=== PATIENT | female | born 1965 | race Caucasian/White ===

== ENCOUNTER 2018-06-28 12:17 | Observation (INO) | payer OTHER ==
[2018-06-28] MEDS ORDERED: NITROGLYCERIN OINT 1 INCH/GM PACKET TOPICAL STA (12:39)
[2018-06-28] MEDS ORDERED: ASPIRIN 81 MG PO STA (12:39)
--- NOTE | 2018-06-28 12:41 | ED ---
General Adult HPI - General Chief complaint: Chest Pain Stated complaint: Chest Pain Time Seen by Provider: 06/28/18 12:26 Source: patient, RN notes reviewed Mode of arrival: ambulatory Limitations: no limitations - History of Present Illness Initial comments: Patient is a pleasant 42-year-old female presenting to the emergency Department with complaints of chest discomfort. Onset of symptoms was 2 days ago. Symptoms were more mild yesterday however waxing and waning. Discomfort currently is 4/10. No history of similar symptoms previously. Discomfort is described as tightness and there is some radiation towards the left neck. Patient states symptoms are positional however also worse with exertion. Patient does have some associated dyspnea and sweating. No nausea. - Related Data Home Medications Medication Instructions Recorded Confirmed Aspirin EC [Ecotrin Low Dose] 81 mg PO ONCE PRN 06/28/18 06/28/18 Allergies Allergy/AdvReac Type Severity Reaction Status Date / Time aspirin Allergy Abdominal Verified 06/28/18 12:46 Pain cephalexin [From Keflex] Allergy Rash/Hives Verified 06/28/18 12:45 Iodinated Contrast- Oral and Allergy Anaphylaxis Unverified 06/28/18 14:54 IV Dye Review of Systems ROS Statement: Those systems with pertinent positive or pertinent negative responses have been documented in the HPI. ROS Other: All systems not noted in ROS Statement are negative. Constitutional: Denies: fever Eyes: Denies: eye pain ENT: Denies: ear pain Respiratory: Reports: dyspnea. Denies: cough Cardiovascular: Reports: chest pain Endocrine: Reports: fatigue Gastrointestinal: Denies: abdominal pain Genitourinary: Denies: dysuria Musculoskeletal: Denies: back pain Skin: Denies: rash Neurological: Denies: weakness Past Medical History Additional Past Medical History / Comment(s): arthritis, migraines, Smoking Status: Light tobacco smoker Past Alcohol Use History: Occasional General Exam Limitations: no limitations General appearance: alert, in no apparent distress Head exam: Present: atraumatic Eye exam: Present: normal appearance, PERRL ENT exam: Present: normal oropharynx Neck exam: Present: normal inspection Respiratory exam: Present: normal lung sounds bilaterally. Absent: chest wall tenderness Cardiovascular Exam: Present: regular rate, normal rhythm Expanded Peripheral pulses: 2+: Radial (R), Radial (L), Dorsalis Pedis (R), Dorsalis Pedis (L) GI/Abdominal exam: Present: soft. Absent: tenderness Extremities exam: Present: normal inspection. Absent: pedal edema, calf tenderness Neurological exam: Present: alert Psychiatric exam: Present: normal affect, normal mood Skin exam: Present: normal color Course Vital Signs 06/28/18 06/28/18 06/28/18 12:21 13:59 16:21 Temperature 98.4 F Pulse Rate 82 77 71 Respiratory 18 16 17 Rate Blood Pressure 115/75 112/71 98/56 O2 Sat by Pulse 98 96 97 Oximetry EKG Findings - EKG Comments: EKG Findings:: Normal sinus rhythm 72. TX 1:30. QRS 88. QT 366. QTc 400. Normal axis. Normal QRS. No acute ST change. Medical Decision Making - Medical Decision Making Patient reevaluated and resting comfortably in bed. Patient updated on results and plan. Case was discussed in detail with Dr. Felder, covering for Dr. hickman , who will admit. - Lab Data Result diagrams: 06/28/18 12:54 06/28/18 12:54 Lab Results 06/28/18 06/28/18 06/28/18 Range/Units 12:54 12:54 12:54 WBC 5.2 (3.8-10.6) k/uL RBC 5.05 (3.80-5.40) m/uL Hgb 16.1 H (11.4-16.0) gm/dL Hct 48.4 H (34.0-46.0) % MCV 95.9 (80.0-100.0) fL MCH 31.8 (25.0-35.0) pg MCHC 33.2 (31.0-37.0) g/dL RDW 13.3 (11.5-15.5) % Plt Count 203 (150-450) k/uL Neutrophils % 58 % Lymphocytes % 32 % Monocytes % 5 % Eosinophils % 2 % Basophils % 1 % Neutrophils # 3.0 (1.3-7.7) k/uL Lymphocytes # 1.6 (1.0-4.8) k/uL Monocytes # 0.3 (0-1.0) k/uL Eosinophils # 0.1 (0-0.7) k/uL Basophils # 0.0 (0-0.2) k/uL PT (9.0-12.0) sec INR (<1.2) APTT (22.0-30.0) sec D-Dimer (<0.60) mg/L FEU Sodium 142 (137-145) mmol/L Potassium (3.5-5.1) mmol/L Chloride 108 H (98-107) mmol/L Carbon Dioxide 25 (22-30) mmol/L Anion Gap 9 mmol/L BUN 13 (7-17) mg/dL Creatinine 0.69 (0.52-1.04) mg/dL Est GFR (CKD-EPI)AfAm >90 (>60 ml/min/1.73 sqM) Est GFR (CKD-EPI)NonAf >90 (>60 ml/min/1.73 sqM) Glucose 108 H (74-99) mg/dL Calcium 10.4 H (8.4-10.2) mg/dL Magnesium 2.2 (1.6-2.3) mg/dL Total Bilirubin 0.7 (0.2-1.3) mg/dL AST 37 H (14-36) U/L ALT 19 (9-52) U/L Alkaline Phosphatase 102 (38-126) U/L Total Creatine Kinase 46 (30-135) U/L CK-MB (CK-2) 0.4 (0.0-2.4) ng/mL CK-MB (CK-2) Rel Index 0.9 Troponin I <0.012 (0.000-0.034) ng/mL Total Protein 8.2 (6.3-8.2) g/dL Albumin 4.4 (3.5-5.0) g/dL 06/28/18 Range/Units 12:54 WBC (3.8-10.6) k/uL RBC (3.80-5.40) m/uL Hgb (11.4-16.0) gm/dL Hct (34.0-46.0) % MCV (80.0-100.0) fL MCH (25.0-35.0) pg MCHC (31.0-37.0) g/dL RDW (11.5-15.5) % Plt Count (150-450) k/uL Neutrophils % % Lymphocytes % % Monocytes % % Eosinophils % % Basophils % % Neutrophils # (1.3-7.7) k/uL Lymphocytes # (1.0-4.8) k/uL Monocytes # (0-1.0) k/uL Eosinophils # (0-0.7) k/uL Basophils # (0-0.2) k/uL PT 10.0 (9.0-12.0) sec INR 1.0 (<1.2) APTT 22.4 (22.0-30.0) sec D-Dimer 1.07 H (<0.60) mg/L FEU Sodium (137-145) mmol/L Potassium (3.5-5.1) mmol/L Chloride (98-107) mmol/L Carbon Dioxide (22-30) mmol/L Anion Gap mmol/L BUN (7-17) mg/dL Creatinine (0.52-1.04) mg/dL Est GFR (CKD-EPI)AfAm (>60 ml/min/1.73 sqM) Est GFR (CKD-EPI)NonAf (>60 ml/min/1.73 sqM) Glucose (74-99) mg/dL Calcium (8.4-10.2) mg/dL Magnesium (1.6-2.3) mg/dL Total Bilirubin (0.2-1.3) mg/dL AST (14-36) U/L ALT (9-52) U/L Alkaline Phosphatase (38-126) U/L Total Creatine Kinase (30-135) U/L CK-MB (CK-2) (0.0-2.4) ng/mL CK-MB (CK-2) Rel Index Troponin I (0.000-0.034) ng/mL Total Protein (6.3-8.2) g/dL Albumin (3.5-5.0) g/dL - Radiology Data Radiology results: report reviewed (Computed tomography scan chest negative for pulmonary embolism.), image reviewed (Chest x-ray shows no acute process, correlate for COPD.) Disposition Clinical Impression: Chest pain Disposition: ADMITTED IP TO THIS HOSP Is patient prescribed a controlled substance at d/c from ED?: No Referrals: Stephen Licona MD [Primary Care Provider] - 1-2 days Decision Time: 17:03
[2018-06-28 13:14] LABS: Basophils % (A) 1 %; Eosinophils # (A) 0.1 k/uL (0-0.7); Eosinophils % (A) 2 %; HCT 48.4 % (34.0-46.0); HGB 16.1 gm/dL (11.4-16.0); Lymphocytes # (A) 1.6 k/uL (1.0-4.8); Lymphocytes % (A) 32 %; MCH 31.8 pg (25.0-35.0); MCHC 33.2 g/dL (31.0-37.0); MCV 95.9 fL (80.0-100.0); Mean Platelet Volume 7.3; Monocytes # (A) 0.3 k/uL (0-1.0); Monocytes % (A) 5 %; Neutrophils % (A) 58 %; Platelet Count 203 k/uL (150-450); RBC 5.05 m/uL (3.80-5.40); RDW 13.3 % (11.5-15.5); WBC 5.2 k/uL (3.8-10.6)
[2018-06-28 13:27] LABS: Partial Thromboplastin Time 22.4 sec (22.0-30.0)
[2018-06-28 13:29] LABS: ALT 19 U/L (9-52); AST 37 U/L (14-36); Albumin 4.4 g/dL (3.5-5.0); Alkaline Phosphatase 102 U/L (38-126); Anion Gap 9 mmol/L; Blood Urea Nitrogen 13 mg/dL (7-17); Calcium 10.4 mg/dL (8.4-10.2); Carbon Dioxide 25 mmol/L (22-30); Chloride 108 mmol/L (98-107); Glucose 108 mg/dL (74-99); Magnesium 2.2 mg/dL (1.6-2.3); Sodium 142 mmol/L (137-145); Total Bilirubin 0.7 mg/dL (0.2-1.3); Total Protein 8.2 g/dL (6.3-8.2)
--- NOTE | 2018-06-28 13:29 | XR ---
EXAMINATION TYPE: XR chest 2V DATE OF EXAM: 06/28/2018 HISTORY: Chest Pain. REFERENCE: NONE. FINDINGS: Lung volumes are prominent. The lungs are clear. Pleural space are clear. The heart is not enlarged. IMPRESSION: PLEASE CORRELATE FOR COPD.
[2018-06-28 13:33] LABS: Creatine Kinase 46 U/L (30-135)
[2018-06-28 13:43] LABS: D-Dimer 1.07 mg/L FEU (<0.60)
[2018-06-28 13:46] LABS: Creatine Kinase MB 0.4 ng/mL (0.0-2.4); Troponin I <0.012 ng/mL (0.000-0.034)
[2018-06-28] MEDS ORDERED: FAMOTIDINE 20 MG/2 ML VIAL IV STA (14:01)
[2018-06-28] MEDS ORDERED: methylPREDNISolone SOD SUCCI 125 MG/2 ML VIAL IV STA (14:01)
[2018-06-28] MEDS ORDERED: diphenhydrAMINE 50 MG/ML 1 ML VIAL IVP STA (14:01)
--- NOTE | 2018-06-28 15:18 | CT ---
EXAMINATION TYPE: CT angio chest DATE OF EXAM: 06/28/2018 3:11 PM COMPARISON: None HISTORY: chest pain CT DLP: 149.6 mGycm Automated exposure control for dose reduction was used. CONTRAST: CTA scan of the thorax is performed with IV Contrast, patient injected with 100mL mL of Isovue 370, p ulmonary embolism protocol. There are 3-D post processed images.. FINDINGS: Thoracic aorta is atheromatous without evidence of aneurysm or dissection. There is normal contrast o pacification of the pulmonary arteries. I see no filling defect. Heart size is normal. There is no pe ricardial effusion. There is mild pulmonary emphysema. The lungs are clear of consolidation. There is no pleural effusion. The bony thorax is intact. IMPRESSION: NO EVIDENCE OF PULMONARY EMBOLISM. MILD PULMONARY EMPHYSEMA.
--- NOTE | 2018-06-28 16:45 | P.HPIM ---
History of Present Illness Patient is a pleasant of 52-year-old female came in with compensative chest discomfort has been going on for last 3-4 days on and off patient has multiple such episodes yesterday last for about 2 minutes in left chest area, radiating to the left hand and neck area, she does smoke lasted for 2 minutes exertional in nature has some questionable diaphoresis shortness of breath as well as lightheadedness associated with that chest pain not associated with food not doesn't change with movement. Nonpleuritic in nature. Patient had a CT of the chest which negative which is negative for pulmonary embolism. Patient doesn't have any major medical problems patient does take aspirin at home. EKG did not show any acute ST-T wave changes facet of troponin is negative. Review of Systems REVIEW OF SYSTEMS: CONSTITUTIONAL: No fever, no malaise, no fatigue. HEENT: No recent visual problems or hearing problems. Denied any sore throat. CARDIOVASCULAR: No orthopnea, PND, no palpitations, no syncope. PULMONARY: no cough, no hemoptysis. GASTROINTESTINAL: No diarrhea, no nausea, no vomiting, no abdominal pain. Normoactive bowel sounds. NEUROLOGICAL: No headaches, no weakness, no numbness. HEMATOLOGICAL: Denies any bleeding or petechiae. GENITOURINARY: Denies any burning micturition, frequency, or urgency. MUSCULOSKELETAL/RHEUMATOLOGICAL: Denies any joint pain, swelling, or any muscle pain. ENDOCRINE: Denies any polyuria or polydipsia. The rest of the 14-point review of systems is negative. Past Medical History Additional Past Medical History / Comment(s): arthritis, migraines, Smoking Status: Light tobacco smoker Past Alcohol Use History: Occasional Medications and Allergies Home Medications Medication Instructions Recorded Confirmed Type Aspirin EC [Ecotrin Low Dose] 81 mg PO ONCE PRN 06/28/18 06/28/18 History Allergies Allergy/AdvReac Type Severity Reaction Status Date / Time aspirin Allergy Abdominal Verified 06/28/18 12:46 Pain cephalexin [From Keflex] Allergy Rash/Hives Verified 06/28/18 12:45 Iodinated Contrast- Oral and Allergy Anaphylaxis Unverified 06/28/18 14:54 IV Dye Physical Exam Vitals: Vital Signs Temp Pulse Resp BP Pulse Ox 06/28/18 16:21 71 17 98/56 97 06/28/18 13:59 77 16 112/71 96 06/28/18 12:21 98.4 F 82 18 115/75 98 Intake and Output 06/28/18 06/28/18 06/28/18 06:59 14:59 22:59 Other: Weight 66.224 kg PHYSICAL EXAMINATION: GENERAL: The patient is alert and oriented x3, not in any acute distress. Well developed, well nourished. HEENT: Pupils are round and equally reacting to light. EOMI. No scleral icterus. No conjunctival pallor. Normocephalic, atraumatic. No pharyngeal erythema. No thyromegaly. CARDIOVASCULAR: S1 and S2 present. No murmurs, rubs, or gallops. PULMONARY: Chest is clear to auscultation, no wheezing or crackles. ABDOMEN: Soft, nontender, nondistended, normoactive bowel sounds. No palpable organomegaly. MUSCULOSKELETAL: No joint swelling or deformity. EXTREMITIES: No cyanosis, clubbing, or pedal edema. NEUROLOGICAL: Gross neurological examination did not reveal any focal deficits. SKIN: No rashes. Results CBC & Chem 7: 06/28/18 12:54 06/28/18 12:54 Labs: Abnormal Lab Results - Last 24 Hours (Table) 06/28/18 06/28/18 06/28/18 Range/Units 12:54 12:54 12:54 Hgb 16.1 H (11.4-16.0) gm/dL Hct 48.4 H (34.0-46.0) % D-Dimer 1.07 H (<0.60) mg/L FEU Chloride 108 H (98-107) mmol/L Glucose 108 H (74-99) mg/dL Calcium 10.4 H (8.4-10.2) mg/dL AST 37 H (14-36) U/L Assessment and Plan Plan: -Chest pain: Patient does have some typical features cardiology will evaluate the P patient will rule out acute coronary syndromes ruled out pulmonary embolism. -Nicotine abuse: Counseling was provided -History of migraines
[2018-06-28] MEDS ORDERED: NITROGLYCERIN SL TABS 0.4 MG TAB SUBLINGUAL PRN (17:01)
[2018-06-28 18:01] VITALS: BMI 23.6
[2018-06-28] MEDS: NITROGLYCERIN OINT 1 INCH/GM PACKET TOPICAL SCH ×2 (18:13→23:32)
[2018-06-28 19:11] LABS: Creatine Kinase 40 U/L (30-135)
[2018-06-28 19:24] LABS: Creatine Kinase MB 0.3 ng/mL (0.0-2.4); Troponin I <0.012 ng/mL (0.000-0.034)
[2018-06-29 00:42] LABS: Creatine Kinase 38 U/L (30-135)
[2018-06-29 00:55] LABS: Creatine Kinase MB 0.3 ng/mL (0.0-2.4); Troponin I <0.012 ng/mL (0.000-0.034)
[2018-06-29] MEDS: NITROGLYCERIN OINT 1 INCH/GM PACKET TOPICAL SCH ×3 (06:09→17:40)
[2018-06-29 07:07] LABS: Cholesterol 261 mg/dL (<200); HDL Cholesterol 59 mg/dL (40-60); LDL Cholesterol,Calculated 190 mg/dL (0-99); Triglycerides 58 mg/dL (<150)
[2018-06-29] MEDS ORDERED: ASPIRIN 325 MG TAB PO SCH (09:00)
--- NOTE | 2018-06-29 10:01 | US ---
EXAMINATION TYPE: US gallbladder DATE OF EXAM: 06/29/2018 COMPARISON: Previous study dated 03/24/2012. CLINICAL HISTORY: ruq pain, + murphys. RUQ pain, NPO Patient was scanned portable EXAM MEASUREMENTS: Liver Length: 16.0 cm Gallbladder Wall: 0.2 cm CBD: 0.2 cm CHD: 0.2 cm Right Kidney: 10.4 x 4.9 x 3.5 cm Pancreas: Echogenic and heterogenous in appearance. Main pancreatic duct = 1.6 mm. Tail obscured b y overlying bowel gas Liver: wnl Gallbladder: wnl Evidence for sonographic Malagon's sign: NEG CBD: wnl CHD: wnl Right Kidney: wnl The pancreas is somewhat echogenic and may be fatty infiltrated. The pancreatic duct is normal in opal iber. The liver is normal in size without biliary dilatation. The gallbladder is unremarkable without evidence of cholelithiasis. Gallbladder wall measures 2 mm. T he distal common hepatic duct measures 2 mm. There is no sonographic Malagon's sign. Right kidney is unremarkable. IMPRESSION: PROBABLE FATTY INFILTRATION OF THE PANCREAS.
--- NOTE | 2018-06-29 11:31 | P.CRDCN ---
History of Present Illness History of present illness: This is a pleasant 52 female past medical history significant for chronic nicotine dependence. She denies history of hypertension, dyslipidemia, very artery is diabetes mellitus. 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 We here in consultation for symptoms of chest pain. She states she was working they are on afternoon she started feeling a very heavy tight sensation across her chest mostly located in the midsternal region with radiation sometimes through to the back and bilateral shoulders and between her shoulder blades. This is associated shortness of breath, dizziness and diaphoresis. She decided to go in the house and lay down. She states she slept for 5 hours, which is abnormal for her. She woke up the nect morning with no further symptoms of chest pain. However, throughout the day she did feel chest discomfort at times when she would do activity. She saw her PCP and was sent in for further evaluation. EKG reveals sinus mechanism with inferior Q-waves, no acute ST or T-wave abnormalities. Chest xray reveals no acute cardiopulmonary process. CTA chest negative for PE, mild pulmonary emphysema noted. Ultrasound of the gallbladder negative for cholecystitis or cholelithiasis. Laboratory data reviewed, hemoglobin 16.1, platelets 23, d-dimer 1.07, sodium 142, magnesium 2.2, creatinine 0.69, cardiac enzymes negative 3. She takes no daily cardiac medications. At the time of my exam: CONSTITUTIONAL: Denies fever. Denies chills. EYES: Denies blurred vision. Denies vision changes. Denies eye pain. EARS, NOSE, MOUTH & THROAT: Denies headache. Denies sore throat. Denies ear pain. CARDIOVASCULAR: Denies chest pain. Denies shortness of breath. Denies orthopnea. Denies PND. Denies palpitations. RESPIRATORY: Denies cough. GASTROINTESTINAL: Complains of intermittent abdominal pain. Denies diarrhea. Denies constipation. Denies nausea. Denies vomiting. MUSCULOSKELETAL: Denies myalgias. INTEGUMENTARY: Denies pruitis. Denies rash. NEUROLOGIC: Denies numbness. Denies tingling. Denies weakness. PSYCHIATRIC: Denies anxiety. Denies depression. ENDOCRINE: Denies fatigue. Denies weight change. Denies polydipsia. Denies polyurina. GENITOURINARY: Denies burning, hematuria or urgency with micturation. HEMATOLOGIC: Denies history of anemia. Denies bleeding. Blood pressure 109/65 heart rate 67 afebrile maintaining oxygen saturation on room air GENERAL: This is a 52-year-old female in no apparent distress at the time of my examination. HEENT: Head is atraumatic, normocephalic. Pupils are equal, round. Sclerae anicteric. Conjunctivae are clear. Mucous membranes of the mouth are moist. Neck is supple. There is no jugular venous distention. No carotid bruit is heard. LUNGS: Clear to auscultation no wheezes, rales or rhonchi. No chest wall tenderness is noted on palpation or with deep breathing. HEART: Regular rate and rhythm without murmurs, rubs or gallops. S1 and S2 heard. ABDOMEN: Soft, positive murphys sign on deep palpation of right upper quadrant. Bowel sounds are heard. No organomegaly noted. EXTREMITIES: No evidence of peripheral edema and no calf tenderness noted. VASCULAR: Radial and dorsalis pedis pulses palpated, no evidence of clubbing. NEUROLOGIC: Patient is awake, alert and oriented x3. ASSESSMENT Chest pain, atypical. An acute coronary event is ruled out no EKG evidence of ischemia and negative cardiac enzymes Right upper quadrant abdominal pain, intermittent. Ultrasound gallbladder negative. Chronic nicotine dependence PLAN Check potassium level. Obtain 2-D echocardiogram and Doppler study to assess cardiac structure and function. Perform stress echocardiogram in the morning to assess her stress induced cardiac ischemia. Further recommendations to follow based on clinical course. Smoking cessation recommended. Thank you kindly for this consultation. Nurse Practitioner note has been reviewed, I agree with a documented findings and plan of care. Patient was seen and examined. Past Medical History Additional Past Medical History / Comment(s): arthritis, migraines, History of Any Multi-Drug Resistant Organisms: C-DIFF Date of last positivie culture/infection: 2007 MDRO Source:: stool Smoking Status: Former smoker Past Alcohol Use History: Occasional Medications and Allergies Home Medications Medication Instructions Recorded Confirmed Type Aspirin EC [Ecotrin Low Dose] 81 mg PO ONCE PRN 06/28/18 06/28/18 History Allergies Allergy/AdvReac Type Severity Reaction Status Date / Time aspirin Allergy Abdominal Verified 06/28/18 17:26 Pain cephalexin [From Keflex] Allergy Rash/Hives Verified 06/28/18 17:26 Iodinated Contrast- Oral and Allergy Anaphylaxis Verified 06/28/18 17:26 IV Dye Physical Exam Vitals: Vital Signs Temp Pulse Pulse Resp BP BP Pulse Ox 06/29/18 08:35 98.3 F 67 16 109/65 97 06/29/18 07:35 97.7 F 97 18 113/61 96 06/29/18 07:17 68 06/29/18 03:20 97.8 F 68 18 105/62 94 L 06/28/18 23:30 97.8 F 82 18 102/65 96 06/28/18 19:50 96.8 F L 80 18 110/62 93 L 06/28/18 18:09 97.7 F 81 18 113/58 94 L 06/28/18 16:21 71 17 98/56 97 06/28/18 13:59 77 16 112/71 96 06/28/18 12:21 98.4 F 82 18 115/75 98 Intake and Output 06/28/18 06/29/18 06/29/18 22:59 06:59 14:59 Other: Voiding Method Toilet Weight 66.224 kg 66.7 kg Results 06/28/18 12:54 06/28/18 12:54 Cardiac Enzymes 06/28/18 06/28/18 06/28/18 Range/Units 12:54 12:54 18:44 AST 37 H (14-36) U/L CK-MB (CK-2) 0.4 0.3 (0.0-2.4) ng/mL Troponin I <0.012 <0.012 (0.000-0.034) ng/mL 06/29/18 Range/Units 00:18 AST (14-36) U/L CK-MB (CK-2) 0.3 (0.0-2.4) ng/mL Troponin I <0.012 (0.000-0.034) ng/mL Coagulation 06/28/18 Range/Units 12:54 PT 10.0 (9.0-12.0) sec APTT 22.4 (22.0-30.0) sec Lipids 06/29/18 Range/Units 06:04 Triglycerides 58 (<150) mg/dL Cholesterol 261 H (<200) mg/dL HDL Cholesterol 59 (40-60) mg/dL CBC 06/28/18 Range/Units 12:54 WBC 5.2 (3.8-10.6) k/uL RBC 5.05 (3.80-5.40) m/uL Hgb 16.1 H (11.4-16.0) gm/dL Hct 48.4 H (34.0-46.0) % Plt Count 203 (150-450) k/uL Comprehensive Metabolic Panel 06/28/18 Range/Units 12:54 Sodium 142 (137-145) mmol/L Potassium (3.5-5.1) mmol/L Chloride 108 H (98-107) mmol/L Carbon Dioxide 25 (22-30) mmol/L BUN 13 (7-17) mg/dL Creatinine 0.69 (0.52-1.04) mg/dL Glucose 108 H (74-99) mg/dL Calcium 10.4 H (8.4-10.2) mg/dL AST 37 H (14-36) U/L ALT 19 (9-52) U/L Alkaline Phosphatase 102 (38-126) U/L Total Protein 8.2 (6.3-8.2) g/dL Albumin 4.4 (3.5-5.0) g/dL Current Medications Generic Name Dose Route Start Last Admin Trade Name Freq PRN Reason Stop Dose Admin Aspirin 325 mg 06/29/18 09:00 06/29/18 07:28 Aspirin PO 325 mg DAILY DREA Administration Nitroglycerin 1 inch 06/28/18 18:00 06/29/18 06:09 Nitro-Bid Oint TOPICAL 1 inch Q6HR DREA Administration Nitroglycerin 0.4 mg 06/28/18 17:01 Nitrostat SUBLINGUAL Q5M PRN Chest Pain Sodium Chloride 10 ml 06/28/18 21:00 06/29/18 07:23 Saline Flush IV Not Given BID DREA Intake and Output 06/28/18 06/29/18 06/29/18 22:59 06:59 14:59 Other: Voiding Method Toilet Weight 66.224 kg 66.7 kg 06/28/18 12:54 06/28/18 12:54
--- NOTE | 2018-06-29 14:10 | P.PN ---
Subjective 52-year-old admitted for chest pain rule out acute coronary syndromes but patient is still having on and off chest pressure. Patient will undergo stress test if that is negative patient will be discharged tomorrow. Patient's chest pain is Nonpleuritic, does not appear to be gastroesophageal reflux disease. Ultrasound of the gallbladder did not show any cholelithiasis Constitutional: Denied any fatigue denied any fever. Cardio vascular: denied any palpitations Gastrointestinal denied any nausea vomiting Pulmonary: Denied any shortness of breath cough Neurologic denied any new focal deficits Objective - Vital Signs Vital signs: Vital Signs Temp 98.3 F 06/29/18 12:00 Pulse 65 06/29/18 12:00 Resp 16 06/29/18 12:00 BP 110/68 06/29/18 12:00 Pulse Ox 97 06/29/18 12:00 Intake & Output 06/28/18 06/29/18 06/29/18 18:59 06:59 18:59 Weight 66.224 kg 66.7 kg Other: Voiding Method Toilet - Exam PHYSICAL EXAMINATION: GENERAL: The patient is alert and oriented x3, not in any acute distress. Well developed, well nourished. HEENT: Pupils are round and equally reacting to light. EOMI. No scleral icterus. No conjunctival pallor. Normocephalic, atraumatic. No pharyngeal erythema. No thyromegaly. CARDIOVASCULAR: S1 and S2 present. No murmurs, rubs, or gallops. PULMONARY: Chest is clear to auscultation, no wheezing or crackles. ABDOMEN: Soft, nontender, nondistended, normoactive bowel sounds. No palpable organomegaly. MUSCULOSKELETAL: No joint swelling or deformity. EXTREMITIES: No cyanosis, clubbing, or pedal edema. NEUROLOGICAL: Gross neurological examination did not reveal any focal deficits. SKIN: No rashes. - Labs CBC & Chem 7: 06/28/18 12:54 06/29/18 06:04 Labs: Abnormal Lab Results - Last 24 Hours (Table) 06/29/18 Range/Units 06:04 Cholesterol 261 H (<200) mg/dL LDL Cholesterol, Calc 190 H (0-99) mg/dL Assessment and Plan Plan: -Chest pain: Patient does have some typical features stress test tomorrow rule out pulmonary embolism ruled out any gallbladder pathology -Nicotine abuse: Counseling was provided -History of migraines
[2018-06-30] MEDS: NITROGLYCERIN OINT 1 INCH/GM PACKET TOPICAL SCH ×3 (00:02→12:12)
[2018-06-30 07:52] VITALS: RESP 18
[2018-06-30] MEDS ORDERED: ASPIRIN 81 MG PO SCH (09:00)
[2018-06-30 11:23] VITALS: BP 102/68; PULSE 59; TEMP 98.4
--- NOTE | 2018-06-30 13:02 | ECHOF ---
Referral Reason:chest pain MEASUREMENTS -------- HEIGHT: 167.6 cm WEIGHT: 66.7 kg BP: 100/68 RVIDd: 2.7 cm (< 3.3) IVSd: 1.1 cm (0.6 - 1.1) LVIDd: 3.3 cm (3.9 - 5.3) LVPWd: 1.1 cm (0.6 - 1.1) IVSs: 1.5 cm LVIDs: 2.4 cm LVPWs: 1.3 cm LA Diam: 2.4 cm (2.7 - 3.8) LAESV Index (A-L): 15.96 ml/m Ao Diam: 3.0 cm (2.0 - 3.7) AV Cusp: 2.1 cm (1.5 - 2.6) MV EXCURSION: 16.074 mm (> 18.000) MV EF SLOPE: 129 mm/s (70 - 150) EPSS: 0.7 cm MV E Terry: 0.78 m/s MV DecT: 189 ms MV A Terry: 0.56 m/s MV E/A Ratio: 1.39 RAP: 5.00 mmHg RVSP: 22.99 mmHg FINDINGS -------- Sinus rhythm. Resting bradycardia (HR<60bpm). This was a technically adequate study. The left ventricular size is normal. There is borderline concentric left ventricular hypertrophy. Overall left ventricular systolic function is normal with, an EF between 55 - 60 %. The right ventricle is normal in size. Normal LA size by volume 22+/-6 ml/m2. The right atrium is normal in size. The aortic valve is trileaflet and appears structurally normal. The mitral valve is normal. There is trace mitral regurgitation. Mild tricuspid regurgitation present. Right ventricular systolic pressure is normal at < 35 mmHg. Trace/mild (physiologic) pulmonic regurgitation. The aortic root size is normal. Normal inferior vena cava with normal inspiratory collapse consistent with estimated right atrial pre ssure of 5 mmHg. There is no pericardial effusion. CONCLUSIONS -------- 1. Sinus rhythm. 2. Resting bradycardia (HR<60bpm). 3. This was a technically adequate study. 4. The left ventricular size is normal. 5. There is borderline concentric left ventricular hypertrophy. 6. Overall left ventricular systolic function is normal with, an EF between 55 - 60 %. 7. The right ventricle is normal in size. 8. Normal LA size by volume 22+/-6 ml/m2. 9. The right atrium is normal in size. 10. The aortic valve is trileaflet and appears structurally normal. 11. The mitral valve is normal. 12. There is trace mitral regurgitation. 13. Mild tricuspid regurgitation present. 14. Right ventricular systolic pressure is normal at < 35 mmHg. 15. Trace/mild (physiologic) pulmonic regurgitation. 16. The aortic root size is normal. 17. Normal inferior vena cava with normal inspiratory collapse consistent with estimated right atrial pressure of 5 mmHg. 18. There is no pericardial effusion. [facility] FACULTY ASSISTANT: Pricila Cordova RDCS
--- NOTE | 2018-06-30 13:22 | P.DS ---
Providers Date of admission: 06/28/18 17:01 Attending physician: Gumaro Felder Consults: 06/28/18 17:01 Consult Physician Urgent Consulting Provider: Bruce Siddiqi Reason/Comments: cp Do you want consulting provider notified?: Yes Primary care physician: Monae Mitchell [facility] Course: 52-year-old admitted for chest pain rule out acute coronary syndromes but patient is still having on and off chest pressure. Patient will undergo stress test if that is negative patient will be discharged tomorrow. Patient's chest pain is Nonpleuritic, does not appear to be gastroesophageal reflux disease. Ultrasound of the gallbladder did not show any cholelithiasis 06/30/2018 Patient underwent stress us if his intubation will be discharged. PHYSICAL EXAMINATION: GENERAL: The patient is alert and oriented x3, not in any acute distress. Well developed, well nourished. HEENT: Pupils are round and equally reacting to light. EOMI. No scleral icterus. No conjunctival pallor. Normocephalic, atraumatic. No pharyngeal erythema. No thyromegaly. CARDIOVASCULAR: S1 and S2 present. No murmurs, rubs, or gallops. PULMONARY: Chest is clear to auscultation, no wheezing or crackles. ABDOMEN: Soft, nontender, nondistended, normoactive bowel sounds. No palpable organomegaly. MUSCULOSKELETAL: No joint swelling or deformity. EXTREMITIES: No cyanosis, clubbing, or pedal edema. NEUROLOGICAL: Gross neurological examination did not reveal any focal deficits. SKIN: No rashes. For her other medical issues and hospitalization course please refer to my progress note from yesterday Plan - Discharge Summary New Discharge Prescriptions: No Action Aspirin EC [Ecotrin Low Dose] 81 mg PO ONCE PRN PRN Reason: Pain Discharge Medication List Aspirin EC [Ecotrin Low Dose] 81 mg PO ONCE PRN 06/28/18 [History] Follow up Appointment(s)/Referral(s): Stephen Licona MD [Primary Care Provider] - 1-2 days Discharge Disposition: HOME SELF-CARE
--- NOTE | 2018-06-30 14:24 | P.PN ---
Subjective Mrs. Pedro is seen and examined in no acute distress. She states she has continued to have intermittent symptoms of chest pain throughout the night with no specific aggravating factor associated with shortness of breath. She denies palpitations, dizziness or nausea/vomiting. Ultrasound of her gallbladder negative for cholecystitis with evidence of fatty infiltration of the pancreas. Echocardiogram has been taken and will be reviewed. Blood pressure 102/68 heart rate 59 afebrile maintaining oxygen saturation on room air. She underwent stress echocardiogram today which was negative for stress-induced cardiac ischemia. Cholesterol profile as follows, LDL 190, HDL 59, triglycerides 58 and total cholesterol 261. Objective - Vital Signs Vital signs: Vital Signs Temp 98.4 F 06/30/18 11:22 Pulse 59 L 06/30/18 12:00 Resp 18 06/30/18 12:00 BP 102/68 06/30/18 11:22 Pulse Ox 96 06/30/18 11:22 Intake & Output 06/29/18 06/30/18 06/30/18 18:59 06:59 18:59 Intake Total 800 200 Balance 800 200 Weight 66.7 kg Intake: Oral 800 200 Other: Voiding Method Toilet Toilet Toilet # Voids 2 2 - Exam GENERAL: Well-appearing, well-nourished and in no acute distress. NECK: Supple without JVD or thyromegaly. LUNGS: Breath sounds clear to auscultation bilaterally. Respiration equal and unlabored. No wheezes, rales or rhonchi. HEART: Regular rate and rhythm without murmurs, rubs or gallops. S1 and S2 heard. EXTREMITIES: Normal range of motion, no edema. No clubbing or cyanosis. Peripheral pulses intact. - Labs CBC & Chem 7: 06/28/18 12:54 06/29/18 06:04 Assessment and Plan Assessment: ASSESSMENT Chest pain, atypical. An acute coronary event is ruled out no EKG evidence of ischemia and negative cardiac enzymes Right upper quadrant abdominal pain, intermittent. Ultrasound gallbladder negative. Chronic nicotine dependence PLAN Stable from a cardiac perspective. Lifestyle recommendations recommended lowering of LDL cholesterol with diet and exercise. Tobacco cessation recommended. Further evaluation of possibility of underlying pulmonary process for cause of symptoms. Follow up with Dr. Mcclain in 2-3 weeks. Nurse Practitioner note has been reviewed, I agree with a documented findings and plan of care. Patient was seen and examined.
--- NOTE | 2018-07-01 09:22 | ECHOS ---
STRESS ECHOCARDIOGRAM INDICATIONS: Chest pain. BASELINE HEART RATE: 67 BASELINE BLOOD PRESSURE: 71/41 MAXIMUM HEART RATE: 132 MAXIMUM BLOOD PRESSURE: 213/66 85% MPHR: 141 100% MPHR: 166 METS: 10.5 MAXIMUM STAGE REACHED: III TOTAL EXERCISE TIME: 9:01 CLINICAL INFORMATION: The patient was exercised for a total period of 9 minutes. The peak heart rate of 132 was achieved. Maximum blood pressure of 213/66 mmHg was noted. Patient did not complain of any chest pain during the test. Test was terminated because patient got short of breath. Resting EKG shows normal sinus rhythm with normal MO interval and QRS duration and normal ST-T waves. No ST-segment depression suggestive of ischemia is noted. The baseline echocardiographic images reveals normal left ventricular chamber size with normal left ventricular systolic function. In the immediate post exercise, normal increase in the wall thickness and contractility is noted. FINAL IMPRESSION: This stress echocardiographic study is negative for stress-induced ischemia. Patient's exercise tolerance is average. MMODL / IJN: [id number] /
== END 2018-06-30 14:53 | disposition home or self-care (01) ==
LOC: EC 12:17 → 6SEL 17:01 → 3OBS 06-29 08:36
PROVIDERS: ADMIT Internal Medicine; ATTEND Internal Medicine
DX: R07.89 Other chest pain (principal); R10.11 Right upper quadrant pain; R06.02 Shortness of breath; R61 Generalized hyperhidrosis; R42 Dizziness and giddiness; K86.89 Other specified diseases of pancreas; M19.90 Unspecified osteoarthritis, unspecified site; G43.909 Migraine, unspecified, not intractable, without status migrainosus; Z16.24 Resistance to multiple antibiotics; F17.200 Nicotine dependence, unspecified, uncomplicated; Z88.6 Allergy status to analgesic agent; Z88.1 Allergy status to other antibiotic agents; Z91.041 Radiographic dye allergy status
CPT/HCPCS: 99285 ×2; 96374 ×2; 96375 ×3; 36415; 93005; 93306; 93351; 85379; 80061; 80053; 82550 ×2; 82553 ×2; 83735; 84132; 84484 ×2; 85025; 85610; 85730; 71046; 76705; 71275; G0378 ×4; J1200; J2930; Q9967

== ENCOUNTER 2021-01-20 10:08 | Inpatient (IN) | payer OTHER ==
[2021-01-20] MEDS ORDERED: SODIUM CHLORIDE 0.9% 1,000 ML IV STA (10:40)
[2021-01-20] MEDS ORDERED: ONDANSETRON 4 MG/2 ML VIAL IVP STA (10:40)
[2021-01-20] MEDS ORDERED: KETOROLAC 15 MG/ML 1 ML VIAL IVP STA (10:40)
--- NOTE | 2021-01-20 11:07 | ED ---
Abdominal Pain HPI - General Chief Complaint: Abdominal Pain Stated Complaint: left side pain Time Seen by Provider: 01/20/21 10:22 Source: patient Mode of arrival: ambulatory Limitations: no limitations - History of Present Illness Initial Comments: Patient is a 55-year-old female presenting to the emergency Department with complaints of severe left lower back pain and left abdominal pain over the past week and a half. She states the pain has been intermittent, but when it does, it is very severe in nature. It has been causing nausea and vomiting. Currently she rates the pain as 7/10. She does admit to some radiation to the left side of her abdomen. She does have history of appendectomy, hysterectomy, no other abdominal surgeries. She denies any dysuria, no fevers or chills, no chest pain or shortness of breath. She states she has been recovering from an upper respiratory infection, so here she has a little bit of wheezing. She krystle es any history of asthma or COPD. She has no further complaints at this time. Upon arrival to the ER, her vitals are stable. - Related Data Home Medications Medication Instructions Recorded Confirmed Dorzolamide 2% [Trusopt 2%] 1 drop BOTH EYES BID 01/20/21 01/20/21 Allergies Allergy/AdvReac Type Severity Reaction Status Date / Time aspirin Allergy Abdominal Verified 01/20/21 11:10 Pain cephalexin [From Keflex] Allergy Rash/Hives Verified 01/20/21 11:10 Iodinated Contrast Media Allergy Anaphylaxis Verified 01/20/21 11:10 [Iodinated Contrast- Oral and IV Dye] Review of Systems ROS Statement: Those systems with pertinent positive or pertinent negative responses have been documented in the HPI. ROS Other: All systems not noted in ROS Statement are negative. Past Medical History Additional Past Medical History / Comment(s): arthritis, migraines, History of Any Multi-Drug Resistant Organisms: C-DIFF Date of last positivie culture/infection: 2007 MDRO Source:: stool Past Surgical History: Appendectomy, Hysterectomy, Orthopedic Surgery Past Psychological History: No Psychological Hx Reported Smoking Status: Current every day smoker Past Alcohol Use History: Daily, Occasional Past Drug Use History: None Reported General Exam - General Exam Comments Initial Comments: GENERAL: Patient is well-developed and well-nourished. Patient is nontoxic and in mild distress. HEAD: Atraumatic, normocephalic. EYES: Pupils equal round and reactive to light, extraocular movements intact, sclera anicteric, conjunctiva are normal. Eyelids were unremarkable. ENT: TMs normal, nares patent, oropharynx clear without exudates. Moist mucous membranes. NECK: Normal range of motion, supple without lymphadenopathy or JVD. LUNGS: Unlabored respirations. Breath sounds clear to auscultation bilaterally and equal. No wheezes rales or rhonchi. HEART: Regular rate and rhythm without murmurs, rubs or gallops. ABDOMEN: Soft, patient has tenderness of the left flank, left lower quadrant. Positive guarding, normoactive bowel sounds. No masses appreciated. : Deferred MUSCULOSKELETAL: Normal extremities with adequate strength and normal range of motion, no pitting or edema. No clubbing or cyanosis. NEUROLOGICAL: Patient is alert and oriented x 3. Motor and sensory are also intact. Cranial nerves II through XII grossly intact. Symmetrical smile. Normal speech, normal gait. PSYCH: Normal mood, normal affect. SKIN: Warm, Dry, normal turgor, no rashes or lesions noted. Limitations: no limitations Course Vital Signs 01/20/21 10:18 Temperature 97.9 F Pulse Rate 84 Respiratory 18 Rate Blood Pressure 104/74 O2 Sat by Pulse 100 Oximetry Medical Decision Making - Medical Decision Making Patient is a 55-year-old female here with complaints of left flank pain, left lower quadrant pain for the past week and a half. Positive nausea and vomiting. No fevers. Her vital signs are stable here. She is quite tender left lower quadrant and left flank on percussion. Labs show a normal white count, normal hemoglobin, electrolytes are stable, lactic acid is 1.7. HCG urine is positive for nitrates, UTI, she got 3+ ketones. Urine culture is pending. CT of the abdomen and pelvis reveals a left and right hepatic mass suggestive for metastases, enlarged left adrenal gland also suspicious for metastases. A primary neoplasm source not identified. Patient will be started on Bactrim for her UTI, she is ALLERGIC to Keflex. She'll be admitted for abdominal pain, concerns for metastases. We'll consult surgery, oncology. Patient accepted by Dr. Lu. Case discussed with Dr. Nicholas. - Lab Data Result diagrams: 01/20/21 10:40 01/20/21 10:40 Lab Results 04/07/0401/20/21 01/20/21 Range/Units 10:40 10:40 10:40 WBC 6.7 (3.8-10.6) k/uL RBC 3.78 L (3.80-5.40) m/uL Hgb 13.6 (11.4-16.0) gm/dL Hct 38.4 (34.0-46.0) % MCV 101.8 H (80.0-100.0) fL MCH 36.1 H (25.0-35.0) pg MCHC 35.4 (31.0-37.0) g/dL RDW 13.0 (11.5-15.5) % Plt Count 329 (150-450) k/uL MPV 7.4 Neutrophils % 69 % Lymphocytes % 21 % Monocytes % 7 % Eosinophils % 1 % Basophils % 1 % Neutrophils # 4.6 (1.3-7.7) k/uL Lymphocytes # 1.4 (1.0-4.8) k/uL Monocytes # 0.5 (0-1.0) k/uL Eosinophils # 0.1 (0-0.7) k/uL Basophils # 0.0 (0-0.2) k/uL Macrocytosis Slight Sodium 134 L (137-145) mmol/L Potassium 3.8 (3.5-5.1) mmol/L Chloride 101 (98-107) mmol/L Carbon Dioxide 27 (22-30) mmol/L Anion Gap 6 mmol/L BUN 12 (7-17) mg/dL Creatinine 0.70 (0.52-1.04) mg/dL Est GFR (CKD-EPI)AfAm >90 (>60 ml/min/1.73 sqM) Est GFR (CKD-EPI)NonAf >90 (>60 ml/min/1.73 sqM) Glucose 113 H (74-99) mg/dL Plasma Lactic Acid Salazar 1.7 (0.7-2.0) mmol/L Calcium 10.5 H (8.4-10.2) mg/dL Total Bilirubin 0.9 (0.2-1.3) mg/dL AST 27 (14-36) U/L ALT 19 (4-34) U/L Alkaline Phosphatase 103 (38-126) U/L Total Protein 7.4 (6.3-8.2) g/dL Albumin 3.9 (3.5-5.0) g/dL Amylase 42 (30-110) U/L Lipase 57 (23-300) U/L Urine Color Urine Appearance (Clear) Urine pH (5.0-8.0) Ur Specific Randlett (1.001-1.035) Urine Protein (Negative) Urine Glucose (UA) (Negative) Urine Ketones (Negative) Urine Blood (Negative) Urine Nitrite (Negative) Urine Bilirubin (Negative) Urine Urobilinogen (<2.0) mg/dL Ur Leukocyte Esterase (Negative) Urine RBC (0-5) /hpf Urine WBC (0-5) /hpf Ur Squamous Epith Cells (0-4) /hpf Urine Bacteria (None) /hpf Urine Mucus (None) /hpf 01/20/21 Range/Units 10:58 WBC (3.8-10.6) k/uL RBC (3.80-5.40) m/uL Hgb (11.4-16.0) gm/dL Hct (34.0-46.0) % MCV (80.0-100.0) fL MCH (25.0-35.0) pg MCHC (31.0-37.0) g/dL RDW (11.5-15.5) % Plt Count (150-450) k/uL MPV Neutrophils % % Lymphocytes % % Monocytes % % Eosinophils % % Basophils % % Neutrophils # (1.3-7.7) k/uL Lymphocytes # (1.0-4.8) k/uL Monocytes # (0-1.0) k/uL Eosinophils # (0-0.7) k/uL Basophils # (0-0.2) k/uL Macrocytosis Sodium (137-145) mmol/L Potassium (3.5-5.1) mmol/L Chloride (98-107) mmol/L Carbon Dioxide (22-30) mmol/L Anion Gap mmol/L BUN (7-17) mg/dL Creatinine (0.52-1.04) mg/dL Est GFR (CKD-EPI)AfAm (>60 ml/min/1.73 sqM) Est GFR (CKD-EPI)NonAf (>60 ml/min/1.73 sqM) Glucose (74-99) mg/dL Plasma Lactic Acid Salazar (0.7-2.0) mmol/L Calcium (8.4-10.2) mg/dL Total Bilirubin (0.2-1.3) mg/dL AST (14-36) U/L ALT (4-34) U/L Alkaline Phosphatase (38-126) U/L Total Protein (6.3-8.2) g/dL Albumin (3.5-5.0) g/dL Amylase (30-110) U/L Lipase (23-300) U/L Urine Color Yellow Urine Appearance Cloudy H (Clear) Urine pH 6.5 (5.0-8.0) Ur Specific Randlett 1.022 (1.001-1.035) Urine Protein 1+ H (Negative) Urine Glucose (UA) Negative (Negative) Urine Ketones 3+ H (Negative) Urine Blood Negative (Negative) Urine Nitrite Positive H (Negative) Urine Bilirubin 1+ H (Negative) Urine Urobilinogen 3.0 (<2.0) mg/dL Ur Leukocyte Esterase Trace H (Negative) Urine RBC <1 (0-5) /hpf Urine WBC 8 H (0-5) /hpf Ur Squamous Epith Cells 6 H (0-4) /hpf Urine Bacteria Many H (None) /hpf Urine Mucus Many H (None) /hpf Disposition Clinical Impression: Abdominal pain, UTI (urinary tract infection), Metastasis to liver of unknown origin Disposition: ADMITTED IP TO THIS HOSP Condition: Stable Is patient prescribed a controlled substance at d/c from ED?: No Referrals: Stephen Licona MD [Primary Care Provider] - 1-2 days Decision Date: 01/20/21 Decision Time: 12:49
[2021-01-20] MEDS ORDERED: MORPHINE SULFATE 4 MG/ML SYRINGE IVP STA (11:25)
[2021-01-20 11:28] LABS: Basophils % (A) 1 %; Eosinophils # (A) 0.1 k/uL (0-0.7); Eosinophils % (A) 1 %; HCT 38.4 % (34.0-46.0); HGB 13.6 gm/dL (11.4-16.0); Lymphocytes # (A) 1.4 k/uL (1.0-4.8); Lymphocytes % (A) 21 %; MCH 36.1 pg (25.0-35.0); MCHC 35.4 g/dL (31.0-37.0); MCV 101.8 fL (80.0-100.0); Macrocytosis Slight; Mean Platelet Volume 7.4; Monocytes # (A) 0.5 k/uL (0-1.0); Monocytes % (A) 7 %; Neutrophils # (A) 4.6 k/uL (1.3-7.7); Neutrophils % (A) 69 %; Platelet Count 329 k/uL (150-450); RBC 3.78 m/uL (3.80-5.40); WBC 6.7 k/uL (3.8-10.6)
--- NOTE | 2021-01-20 11:39 | CT ---
EXAMINATION TYPE: CT abdomen pelvis wo con DATE OF EXAM: 01/20/2021 COMPARISON: None INDICATION: Left flank pain DLP: 488.1 mGycm, Automated exposure control for dose reduction was used. CONTRAST: 0 mL of Isovue 300. Study performed without Oral Contrast TECHNIQUE: Axial images were obtained from above the diaphragm to the pubic rami in the axial plane a t 5 mm thick sections. Reconstructed images are reviewed on the computer in the coronal plane. FINDINGS: Limited CT sections are obtained the lung bases. The lung bases are clear. CT ABDOMEN: Liver: There is moderate fatty infiltration liver. A subtle nodular density may be within the left lo be liver measuring 2.6 cm. Additional workup is recommended. Metastatic lesion should be considered. An additional subtle density is within the right inferior lobe liver measuring 2.4 cm. Series 201 marcela ges 25 and 60. Spleen: Normal Pancreas: Normal Adrenal glands: Left adrenal gland is markedly enlarged measuring 4.6 x 3.1 cm. Subtle thickening of the right adrenal gland may be present. Gallbladder: Normal Kidneys: No masses are evident. No hydronephrosis is present. No cysts are present. No renal stone s are evident. Aorta: Vascular calcification is within the aorta. There is some fusiform prominence of the mid abdo farheen aorta with an AP diameter of 2.9 cm. This terminates above the bifurcation. Inferior vena cava: Normal. CT PELVIS: Couple of diverticuli are present within the colon. No suspicious adjacent inflammatory change sugges t acute diverticulitis is evident. This study is performed without oral contrast limiting bowel evalu ation. Appendix: Not identified. No suspicious dilated tubular structure or inflammatory changes are evident . Urinary bladder: Normal as visualized. This is partially decompressed limiting its evaluation. Genitourinary structures: Uterus and ovaries not identified. Osseous structures: No suspicious lytic or sclerotic lesions are evident. Facet degenerative changes within the lumbar spine. IMPRESSIONS: 1. The left and right hepatic masses present are suggestive for metastasis. These are poorly visuali zed. This does not appear to be present in 2018. Additional workup with ultrasound or contrast CT abd omen is recommended. Contrast MRI could be utilized for evaluation of the liver. 2. Enlarged left adrenal gland suspicious for metastasis. 3. A primary neoplasm source is not identified. 4. Mild diverticulosis without acute diverticulitis. 5. Fusiform prominence mid abdominal aorta.
[2021-01-20 11:45] LABS: ALT 19 U/L (4-34); AST 27 U/L (14-36); African American GFR (CKD) >90 (>60 ml/min/1.73 sqM); Albumin 3.9 g/dL (3.5-5.0); Alkaline Phosphatase 103 U/L (38-126); Amylase 42 U/L (30-110); Anion Gap 6 mmol/L; Blood Urea Nitrogen 12 mg/dL (7-17); Calcium 10.5 mg/dL (8.4-10.2); Carbon Dioxide 27 mmol/L (22-30); Chloride 101 mmol/L (98-107); Glucose 113 mg/dL (74-99); Lipase 57 U/L (23-300); Non-African American GFR(CKD) >90 (>60 ml/min/1.73 sqM); Potassium 3.8 mmol/L (3.5-5.1); Sodium 134 mmol/L (137-145); Total Bilirubin 0.9 mg/dL (0.2-1.3); Total Protein 7.4 g/dL (6.3-8.2)
[2021-01-20 12:32] LABS: Appearance,Urine Cloudy (Clear); Bacteria,Urine Many /hpf; Bilirubin,Urine 1+ (Negative); Blood,Urine Negative (Negative); Color,Urine Yellow; Glucose,Urine (UA) Negative (Negative); Ketones,Urine 3+ (Negative); Leukocyte Esterase,Urine Trace (Negative); Mucus,Urine Many /hpf; Nitrite,Urine Positive (Negative); PH, Urine 6.5 (5.0-8.0); Protein,Urine 1+ (Negative); RBC,Urine <1 /hpf (0-5); Specific Gravity,Urine 1.022 (1.001-1.035); Squamous Epithelial Cell,Urine 6 /hpf (0-4); WBC,Urine 8 /hpf (0-5)
[2021-01-20] MEDS ORDERED: NALOXONE 0.4 MG/ML 1 ML VIAL IV PRN (12:38)
[2021-01-20] MEDS ORDERED: KETOROLAC 15 MG/ML 1 ML VIAL IVP PRN (12:38)
[2021-01-20] MEDS ORDERED: ACETAMINOPHEN TAB 325 MG TAB PO PRN (12:38)
[2021-01-20] MEDS ORDERED: ONDANSETRON 4 MG/2 ML VIAL IVP PRN (12:38)
[2021-01-20] MEDS ORDERED: SULFAMETHOX-TMP 800-160MG 1 EACH TAB PO STA (12:51)
[2021-01-20] MEDS ORDERED: LEVOFLOXACIN 500MG-D5W PMX 500 MG in DEXTROSE/WATER 1 100ML.BAG IVPB STA (13:04)
[2021-01-20] MEDS: SODIUM CHLORIDE 0.9% 1,000 ML IV SCH ×2 (13:11→22:13)
[2021-01-20] MEDS ORDERED: diphenhydrAMINE 50 MG CAP PO ONE (13:54)
[2021-01-20] MEDS ORDERED: predniSONE 50 MG TAB PO ONE ×3 (13:54)
[2021-01-20] MEDS ORDERED: IOPAMIDOL CONTRAST (ORAL USE) VIAL PO PRN (13:54)
[2021-01-20] MEDS: MORPHINE SULFATE 4 MG/ML SYRINGE IV PRN ×2 (14:54→23:27)
[2021-01-20] MEDS ORDERED: TRIMETHOBENZAMIDE 300 MG CAP PO PRN (15:23)
[2021-01-20 15:34] LABS: Reticulocyte % 2.4 % (0.5-2.0)
[2021-01-20] MEDS ORDERED: methylPREDNISolone SOD SUCCI 125 MG/2 ML VIAL IV STA (16:24)
[2021-01-20] MEDS ORDERED: FAMOTIDINE 20 MG/2 ML VIAL IV STA (16:24)
[2021-01-20] MEDS ORDERED: diphenhydrAMINE 50 MG/ML 1 ML VIAL IVP STA (16:24)
[2021-01-20] MEDS ORDERED: HYDROcodone/APAP 5-325MG 1 EACH TAB PO PRN (17:09)
[2021-01-20] MEDS ORDERED: TEMAZEPAM 15 MG CAP PO PRN (17:09)
[2021-01-20] MEDS ORDERED: diphenhydrAMINE 50 MG/ML 1 ML VIAL IVP ONE (17:13)
[2021-01-20] MEDS ORDERED: methylPREDNISolone SOD SUCCI 125 MG/2 ML VIAL IV ONE ×2 (17:13→17:30)
--- NOTE | 2021-01-20 17:16 | P.HPIM ---
History of Present Illness this is a pleasant 55 years old female with past medical history of arthritis, migraine, C. diff. she is a patient of Dr. Azul. Presents because of left flank pain of 2 weeks duration, got really severe over the last 2 days, it is also located in the middle left back and goes around to the left flank down to the left groin at times, comes and goes. Associated with decreased amount of urine but no dysuria or urgency or hesitancy. Also has some suprapubic tenderness. And she has some vaginal discharge but no vaginal bleeding she is also complaining of from nausea and vomiting for about one week, she has constipation but no diarrhea. She has low appetite. She smokes about less than a pack per day, she is counseled and agrees to quit but she declined nicotine patch. She drinks alcohol everyday likely 1 pint to 1 fifth. No illicit tracts vitals are stable, labs including CBC and BMP are unremarkable. Urine analysis is suspicious for infection patient had CT of the abdomen and pelvis without contrast showing left and right hepatic masses suggestive of metastasis. Enlarged left adrenal gland suspicious for metastasis, a primary neoplasm source is not identified. Fusiform prominence in the mid abdominal aorta emergency room patient received Benadryl, Toradol, levofloxacin, morphine, prednisone. Also patient was started on normal saline 75 mL/h. One-time dose of Bactrim is also given surgical team were consulted from emergency room. Review of Systems CONSTITUTIONAL: No fever, no malaise, no fatigue. HEENT: No recent visual problems or hearing problems. Denied any sore throat. CARDIOVASCULAR: No orthopnea, PND, no palpitations, no syncope. PULMONARY: No shortness of breath, no cough, no hemoptysis. GASTROINTESTINAL: No diarrhea. Normoactive bowel sounds. NEUROLOGICAL: No headaches, no weakness, no numbness. HEMATOLOGICAL: Denies any bleeding or petechiae. GENITOURINARY: Denies any burning micturition, frequency, or urgency. MUSCULOSKELETAL/RHEUMATOLOGICAL: Denies any joint pain, swelling, or any muscle pain. ENDOCRINE: Denies any polyuria or polydipsia. Past Medical History Additional Past Medical History / Comment(s): arthritis, migraines, History of Any Multi-Drug Resistant Organisms: C-DIFF Date of last positivie culture/infection: 2007 MDRO Source:: stool Past Surgical History: Appendectomy, Hysterectomy, Orthopedic Surgery Past Psychological History: No Psychological Hx Reported Smoking Status: Current every day smoker Past Alcohol Use History: Daily, Occasional Past Drug Use History: None Reported Medications and Allergies Home Medications Medication Instructions Recorded Confirmed Type Dorzolamide 2% [Trusopt 2%] 1 drop BOTH EYES BID 01/20/21 01/20/21 History Allergies Allergy/AdvReac Type Severity Reaction Status Date / Time aspirin Allergy Abdominal Verified 01/20/21 11:10 Pain cephalexin [From Keflex] Allergy Rash/Hives Verified 01/20/21 11:10 Iodinated Contrast Media Allergy Anaphylaxis Verified 01/20/21 11:10 [Iodinated Contrast- Oral and IV Dye] Physical Exam Vitals: Vital Signs Temp Pulse Resp BP Pulse Ox 01/20/21 13:41 98.0 F 85 16 120/84 97 01/20/21 10:18 97.9 F 84 18 104/74 100 Intake and Output 01/20/21 01/20/21 01/20/21 06:59 14:59 22:59 Other: Weight 72.575 kg GENERAL: The patient is alert and oriented x3, not in any acute distress. Well developed, well nourished. HEENT: Pupils are round and equally reacting to light. EOMI. No scleral icterus. No conjunctival pallor. Normocephalic, atraumatic. No pharyngeal erythema. No thyromegaly. CARDIOVASCULAR: S1 and S2 present. No murmurs, rubs, or gallops. PULMONARY: Chest is clear to auscultation, no wheezing or crackles. -ABDOMEN: Soft, nondistended, normoactive bowel sounds. No palpable or ganomegaly. Suprapubic tenderness and left costovertebral angle tenderness MUSCULOSKELETAL: No joint swelling or deformity. EXTREMITIES: No cyanosis, clubbing, or pedal edema. NEUROLOGICAL: Gross neurological examination did not reveal any focal deficits. SKIN: No rashes. No petechiae Results CBC & Chem 7: 01/20/21 10:40 01/20/21 10:40 Labs: Abnormal Lab Results - Last 24 Hours (Table) 01/20/21 01/20/21 01/20/21 Range/Units 10:40 10:40 10:58 RBC 3.78 L (3.80-5.40) m/uL MCV 101.8 H (80.0-100.0) fL MCH 36.1 H (25.0-35.0) pg Sodium 134 L (137-145) mmol/L Glucose 113 H (74-99) mg/dL Calcium 10.5 H (8.4-10.2) mg/dL Urine Appearance Cloudy H (Clear) Urine Protein 1+ H (Negative) Urine Ketones 3+ H (Negative) Urine Nitrite Positive H (Negative) Urine Bilirubin 1+ H (Negative) Ur Leukocyte Esterase Trace H (Negative) Urine WBC 8 H (0-5) /hpf Ur Squamous Epith Cells 6 H (0-4) /hpf Urine Bacteria Many H (None) /hpf Urine Mucus Many H (None) /hpf Assessment and Plan Assessment: abdominal pain with possible right and left hepatic metastases and, Enlarged left adrenal gland suspicious for metastasis Acute urinary tract infection, possible left pyelonephritis alcohol abuse at-risk of alcohol withdrawal history of arthritis History of migraine Stereo C. diff infection Plan: this is a pleasant 55 years old female who presents with metastatic liver disease and possible left adrenal metastasis. Continue with pain management, bowel regiment and oncology team consult. follow-up with surgical consult. We'll start the patient on Levaquin for possible UTI and follow-up urine culture. Continue gentle hydration Start the patient on CIWA protocol and thiamine IV Labs and medication were reviewed.. Continue same treatment. Continue with symptomatic treatment. Resume home medication. Monitor lytes and vitals. DVT and GI prophylaxis. Further recommendations depends on the clinical course of the patient DVT prophylaxis: Subcutaneous heparin GI Prophylaxis: Pepcid Prognosis is guarded
--- NOTE | 2021-01-20 17:51 | US ---
EXAMINATION TYPE: US renals and bladder DATE OF EXAM: 01/20/2021 COMPARISON: Same day CT CLINICAL HISTORY: possible left pyelonephritis . Left flank pain EXAM MEASUREMENTS: Right Kidney: 10.1 x 4.1 x 5.3 cm Left Kidney: 10.4 x 5.3 x 4.6 cm Right Kidney: Appeared wnl Left Kidney: Appeared wnl Bladder: Not fully distended to evaluate IMPRESSION: 1. Normal-appearing renal ultrasound
--- NOTE | 2021-01-20 18:02 | P.CONS ---
History of Present Illness - Reason for Consult Consult date: 01/20/21 Concern for Malignancy Liver and Adrenal suspicious lesions Requesting physician: Cathy Andre - Chief Complaint Abdominal Pain - History of Present Illness patient is a 55 year old female presents for abdominal pain complaints. On Arrival CT abdomen and pelvis without contrast reveals left and right hepatic lesions and left adrenal gland lesion suspicious for melignancy, therefore we have been asked to further evaluate. The cts performed were done without contr ast, as she will require prep for contrasted scan. this is the first recommendation to further clarify what was identified. She admits to possible precancer or cervical cancer remotely. Then hyperplasia in breast and was treated with chemoprevention but she is a poor historian. She is a daily and sm oker and ETOH. Review of Systems All systems: negative Constitutional: Reports as per HPI Past Medical History Additional Past Medical History / Comment(s): arthritis, migraines, History of Any Multi-Drug Resistant Organisms: C-DIFF Year Discovered:: 2007 MDRO Source:: stool Past Surgical History: Appendectomy, Hysterectomy, Orthopedic Surgery Past Psychological History: No Psychological Hx Reported Smoking Status: Current every day smoker Past Alcohol Use History: Daily, Occasional Past Drug Use History: None Reported Medications and Allergies Home Medications Medication Instructions Recorded Confirmed Type Dorzolamide 2% [Trusopt 2%] 1 drop BOTH EYES BID 01/20/21 01/20/21 History Allergies Allergy/AdvReac Type Severity Reaction Status Date / Time aspirin Allergy Abdominal Verified 01/20/21 11:10 Pain cephalexin [From Keflex] Allergy Rash/Hives Verified 01/20/21 11:10 Iodinated Contrast Media Allergy Anaphylaxis Verified 01/20/21 11:10 [Iodinated Contrast- Oral and IV Dye] Physical Exam Vitals: Vital Signs Temp Pulse Resp BP Pulse Ox 01/20/21 13:41 98.0 F 85 16 120/84 97 01/20/21 10:18 97.9 F 84 18 104/74 100 Intake and Output 01/19/21 01/20/21 01/20/21 22:59 06:59 14:59 Other: Weight 72.575 kg - Constitutional General appearance: cooperative, no acute distress - EENT Eyes: EOMI, PERRLA ENT: NA/AT, normal oropharynx - Neck Neck: normal ROM - Respiratory Respiratory: bilateral: CTA - Cardiovascular Rhythm: regular - Gastrointestinal General gastrointestinal: hepatomegaly, normal bowel sounds, soft, tenderness - Integumentary Integumentary: pale - Neurologic Neurologic: CNII-XII intact - Musculoskeletal Musculoskeletal: generalized weakness, strength equal bilaterally - Psychiatric Psychiatric: A&O x's 3, appropriate affect, intact judgment & insight Results CBC & Chem 7: 01/20/21 10:40 01/20/21 10:40 Labs: Abnormal Lab Results - Last 24 Hours (Table) 01/20/21 01/20/21 01/20/21 Range/Units 10:40 10:40 10:58 RBC 3.78 L (3.80-5.40) m/uL MCV 101.8 H (80.0-100.0) fL MCH 36.1 H (25.0-35.0) pg Sodium 134 L (137-145) mmol/L Glucose 113 H (74-99) mg/dL Calcium 10.5 H (8.4-10.2) mg/dL Urine Appearance Cloudy H (Clear) Urine Protein 1+ H (Negative) Urine Ketones 3+ H (Negative) Urine Nitrite Positive H (Negative) Urine Bilirubin 1+ H (Negative) Ur Leukocyte Esterase Trace H (Negative) Urine WBC 8 H (0-5) /hpf Ur Squamous Epith Cells 6 H (0-4) /hpf Urine Bacteria Many H (None) /hpf Urine Mucus Many H (None) /hpf CT scan - abdomen: report reviewed CT scan - pelvis: report reviewed Assessment and Plan (1) Liver lesion Current Visit: Yes Status: Acute Code(s): K76.9 - LIVER DISEASE, UNSPECIFIED SNOMED Code(s): 804357467 (2) Lesion of adrenal gland Current Visit: Yes Status: Acute Code(s): E27.9 - DISORDER OF ADRENAL GLAND, UNSPECIFIED SNOMED Code(s): 31660623 Plan: The above findings are non-specific at this time. Will need further evaluation and likely tissue biopsy for confirmatory diagnosis. CT Chest/Abdomen/Pelvis with contrast (Prep ordered for iodine allergy) and further recs to follow. Physician Attest: I have completed the full history and pysical and agree with above dictation, dictated as a scribe.
[2021-01-20] MEDS: THIAMINE 100 MG/ML 2 ML VIAL IVP SCH (18:09)
[2021-01-20] MEDS: FAMOTIDINE 20 MG/2 ML VIAL IV SCH (22:12)
[2021-01-20] MEDS: HEPARIN SODIUM,PORCINE/PF 5,000 UNIT/0.5 ML SYRINGE SQ SCH (22:13)
[2021-01-21 00:06] LABS: Protein, Total 6.3 g/dL (6.2-8.2)
[2021-01-21] MEDS ORDERED: methylPREDNISolone SOD SUCCI 125 MG/2 ML VIAL IV ONE (01:00)
[2021-01-21 02:38] LABS: Uric Acid 5.7 mg/dL (2.9-7.7)
[2021-01-21] MEDS ORDERED: diphenhydrAMINE 50 MG/ML 1 ML VIAL IVP ONE (06:30)
[2021-01-21] MEDS ORDERED: methylPREDNISolone SOD SUCCI 125 MG/2 ML VIAL IV PRN (07:23)
[2021-01-21] MEDS ORDERED: diphenhydrAMINE 50 MG/ML 1 ML VIAL IVP PRN (07:25)
[2021-01-21] MEDS ORDERED: BARIUM SULFATE 450 ML ORAL.SUSP BOTTLE PO PRN (07:31)
[2021-01-21 07:54] LABS: Basophils % (A) 0 %; Eosinophils % (A) 0 %; HCT 37.9 % (34.0-46.0); Lymphocytes # (A) 0.4 k/uL (1.0-4.8); Lymphocytes % (A) 8 %; MCH 35.8 pg (25.0-35.0); MCHC 34.3 g/dL (31.0-37.0); MCV 104.4 fL (80.0-100.0); Macrocytosis Slight; Mean Platelet Volume 7.5; Monocytes # (A) 0.1 k/uL (0-1.0); Monocytes % (A) 1 %; Neutrophils # (A) 4.6 k/uL (1.3-7.7); Neutrophils % (A) 90 %; Platelet Count 341 k/uL (150-450); RBC 3.63 m/uL (3.80-5.40); RDW 13.1 % (11.5-15.5); WBC 5.1 k/uL (3.8-10.6)
[2021-01-21 08:01] LABS: African American GFR (CKD) >90 (>60 ml/min/1.73 sqM); Anion Gap 9 mmol/L; Blood Urea Nitrogen 11 mg/dL (7-17); C Reactive Protein 44.2 mg/L (<10.0); Calcium 10.4 mg/dL (8.4-10.2); Carbon Dioxide 24 mmol/L (22-30); Chloride 101 mmol/L (98-107); Glucose 191 mg/dL (74-99); Non-African American GFR(CKD) >90 (>60 ml/min/1.73 sqM); Potassium 4.5 mmol/L (3.5-5.1); Sodium 134 mmol/L (137-145)
[2021-01-21] MEDS: FAMOTIDINE 20 MG/2 ML VIAL IV SCH ×2 (08:46→20:57)
[2021-01-21] MEDS: HEPARIN SODIUM,PORCINE/PF 5,000 UNIT/0.5 ML SYRINGE SQ SCH ×2 (08:49→20:57)
[2021-01-21] MEDS: MORPHINE SULFATE 4 MG/ML SYRINGE IV PRN ×3 (09:02→20:56)
--- NOTE | 2021-01-21 10:37 | P.GSCN ---
History of Present Illness Consult date: 01/21/21 History of present illness: 55-year-old female presented to the emergency department with complaints of left-sided abdominal pain along with left-sided flank pain. She states that the pain increased in intensity which prompted the emergency department visit. On workup, patient did have laboratory values and imaging performed. CT of the abdomen and pelvis without contrast was performed that was concerning for multiple hepatic masses and an enlarged left adrenal gland also suspicious for metastasis. There is no primary neoplasm source identified. On questioning, the patient does state that she believes she was treated for a right-sided breast cancer over 20 years ago, however she is unsure if this was truly a cancer or precancerous lesion. She states she was supposed to take in oral chemoprevention type of medication for many years afterwards, however she only took this medication for less than a year due to insurance issues. She is not up-to-date with her mammograms. The patient states that she does perform self breast exams, however does not have mammograms performed as they are uncomfortable. She also states that at age 13, she had either a precancerous or cancerous cervical lesion treated. Patient overall is a poor historian and her cancer history is unclear. She states that she has been on and off smoker for many years. She states she currently restarted smoking during the recent COVID pandemic due to anxiety issues. She smokes approximately 1 pack a day. She states that she has a history of alcohol abuse and was sober for 17 years prior to restarting alcohol intake over the past year, again secondary to the COVID pandemic. She states she thinks approximately a pint a day. She states that her last colonoscopy was a little over 5 years ago and believes that a polyp was found. She denies any recent fevers, chills, chest pain or shortness of breath. Review of Systems All systems: negative Past Medical History Additional Past Medical History / Comment(s): arthritis, migraines, History of Any Multi-Drug Resistant Organisms: C-DIFF Year Discovered:: 2007 MDRO Source:: stool Past Surgical History: Appendectomy, Hysterectomy, Orthopedic Surgery Past Psychological History: No Psychological Hx Reported Smoking Status: Current every day smoker Past Alcohol Use History: Daily, Occasional Past Drug Use History: None Reported Medications and Allergies Home Medications Medication Instructions Recorded Confirmed Type Dorzolamide 2% [Trusopt 2%] 1 drop BOTH EYES BID 01/20/21 01/20/21 History Allergies Allergy/AdvReac Type Severity Reaction Status Date / Time aspirin Allergy Abdominal Verified 01/20/21 11:10 Pain cephalexin [From Keflex] Allergy Rash/Hives Verified 01/20/21 11:10 Iodinated Contrast Media Allergy Anaphylaxis Verified 01/20/21 11:10 [Iodinated Contrast- Oral and IV Dye] Surgical - Exam Osteopathic Statement: *. No significant issues noted on an osteopathic structural exam other than those noted in the History and Physical/Consult. Vital Signs Temp Pulse Resp BP Pulse Ox 97.9 F 84 18 104/74 100 01/20/21 10:18 01/20/21 10:18 01/20/21 10:18 01/20/21 10:18 01/20/21 10:18 - General well nourished, no distress - Eyes normal ocular movement - ENT normal mucosa - Respiratory normal respiratory effort - Abdomen Soft, some tenderness to palpation in the left lower quadrant, nondistended, no rebound, no guarding - Psychiatric oriented to time, oriented to person, oriented to place Results - Labs 01/21/21 07:00 01/21/21 07:00 Abnormal Lab Results - Last 24 Hours (Table) 01/20/21 01/20/21 01/20/21 Range/Units 10:40 10:40 10:58 RBC 3.78 L (3.80-5.40) m/uL MCV 101.8 H (80.0-100.0) fL MCH 36.1 H (25.0-35.0) pg Lymphocytes # (1.0-4.8) k/uL Retic Count (0.5-2.0) % Sodium 134 L (137-145) mmol/L Glucose 113 H (74-99) mg/dL Calcium 10.5 H (8.4-10.2) mg/dL C-Reactive Protein (<10.0) mg/L Vitamin D 25-Hydroxy (30.0-100.0) ng/mL Urine Appearance Cloudy H (Clear) Urine Protein 1+ H (Negative) Urine Ketones 3+ H (Negative) Urine Nitrite Positive H (Negative) Urine Bilirubin 1+ H (Negative) Ur Leukocyte Esterase Trace H (Negative) Urine WBC 8 H (0-5) /hpf Ur Squamous Epith Cells 6 H (0-4) /hpf Urine Bacteria Many H (None) /hpf Urine Mucus Many H (None) /hpf 01/20/21 01/20/21 01/21/21 Range/Units 15:03 15:03 07:00 RBC (3.80-5.40) m/uL MCV (80.0-100.0) fL MCH (25.0-35.0) pg Lymphocytes # (1.0-4.8) k/uL Retic Count 2.4 H (0.5-2.0) % Sodium 134 L (137-145) mmol/L Glucose 191 H (74-99) mg/dL Calcium 10.4 H (8.4-10.2) mg/dL C-Reactive Protein 44.2 H (<10.0) mg/L Vitamin D 25-Hydroxy 9.1 L (30.0-100.0) ng/mL Urine Appearance (Clear) Urine Protein (Negative) Urine Ketones (Negative) Urine Nitrite (Negative) Urine Bilirubin (Negative) Ur Leukocyte Esterase (Negative) Urine WBC (0-5) /hpf Ur Squamous Epith Cells (0-4) /hpf Urine Bacteria (None) /hpf Urine Mucus (None) /hpf 01/21/21 Range/Units 07:00 RBC 3.63 L (3.80-5.40) m/uL MCV 104.4 H (80.0-100.0) fL MCH 35.8 H (25.0-35.0) pg Lymphocytes # 0.4 L (1.0-4.8) k/uL Retic Count (0.5-2.0) % Sodium (137-145) mmol/L Glucose (74-99) mg/dL Calcium (8.4-10.2) mg/dL C-Reactive Protein (<10.0) mg/L Vitamin D 25-Hydroxy (30.0-100.0) ng/mL Urine Appearance (Clear) Urine Protein (Negative) Urine Ketones (Negative) Urine Nitrite (Negative) Urine Bilirubin (Negative) Ur Leukocyte Esterase (Negative) Urine WBC (0-5) /hpf Ur Squamous Epith Cells (0-4) /hpf Urine Bacteria (None) /hpf Urine Mucus (None) /hpf Microbiology - Last 24 Hours (Table) 01/20/21 16:14 Urine Culture - Preliminary Urine,Voided Diabetes panel 01/20/21 01/21/21 Range/Units 10:40 07:00 Sodium 134 L 134 L (137-145) mmol/L Potassium 3.8 4.5 (3.5-5.1) mmol/L Chloride 101 101 (98-107) mmol/L Carbon Dioxide 27 24 (22-30) mmol/L BUN 12 11 (7-17) mg/dL Creatinine 0.70 0.53 (0.52-1.04) mg/dL Glucose 113 H 191 H (74-99) mg/dL Calcium 10.5 H 10.4 H (8.4-10.2) mg/dL AST 27 (14-36) U/L ALT 19 (4-34) U/L Alkaline Phosphatase 103 (38-126) U/L Total Protein 7.4 (6.3-8.2) g/dL Albumin 3.9 (3.5-5.0) g/dL Thyroid panel 01/20/21 Range/Units 15:03 TSH 2.240 (0.350-5.500) uIU/mL Calcium panel 01/20/21 01/21/21 Range/Units 10:40 07:00 Calcium 10.5 H 10.4 H (8.4-10.2) mg/dL Albumin 3.9 (3.5-5.0) g/dL Pituitary panel 01/20/21 01/20/21 01/21/21 Range/Units 10:40 15:03 07:00 Sodium 134 L 134 L (137-145) mmol/L Potassium 3.8 4.5 (3.5-5.1) mmol/L Chloride 101 101 (98-107) mmol/L Carbon Dioxide 27 24 (22-30) mmol/L BUN 12 11 (7-17) mg/dL Creatinine 0.70 0.53 (0.52-1.04) mg/dL Glucose 113 H 191 H (74-99) mg/dL Calcium 10.5 H 10.4 H (8.4-10.2) mg/dL TSH 2.240 (0.350-5.500) uIU/mL Adrenal panel 01/20/21 01/21/21 Range/Units 10:40 07:00 Sodium 134 L 134 L (137-145) mmol/L Potassium 3.8 4.5 (3.5-5.1) mmol/L Chloride 101 101 (98-107) mmol/L Carbon Dioxide 27 24 (22-30) mmol/L BUN 12 11 (7-17) mg/dL Creatinine 0.70 0.53 (0.52-1.04) mg/dL Glucose 113 H 191 H (74-99) mg/dL Calcium 10.5 H 10.4 H (8.4-10.2) mg/dL Total Bilirubin 0.9 (0.2-1.3) mg/dL AST 27 (14-36) U/L ALT 19 (4-34) U/L Alkaline Phosphatase 103 (38-126) U/L Total Protein 7.4 (6.3-8.2) g/dL Albumin 3.9 (3.5-5.0) g/dL Assessment and Plan Plan: 55-year-old female with history of abdominal pain and concern for metastasis of unknown primary origin based on CT findings. CT was done without contrast, she is having a repeat CT performed today of the chest abdomen and pelvis with contrast for further evaluation and delineation. At this point, if the patient is found to have metastatic lesions, primary source is unknown. Oncology is following. If biopsy is required of the liver or adrenal gland, I would recommend interventional radiology biopsy. At this point, no acute surgical intervention is planned. Patient may require endoscopy in the future for primary source location. We'll continue to follow and make surgical recommendations based on the patient's clinical progress and findings.
--- NOTE | 2021-01-21 13:21 | CT ---
EXAMINATION TYPE: CT ChestAbdPelvis w con DATE OF EXAM: 01/21/2021 INDICATION: Abd pain COMPARISON: 01/20/2021 CT abdomen and pelvis CTA chest 06/28/2018 CT DLP: 725.4 mGycm CONTRAST: Performed with Oral Contrast and with IV Contrast, patient injected with 100 mL of Isovue 300. TECHNIQUE: Axial images at 5 mm thick sections. Reconstructed images in the coronal plane. Delayed images through the kidneys. FINDINGS: CT CHEST: Portion of the thyroid visualized is normal. Very small peripheral based nodules in the anterior left upper lobe measuring 0.3 cm. Series 4 image 12. Emphysematous changes are within the lung gupta. There may be some atelectasis within the construction technician ior right midlung. There is a 0.8 cm nodule which may have some spiculation in the left lower lobe. Series 4 image 40. A dditional workup for neoplasm is recommended. No enlarged mediastinal or hilar adenopathy is evident. There is soft tissue thickening through the s ubcarinal region extending along the right peribronchial region. Underlying neoplasm should be evalua jazzy. This may measure 5.7 x 2.1 cm. The ascending aorta diameter at the level of the main pulmonary artery is 3.7 cm. The main pulmonary artery diameter at the bifurcation is 2.[address] ABDOMEN: Liver: The very subtle hypodensity in the lateral left lobe liver is again present. The inferior righ t lobe liver lesion is less well visualized but faintly present at the right tip of the liver. Spleen: Normal Pancreas: Normal Adrenal glands: Adrenal gland is enlarged measuring 3.3 x 4.5 cm this is slightly hypodense in the ce nter. Right adrenal gland appears normal Gallbladder: Normal Kidneys: No masses are evident. No hydronephrosis is present. No cysts are present. Delayed images were obtained through the kidneys, which remain unremarkable. Aorta: Vascular calcification is within the aorta. There is some fusiform prominence of the mid abdo farheen aorta with an AP diameter of 2.8 cm. Inferior vena cava: Normal. CT PELVIS: Loops of bowel within the abdomen and pelvis are normal. Study is with oral contrast, loops of mandy wel distended with oral contrast are normal Appendix: Normal as visualized. Urinary bladder: Normal. Genitourinary structures: There is a 3.2 x 2.0 cm right ovarian cyst. Left adnexa is unremarkable. Ut erus is not identified. Osseous structures: May be a lytic area within the anterior right acetabulum with destruction of the cortical margin. Series 3 image 105. Lytic area may be within the posterior L3 level. Lytic area may be within the anterior lateral T9 level. Series 3 image 39. Subtle T5 vertebral body lytic area may b e present. IMPRESSIONS: 1. Soft tissue masslike area in the subcarinal and right peribronchial region suspicious for neoplasm . 2. 1 cm spiculated density left lower lobe suspicious for neoplasm. 3. Suspected faint hepatic metastasis less well-visualized than the previous exam. 4. Osseous metastasis including left acetabulum, L3, T9 and possibly T5 levels. 5. Probable metastasis left adrenal gland and Recommendations: 1. PET CT is recommended for additional evaluation.
[2021-01-21 14:16] VITALS: BMI 25.8
[2021-01-21] MEDS: SODIUM CHLORIDE 0.9% 1,000 ML IV SCH (14:39)
--- NOTE | 2021-01-21 15:19 | PN ---
PROGRESS NOTE DATE OF SERVICE: 01/21/2021 CHIEF COMPLAINT: Left abdominal pain. Karla is seen today as a followup. She is still complaining of some abdominal pain mostly in the epigastric area and left upper quadrant. No nausea or vomiting. She had a bowel movement. No fever or chills. CURRENT MEDICATION: Reviewed in her electronic medical record. PHYSICAL EXAMINATION: She is alert and x3. She does not appear to be in distress. VITAL SIGNS: Temperature 97.7 afebrile, pulse 75 and regular, respirations 16, blood pressure 108/71. HEENT: Normocephalic, atraumatic. No icterus. NECK: Supple. CHEST: Equal expansion bilaterally. LUNGS: Clear. HEART is regular rate and rhythm. ABDOMEN: Soft. Bowel sounds present. She has some tenderness in the left upper quadrant and epigastric area but no palpable masses and also she has back tenderness in the lower back as well. LABORATORY DATA: WBC are 5.1, hemoglobin 13.0, hematocrit 37.7, platelets are 314. IMPRESSION: 1. Suspect metastatic malignancy. 2. Awaiting CT scan of the chest, abdomen, and pelvis. 3. Based on CT scan imaging, further decision will be made in order to proceed with tissue diagnosis. The above was discussed in details with the patient. I have answered all questions. MMODL / IJN: [id number] /
[2021-01-21] MEDS: LEVOFLOXACIN 500MG-D5W PMX 500 MG in DEXTROSE/WATER 1 100ML.BAG IVPB SCH (15:37)
[2021-01-21] MEDS: THIAMINE 100 MG/ML 2 ML VIAL IVP SCH (15:38)
[2021-01-21 16:37] LABS: Appearance,Urine Clear (Clear); Bilirubin,Urine Negative (Negative); Blood,Urine Negative (Negative); Color,Urine Light Yellow; Glucose,Urine (UA) Negative (Negative); Ketones,Urine 1+ (Negative); Leukocyte Esterase,Urine Negative (Negative); Nitrite,Urine Negative (Negative); Protein,Urine Negative (Negative); Specific Gravity,Urine 1.025 (1.001-1.035); Urobilinogen,Urine <2.0 mg/dL (<2.0)
--- NOTE | 2021-01-21 17:19 | P.PN ---
Subjective this is a pleasant 55 years old female with past medical history of arthritis, migraine, C. diff. she is a patient of Dr. Azul. Presents because of left flank pain of 2 weeks duration, got really severe over the last 2 days, it is also located in the middle left back and goes around to the left flank down to the left groin at times, comes and goes. Associated with decreased amount of urine but no dysuria or urgency or hesitancy. Also has some suprapubic tenderness. And she has some vaginal discharge but no vaginal bleeding she is also complaining of from nausea and vomiting for about one week, she has constipation but no diarrhea. She has low appetite. She smokes about less than a pack per day, she is counseled and agrees to quit but she declined nicotine patch. She drinks alcohol everyday likely 1 pint to 1 fifth. No illicit tracts vitals are stable, labs including CBC and BMP are unremarkable. Urine analysis is suspicious for infection patient had CT of the abdomen and pelvis without contrast showing left and right hepatic masses suggestive of metastasis. Enlarged left adrenal gland suspicious for metastasis, a primary neoplasm source is not identified. Fusiform prominence in the mid abdominal aorta emergency room patient received Benadryl, Toradol, levofloxacin, morphine, prednisone. Also patient was started on normal saline 75 mL/h. One-time dose of Bactrim is also given surgical team were consulted from emergency room. 01/21/2021 This is a pleasant 55 years old female who presents with abdominal pain, CT of the abdomen found liver metastasis and left adrenal gland mass which might contribute to her symptoms. UTI is suspected but renal ultrasound is negative. The portcalcitonin is normal. We will wait for urine culture and if negative then we might discontinue antibiotic Patient is followed closely by surgery team with a recommendation for no surgical intervention. Also followed by oncology team who ordered a CT of the abdomen and pelvis and chest with contrast to be done today: Soft tissue m asslike area in the subcarinal and right peribronchial region suspicious for neoplasm with 1 cm spiculated density in the left lower lobe suspicious for neoplasm. Suspect hepatic and left adrenal metastasis and osseous metastasis including the left acetabulum, L3, T9 and possibility 5. Repeat urine analysis is negative. Urine culture is negative we'll discontinue antibiotic Patient continued on Levaquin, normal saline at 125. Also she is on [facility] protocol for history of alcohol abuse Oncology team on the case Objective - Vital Signs Vital signs: Vital Signs Temp 97.8 F 01/21/21 14:10 Pulse 79 01/21/21 14:10 Resp 16 01/21/21 14:10 BP 91/57 01/21/21 14:10 Pulse Ox 98 01/21/21 14:10 Intake & Output 01/20/21 01/21/21 01/21/21 18:59 06:59 18:59 Intake Total 0 1240 300 Balance 0 1240 300 Weight 72.575 kg 72.575 kg 72.575 kg Intake: Intake, IV Titration 1000 Amount Sodium Chloride 0.9% 1, 1000 000 ml @ 125 mls/hr IV . Q8H DREA Rx#:[id number] Oral 0 240 300 Other: # Voids 2 1 - Exam GENERAL: The patient is alert and oriented x3, not in any acute distress. Well developed, well nourished. HEENT: Pupils are round and equally reacting to light. EOMI. No scleral icterus. No conjunctival pallor. Normocephalic, atraumatic. No pharyngeal erythema. No thyromegaly. CARDIOVASCULAR: S1 and S2 present. No murmurs, rubs, or gallops. PULMONARY: Chest is clear to auscultation, no wheezing or crackles. -ABDOMEN: Soft, nontender, nondistended, normoactive bowel sounds. No palpable organomegaly. Left flank tenderness MUSCULOSKELETAL: No joint swelling or deformity. EXTREMITIES: No cyanosis, clubbing, or pedal edema. NEUROLOGICAL: Gross neurological examination did not reveal any focal deficits. SKIN: No rashes. no petechiae. - Labs CBC & Chem 7: 01/21/21 07:00 01/21/21 07:00 Labs: Abnormal Lab Results - Last 24 Hours (Table) 01/20/21 01/21/21 01/21/21 Range/Units 15:03 07:00 07:00 RBC 3.63 L (3.80-5.40) m/uL MCV 104.4 H (80.0-100.0) fL MCH 35.8 H (25.0-35.0) pg Lymphocytes # 0.4 L (1.0-4.8) k/uL Sodium 134 L (137-145) mmol/L Glucose 191 H (74-99) mg/dL Calcium 10.4 H (8.4-10.2) mg/dL C-Reactive Protein 44.2 H (<10.0) mg/L Vitamin D 25-Hydroxy 9.1 L (30.0-100.0) ng/mL Urine Ketones (Negative) 01/21/21 Range/Units 16:30 RBC (3.80-5.40) m/uL MCV (80.0-100.0) fL MCH (25.0-35.0) pg Lymphocytes # (1.0-4.8) k/uL Sodium (137-145) mmol/L Glucose (74-99) mg/dL Calcium (8.4-10.2) mg/dL C-Reactive Protein (<10.0) mg/L Vitamin D 25-Hydroxy (30.0-100.0) ng/mL Urine Ketones 1+ H (Negative) Microbiology - Last 24 Hours (Table) 01/20/21 16:14 Urine Culture - Preliminary Urine,Voided Assessment and Plan Assessment: Possible 1 cancer mainly in the left lower lobe with 1 cm spiculated mass with multiple metastasis including the lung, bone, liver, left adrenal gland abdominal pain with possible right and left hepatic metastases and, Enlarged left adrenal gland suspicious for metastasis Suspect hepatic and left adrenal metastasis and osseous metastasis including the left acetabulum, L3, T9 and possibility T5 Possible Acute urinary tract infection, possible left pyelonephritis alcohol abuse at-risk of alcohol withdrawal history of arthritis History of migraine Stereo C. diff infection Plan: this is a pleasant 55 years old female who presents with metastatic liver disease and possible left adrenal metastasis. Also with bone metastasis. 1 cancer is suspected. PET scan is recommended. Oncology team on the case continue within for possible UTI and follow-up urine culture. Continue gentle hydration Start the patient on CIWA protocol and thiamine IV Labs and medication were reviewed.. Continue same treatment. Continue with symptomatic treatment. Resume home medication. Monitor lytes and vitals. DVT and GI prophylaxis. Further recommendations depends on the clinical course of the patient DVT prophylaxis: Subcutaneous heparin GI Prophylaxis: Pepcid Prognosis is guarded
[2021-01-22] MEDS: MORPHINE SULFATE 4 MG/ML SYRINGE IV PRN ×3 (02:21→18:19)
[2021-01-22] MEDS: SODIUM CHLORIDE 0.9% 1,000 ML IV SCH ×3 (02:58→19:33)
[2021-01-22] MEDS: HEPARIN SODIUM,PORCINE/PF 5,000 UNIT/0.5 ML SYRINGE SQ SCH ×2 (08:17→20:04)
--- NOTE | 2021-01-22 10:06 | P.PN ---
Subjective Progress Note Date: 01/22/21 Patient seen and examined at bedside. No acute events. Objective - Vital Signs Vital signs: Vital Signs Temp 97.5 F L 01/22/21 08:00 Pulse 82 01/22/21 08:00 Resp 18 01/22/21 08:00 BP 102/72 01/22/21 08:00 Pulse Ox 97 01/22/21 08:00 Intake & Output 01/21/21 01/22/21 01/22/21 18:59 06:59 18:59 Intake Total 540 Balance 540 Weight 72.575 kg Intake: Oral 540 Other: Voiding Method Toilet # Voids 1 - Constitutional General appearance: Present: cooperative, no acute distress - Respiratory Details: No difficulty with respiration - Gastrointestinal Gastrointestinal Comment(s): Soft, nontender, nondistended, no rebound, no guarding - Psychiatric Psychiatric: Present: A&O x's 3 - Labs CBC & Chem 7: 01/21/21 07:00 01/21/21 07:00 Labs: Abnormal Lab Results - Last 24 Hours (Table) 01/21/21 Range/Units 16:30 Urine Ketones 1+ H (Negative) Microbiology - Last 24 Hours (Table) 01/20/21 16:14 Urine Culture - Final Urine,Voided Assessment and Plan Plan: 55-year-old female with history of abdominal pain and concern for metastasis of unknown primary origin based on CT findings. Repeat CT was performed yesterday of chest, abdomen and pelvis with IV and oral contrast. There is concern for thoracic lesion along with previous noted concern for metastatic lesions. At this point, I will defer biopsy versus further imaging with PET scan decision to oncology as they are following closely. There is no plan for acute surgical intervention. We will continue to follow and provide recommendations based on patient's clinical status.
[2021-01-22] MEDS: FAMOTIDINE 20 MG/2 ML VIAL IV SCH ×2 (10:25→20:04)
[2021-01-22] MEDS: THIAMINE 100 MG/ML 2 ML VIAL IVP SCH (10:25)
[2021-01-22] MEDS: HYDROcodone/APAP 7.5-325MG 1 EACH TAB PO PRN ×2 (13:38→20:04)
[2021-01-22] MEDS: DOCUSATE 100 MG CAP PO SCH ×2 (13:41→20:09)
[2021-01-22] MEDS: SENNOSIDES-DOCUSATE SODIUM 1 EACH TAB PO SCH (20:05)
[2021-01-22] MEDS ORDERED: DOCUSATE 100 MG CAP PO SCH (21:00)
--- NOTE | 2021-01-22 21:17 | P.PN ---
Subjective this is a pleasant 55 years old female with past medical history of arthritis, migraine, C. diff. she is a patient of Dr. Azul. Presents because of left flank pain of 2 weeks duration, got really severe over the last 2 days, it is also located in the middle left back and goes around to the left flank down to the left groin at times, comes and goes. Associated with decreased amount of urine but no dysuria or urgency or hesitancy. Also has some suprapubic tenderness. And she has some vaginal discharge but no vaginal bleeding she is also complaining of from nausea and vomiting for about one week, she has constipation but no diarrhea. She has low appetite. She smokes about less than a pack per day, she is counseled and agrees to quit but she declined nicotine patch. She drinks alcohol everyday likely 1 pint to 1 fifth. No illicit tracts vitals are stable, labs including CBC and BMP are unremarkable. Urine analysis is suspicious for infection patient had CT of the abdomen and pelvis without contrast showing left and right hepatic masses suggestive of metastasis. Enlarged left adrenal gland suspicious for metastasis, a primary neoplasm source is not identified. Fusiform prominence in the mid abdominal aorta emergency room patient received Benadryl, Toradol, levofloxacin, morphine, prednisone. Also patient was started on normal saline 75 mL/h. One-time dose of Bactrim is also given surgical team were consulted from emergency room. 01/21/2021 This is a pleasant 55 years old female who presents with abdominal pain, CT of the abdomen found liver metastasis and left adrenal gland mass which might contribute to her symptoms. UTI is suspected but renal ultrasound is negative. The portcalcitonin is normal. We will wait for urine culture and if negative then we might discontinue antibiotic Patient is followed closely by surgery team with a recommendation for no surgical intervention. Also followed by oncology team who ordered a CT of the abdomen and pelvis and chest with contrast to be done today: Soft tissue m asslike area in the subcarinal and right peribronchial region suspicious for neoplasm with 1 cm spiculated density in the left lower lobe suspicious for neoplasm. Suspect hepatic and left adrenal metastasis and osseous metastasis including the left acetabulum, L3, T9 and possibility 5. Repeat urine analysis is negative. Urine culture is negative we'll discontinue antibiotic Patient continued on Levaquin, normal saline at 125. Also she is on [facility] protocol for history of alcohol abuse Oncology team on the case 01/22/2021 Patient still complaining of from mid to lower back pain just to the left of the vertebral column and right guillotine down just below the rib cage on the left side across the abdomen towards umbilicus. The distribution of pain follows dermatome T9 on the left side. No evidence of UTI on urine culture, bothcalcitonin is negative. Repeat UA is negative and antibiotic can safely be discontinued with Levaquin as there is no evidence of infection and most likely her pain is musculoskeletal related to her metastatic disease. Also patient complains from constipation and stool softener started. Patient encouraged to the patient on [place] rather than IV morphine to facilitate her discharge, all of pain except for the patient as pain she can tolerate and function rather than 0 pain and she agrees. CT of the abdomen, pelvis and chest with contrast showing: Soft tissue mass like area in the subcarinal and right peribronchial region suspicious for neoplasm. 1 cm spiculated density left lower lobe suspicious for neoplasm, hepatic metastases, osseous metastasis including left acetabulum, lytic lesions involving T5, T9 and L3. With probable metastatic left adrenal mass Patient informed with these findings. Radiologist recommended at this Which is going to be decided per Oncology team tomorrow Surgery team input is appreciated, no need for any surgical intervention actually patient might need a tissue biopsy with IR, for this reason we kept the patient nothing by mouth and told the nurse to hold her anticoagulation dose the morning for her DVT prophylaxis Continue gentle hydration. Continue with CIWA protocol with no evidence of alcohol withdrawal currently. Continue with morphine/[place]. She is on heparin subcutaneous twice a day for DVT prophylaxis with instruction to hold those in the morning Objective - Vital Signs Vital signs: Vital Signs Temp 98.0 F 01/22/21 19:50 Pulse 67 01/22/21 19:50 Resp 16 01/22/21 19:50 BP 103/66 01/22/21 19:50 Pulse Ox 98 01/22/21 19:50 Intake & Output 01/22/21 01/22/21 01/23/21 06:59 18:59 06:59 Intake Total 300 Balance 300 Intake: Oral 300 Other: Voiding Method Toilet # Voids 3 - Exam GENERAL: The patient is alert and oriented x3, not in any acute distress. Well developed, well nourished. HEENT: Pupils are round and equally reacting to light. EOMI. No scleral icterus. No conjunctival pallor. Normocephalic, atraumatic. No pharyngeal erythema. No thyromegaly. CARDIOVASCULAR: S1 and S2 present. No murmurs, rubs, or gallops. PULMONARY: Chest is clear to auscultation, no wheezing or crackles. -ABDOMEN: Soft, nontender, nondistended, normoactive bowel sounds. No palpable organomegaly. -MUSCULOSKELETAL: No joint swelling or deformity. The distal left back tenderness just lateral to the left spine and follows dermatome T9 EXTREMITIES: No cyanosis, clubbing, or pedal edema. NEUROLOGICAL: Gross neurological examination did not reveal any focal deficits. SKIN: No rashes. no petechiae. - Labs CBC & Chem 7: 01/21/21 07:00 01/21/21 07:00 Labs: Microbiology - Last 24 Hours (Table) 01/20/21 16:14 Urine Culture - Final Urine,Voided Assessment and Plan Assessment: Possible lung cancer mainly in the left lower lobe with 1 cm spiculated mass with multiple metastasis including the lung, bone, liver, left adrenal gland.Will need a tissue diagnosis Left middle back pain radiating across the abdomen along the left T9 dermatome secondary to lytic lesion at T9 Suspect hepatic and left adrenal metastasis and osseous metastasis including the left acetabulum, L3, T9 and possibility T5 (lytic lesions) alcohol abuse at-risk of alcohol withdrawal No evidence Acute urinary tract infection/pyelonephritis history of arthritis History of migraine Stereo C. diff infection Plan: this is a pleasant 55 years old female who presents with possible left lung mass of 1 cm suspicious for cancer with metastatic liver disease and possible left adrenal metastasis. Also with bone metastasis. PET scan is recommended. Oncology team on the case also patient will need a tissue diagnosis. Discontinue antibiotics and IV fluids Continue with on CIWA protocol and thiamine IV Labs and medication were reviewed.. Continue same treatment. Continue with symptomatic treatment. Resume home medication. Monitor lytes and vitals. DVT and GI prophylaxis. Further recommendations depends on the clinical course of the patient DVT prophylaxis: Subcutaneous heparin GI Prophylaxis: Pepcid Prognosis is guarded
[2021-01-22] MEDS: LEVOFLOXACIN 500MG-D5W PMX 500 MG in DEXTROSE/WATER 1 100ML.BAG IVPB SCH (23:50)
[2021-01-23] MEDS: MORPHINE SULFATE 4 MG/ML SYRINGE IV PRN ×3 (01:20→18:57)
[2021-01-23] MEDS: HYDROcodone/APAP 7.5-325MG 1 EACH TAB PO PRN ×3 (02:20→21:40)
[2021-01-23] MEDS: DOCUSATE 100 MG CAP PO SCH ×2 (09:25→21:26)
[2021-01-23] MEDS: FAMOTIDINE 20 MG/2 ML VIAL IV SCH ×2 (09:25→21:34)
[2021-01-23] MEDS: THIAMINE 100 MG/ML 2 ML VIAL IVP SCH (09:31)
--- NOTE | 2021-01-23 11:52 | P.PN ---
Subjective Progress Note Date: 01/23/21 Principal diagnosis: Renal mass, mediastinal mass In follow-up today patient's abdominal pain is stable on pain medications. No other symptoms to report on a 10 point review of systems this morning Objective - Vital Signs Vital signs: Vital Signs Temp 97.9 F 01/23/21 08:17 Pulse 62 01/23/21 08:17 Resp 20 01/23/21 09:47 BP 115/72 01/23/21 08:17 Pulse Ox 99 01/23/21 08:17 Intake & Output 01/22/21 01/23/21 01/23/21 18:59 06:59 18:59 Intake Total 300 Balance 300 Intake: Oral 300 Other: Voiding Method Toilet # Voids 3 2 2 - Constitutional General appearance: Present: average body habitus, cooperative, no acute distress - EENT Eyes: Present: anicteric sclerae, EOMI ENT: Present: hearing grossly normal, normal oropharynx - Neck Neck: Absent: lymphadenopathy - Respiratory Respiratory: bilateral: CTA - Cardiovascular Rhythm: regular Heart sounds: normal: S1, S2 Abnormal Heart Sounds: Absent: systolic murmur, diastolic murmur, rub, S3 Gallop, S4 Gallop, click, other - Peripheral edema leg Peripheral Edema: bilateral: None - Gastrointestinal General gastrointestinal: Present: normal bowel sounds, soft - Neurologic Neurologic: Present: CNII-XII intact - Musculoskeletal Musculoskeletal: Present: generalized weakness, strength equal bilaterally - Psychiatric Psychiatric: Present: A&O x's 3, appropriate affect, intact judgment & insight - Labs CBC & Chem 7: 01/21/21 07:00 01/21/21 07:00 - Imaging and Cardiology CT scan - abdomen: report reviewed CT scan - chest: report reviewed CT scan - pelvis: report reviewed Assessment and Plan (1) Mediastinal mass Current Visit: Yes Status: Acute Priority: High Code(s): J98.59 - OTHER DISEASES OF MEDIASTINUM, NOT ELSEWHERE CLASSIFIED SNOMED Code(s): 66379081 (2) Lesion of adrenal gland Current Visit: Yes Status: Acute Priority: High Code(s): E27.9 - DISORDER OF ADRENAL GLAND, UNSPECIFIED SNOMED Code(s): 91004784 (3) Macrocytosis without anemia Narrative/Plan: B12 levels low end of normal, may be a degree of malabsorption. Pending MNA. We'll make recommendations for supplementation as appropriate. Current Visit: Yes Status: Acute Priority: Medium Code(s): D75.89 - OTHER SPECIFIED DISEASES OF BLOOD AND BLOOD-FORMING ORGANS SNOMED Code(s): 992020812 (4) Hypercalcemia Narrative/Plan: Calcium 10.4 today. Continue to monitor. May consider a dose of [place] or bisphosphonate. Pending procedures first. Current Visit: Yes Status: Acute Priority: Medium Code(s): E83.52 - HYPERCALCEMIA SNOMED Code(s): 84691348 (5) Abdominal pain Narrative/Plan: Continue pain medications. Titrate for patient comfort. Multiple medications for the prevention of narcotic-induced constipation. Current Visit: Yes Status: Acute Priority: High Code(s): R10.9 - UNSPEC IFIED ABDOMINAL PAIN SNOMED Code(s): 32891203 Plan: Dr. Preciado reviewed the CT scans with the patient and the concerning findings of a renal mass as well as mediastinal mass, highly suspicious for malignancy. Consult to pulmonary for biopsy, pending pathology for diagnosis, prognosis and treatment options. Doctor attests: I performed a history and physical examination of this patient, developed impression and plan of care. Discussed with dictator. I agree with dictators note, documented as a scribe.
[2021-01-23] MEDS ORDERED: LORazepam 2 MG/ML INJ IV STA (12:17)
[2021-01-23 13:40] LABS: Free Kappa Lt Chain Qnt, Serum 2.58 mg/dL (0.33-1.94)
[2021-01-23] MEDS: SENNOSIDES-DOCUSATE SODIUM 1 EACH TAB PO SCH (21:34)
[2021-01-24] MEDS: MORPHINE SULFATE 4 MG/ML SYRINGE IVP PRN (00:19)
[2021-01-24] MEDS ORDERED: LORazepam 2 MG/ML INJ IV PRN ×3 (06:32)
--- NOTE | 2021-01-24 07:29 | P.PN ---
Subjective this is a pleasant 55 years old female with past medical history of arthritis, migraine, C. diff. she is a patient of Dr. Azul. Presents because of left flank pain of 2 weeks duration, got really severe over the last 2 days, it is also located in the middle left back and goes around to the left flank down to the left groin at times, comes and goes. Associated with decreased amount of urine but no dysuria or urgency or hesitancy. Also has some suprapubic tenderness. And she has some vaginal discharge but no vaginal bleeding she is also complaining of from nausea and vomiting for about one week, she has constipation but no diarrhea. She has low appetite. She smokes about less than a pack per day, she is counseled and agrees to quit but she declined nicotine patch. She drinks alcohol everyday likely 1 pint to 1 fifth. No illicit tracts vitals are stable, labs including CBC and BMP are unremarkable. Urine analysis is suspicious for infection patient had CT of the abdomen and pelvis without contrast showing left and right hepatic masses suggestive of metastasis. Enlarged left adrenal gland suspicious for metastasis, a primary neoplasm source is not identified. Fusiform prominence in the mid abdominal aorta emergency room patient received Benadryl, Toradol, levofloxacin, morphine, prednisone. Also patient was started on normal saline 75 mL/h. One-time dose of Bactrim is also given surgical team were consulted from emergency room. 01/21/2021 This is a pleasant 55 years old female who presents with abdominal pain, CT of the abdomen found liver metastasis and left adrenal gland mass which might contribute to her symptoms. UTI is suspected but renal ultrasound is negative. The portcalcitonin is normal. We will wait for urine culture and if negative then we might discontinue antibiotic Patient is followed closely by surgery team with a recommendation for no surgical intervention. Also followed by oncology team who ordered a CT of the abdomen and pelvis and chest with contrast to be done today: Soft tissue m asslike area in the subcarinal and right peribronchial region suspicious for neoplasm with 1 cm spiculated density in the left lower lobe suspicious for neoplasm. Suspect hepatic and left adrenal metastasis and osseous metastasis including the left acetabulum, L3, T9 and possibility 5. Repeat urine analysis is negative. Urine culture is negative we'll discontinue antibiotic Patient continued on Levaquin, normal saline at 125. Also she is on [facility] protocol for history of alcohol abuse Oncology team on the case 01/22/2021 Patient still complaining of from mid to lower back pain just to the left of the vertebral column and right guillotine down just below the rib cage on the left side across the abdomen towards umbilicus. The distribution of pain follows dermatome T9 on the left side. No evidence of UTI on urine culture, bothcalcitonin is negative. Repeat UA is negative and antibiotic can safely be discontinued with Levaquin as there is no evidence of infection and most likely her pain is musculoskeletal related to her metastatic disease. Also patient complains from constipation and stool softener started. Patient encouraged to the patient on [place] rather than IV morphine to facilitate her discharge, all of pain except for the patient as pain she can tolerate and function rather than 0 pain and she agrees. CT of the abdomen, pelvis and chest with contrast showing: Soft tissue mass like area in the subcarinal and right peribronchial region suspicious for neoplasm. 1 cm spiculated density left lower lobe suspicious for neoplasm, hepatic metastases, osseous metastasis including left acetabulum, lytic lesions involving T5, T9 and L3. With probable metastatic left adrenal mass Patient informed with these findings. Radiologist recommended at this Which is going to be decided per Oncology team tomorrow Surgery team input is appreciated, no need for any surgical intervention actually patient might need a tissue biopsy with IR, for this reason we kept the patient nothing by mouth and told the nurse to hold her anticoagulation dose the morning for her DVT prophylaxis Continue gentle hydration. Continue with CIWA protocol with no evidence of alcohol withdrawal currently. Continue with morphine/[place]. She is on heparin subcutaneous twice a day for DVT prophylaxis with instruction to hold those in the morning 01/23/2021 Patient is still complaining of from mid back pain radiating to the left side across left T9 dermatome due to her metastatic bone disease and lytic lesion in T9. She has multiple metastatic sports including the liver, left adrenal gland, spine with lung metastasis and left lung mass suspicious for primary source. Oncology team are recommended bronchoscopy to obtain tissue biopsy, however per my discussion with pulmonary team they think her liver lesion and/or adrenal gland are more accessible. hence consult was placed for IR team Patient pain is not controlled with [place], she still on IV morphine. Laxative provided for her constipation. Patient also has concerns about her be because of lack of insurance, for this reason she refused occupational therapy. Consult was placed for social service assistant Also patient is on [facility] protocol for her alcohol withdrawal. Emotional support is a provided for the patient Objective - Vital Signs Vital signs: Vital Signs Temp 97.9 F 01/23/21 08:17 Pulse 62 01/23/21 08:17 Resp 20 01/23/21 09:47 BP 115/72 01/23/21 08:17 Pulse Ox 99 01/23/21 08:17 Intake & Output 01/22/21 01/23/21 01/23/21 18:59 06:59 18:59 Intake Total 300 Output Total 350 Balance 300 -350 Intake: Oral 300 Output: Urine 350 Other: Voiding Method Toilet # Voids 3 2 2 - Exam GENERAL: The patient is alert and oriented x3, not in any acute distress. Well developed, well nourished. HEENT: Pupils are round and equally reacting to light. EOMI. No scleral icterus. No conjunctival pallor. Normocephalic, atraumatic. No pharyngeal erythema. No thyromegaly. CARDIOVASCULAR: S1 and S2 present. No murmurs, rubs, or gallops. PULMONARY: Chest is clear to auscultation, no wheezing or crackles. -ABDOMEN: Soft, nontender, nondistended, normoactive bowel sounds. No palpable organomegaly. -MUSCULOSKELETAL: No joint swelling or deformity. The distal left back tenderness just lateral to the left spine and follows dermatome T9 EXTREMITIES: No cyanosis, clubbing, or pedal edema. NEUROLOGICAL: Gross neurological examination did not reveal any focal deficits. SKIN: No rashes. no petechiae. - Labs CBC & Chem 7: 01/21/21 07:00 01/21/21 07:00 Labs: Abnormal Lab Results - Last 24 Hours (Table) 01/20/21 Range/Units 15:03 Free [place] LC, Quant 2.58 H (0.33-1.94) mg/dL Assessment and Plan Assessment: Possible lung cancer mainly in the left lower lobe with 1 cm spiculated mass with multiple metastasis including the lung, bone, liver, left adrenal gland.Will need a tissue diagnosis Left middle back pain radiating across the abdomen along the left T9 dermatome secondary to lytic lesion at T9 Suspect hepatic and left adrenal metastasis and osseous metastasis including the left acetabulum, L3, T9 and possibility T5 (lytic lesions) alcohol abuse at-risk of alcohol withdrawal No evidence Acute urinary tract infection/pyelonephritis history of arthritis History of migraine Stereo C. diff infection Plan: this is a pleasant 55 years old female who presents with possible left lung mass of 1 cm suspicious for cancer with metastatic liver disease and possible left adrenal metastasis. Also with bone metastasis. PET scan is recommended. Oncology team on the case also patient will need a tissue diagnosis. IR for tissue biopsy, possible from the liver or adrenal gland Discontinue antibiotics and IV fluids Continue with on CIWA protocol and thiamine IV Labs and medication were reviewed.. Continue same treatment. Continue with symptomatic treatment. Resume home medication. Monitor lytes and vitals. DVT and GI prophylaxis. Further recommendations depends on the clinical course of the patient DVT prophylaxis: Subcutaneous heparin GI Prophylaxis: Pepcid Consult social service assistant for lack of medical insurance Prognosis is guarded
[2021-01-24 07:49] LABS: Methylmalonic Acid 0.22 umol/L (<0.40)
[2021-01-24] MEDS: ONDANSETRON 4 MG/2 ML VIAL IVP PRN (08:39)
[2021-01-24] MEDS: DOCUSATE 100 MG CAP PO SCH ×2 (08:43→20:45)
[2021-01-24] MEDS: THIAMINE 100 MG/ML 2 ML VIAL IVP SCH (08:43)
[2021-01-24] MEDS: HYDROcodone/APAP 7.5-325MG 1 EACH TAB PO PRN (08:50)
[2021-01-24] MEDS: FAMOTIDINE 20 MG/2 ML VIAL IV SCH ×2 (08:50→20:44)
[2021-01-24] MEDS: MORPHINE SULFATE 4 MG/ML SYRINGE IV PRN (10:56)
--- NOTE | 2021-01-24 16:15 | P.PN ---
Progress Note - Text Progress Note Date: 01/24/21 MRI of the brain today to complete staging. Pending Pulmonary evaluation to see if they're going to biopsy. Adjusting pain medications for better pain control. Scheduled and PRN medications for the prevention of narcotic-induced constipation. Consult to Case Managment, patient has no insurance and needs medicaid. Case discussed with nursing. Follow-up in a.m.
[2021-01-24] MEDS: MAGNESIUM HYDROXIDE 2,400 MG/10 ML CUP PO PRN (16:17)
[2021-01-24] MEDS: HYDROcodone/APAP 10-325MG 1 EACH TAB PO PRN ×2 (16:20→20:45)
[2021-01-24] MEDS: SENNOSIDES-DOCUSATE SODIUM 1 EACH TAB PO SCH (20:44)
[2021-01-24] MEDS: HEPARIN SODIUM,PORCINE/PF 5,000 UNIT/0.5 ML SYRINGE SQ SCH (20:45)
[2021-01-25] MEDS: MORPHINE SULFATE 4 MG/ML SYRINGE IV PRN ×3 (00:08→23:42)
[2021-01-25 06:19] LABS: Basophils % (A) 0 %; Eosinophils # (A) 0.1 k/uL (0-0.7); Eosinophils % (A) 1 %; HCT 35.8 % (34.0-46.0); HGB 12.3 gm/dL (11.4-16.0); Lymphocytes # (A) 1.8 k/uL (1.0-4.8); Lymphocytes % (A) 29 %; MCH 35.7 pg (25.0-35.0); MCHC 34.4 g/dL (31.0-37.0); MCV 103.9 fL (80.0-100.0); Macrocytosis Slight; Mean Platelet Volume 7.8; Monocytes # (A) 0.5 k/uL (0-1.0); Monocytes % (A) 9 %; Neutrophils # (A) 3.8 k/uL (1.3-7.7); Neutrophils % (A) 60 %; Platelet Count 284 k/uL (150-450); RBC 3.44 m/uL (3.80-5.40); RDW 13.4 % (11.5-15.5); WBC 6.4 k/uL (3.8-10.6)
[2021-01-25 06:29] LABS: African American GFR (CKD) >90 (>60 ml/min/1.73 sqM); Anion Gap 0 mmol/L; Blood Urea Nitrogen 9 mg/dL (7-17); Calcium 9.7 mg/dL (8.4-10.2); Carbon Dioxide 36 mmol/L (22-30); Chloride 100 mmol/L (98-107); Glucose 108 mg/dL (74-99); Non-African American GFR(CKD) 88 (>60 ml/min/1.73 sqM); Potassium 4.1 mmol/L (3.5-5.1); Sodium 136 mmol/L (137-145)
[2021-01-25] MEDS: HYDROcodone/APAP 10-325MG 1 EACH TAB PO PRN ×3 (07:06→18:22)
[2021-01-25] MEDS: ONDANSETRON 4 MG/2 ML VIAL IVP PRN (07:08)
[2021-01-25] MEDS: FAMOTIDINE 20 MG/2 ML VIAL IV SCH ×2 (08:39→21:20)
[2021-01-25] MEDS: DOCUSATE 100 MG CAP PO SCH ×2 (08:40→21:20)
[2021-01-25] MEDS: THIAMINE 100 MG/ML 2 ML VIAL IVP SCH (08:41)
[2021-01-25] MEDS: HEPARIN SODIUM,PORCINE/PF 5,000 UNIT/0.5 ML SYRINGE SQ SCH ×2 (08:48→21:21)
--- NOTE | 2021-01-25 09:41 | MR ---
EXAMINATION TYPE: MR brain wo/w con DATE OF EXAM: 01/25/2021 COMPARISON: CT brain 01/06/2014 HISTORY: metastatic disease CONTRAST: Performed utilizing 7.0 mL intravenous Gadavist gadolinium contrast. TECHNIQUE: Multiplanar, multiecho imaging on a 3.0 [place] magnet is performed through the brain. Stud y is performed within 24 hours of arrival to the hospital. The craniovertebral junction is normal. The pituitary is normal. Diffusion-weighted imaging is performed. No abnormal hyperintensity is present to suggest an acute i ntracranial infarct or acute ischemic change. There is minimal periventricular white matter hyperintensity most likely on the basis of chronic whit e matter ischemic changes. Ventricles and sulci are appropriate for the patient age. No suspicious enhancement is evident. There is some fluid within the right mastoid air cells. Lesser fluid is within left mastoid air cells . Mild mastoiditis could be considered. IMPRESSIONS: 1. Mild chronic appearing periventricular white matter changes. 2. No acute posttraumatic changes. 3. Some minimal bilateral mastoiditis may be present.
--- NOTE | 2021-01-25 11:37 | P.CNPUL ---
History of Present Illness Consult date: 01/24/21 Reason for consult: dyspnea, COPD, lung mass, abnormal CXR/CT Chief complaint: Back pain History of present illness: Patient seen eval examined came into the hospital with 3-4 week history of progressive back pain up to a point severe constant patient does have a history of extensive smoking and nicotine use used to smoke half to 1 pack per day for about 20 years lately have quit smoking, have intermittent dry cough ongoing shortness of breath denies any hemoptysis, patient has multiple computed tomography scan of the abdominal and pelvis and chest has been done we will review chest CT pending further recommendation Review of Systems All systems: negative Past Medical History Additional Past Medical History / Comment(s): arthritis, migraines, History of Any Multi-Drug Resistant Organisms: C-DIFF Date of last positivie culture/infection: 2007 MDRO Source:: stool Past Surgical History: Appendectomy, Hysterectomy, Orthopedic Surgery Past Psychological History: No Psychological Hx Reported Smoking Status: Current every day smoker Past Alcohol Use History: Daily, Occasional Past Drug Use History: None Reported Medications and Allergies Home Medications Medication Instructions Recorded Confirmed Type Dorzolamide 2% [Trusopt 2%] 1 drop BOTH EYES BID 01/20/21 01/20/21 History Allergies Allergy/AdvReac Type Severity Reaction Status Date / Time aspirin Allergy Abdominal Verified 01/20/21 11:10 Pain cephalexin [From Keflex] Allergy Rash/Hives Verified 01/20/21 11:10 Iodinated Contrast Media Allergy Anaphylaxis Verified 01/20/21 11:10 [Iodinated Contrast- Oral and IV Dye] Physical Exam Vitals: Vital Signs Temp Pulse Resp BP BP Pulse Ox 01/24/21 08:00 98.7 F 71 18 108/67 96 01/24/21 01:46 98.2 F 66 18 107/68 98 01/23/21 21:30 18 01/23/21 21:22 98.5 F 84 18 135/84 99 01/23/21 19:54 98.5 F 68 20 120/76 98 01/23/21 14:15 98.6 F 70 18 117/69 99 Intake and Output 01/23/21 01/24/21 01/24/21 22:59 06:59 14:59 Intake Total 400 Balance 400 Intake: Oral 400 Other: Voiding Method Toilet # Voids 1 1 1 - Constitutional General appearance: cooperative, disheveled - EENT Eyes: PERRLA Ears: bilateral: normal - Neck Carotids: bilateral: upstroke normal Thyroid: negative: normal size - Respiratory Respiratory: bilateral: CTA - Cardiovascular Rhythm: regular Heart sounds: normal: S1, S2 - Gastrointestinal General gastrointestinal: soft - Neurologic Point tenderness is present at lower thoracic and upper lumbar area Neurologic: CNII-XII intact - Musculoskeletal Musculoskeletal: generalized weakness, strength equal bilaterally - Psychiatric Psychiatric: A&O x's 3, appropriate affect, intact judgment & insight Results - Laboratory Findings CBC and BMP: 01/25/21 05:55 01/25/21 05:55 Abnormal lab findings: Abnormal Labs 01/20/21 01/20/21 01/20/21 10:40 10:40 10:58 RBC 3.78 L MCV 101.8 H MCH 36.1 H Lymphocytes # Retic Count Sodium 134 L Glucose 113 H Calcium 10.5 H C-Reactive Protein Vitamin D 25-Hydroxy Urine Appearance Cloudy H Urine Protein 1+ H Urine Ketones 3+ H Urine Nitrite Positive H Urine Bilirubin 1+ H Ur Leukocyte Esterase Trace H Urine WBC 8 H Ur Squamous Epith Cells 6 H Urine Bacteria Many H Urine Mucus Many H Free [place] LC, Quant 01/20/21 01/20/21 01/20/21 15:03 15:03 15:03 RBC MCV MCH Lymphocytes # Retic Count 2.4 H Sodium Glucose Calcium C-Reactive Protein Vitamin D 25-Hydroxy 9.1 L Urine Appearance Urine Protein Urine Ketones Urine Nitrite Urine Bilirubin Ur Leukocyte Esterase Urine WBC Ur Squamous Epith Cells Urine Bacteria Urine Mucus Free [place] LC, Quant 2.58 H 01/21/21 01/21/21 01/21/21 07:00 07:00 16:30 RBC 3.63 L MCV 104.4 H MCH 35.8 H Lymphocytes # 0.4 L Retic Count Sodium 134 L Glucose 191 H Calcium 10.4 H C-Reactive Protein 44.2 H Vitamin D 25-Hydroxy Urine Appearance Urine Protein Urine Ketones 1+ H Urine Nitrite Urine Bilirubin Ur Leukocyte Esterase Urine WBC Ur Squamous Epith Cells Urine Bacteria Urine Mucus Free [place] LC, Quant - Diagnostic Findings Chest x-ray: report reviewed, image reviewed CT scan - chest: report reviewed, image reviewed Assessment and Plan Assessment: Probable Mediastinal mass Lung nodule COPD Back pain intractable Lesions in the liver as well as adrenal gland suspicious for metastatic disease Lesions in the spine as per computed tomography scan report Plan: We'll review the computed tomography scan pending further recommendation before biopsy however given lung nodules very small in size difficult to access with bronchoscope, mediastinal matted lymph node however can be approached but rather do it after a PET scan in outpatient setting, suspect CT-guided biopsy of thoracolumbar spine is more accessible with tissue diagnosis and staging Time with Patient: Greater than 30
[2021-01-25 11:45] LABS: Albumin 3.01 g/dL (3.80-4.90); Gamma Globulin 1.15 g/dL (0.70-1.50)
--- NOTE | 2021-01-25 11:50 | P.PN ---
Subjective Progress Note Date: 01/25/21 Principal diagnosis: Probable Mediastinal mass Lung nodule COPD Back pain intractable Lesions in the liver as well as adrenal gland suspicious for metastatic disease Lesions in the spine as per computed tomography scan report 01/25/2021, patient seen percy examined during the rounds continue to have severe back pain, with point tenderness, status post MRI of the brain report reviewed no significant acute pathology identified, discussed with RN about obtaining the MRI of thoracolumbar spine in case if accessible lesion is present we will ask IR to do biopsy, for lung biopsy probably better to PET scan as outpatient and arrange for navigational biopsy as outpatient Patient seen eval examined came into the hospital with 3-4 week history of progressive back pain up to a point severe constant patient does have a history of extensive smoking and nicotine use used to smoke half to 1 pack per day for about 20 years lately have quit smoking, have intermittent dry cough ongoing shortness of breath denies any hemoptysis, patient has multiple computed tomography scan of the abdominal and pelvis and chest has been done we will review chest CT pending further recommendation Objective - Vital Signs Vital signs: Vital Signs Temp 98.2 F 01/25/21 08:10 Pulse 75 01/25/21 08:10 Resp 18 01/25/21 08:10 BP 96/67 01/25/21 08:10 Pulse Ox 96 01/25/21 00:15 Intake & Output 01/24/21 01/25/21 01/25/21 18:59 06:59 18:59 Intake Total 240 Balance 240 Weight 72.575 kg Intake: Oral 240 Other: Voiding Method Toilet # Voids 1 1 - Exam - Constitutional General appearance: cooperative, disheveled - EENT Eyes: PERRLA Ears: bilateral: normal - Neck Carotids: bilateral: upstroke normal Thyroid: negative: normal size - Respiratory Respiratory: bilateral: CTA - Cardiovascular Rhythm: regular Heart sounds: normal: S1, S2 - Gastrointestinal General gastrointestinal: soft - Neurologic Point tenderness is present at lower thoracic and upper lumbar area Neurologic: CNII-XII intact - Musculoskeletal Musculoskeletal: generalized weakness, strength equal bilaterally - Psychiatric Psychiatric: A&O x's 3, appropriate affect, intact judgment & insight - Labs CBC & Chem 7: 01/25/21 05:55 01/25/21 05:55 Labs: Abnormal Lab Results - Last 24 Hours (Table) 01/25/21 01/25/21 Range/Units 05:55 05:55 RBC 3.44 L (3.80-5.40) m/uL MCV 103.9 H (80.0-100.0) fL MCH 35.7 H (25.0-35.0) pg Sodium 136 L (137-145) mmol/L Carbon Dioxide 36 H (22-30) mmol/L Glucose 108 H (74-99) mg/dL Assessment and Plan Assessment: Lesion in lower thoracic and upper lumbar spine acne metastatic disease Probable Mediastinal mass Lung nodule COPD Back pain intractable Lesions in the liver as well as adrenal gland suspicious for metastatic disease Lesions in the spine as per computed tomography scan report Plan: MRI of the thoracolumbar spine If MRI of the thoracolumbar spine showed a lesion consider IR to do CT-guided biopsy Lung biopsy of mediastinal mass or peripheral small nodule is challenging and will require PET scan and arranging navigational biopsy as outpatient Time with Patient: Greater than 30
[2021-01-25] MEDS ORDERED: NA PHOS,M-B/NA PHOS,DI-BA 133 ML ENEMA RECTAL ONE (14:00)
--- NOTE | 2021-01-25 15:50 | P.PN ---
Subjective Progress Note Date: 01/25/21 Principal diagnosis: Renal mass, mediastinal mass, possible bone lesions In follow-up today patient's back pain is persistent, worse than it's been in the past, it is a chronic pain,fair pain control on current medications. No other symptoms to report on a 10 point review of systems this morning Objective - Vital Signs Vital signs: Vital Signs Temp 98.1 F 01/25/21 14:25 Pulse 69 01/25/21 14:25 Resp 16 01/25/21 14:25 BP 97/61 01/25/21 14:25 Pulse Ox 100 01/25/21 14:25 Intake & Output 01/24/21 01/25/21 01/25/21 18:59 06:59 18:59 Intake Total 240 Balance 240 Weight 72.575 kg Intake: Oral 240 Other: Voiding Method Toilet # Voids 1 1 # Bowel Movements 1 - Constitutional General appearance: Present: average body habitus, cooperative, no acute distress - EENT Eyes: Present: anicteric sclerae, EOMI ENT: Present: hearing grossly normal - Respiratory Respiratory: bilateral: CTA - Cardiovascular Heart sounds: normal: S1, S2 Abnormal Heart Sounds: Absent: systolic murmur, diastolic murmur, rub, S3 Gallop, S4 Gallop, click, other - Peripheral edema leg Peripheral Edema: bilateral: None - Gastrointestinal General gastrointestinal: Present: normal bowel sounds, soft - Neurologic Neurologic: Present: CNII-XII intact (grossly) - Musculoskeletal Musculoskeletal Comment(s): lateral to the spine discomfort with palpation, no deformity Musculoskeletal: Present: strength equal bilaterally - Psychiatric Psychiatric: Present: A&O x's 3, appropriate affect, intact judgment & insight - Labs CBC & Chem 7: 01/25/21 05:55 01/25/21 05:55 Labs: Abnormal Lab Results - Last 24 Hours (Table) 01/20/21 01/25/21 01/25/21 Range/Units 15:03 05:55 05:55 RBC 3.44 L (3.80-5.40) m/uL MCV 103.9 H (80.0-100.0) fL MCH 35.7 H (25.0-35.0) pg Sodium 136 L (137-145) mmol/L Carbon Dioxide 36 H (22-30) mmol/L Glucose 108 H (74-99) mg/dL Albumin (PEP) 3.01 L (3.80-4.90) g/dL [id number] 0.61 H (0.10-0.40) g/dL - Imaging and Cardiology MRI - head: report reviewed (no malignancy) Assessment and Plan (1) Mediastinal mass Current Visit: Yes Status: Acute Priority: High Code(s): J98.59 - OTHER DISEASES OF MEDIASTINUM, NOT ELSEWHERE CLASSIFIED SNOMED Code(s): 29866842 (2) Lesion of adrenal gland Current Visit: Yes Status: Acute Priority: High Code(s): E27.9 - DISORDER OF ADRENAL GLAND, UNSPECIFIED SNOMED Code(s): 02955099 (3) Macrocytosis without anemia Current Visit: Yes Status: Acute Priority: Medium Code(s): D75.89 - OTHER SPECIFIED DISEASES OF BLOOD AND BLOOD-FORMING ORGANS SNOMED Code(s): 684967176 (4) Hypercalcemia Current Visit: Yes Status: Resolved Priority: Medium Code(s): E83.52 - HYPERCALCEMIA SNOMED Code(s): 74879917 (5) Abdominal pain Current Visit: Yes Status: Acute Priority: High Code(s): R10.9 - UNSPECIFIED ABDOMINAL PAIN SNOMED Code(s): 85308323 Plan: MRI of the brain was negative for lesions. Case discussed with IN and RN. Reviewed Pulmonary notes. The renal mass is difficult to assess so no plans to biopsy this site. Pulmonary requires a PET scan for navigational bronchoscopy to biopsy lung. Patient is having an MRI of the lumbar spine to further evaluate pain, also, the lesions in that area will be better image to see if possibly Interventional Radiology can do a bone biopsy. Patient does state that she has a history of crush injury to the low back
[2021-01-25] MEDS: SENNOSIDES-DOCUSATE SODIUM 1 EACH TAB PO SCH (21:20)
--- NOTE | 2021-01-25 22:35 | P.PN ---
Subjective Progress Note Date: 01/24/21 Principal diagnosis: Mediastinal mass and renal mass suspicious for malignancy. this is a pleasant 55 years old female with past medical history of arthritis, migraine, C. diff. she is a patient of Dr. Azul. Presents because of left flank pain of 2 weeks duration, got really severe over the last 2 days, it is also located in the middle left back and goes around to the left flank down to the left groin at times, comes and goes. Associated with decreased amount of urine but no dysuria or urgency or hesitancy. Also has some suprapubic tenderness. And she has some vaginal discharge but no vaginal bleeding she is also complaining of from nausea and vomiting for about one week, she has constipation but no diarrhea. She has low appetite. She smokes about less than a pack per day, she is counseled and agrees to quit but she declined nicotine patch. She drinks alcohol everyday likely 1 pint to 1 fifth. No illicit tracts vitals are stable, labs including CBC and BMP are unremarkable. Urine analysis is suspicious for infection patient had CT of the abdomen and pelvis without contrast showing left and right hepatic masses suggestive of metastasis. Enlarged left adrenal gland suspicious for metastasis, a primary neoplasm source is not identified. Fusiform promine nce in the mid abdominal aorta emergency room patient received Benadryl, Toradol, levofloxacin, morphine, prednisone. Also patient was started on normal saline 75 mL/h. One-time dose of Bactrim is also given surgical team were consulted from emergency room. 01/21/2021 This is a pleasant 55 years old female who presents with abdominal pain, CT of the abdomen found liver metastasis and left adrenal gland mass which might contribute to her symptoms. UTI is suspected but renal ultrasound is negative. The portcalcitonin is normal. We will wait for urine culture and if negative then we might discontinue antibiotic Patient is followed closely by surgery team with a recommendation for no surg ical intervention. Also followed by oncology team who ordered a CT of the abdomen and pelvis and chest with contrast to be done today: Soft tissue masslike area in the subcarinal and right peribronchial region suspicious for neoplasm with 1 cm spiculated density in the left lower lobe suspicious for neoplasm. Suspect hepatic and left adrenal metastasis and osseous metastasis including the left acetabulum, L3, T9 and possibility 5. Repeat urine analysis is negative. Urine culture is negative we'll discontinue antibiotic Patient continued on Levaquin, normal saline at 125. Also she is on CIWA protocol for history of alcohol abuse Oncology team on the case 01/22/2021 Patient still complaining of from mid to lower back pain just to the left of the vertebral column and right guillotine down just below the rib cage on the left side across the abdomen towards umbilicus. The distribution of pain follows dermatome T9 on the left side. No evidence of UTI on urine culture, bothcalcitonin is negative. Repeat UA is negative and antibiotic can safely be discontinued with Levaquin as there is no evidence of infection and most likely her pain is musculoskeletal related to her metastatic disease. Also patient complains from constipation and stool softener started. Patient encouraged to the patient on Crozet rather than IV morphine to facilitate her discharge, all of pain except for the patient as pain she can tolerate and function rather than [address] pain and she agrees. CT of the abdomen, pelvis and chest with contrast showing: Soft tissue mass like area in the subcarinal and right peribronchial region suspicious for neoplasm. 1 cm spiculated density left lower lobe suspicious for neoplasm, hepatic metastases, osseous metastasis including left acetabulum, lytic lesions involving T5, T9 and L3. With probable metastatic left adrenal mass Patient informed with these findings. Radiologist recommended at this Which is going to be decided per Oncology team tomorrow Surgery team input is appreciated, no need for any surgical intervention actually patient might need a tissue biopsy with IR, for this reason we kept the patient nothing by mouth and told the nurse to hold her anticoagulation dose the morning for her DVT prophylaxis Continue gentle hydration. Continue with CIWA protocol with no evidence of alcohol withdrawal currently. Continue with morphine/Crozet. She is on heparin subcutaneous twice a day for DVT prophylaxis with instruction to hold those in the morning 01/23/2021 Patient is still complaining of from mid back pain radiating to the left side across left T9 dermatome due to her metastatic bone disease and lytic lesion in T9. She has multiple metastatic sports including the liver, left adrenal gland, spine with lung metastasis and left lung mass suspicious for primary source. Oncology team are recommended bronchoscopy to obtain tissue biopsy, however per my discussion with pulmonary team they think her liver lesion and/or adrenal gland are more accessible. hence consult was placed for IR team Patient pain is not controlled with Crozet, she still on IV morphine. Laxative provided for her constipation. Patient also has concerns about her be because of lack of insurance, for this reason she refused occupational therapy. Consult was placed for social service worker Also patient is on [facility] protocol for her alcohol withdrawal. Emotional support is a provided for the patient 01/24/2021 Patient is complaining of left mid back pain and requesting IV pain medications. Patient has multiple metastatic lesions in the liver, left adrenal gland, spine and lung/mediastinum. Patient was seen by oncology and recommends PET scan prior to biopsy. IR could not get liver biopsy due to smaller lesion. Cardiogram pain management with Crozet and IV morphine. Continue with bowel regimen. Patient is also complaining of constipation. No complaints of chest pain or shortness breath. Patient is very anxious otherwise. No fever no chills. No cough or sputum production. Oncology and pulmonary is on board. Current medications reviewed. Objective - Vital Signs Vital signs: Vital Signs Temp 98.3 F 01/24/21 14:00 Pulse 73 01/24/21 14:00 Resp 18 01/24/21 14:00 BP 93/56 01/24/21 14:00 Pulse Ox 97 01/24/21 14:00 Intake & Output 01/23/21 01/24/21 01/24/21 18:59 06:59 18:59 Intake Total 400 Output Total 350 Balance -350 400 Weight 72.575 kg Intake: Oral 400 Output: Urine 350 Other: Voiding Method Toilet # Voids 1 1 1 - Exam - Exam GENERAL: The patient is alert and oriented x3, not in any acute distress. Well developed, well nourished. HEENT: Pupils are round and equally reacting to light. EOMI. No scleral icterus. No conjunctival pallor. Normocephalic, atraumatic. No pharyngeal erythema. No thyromegaly. CARDIOVASCULAR: S1 and S2 present. No murmurs, rubs, or gallops. PULMONARY: Chest is clear to auscultation, no wheezing or crackles. -ABDOMEN: Soft, nontender, nondistended, normoactive bowel sounds. No palpable organomegaly. -MUSCULOSKELETAL: No joint swelling or deformity. The distal left back tenderness just lateral to the left spine and follows dermatome T9 EXTREMITIES: No cyanosis, clubbing, or pedal edema. NEUROLOGICAL: Gross neurological examination did not reveal any focal deficits. SKIN: No rashes. no petechiae. - Labs CBC & Chem 7: 01/25/21 05:55 01/25/21 05:55 Assessment and Plan Assessment: Mediastinal mass and renal mass suspicious for malignancy. left lower lobe with 1 cm spiculated mass with multiple metastasis including the lung, bone, liver, left adrenal gland.Will need a tissue diagnosis Left middle back pain radiating across the abdomen along the left T9 dermatome secondary to lytic lesion at T9 Suspect hepatic and left adrenal metastasis and osseous metastasis including the left acetabulum, L3, T9 and possibility T5 (lytic lesions) alcohol abuse at-risk of alcohol withdrawal No evidence Acute urinary tract infection/pyelonephritis history of arthritis History of migraine hx of C. diff infection History of cervical cancer and breast cancer status post chemotherapy. Patient states that she lost follow-up due to insurance issues Currently everyday smoker Constipation DVT prophylaxis with heparin subcu Plan: this is a pleasant 55 years old female who presents with possible left lung mass of 1 cm suspicious for cancer with metastatic liver disease and possible left adrenal metastasis. Also with bone metastasis. PET scan is recommended. Oncology team on the case also patient will need a tissue diagnosis. IR was consulted but could not get needle biopsy due to small of lesion. Continue with on CIWA protocol and thiamine IV Labs and medication were reviewed. Continue with symptomatic treatment. Resume home medication. Monitor lytes and vitals. DVT and GI prophylaxis. Further recommendations depends on the clinical course of the patient DVT prophylaxis: Subcutaneous heparin GI Prophylaxis: Pepcid Consult social service worker for lack of medical insurance Prognosis is guarded Time with Patient: Greater than 30
--- NOTE | 2021-01-25 22:40 | P.PN ---
Subjective Progress Note Date: 01/25/21 Principal diagnosis: Mediastinal mass and renal mass suspicious for malignancy. this is a pleasant 55 years old female with past medical history of arthritis, migraine, C. diff. she is a patient of Dr. Azul. Presents because of left flank pain of 2 weeks duration, got really severe over the last 2 days, it is also located in the middle left back and goes around to the left flank down to the left groin at times, comes and goes. Associated with decreased amount of urine but no dysuria or urgency or hesitancy. Also has some suprapubic tenderness. And she has some vaginal discharge but no vaginal bleeding she is also complaining of from nausea and vomiting for about one week, she has constipation but no diarrhea. She has low appetite. She smokes about less than a pack per day, she is counseled and agrees to quit but she declined nicotine patch. She drinks alcohol everyday likely 1 pint to 1 fifth. No illicit tracts vitals are stable, labs including CBC and BMP are unremarkable. Urine analysis is suspicious for infection patient had CT of the abdomen and pelvis without contrast showing left and right hepatic masses suggestive of metastasis. Enlarged left adrenal gland suspicious for metastasis, a primary neoplasm source is not identified. Fusiform promine nce in the mid abdominal aorta emergency room patient received Benadryl, Toradol, levofloxacin, morphine, prednisone. Also patient was started on normal saline 75 mL/h. One-time dose of Bactrim is also given surgical team were consulted from emergency room. 01/21/2021 This is a pleasant 55 years old female who presents with abdominal pain, CT of the abdomen found liver metastasis and left adrenal gland mass which might contribute to her symptoms. UTI is suspected but renal ultrasound is negative. The portcalcitonin is normal. We will wait for urine culture and if negative then we might discontinue antibiotic Patient is followed closely by surgery team with a recommendation for no surg ical intervention. Also followed by oncology team who ordered a CT of the abdomen and pelvis and chest with contrast to be done today: Soft tissue masslike area in the subcarinal and right peribronchial region suspicious for neoplasm with 1 cm spiculated density in the left lower lobe suspicious for neoplasm. Suspect hepatic and left adrenal metastasis and osseous metastasis including the left acetabulum, L3, T9 and possibility 5. Repeat urine analysis is negative. Urine culture is negative we'll discontinue antibiotic Patient continued on Levaquin, normal saline at 125. Also she is on CIWA protocol for history of alcohol abuse Oncology team on the case 01/22/2021 Patient still complaining of from mid to lower back pain just to the left of the vertebral column and right guillotine down just below the rib cage on the left side across the abdomen towards umbilicus. The distribution of pain follows dermatome T9 on the left side. No evidence of UTI on urine culture, bothcalcitonin is negative. Repeat UA is negative and antibiotic can safely be discontinued with Levaquin as there is no evidence of infection and most likely her pain is musculoskeletal related to her metastatic disease. Also patient complains from constipation and stool softener started. Patient encouraged to the patient on [place] rather than IV morphine to facilitate her discharge, all of pain except for the patient as pain she can tolerate and function rather than [address] pain and she agrees. CT of the abdomen, pelvis and chest with contrast showing: Soft tissue mass like area in the subcarinal and right peribronchial region suspicious for neoplasm. 1 cm spiculated density left lower lobe suspicious for neoplasm, hepatic metastases, osseous metastasis including left acetabulum, lytic lesions involving T5, T9 and L3. With probable metastatic left adrenal mass Patient informed with these findings. Radiologist recommended at this Which is going to be decided per Oncology team tomorrow Surgery team input is appreciated, no need for any surgical intervention actually patient might need a tissue biopsy with IR, for this reason we kept the patient nothing by mouth and told the nurse to hold her anticoagulation dose the morning for her DVT prophylaxis Continue gentle hydration. Continue with CIWA protocol with no evidence of alcohol withdrawal currently. Continue with morphine/[place]. She is on heparin subcutaneous twice a day for DVT prophylaxis with instruction to hold those in the morning 01/23/2021 Patient is still complaining of from mid back pain radiating to the left side across left T9 dermatome due to her metastatic bone disease and lytic lesion in T9. She has multiple metastatic sports including the liver, left adrenal gland, spine with lung metastasis and left lung mass suspicious for primary source. Oncology team are recommended bronchoscopy to obtain tissue biopsy, however per my discussion with pulmonary team they think her liver lesion and/or adrenal gland are more accessible. hence consult was placed for IR team Patient pain is not controlled with [place], she still on IV morphine. Laxative provided for her constipation. Patient also has concerns about her be because of lack of insurance, for this reason she refused occupational therapy. Consult was placed for social media strategist Also patient is on [facility] protocol for her alcohol withdrawal. Emotional support is a provided for the patient 01/24/2021 Patient is complaining of left mid back pain and requesting IV pain medications. Patient has multiple metastatic lesions in the liver, left adrenal gland, spine and lung/mediastinum. Patient was seen by oncology and recommends PET scan prior to biopsy. IR could not get liver biopsy due to smaller lesion. Cardiogram pain management with [place] and IV morphine. Continue with bowel regimen. Patient is also complaining of constipation. No complaints of chest pain or shortness breath. Patient is very anxious otherwise. No fever no chills. No cough or sputum production. Oncology and pulmonary is on board. 01/25/2021 Patient is still complaining of left mid back pain which is fairly controlled with medications. No complaints of chest pain or shortness of breath. No fever no chills. MRI of the brain was ordered for staging showed no evidence of metastatic lesions. MRI of the lumbar and thoracic spine was ordered. Patient will be given Fleet enema due to constipation last bowel movement was about 5 days back. Discussed with oncology and pulmonary. Laboratory data showed WBC 6.4, hemoglobin 12.3, MCV 103.9 and platelets 284 Sodium 136 potassium 4.1 bicarb is 26 BUN 9 creatinine 0.76 and calcium 9.7 Current medications reviewed. Objective - Vital Signs Vital signs: Vital Signs Temp 98.1 F 01/25/21 14:25 Pulse 69 01/25/21 14:25 Resp 16 01/25/21 14:25 BP 97/61 01/25/21 14:25 Pulse Ox 100 01/25/21 14:25 Intake & Output 01/25/21 01/25/21 01/26/21 06:59 18:59 06:59 Other: Voiding Method Toilet # Voids 1 1 # Bowel Movements 1 - Exam - Exam GENERAL: The patient is alert and oriented x3, not in any acute distress. Well developed, well nourished. HEENT: Pupils are round and equally reacting to light. EOMI. No scleral icterus. No conjunctival pallor. Normocephalic, atraumatic. No pharyngeal erythema. No thyromegaly. CARDIOVASCULAR: S1 and S2 present. No murmurs, rubs, or gallops. PULMONARY: Chest is clear to auscultation, no wheezing or crackles. -ABDOMEN: Soft, nontender, nondistended, normoactive bowel sounds. No palpable organomegaly. -MUSCULOSKELETAL: No joint swelling or deformity. The distal left back tenderness just lateral to the left spine and follows dermatome T9 EXTREMITIES: No cyanosis, clubbing, or pedal edema. NEUROLOGICAL: Gross neurological examination did not reveal any focal deficits. SKIN: No rashes. no petechiae. - Labs CBC & Chem 7: 01/25/21 05:55 01/25/21 05:55 Labs: Abnormal Lab Results - Last 24 Hours (Table) 01/20/21 01/25/21 01/25/21 Range/Units 15:03 05:55 05:55 RBC 3.44 L (3.80-5.40) m/uL MCV 103.9 H (80.0-100.0) fL MCH 35.7 H (25.0-35.0) pg Sodium 136 L (137-145) mmol/L Carbon Dioxide 36 H (22-30) mmol/L Glucose 108 H (74-99) mg/dL Albumin (PEP) 3.01 L (3.80-4.90) g/dL [id number] 0.61 H (0.10-0.40) g/dL Assessment and Plan Assessment: Mediastinal mass and renal mass suspicious for malignancy. left lower lobe with 1 cm spiculated mass with multiple metastasis including the lung, bone, liver, left adrenal gland.Will need a tissue diagnosis Left middle back pain radiating across the abdomen along the left T9 dermatome secondary to lytic lesion at T9 Suspect hepatic and left adrenal metastasis and osseous metastasis including the left acetabulum, L3, T9 and possibility T5 (lytic lesions) alcohol abuse at-risk of alcohol withdrawal Macrocytosis likely due to alcohol use and prior chemotherapy Hypercalcemia improved No evidence Acute urinary tract infection/pyelonephritis history of arthritis History of migraine hx of C. diff infection History of cervical cancer and breast cancer status post chemotherapy. Patient states that she lost follow-up due to insurance issues Currently everyday smoker Constipation DVT prophylaxis with heparin subcu Plan: this is a pleasant 55 years old female who presents with possible left lung mass of 1 cm suspicious for cancer with metastatic liver disease and possible left adrenal metastasis. Also with bone metastasis. PET scan is recommended. Oncology team on the case also patient will need a tissue diagnosis. IR was consulted but could not get needle biopsy due to small of lesion. MRI of the brain was ordered for staging. MRI of the lumbar and thoracic spine was ordered. Pulmonary recommends PET scan as an outpatient followed by biopsy. Continue with on CIWA protocol and thiamine IV Labs and medication were reviewed. Continue with symptomatic treatment. Resumed home medication. Monitor lytes and vitals. DVT and GI prophylaxis. Further recommendations depends on the clinical course of the patient DVT prophylaxis: Subcutaneous heparin GI Prophylaxis: Pepcid Consult social media strategist for lack of medical insurance Prognosis is guarded Time with Patient: Greater than 30
[2021-01-26] MEDS: HYDROcodone/APAP 10-325MG 1 EACH TAB PO PRN ×4 (04:12→20:02)
[2021-01-26] MEDS: THIAMINE 100 MG/ML 2 ML VIAL IVP SCH (08:53)
[2021-01-26] MEDS: FAMOTIDINE 20 MG/2 ML VIAL IV SCH (09:00)
[2021-01-26] MEDS: DOCUSATE 100 MG CAP PO SCH ×2 (09:01→20:03)
[2021-01-26] MEDS: HEPARIN SODIUM,PORCINE/PF 5,000 UNIT/0.5 ML SYRINGE SQ SCH ×2 (09:01→20:01)
[2021-01-26] MEDS ORDERED: LORazepam 2 MG/ML INJ IV STA (10:26)
[2021-01-26] MEDS: MORPHINE SULFATE 4 MG/ML SYRINGE IV PRN ×2 (10:35→22:02)
--- NOTE | 2021-01-26 11:29 | P.PN ---
Subjective Progress Note Date: 01/26/21 Principal diagnosis: Renal mass, mediastinal mass, possible bone lesions Patient is getting ready for her MRI of the lumbar spine today. No new physical complaints, pain management is fair. Objective - Vital Signs Vital signs: Vital Signs Temp 98.5 F 01/26/21 08:20 Pulse 72 01/26/21 08:20 Resp 18 01/26/21 08:20 BP 98/61 01/26/21 08:20 Pulse Ox 95 01/26/21 08:20 Intake & Output 01/25/21 01/26/21 01/26/21 18:59 06:59 18:59 Other: Voiding Method Toilet # Voids 1 1 # Bowel Movements 1 - Constitutional General appearance: Present: average body habitus, cooperative, no acute distress - EENT Eyes: Present: anicteric sclerae, EOMI ENT: Present: hearing grossly normal - Respiratory Details: Respirations even and unlabored - Musculoskeletal Musculoskeletal: Present: strength equal bilaterally - Psychiatric Psychiatric: Present: A&O x's 3, appropriate affect, intact judgment & insight - Labs CBC & Chem 7: 01/25/21 05:55 01/25/21 05:55 Labs: Abnormal Lab Results - Last 24 Hours (Table) 01/20/21 Range/Units 15:03 Albumin (PEP) 3.01 L (3.80-4.90) g/dL [id number] 0.61 H (0.10-0.40) g/dL - Imaging and Cardiology MRI - head: report reviewed Assessment and Plan (1) Mediastinal mass Current Visit: Yes Status: Acute Priority: High Code(s): J98.59 - OTHER D ISEASES OF MEDIASTINUM, NOT ELSEWHERE CLASSIFIED SNOMED Code(s): 36644567 (2) Lesion of adrenal gland Current Visit: Yes Status: Acute Priority: High Code(s): E27.9 - DISORDER OF ADRENAL GLAND, UNSPECIFIED SNOMED Code(s): 66591331 (3) Macrocytosis without anemia Narrative/Plan: B12 levels low end of normal, may be a degree of malabsorption. MMA is normal and no supplementation recommendations at this time. Current Visit: Yes Status: Acute Priority: Medium Code(s): D75.89 - OTHER SPECIFIED DISEASES OF BLOOD AND BLOOD-FORMING ORGANS SNOMED Code(s): 326790510 (4) Hypercalcemia Current Visit: Yes Status: Resolved Priority: Medium Code(s): E83.52 - HYPERCALCEMIA SNOMED Code(s): 61527087 (5) Abdominal pain Current Visit: Yes Status: Resolved Priority: High Code(s): R10.9 - UNSPECIFIED ABDOMINAL PAIN SNOMED Code(s): 08393915 Plan: MRI of the brain was negative for lesions. MRI of the lumbar spine for pain, pending results Dr. Preciado and attending Physician discussed the case in detail. Case for further be reviewed with Pulmonary. Patient is working with social work/case management to get Medicaid, as she has no insurance. PET scan is not going to be an option until patient does have insurance. Hopeful that biopsy will be able to be performed prior to discharge from the hospital.
--- NOTE | 2021-01-26 11:58 | MR ---
EXAMINATION TYPE: MR tspine/lspine wo con DATE OF EXAM: 01/26/2021 COMPARISON: 07/24/2012 HISTORY: Metastatic disease, pain CONTRAST: Performed utilizing 0 mL intravenous Gadavist gadolinium contrast. TECHNIQUE: Multiplanar, multiecho imaging on a 3.0 Tiffani magnet is performed through the thoracic spi ne. Spinal cord maintains normal signal through its visualized course. Vertebral body alignment is normal. Vertebral body heights are preserved. Disc heights are preserved. Disc hydration levels are preserved. There are scattered areas of increased signal within the thoracic vertebral bodies. The T9 metastatic lesion is identified again. Additional areas are less specific, Metastatic disease should be conside red. No spinal canal stenosis is evident. IMPRESSIONS: 1. T9 vertebral metastatic lesion. Additional signal abnormality could suggest smaller metastatic les ions within the thoracic spine. EXAMINATION TYPE: MR tspine/lspine wo con DATE OF EXAM: 01/26/2021 COMPARISON: HISTORY: Metastatic disease, pain CONTRAST: 0 mL intravenous Gadavist. TECHNIQUE: Multiplanar, multisequence images of the lumbar spine were acquired. FINDINGS: Metastatic disease is evident within the L L3 and L4 levels. Some marrow signal change may be within the remaining vertebral bodies. No suspicious focal disc herniation is evident. Significant disc bulging is not evident. Minimal bulg ing may be present L4-5 and L5-S1. Neural foramen are patent. No spinal canal stenosis or neural fora farheen stenosis is present. IMPRESSION: 1. No metastatic disease L3-L4 posterior vertebral bodies. 2. No suspicious acute stenosis
--- NOTE | 2021-01-26 15:04 | P.PN ---
Subjective Progress Note Date: 01/26/21 Principal diagnosis: Probable Mediastinal mass Lung nodule COPD Back pain intractable Lesions in the liver as well as adrenal gland suspicious for metastatic disease Lesions in the spine as per computed tomography scan report 01/26/2021, patient seen eval examined during the rounds labs reviewed medications reviewed patient is status post or MRI of thoracolumbar spine meta static lesion on the T9 vertebra will recommend to consult IR to do the CT- guided biopsy 01/25/2021, patient seen eval examined during the rounds continue to have severe back pain, with point tenderness, status post MRI of the brain report reviewed no significant acute pathology identified, discussed with RN about obtaining the MRI of thoracolumbar spine in case if accessible lesion is present we will ask IR to do biopsy, for lung biopsy probably better to PET scan as outpatient and arrange for navigational biopsy as outpatient Patient seen eval examined came into the hospital with 3-4 week history of progressive back pain up to a point severe constant patient does have a history of extensive smoking and nicotine use used to smoke half to 1 pack per day for about 20 years lately have quit smoking, have intermittent dry cough ongoing shortness of breath denies any hemoptysis, patient has multiple computed tomography scan of the abdominal and pelvis and chest has been done we will revi ew chest CT pending further recommendation Objective - Vital Signs Vital signs: Vital Signs Temp 98.5 F 01/26/21 08:20 Pulse 72 01/26/21 08:20 Resp 18 01/26/21 08:20 BP 98/61 01/26/21 08:20 Pulse Ox 95 01/26/21 08:20 Intake & Output 01/25/21 01/26/21 01/26/21 18:59 06:59 18:59 Other: Voiding Method Toilet # Voids 1 1 # Bowel Movements 1 - Exam - Constitutional General appearance: cooperative, disheveled - EENT Eyes: PERRLA Ears: bilateral: normal - Neck Carotids: bilateral: upstroke normal Thyroid: negative: normal size - Respiratory Respiratory: bilateral: CTA - Cardiovascular Rhythm: regular Heart sounds: normal: S1, S2 - Gastrointestinal General gastrointestinal: soft - Neurologic Point tenderness is present at lower thoracic and upper lumbar area Neurologic: CNII-XII intact - Musculoskeletal Musculoskeletal: generalized weakness, strength equal bilaterally - Psychiatric Psychiatric: A&O x's 3, appropriate affect, intact judgment & insight - Labs CBC & Chem 7: 01/25/21 05:55 01/25/21 05:55 Assessment and Plan Assessment: Lesion in lower thoracic and upper lumbar spine acne metastatic disease maternal metastatic lesion seen on T9 vertebra Probable Mediastinal mass Lung nodule COPD Back pain intractable Lesions in the liver as well as adrenal gland suspicious for metastatic disease Lesions in the spine as per computed tomography scan report Plan: Recommend to consult interventional radiology for CT-guided biopsy of T9 vertebra MRI of the thoracolumbar spine results reviewed If MRI of the thoracolumbar spine showed a lesion consider IR to do CT-guided biopsy Lung biopsy of mediastinal mass or peripheral small nodule is challenging and will require PET scan and arranging navigational biopsy as outpatient Time with Patient: Greater than 30
[2021-01-26] MEDS ORDERED: NA PHOS,M-B/NA PHOS,DI-BA 133 ML ENEMA RECTAL PRN (16:52)
[2021-01-26] MEDS: FAMOTIDINE 20 MG TAB PO SCH (20:01)
[2021-01-26] MEDS: SENNOSIDES-DOCUSATE SODIUM 1 EACH TAB PO SCH (20:03)
--- NOTE | 2021-01-26 21:56 | P.PN ---
Subjective Progress Note Date: 01/26/21 Principal diagnosis: Mediastinal mass and renal mass suspicious for malignancy. this is a pleasant 55 years old female with past medical history of arthritis, migraine, C. diff. she is a patient of Dr. Azul. Presents because of left flank pain of 2 weeks duration, got really severe over the last 2 days, it is also located in the middle left back and goes around to the left flank down to the left groin at times, comes and goes. Associated with decreased amount of urine but no dysuria or urgency or hesitancy. Also has some suprapubic tenderness. And she has some vaginal discharge but no vaginal bleeding she is also complaining of from nausea and vomiting for about one week, she has constipation but no diarrhea. She has low appetite. She smokes about less than a pack per day, she is counseled and agrees to quit but she declined nicotine patch. She drinks alcohol everyday likely 1 pint to 1 fifth. No illicit tracts vitals are stable, labs including CBC and BMP are unremarkable. Urine analysis is suspicious for infection patient had CT of the abdomen and pelvis without contrast showing left and right hepatic masses suggestive of metastasis. Enlarged left adrenal gland suspicious for metastasis, a primary neoplasm source is not identified. Fusiform promine nce in the mid abdominal aorta emergency room patient received Benadryl, Toradol, levofloxacin, morphine, prednisone. Also patient was started on normal saline 75 mL/h. One-time dose of Bactrim is also given surgical team were consulted from emergency room. 01/21/2021 This is a pleasant 55 years old female who presents with abdominal pain, CT of the abdomen found liver metastasis and left adrenal gland mass which might contribute to her symptoms. UTI is suspected but renal ultrasound is negative. The portcalcitonin is normal. We will wait for urine culture and if negative then we might discontinue antibiotic Patient is followed closely by surgery team with a recommendation for no surg ical intervention. Also followed by oncology team who ordered a CT of the abdomen and pelvis and chest with contrast to be done today: Soft tissue masslike area in the subcarinal and right peribronchial region suspicious for neoplasm with 1 cm spiculated density in the left lower lobe suspicious for neoplasm. Suspect hepatic and left adrenal metastasis and osseous metastasis including the left acetabulum, L3, T9 and possibility 5. Repeat urine analysis is negative. Urine culture is negative we'll discontinue antibiotic Patient continued on Levaquin, normal saline at 125. Also she is on CIWA protocol for history of alcohol abuse Oncology team on the case 01/22/2021 Patient still complaining of from mid to lower back pain just to the left of the vertebral column and right guillotine down just below the rib cage on the left side across the abdomen towards umbilicus. The distribution of pain follows dermatome T9 on the left side. No evidence of UTI on urine culture, bothcalcitonin is negative. Repeat UA is negative and antibiotic can safely be discontinued with Levaquin as there is no evidence of infection and most likely her pain is musculoskeletal related to her metastatic disease. Also patient complains from constipation and stool softener started. Patient encouraged to the patient on [place] rather than IV morphine to facilitate her discharge, all of pain except for the patient as pain she can tolerate and function rather than [address] pain [address] agrees. CT of the abdomen, pelvis and chest with contrast showing: Soft tissue mass like area in the subcarinal and right peribronchial region suspicious for neoplasm. 1 cm spiculated density left lower lobe suspicious for neoplasm, hepatic metastases, osseous metastasis including left acetabulum, lytic lesions involving T5, T9 and L3. With probable metastatic left adrenal mass Patient informed with these findings. Radiologist recommended at this Which is going to be decided per Oncology team tomorrow Surgery team input is appreciated, no need for any surgical intervention actually patient might need a tissue biopsy with IR, for this reason we kept the patient nothing by mouth and told the nurse to hold her anticoagulation dose the morning for her DVT prophylaxis Continue gentle hydration. Continue with CIWA protocol with no evidence of alcohol withdrawal currently. Continue with morphine/[place]. She is on heparin subcutaneous twice a day for DVT prophylaxis with instruction to hold those in the morning 01/23/2021 Patient is still complaining of from mid back pain radiating to the left side across left T9 dermatome due to her metastatic bone disease and lytic lesion in T9. She has multiple metastatic sports including the liver, left adrenal gland, spine with lung metastasis and left lung mass suspicious for primary source. Oncology team are recommended bronchoscopy to obtain tissue biopsy, however per my discussion with pulmonary team they think her liver lesion and/or adrenal gland are more accessible. hence consult was placed for IR team Patient pain is not controlled with [place], she still on IV morphine. Laxative provided for her constipation. Patient also has concerns about her be because of lack of insurance, for this reason she refused occupational therapy. Consult was placed for health and social care teacher Also patient is on [facility] protocol for her alcohol withdrawal. Emotional support is a provided for the patient 01/24/2021 Patient is complaining of left mid back pain and requesting IV pain medications. Patient has multiple metastatic lesions in the liver, left adrenal gland, spine and lung/mediastinum. Patient was seen by oncology and recommends PET scan prior to biopsy. IR could not get liver biopsy due to smaller lesion. Cardiogram pain management with [place] and IV morphine. Continue with bowel regimen. Patient is also complaining of constipation. No complaints of chest pain or shortness breath. Patient is very anxious otherwise. No fever no chills. No cough or sputum production. Oncology and pulmonary is on board. 01/25/2021 Patient is still complaining of left mid back pain which is fairly controlled with medications. No complaints of chest pain or shortness of breath. No fever no chills. MRI of the brain was ordered for staging showed no evidence of metastatic lesions. MRI of the lumbar and thoracic spine was ordered. Patient will be given Fleet enema due to constipation last bowel movement was about 5 days back. Discussed with oncology and pulmonary. Laboratory data showed WBC 6.4, hemoglobin 12.3, MCV 103.9 and platelets 284 Sodium 136 potassium 4.1 bicarb is 26 BUN 9 creatinine 0.76 and calcium 9.7 09/27/2021 Patient is currently lying in the bed comfortably. Pain is fairly controlled. Complains of back pain, MRI of the lumbar and cervical spine showed no metastatic disease L3-L4 posterior vertebral bodies. No suspicious acute steno sis. Oncology recommends biopsy. IR was consulted for biopsy of the renal mass but could not be done due to small lesion. MRI of the brain is negative for any metastatic lesions. Oncology and pulmonary is on board. Possible mediastinal biopsy as per pulmonary final recommendations. Current medications reviewed. Objective - Vital Signs Vital signs: Vital Signs Temp 98.3 F 01/26/21 14:38 Pulse 69 01/26/21 14:38 Resp 18 01/26/21 14:38 BP 104/64 01/26/21 14:38 Pulse Ox 98 01/26/21 14:38 Intake & Output 01/25/21 01/26/21 01/26/21 18:59 06:59 18:59 Weight 72.575 kg Other: Voiding Method Toilet # Voids 1 1 # Bowel Movements 1 - Exam - Exam GENERAL: The patient is alert and oriented x3, not in any acute distress. Well developed, well nourished. HEENT: Pupils are round and equally reacting to light. EOMI. No scleral icterus. No conjunctival pallor. Normocephalic, atraumatic. No pharyngeal erythema. No thyromegaly. CARDIOVASCULAR: S1 and S2 present. No murmurs, rubs, or gallops. PULMONARY: Chest is clear to auscultation, no wheezing or crackles. -ABDOMEN: Soft, nontender, nondistended, normoactive bowel sounds. No palpable organomegaly. -MUSCULOSKELETAL: No joint swelling or deformity. The distal left back tenderness just lateral to the left spine and follows dermatome T9 EXTREMITIES: No cyanosis, clubbing, or pedal edema. NEUROLOGICAL: Gross neurological examination did not reveal any focal deficits. SKIN: No rashes. no petechiae. - Labs CBC & Chem 7: 01/25/21 05:55 01/25/21 05:55 Assessment and Plan Assessment: Mediastinal mass and renal mass suspicious for malignancy. left lower lobe with 1 cm spiculated mass with multiple metastasis including the lung, bone, liver, left adrenal gland.Will need a tissue diagnosis Left middle back pain radiating across the abdomen along the left T9 dermatome. possible lytic lesion at T9. MRI showed no evidence of metastatic lesions. Suspect hepatic and left adrenal metastasis and osseous metastasis including the left acetabulum, L3, T9 and possibility T5 (lytic lesions) alcohol abuse at-risk of alcohol withdrawal Macrocytosis likely due to alcohol use and prior chemotherapy Hypercalcemia improved No evidence Acute urinary tract infection/pyelonephritis history of arthritis History of migraine hx of C. diff infection History of cervical cancer and breast cancer status post chemotherapy. Patient states that she lost follow-up due to insurance issues Currently everyday smoker Constipation DVT prophylaxis with heparin subcu Plan: this is a pleasant 55 years old female who presents with possible left lung mass of 1 cm suspicious for cancer with metastatic liver disease and possible left adrenal metastasis. Also with bone metastasis. PET scan is recommended. Oncology team on the case also patient will need a tissue diagnosis. IR was consulted but could not get needle biopsy due to small of lesion. MRI of the brain was ordered for staging. MRI of the lumbar and thoracic spine was ordered. Pulmonary recommends PET scan as an outpatient followed by biopsy. Continue with on CIWA protocol and thiamine IV Labs and medication were reviewed. Continue with symptomatic treatment. Resumed home medication. Monitor lytes and vitals. DVT and GI prophylaxis. Further recommendations depends on the clinical course of the patient DVT prophylaxis: Subcutaneous heparin GI Prophylaxis: Pepcid Consult health and social care teacher for lack of medical insurance Prognosis is guarded
[2021-01-26] MEDS: ONDANSETRON 4 MG/2 ML VIAL IVP PRN (23:10)
[2021-01-27] MEDS: HYDROcodone/APAP 10-325MG 1 EACH TAB PO PRN ×5 (03:15→22:30)
[2021-01-27] MEDS: MORPHINE SULFATE 4 MG/ML SYRINGE IVP PRN ×3 (04:43→16:39)
[2021-01-27 07:13] LABS: INR 0.9 (<1.2); Prothrombin Time 10.2 sec (9.0-12.0)
[2021-01-27] MEDS: THIAMINE 100 MG/ML 2 ML VIAL IVP SCH (08:23)
[2021-01-27] MEDS: FAMOTIDINE 20 MG TAB PO SCH ×2 (08:23→20:07)
[2021-01-27] MEDS: HEPARIN SODIUM,PORCINE/PF 5,000 UNIT/0.5 ML SYRINGE SQ SCH ×2 (08:24→20:07)
[2021-01-27] MEDS: DOCUSATE 100 MG CAP PO SCH ×2 (08:24→20:07)
[2021-01-27] MEDS ORDERED: MAGNESIUM HYDROXIDE 2,400 MG/10 ML CUP PO PRN (14:00)
[2021-01-27] MEDS: MAGNESIUM HYDROXIDE 2,400 MG/10 ML CUP PO PRN (16:40)
[2021-01-27] MEDS: SENNOSIDES-DOCUSATE SODIUM 1 EACH TAB PO SCH (20:07)
--- NOTE | 2021-01-27 20:17 | P.PN ---
Subjective Progress Note Date: 01/27/21 Principal diagnosis: Likely metastatic process She still complains of pain today, we discussed the options of palliaitve radiation once diagnosis established. MRI of the lumbar and cervical spine showed no metastatic disease L3-L4 posterior vertebral bodies. so the back pain likely a result of metastatic disease adrenal glands. Objective - Vital Signs Vital signs: Vital Signs Temp 98.5 F 01/27/21 14:17 Pulse 72 01/27/21 14:17 Resp 16 01/27/21 14:17 BP 108/73 01/27/21 14:17 Pulse Ox 97 01/27/21 14:17 Intake & Output 01/27/21 01/27/21 01/28/21 06:59 18:59 06:59 Intake Total 540 250 Balance 540 250 Intake: Oral 540 250 Other: # Voids 1 # Bowel Movements 1 - Exam - Constitutional General appearance: Present: average body habitus, cooperative, no acute distress - EENT Eyes: Present: anicteric sclerae, EOMI ENT: Present: hearing grossly normal - Respiratory Respiratory: bilateral: CTA - Cardiovascular Heart sounds: normal: S1, S2 Abnormal Heart Sounds: Absent: systolic murmur, diastolic murmur, rub, S3 Gallop, S4 Gallop, click, other - Peripheral edema leg Peripheral Edema: bilateral: None - Gastrointestinal General gastrointestinal: Present: normal bowel sounds, soft - Neurologic Neurologic: Present: CNII-XII intact (grossly) - Musculoskeletal Musculoskeletal Comment(s): lateral to the spine discomfort with palpation, no deformity Musculoskeletal: Present: strength equal bilaterally - Psychiatric Psychiatric: Present: A&O x's 3, appropriate affect, intact judgment & insight - Labs CBC & Chem 7: 01/25/21 05:55 01/25/21 05:55 Assessment and Plan (1) Liver lesion Current Visit: Yes Status: Acute Code(s): K76.9 - LIVER DISEASE, UNSPECIFIED SNOMED Code(s): 274513764 (2) Lesion of adrenal gland Current Visit: Yes Status: Acute Priority: High Code(s): E27.9 - DISORDER OF ADRENAL GLAND, UNSPECIFIED SNOMED Code(s): 67906176 Plan: . - Imaging and Cardiology MRI - head: report reviewed Assessment and Plan (1) Mediastinal mass Current Visit: Yes Status: Acute Priority: High Code(s): J98.59 - OTHER DISEASES OF MEDIASTINUM, NOT ELSEWHERE CLASSIFIED SNOMED Code(s): 82807388 (2) Lesion of adrenal gland Current Visit: Yes Status: Acute Priority: High Code(s): E27.9 - DISORDER OF ADRENAL GLAND, UNSPECIFIED SNOMED Code(s): 73934547 (3) Macrocytosis without anemia Narrative/Plan: B12 levels low end of normal, may be a degree of malabsorption. MMA is normal and no supplementation recommendations at this time. Current Visit: Yes Status: Acute Priority: Medium Code(s): D75.89 - OTHER SPECIFIED DISEASES OF BLOOD AND BLOOD-FORMING ORGANS SNOMED Code(s): 589654149 (4) Hypercalcemia Current Visit: Yes Status: Resolved Priority: Medium Code(s): E83.52 - HYPERCALCEMIA SNOMED Code(s): 41988703 (5) Abdominal pain Current Visit: Yes Status: Resolved Priority: High Code(s): R10.9 - UNSPECIFIED ABDOMINAL PAIN SNOMED Code(s): 26113280 Plan: MRI of the brain was negative for lesions. MRI of the lumbar spine reviewed PLan for biopsy IR was unable to be performed per IR due to location, Dr. Preciado spoke with Dr. Fowler from Pulmonology, and plan for Bronchoscopy on Saturday for tissue biopsy. We will consult radiation oncology for palliative radiation to adrenal mass once a diagnosis is established. Patient is working with social work/case management to get Medicaid, as she has no insurance. PET scan is not going to be an option until patient does have insurance. COntinue supportive care in the interim Physician Attest: I have completed the full history and physical and developed the above impression and plan, agree with dictation above, dictated as a scribe.
[2021-01-27] MEDS: MORPHINE SULFATE 4 MG/ML SYRINGE IV PRN (20:39)
--- NOTE | 2021-01-27 22:31 | P.PN ---
Subjective Progress Note Date: 01/27/21 Principal diagnosis: Mediastinal mass and renal mass suspicious for malignancy. this is a pleasant 55 years old female with past medical history of arthritis, migraine, C. diff. she is a patient of Dr. Azul. Presents because of left flank pain of 2 weeks duration, got really severe over the last 2 days, it is also located in the middle left back and goes around to the left flank down to the left groin at times, comes and goes. Associated with decreased amount of urine but no dysuria or urgency or hesitancy. Also has some suprapubic tenderness. And she has some vaginal discharge but no vaginal bleeding she is also complaining of from nausea and vomiting for about one week, she has constipation but no diarrhea. She has low appetite. She smokes about less than a pack per day, she is counseled and agrees to quit but she declined nicotine patch. She drinks alcohol everyday likely 1 pint to 1 fifth. No illicit tracts vitals are stable, labs including CBC and BMP are unremarkable. Urine analysis is suspicious for infection patient had CT of the abdomen and pelvis without contrast showing left and right hepatic masses suggestive of metastasis. Enlarged left adrenal gland suspicious for metastasis, a primary neoplasm source is not identified. Fusiform promine nce in the mid abdominal aorta emergency room patient received Benadryl, Toradol, levofloxacin, morphine, prednisone. Also patient was started on normal saline 75 mL/h. One-time dose of Bactrim is also given surgical team were consulted from emergency room. 01/21/2021 This is a pleasant 55 years old female who presents with abdominal pain, CT of the abdomen found liver metastasis and left adrenal gland mass which might contribute to her symptoms. UTI is suspected but renal ultrasound is negative. The portcalcitonin is normal. We will wait for urine culture and if negative then we might discontinue antibiotic Patient is followed closely by surgery team with a recommendation for no surg ical intervention. Also followed by oncology team who ordered a CT of the abdomen and pelvis and chest with contrast to be done today: Soft tissue masslike area in the subcarinal and right peribronchial region suspicious for neoplasm with 1 cm spiculated density in the left lower lobe suspicious for neoplasm. Suspect hepatic and left adrenal metastasis and osseous metastasis including the left acetabulum, L3, T9 and possibility 5. Repeat urine analysis is negative. Urine culture is negative we'll discontinue antibiotic Patient continued on Levaquin, normal saline at 125. Also she is on CIWA protocol for history of alcohol abuse Oncology team on the case 01/22/2021 Patient still complaining of from mid to lower back pain just to the left of the vertebral column and right guillotine down just below the rib cage on the left side across the abdomen towards umbilicus. The distribution of pain follows dermatome T9 on the left side. No evidence of UTI on urine culture, bothcalcitonin is negative. Repeat UA is negative and antibiotic can safely be discontinued with Levaquin as there is no evidence of infection and most likely her pain is musculoskeletal related to her metastatic disease. Also patient complains from constipation and stool softener started. Patient encouraged to the patient on [place] rather than IV morphine to facilitate her discharge, all of pain except for the patient as pain she can tolerate and function rather than 0 pain and she agrees. CT of the abdomen, pelvis and chest with contrast showing: Soft tissue mass like area in the subcarinal and right peribronchial region suspicious for neoplasm. 1 cm spiculated density left lower lobe suspicious for neoplasm, hepatic metastases, osseous metastasis including left acetabulum, lytic lesions involving T5, T9 and L3. With probable metastatic left adrenal mass Patient informed with these findings. Radiologist recommended at this Which is going to be decided per Oncology team tomorrow Surgery team input is appreciated, no need for any surgical intervention actually patient might need a tissue biopsy with IR, for this reason we kept the patient nothing by mouth and told the nurse to hold her anticoagulation dose the morning for her DVT prophylaxis Continue gentle hydration. Continue with CIWA protocol with no evidence of alcohol withdrawal currently. Continue with morphine/[place]. She is on heparin subcutaneous twice a day for DVT prophylaxis with instruction to hold those in the morning 01/23/2021 Patient is still complaining of from mid back pain radiating to the left side across left T9 dermatome due to her metastatic bone disease and lytic lesion in T9. She has multiple metastatic sports including the liver, left adrenal gland, spine with lung metastasis and left lung mass suspicious for primary source. Oncology team are recommended bronchoscopy to obtain tissue biopsy, however per my discussion with pulmonary team they think her liver lesion and/or adrenal gland are more accessible. hence consult was placed for IR team Patient pain is not controlled with [place], she still on IV morphine. Laxative provided for her constipation. Patient also has concerns about her be because of lack of insurance, for this reason she refused occupational therapy. Consult was placed for social work associate Also patient is on [facility] protocol for her alcohol withdrawal. Emotional support is a provided for the patient 01/24/2021 Patient is complaining of left mid back pain and requesting IV pain medications. Patient has multiple metastatic lesions in the liver, left adrenal gland, spine and lung/mediastinum. Patient was seen by oncology and recommends PET scan prior to biopsy. IR could not get liver biopsy due to smaller lesion. Cardiogram pain management with [place] and IV morphine. Continue with bowel regimen. Patient is also complaining of constipation. No complaints of chest pain or shortness breath. Patient is very anxious otherwise. No fever no chills. No cough or sputum production. Oncology and pulmonary is on board. 01/25/2021 Patient is still complaining of left mid back pain which is fairly controlled with medications. No complaints of chest pain or shortness of breath. No fever no chills. MRI of the brain was ordered for staging showed no evidence of metastatic lesions. MRI of the lumbar and thoracic spine was ordered. Patient will be given Fleet enema due to constipation last bowel movement was about 5 days back. Discussed with oncology and pulmonary. Laboratory data showed WBC 6.4, hemoglobin 12.3, MCV 103.9 and platelets 284 Sodium 136 potassium 4.1 bicarb is 26 BUN 9 creatinine 0.76 and calcium 9.7 09/27/2021 Patient is currently lying in the bed comfortably. Pain is fairly controlled. Complains of back pain, MRI of the lumbar and cervical spine showed no metastatic disease L3-L4 posterior vertebral bodies. No suspicious acute steno sis. Oncology recommends biopsy. IR was consulted for biopsy of the renal mass but could not be done due to small lesion. MRI of the brain is negative for any metastatic lesions. Oncology and pulmonary is on board. Possible mediastinal biopsy as per pulmonary final recommendations. 01/27/2021 Patient still complains of back pain. MRI of the lumbar and thoracic spine showed no metastatic disease. IR guided biopsy could not be performed due to location and size. Pulmonary is planning for bronchoscopy and biopsy possibly on Saturday. Radiation oncology was also consulted for palliative radiation to adrenal mass once diagnosis is established. Oncology is on board. Otherwise patient is sti ll complaining of constipation. Currently on stool softeners and milk of magnesia was ordered. Enema as needed. Patient has been afebrile. No complaints of abdominal pain. Able to pass flatus. No headache or dizziness or lightheadedness. Current medications reviewed. Objective - Vital Signs Vital signs: Vital Signs Temp 98.1 F 01/27/21 08:49 Pulse 72 01/27/21 08:49 Resp 18 01/27/21 08:49 BP 96/57 01/27/21 08:49 Pulse Ox 99 01/27/21 08:49 Intake & Output 01/26/21 01/27/21 01/27/21 18:59 06:59 18:59 Intake Total 540 Balance 540 Weight 72.575 kg Intake: Oral 540 Other: # Voids 1 1 # Bowel Movements 1 1 - Exam - Exam GENERAL: The patient is alert and oriented x3, not in any acute distress. Well developed, well nourished. HEENT: Pupils are round and equally reacting to light. EOMI. No scleral icterus. No conjunctival pallor. Normocephalic, atraumatic. No pharyngeal erythema. No thyromegaly. CARDIOVASCULAR: S1 and S2 present. No murmurs, rubs, or gallops. PULMONARY: Chest is clear to auscultation, no wheezing or crackles. -ABDOMEN: Soft, nontender, nondistended, normoactive bowel sounds. No palpable organomegaly. -MUSCULOSKELETAL: No joint swelling or deformity. The distal left back tenderness just lateral to the left spine and follows dermatome T9 EXTREMITIES: No cyanosis, clubbing, or pedal edema. NEUROLOGICAL: Gross neurological examination did not reveal any focal deficits. SKIN: No rashes. no petechiae. - Labs CBC & Chem 7: 01/25/21 05:55 01/25/21 05:55 Assessment and Plan Assessment: Mediastinal mass and renal mass suspicious for malignancy. left lower lobe with 1 cm spiculated mass with multiple metastasis including the lung, bone, liver, left adrenal gland.Will need a tissue diagnosis Left middle back pain radiating across the abdomen along the left T9 dermatome. possible lytic lesion at T9. MRI showed no evidence of metastatic lesions. Suspect hepatic and left adrenal metastasis and osseous metastasis including the left acetabulum, L3, T9 and possibility T5 (lytic lesions).MRI of the spine showed no evidence of metastatic disease. alcohol abuse at-risk of alcohol withdrawal Macrocytosis likely due to alcohol use and prior chemotherapy Hypercalcemia improved No evidence Acute urinary tract infection/pyelonephritis history of arthritis History of migraine hx of C. diff infection History of cervical cancer and breast cancer status post chemotherapy. Patient states that she lost follow-up due to insurance issues Currently everyday smoker Constipation DVT prophylaxis with heparin subcu Plan: this is a pleasant 55 years old female who presents with possible left lung mass of 1 cm suspicious for cancer with metastatic liver disease and possible left adrenal metastasis. Oncology team on the case also patient will need a tissue diagnosis. IR was consulted but could not get needle biopsy due to small of lesion. MRI of the brain showed no lesions. MRI of the lumbar and thoracic spine was ordered. MRI of the spine showed no evidence of metastatic disease. Pulmonary is considering bronchoscopy and biopsy on Saturday. PET scan may not be option due to lack of insurance. Social work is following. Continue with on CIWA protocol and thiamine IV Labs and medication were reviewed. Continue with symptomatic treatment. Monitor lytes and vitals. DVT and GI prophylaxis. Further recommendations depends on the clinical course of the patient DVT prophylaxis: Subcutaneous heparin GI Prophylaxis: Pepcid Consult social work associate for lack of medical insurance Prognosis is guarded Time with Patient: Greater than 30
[2021-01-28] MEDS: HYDROcodone/APAP 10-325MG 1 EACH TAB PO PRN ×5 (02:44→22:32)
[2021-01-28] MEDS: MORPHINE SULFATE 4 MG/ML SYRINGE IVP PRN ×4 (06:35→20:16)
[2021-01-28 06:55] LABS: Basophils % (A) 0 %; Eosinophils # (A) 0.1 k/uL (0-0.7); Eosinophils % (A) 2 %; HCT 36.2 % (34.0-46.0); HGB 11.7 gm/dL (11.4-16.0); Lymphocytes # (A) 1.3 k/uL (1.0-4.8); Lymphocytes % (A) 23 %; MCHC 32.4 g/dL (31.0-37.0); Macrocytosis Moderate; Mean Platelet Volume 7.7; Monocytes # (A) 0.6 k/uL (0-1.0); Monocytes % (A) 10 %; Neutrophils # (A) 3.6 k/uL (1.3-7.7); Neutrophils % (A) 62 %; Platelet Count 323 k/uL (150-450); RBC 3.35 m/uL (3.80-5.40); WBC 5.8 k/uL (3.8-10.6)
[2021-01-28 07:07] LABS: ALT 18 U/L (4-34); AST 29 U/L (14-36); African American GFR (CKD) >90 (>60 ml/min/1.73 sqM); Albumin 3.4 g/dL (3.5-5.0); Alkaline Phosphatase 99 U/L (38-126); Anion Gap 4 mmol/L; Blood Urea Nitrogen 9 mg/dL (7-17); Calcium 9.7 mg/dL (8.4-10.2); Carbon Dioxide 29 mmol/L (22-30); Chloride 103 mmol/L (98-107); Glucose 99 mg/dL (74-99); Non-African American GFR(CKD) >90 (>60 ml/min/1.73 sqM); Potassium 4.4 mmol/L (3.5-5.1); Sodium 136 mmol/L (137-145); Total Bilirubin 0.6 mg/dL (0.2-1.3); Total Protein 6.5 g/dL (6.3-8.2)
[2021-01-28] MEDS: DOCUSATE 100 MG CAP PO SCH ×2 (08:35→21:02)
[2021-01-28] MEDS: THIAMINE 100 MG/ML 2 ML VIAL IVP SCH (08:35)
[2021-01-28] MEDS: FAMOTIDINE 20 MG TAB PO SCH ×2 (08:35→21:02)
[2021-01-28] MEDS: HEPARIN SODIUM,PORCINE/PF 5,000 UNIT/0.5 ML SYRINGE SQ SCH ×2 (08:36→21:02)
--- NOTE | 2021-01-28 10:40 | P.PN ---
Subjective Progress Note Date: 01/27/21 Principal diagnosis: Probable Mediastinal mass Lung nodule COPD Back pain intractable Lesions in the liver as well as adrenal gland suspicious for metastatic disease Lesions in the spine as per computed tomography scan report 01/27/2021, patient seen eval examined during the rounds MRI scan of the spine is done interventional radiology refused to do the biopsy, I have discussed with oncology services only option left is doing a bronchoscopy for tissue diagnosis will schedule it for Saturday01/26/2021, patient seen eval examined during the rounds labs reviewed medicatio ns reviewed patient is status post or MRI of thoracolumbar spine metastatic lesion on the T9 vertebra will recommend to consult IR to do the CT-guided biopsy 01/25/2021, patient seen eval examined during the rounds continue to have severe back pain, with point tenderness, status post MRI of the brain report reviewed no significant acute pathology identified, discussed with RN about obtaining the MRI of thoracolumbar spine in case if accessible lesion is present we will ask IR to do biopsy, for lung biopsy probably better to PET scan as outpatient and arrange for navigational biopsy as outpatient Patient seen eval examined came into the hospital with 3-4 week history of progressive back pain up to a point severe constant patient does have a history of extensive smoking and nicotine use used to smoke half to 1 pack per day for about 20 years lately have quit smoking, have intermittent dry cough ongoing shortness of breath denies any hemoptysis, patient has multiple computed tomography scan of the abdominal and pelvis and chest has been done we will review chest CT pending further recommendation Objective - Vital Signs Vital signs: Vital Signs Temp 98.5 F 01/27/21 14:17 Pulse 72 01/27/21 14:17 Resp 16 01/27/21 14:17 BP 108/73 01/27/21 14:17 Pulse Ox 97 01/27/21 14:17 Intake & Output 01/26/21 01/27/21 01/27/21 18:59 06:59 18:59 Intake Total 540 Balance 540 Weight 72.575 kg Intake: Oral 540 Other: # Voids 1 1 # Bowel Movements 1 1 - Exam - Constitutional General appearance: cooperative, disheveled - EENT Eyes: PERRLA Ears: bilateral: normal - Neck Carotids: bilateral: upstroke normal Thyroid: negative: normal size - Respiratory Respiratory: bilateral: CTA - Cardiovascular Rhythm: regular Heart sounds: normal: S1, S2 - Gastrointestinal General gastrointestinal: soft - Neurologic Point tenderness is present at lower thoracic and upper lumbar area Neurologic: CNII-XII intact - Musculoskeletal Musculoskeletal: generalized weakness, strength equal bilaterally - Psychiatric Psychiatric: A&O x's 3, appropriate affect, intact judgment & insight - Labs CBC & Chem 7: 01/28/21 06:24 01/28/21 06:24 Assessment and Plan Assessment: Probable Mediastinal mass Lesion in lower thoracic and upper lumbar spine acne metastatic disease maternal metastatic lesion seen on T9 vertebra Lung nodule COPD Back pain intractable Lesions in the liver as well as adrenal gland suspicious for metastatic disease Lesions in the spine as per computed tomography scan report Plan: WE'LL PLAN FOR DOING A BRONCHOSCOPY Saturday recommend to make nothing by mouth after Saturday time and is scheduled to be decided on Saturday morning Interventional radiology have refused to dofor CT-guided biopsy of T9 vertebra MRI of the thoracolumbar spine results reviewed If MRI of the thoracolumbar spine showed a lesion consider IR to do CT-guided biopsy Lung biopsy of mediastinal mass or peripheral small nodule is challenging and will require PET scan and arranging navigational biopsy as outpatient Time with Patient: Greater than 30
--- NOTE | 2021-01-28 10:41 | P.PN ---
Subjective Progress Note Date: 01/28/21 Principal diagnosis: Probable Mediastinal mass Lung nodule COPD Back pain intractable Lesions in the liver as well as adrenal gland suspicious for metastatic disease Lesions in the spine as per computed tomography scan report January 28, 2021, patient seen eval examined during the rounds labs reviewed medications reviewed, patient continued to have a pain in the thoracolumbar spine, denies any hemoptysis denies any chest pain, respiratory status however remains stable 01/27/2021, patient seen eval examined during the rounds MRI scan of the spine is done interventional radiology refused to do the biopsy, I have discussed with oncology services only option left is doing a bronchoscopy for tissue diagnosis will schedule it for Saturday01/26/2021, patient seen eval examined during the rounds labs reviewed medications reviewed patient is status post or MRI of thoracolumbar spine metastatic lesion on the T9 vertebra will recommend to consult IR to do the CT- guided biopsy 01/25/2021, patient seen eval examined during the rounds continue to have severe back pain, with point tenderness, status post MRI of the brain report reviewed no significant acute pathology identified, discussed with RN about obtaining the MRI of thoracolumbar spine in case if accessible lesion is present we will ask IR to do biopsy, for lung biopsy probably better to PET scan as outpatient and arrange for navigational biopsy as outpatient Patient seen eval examined came into the hospital with 3-4 week history of progressive back pain up to a point severe constant patient does have a history of extensive smoking and nicotine use used to smoke half to 1 pack per day for about 20 years lately have quit smoking, have intermittent dry cough ongoing shortness of breath denies any hemoptysis, patient has multiple computed tomography scan of the abdominal and pelvis and chest has been done we will review chest CT pending further recommendation Objective - Vital Signs Vital signs: Vital Signs Temp 98.1 F 01/28/21 08:00 Pulse 77 01/28/21 08:00 Resp 18 01/28/21 08:00 BP 116/75 01/28/21 08:00 Pulse Ox 98 01/28/21 08:00 Intake & Output 01/27/21 01/28/21 01/28/21 18:59 06:59 18:59 Intake Total 250 540 Balance 250 540 Intake: Oral 250 540 Other: Voiding Method Toilet # Voids 2 - Exam - Constitutional General appearance: cooperative, disheveled - EENT Eyes: PERRLA Ears: bilateral: normal - Neck Carotids: bilateral: upstroke normal Thyroid: negative: normal size - Respiratory Respiratory: bilateral: CTA - Cardiovascular Rhythm: regular Heart sounds: normal: S1, S2 - Gastrointestinal General gastrointestinal: soft - Neurologic Point tenderness is present at lower thoracic and upper lumbar area Neurologic: CNII-XII intact - Musculoskeletal Musculoskeletal: generalized weakness, strength equal bilaterally - Psychiatric Psychiatric: A&O x's 3, appropriate affect, intact judgment & insight - Labs CBC & Chem 7: 01/28/21 06:24 01/28/21 06:24 Labs: Abnormal Lab Results - Last 24 Hours (Table) 01/28/21 01/28/21 Range/Units 06:24 06:24 RBC 3.35 L (3.80-5.40) m/uL MCV 108.0 H (80.0-100.0) fL Sodium 136 L (137-145) mmol/L Albumin 3.4 L (3.5-5.0) g/dL Assessment and Plan Assessment: Probable Mediastinal mass Lesion in lower thoracic and upper lumbar spine acne metastatic disease maternal metastatic lesion seen on T9 vertebra Lung nodule COPD Back pain intractable Lesions in the liver as well as adrenal gland suspicious for metastatic disease Lesions in the spine as per computed tomography scan report Plan: WE'LL PLAN FOR DOING A BRONCHOSCOPY Saturday recommend to make nothing by mouth after Saturday time and is scheduled to be decided on Saturday morning Interventional radiology have refused to dofor CT-guided biopsy of T9 vertebra MRI of the thoracolumbar spine results reviewed If MRI of the thoracolumbar spine showed a lesion consider IR to do CT-guided biopsy Lung biopsy of mediastinal mass or peripheral small nodule is challenging and will require PET scan and arranging navigational biopsy as outpatient Time with Patient: Greater than 30
[2021-01-28] MEDS: IPRATROPIUM-ALBUTEROL 3 ML NEB INHALATION SCH ×2 (15:51→20:16)
[2021-01-28] MEDS: INSULIN ASPART (NovoLOG) 100 UNIT/ML VIAL SQ SCH ×3 (17:52→21:00)
[2021-01-28] MEDS: methylPREDNISolone SOD SUCCI 40 MG/ML 1 ML VIAL IV SCH (17:52)
[2021-01-28 18:01] LABS: Glucose,Whole Blood 113 mg/dL (75-99)
[2021-01-28 20:52] LABS: Glucose,Whole Blood 165 mg/dL (75-99)
[2021-01-28] MEDS: SENNOSIDES-DOCUSATE SODIUM 1 EACH TAB PO SCH (21:00)
[2021-01-29] MEDS: methylPREDNISolone SOD SUCCI 40 MG/ML 1 ML VIAL IV SCH ×3 (00:50→16:54)
[2021-01-29] MEDS: ONDANSETRON 4 MG/2 ML VIAL IVP PRN ×2 (01:36→18:04)
[2021-01-29] MEDS: MORPHINE SULFATE 4 MG/ML SYRINGE IVP PRN ×5 (01:40→20:54)
[2021-01-29] MEDS: HYDROcodone/APAP 10-325MG 1 EACH TAB PO PRN ×5 (02:21→21:36)
[2021-01-29 06:32] LABS: Glucose,Whole Blood 166 mg/dL (75-99)
[2021-01-29 07:23] LABS: Glucose,Whole Blood 163 mg/dL (75-99)
[2021-01-29] MEDS: INSULIN ASPART (NovoLOG) 100 UNIT/ML VIAL SQ SCH ×4 (07:27→20:48)
--- NOTE | 2021-01-29 07:45 | XR ---
EXAMINATION TYPE: XR abdomen 2V DATE OF EXAM: 01/29/2021 CLINICAL HISTORY: Diminished bowel movements with abdominal distention. History of suspected underlyi ng metastatic lung cancer. TECHNIQUE: Supine and upright views of the abdomen are obtained. COMPARISON: CT chest abdomen and pelvis January 21, 2021. FINDINGS: Gas seen in nondistended stomach. Some residual contrast from recent CT seen in nondistend ed right and transverse colon extending into left colon. Some scattered gas in nondistended small bow el loops in the lower abdomen and pelvis. Scattered pelvic phleboliths. No free air. Lung bases remai n clear. Known lytic osseous metastatic disease on CT less well seen on plain films. IMPRESSION: Overall nonobstructive bowel gas pattern remains present.
--- NOTE | 2021-01-29 07:53 | P.PN ---
Subjective Progress Note Date: 01/29/21 Principal diagnosis: 1. Intractable pain Continues to have pain. Also with constipation. Awaiting biopsy planned for tomorrow via bronchoscopy. Objective - Vital Signs Vital signs: Vital Signs Temp 97.8 F 01/29/21 01:53 Pulse 83 01/29/21 01:53 Resp 18 01/29/21 01:53 BP 94/54 01/29/21 01:53 Pulse Ox 100 01/29/21 01:53 Intake & Output 01/28/21 01/29/21 01/29/21 18:59 06:59 18:59 Intake Total 600 500 Balance 600 500 Intake: Oral 600 500 Other: Voiding Method Toilet # Voids 2 2 - Exam Gen: NAD HEENT: Mucosa moist Lungs: No respiratory distress Heart: Regular rate Abd: Non distended MSK: No obvious deformity Neuro: Alert and oriented x3 Skin: No jaundice Psych: Appropriate affect - Labs CBC & Chem 7: 01/28/21 06:24 01/28/21 06:24 Labs: Abnormal Lab Results - Last 24 Hours (Table) 01/28/21 01/28/21 01/29/21 Range/Units 17:57 20:49 06:31 POC Glucose (mg/dL) 113 H 165 H 166 H (75-99) mg/dL 01/29/21 Range/Units 07:21 POC Glucose (mg/dL) 163 H (75-99) mg/dL Assessment and Plan Assessment: 1. Intractable abdominal pain 2. Mediastinal mass, pleural lesion, adrenal mass 3. Constipation Plan: Ms. Pedro is a very pleasant 55 yo female who is here for intractable pain, work up revealed what appears to be diffuse metastatic disease with adrenal gland, pleural and mediastinal masses. MRI brain and spine negative. Plan on [place] copy with biopsy as unable to obtain biopsy by IR due to location of tumor. Rad Onc consult for palliative RT once diagnosis established. mortgage operations manager working with pt regarding her lack of insurance status. Continue supportive care, including pain control and bowel regimen. Discussed with pt and she is agreeable. All questions answered.
[2021-01-29] MEDS: HEPARIN SODIUM,PORCINE/PF 5,000 UNIT/0.5 ML SYRINGE SQ SCH ×2 (08:54→20:56)
[2021-01-29] MEDS: FAMOTIDINE 20 MG TAB PO SCH ×2 (08:54→20:55)
[2021-01-29] MEDS: THIAMINE 100 MG/ML 2 ML VIAL IVP SCH (08:54)
[2021-01-29] MEDS: DOCUSATE 100 MG CAP PO SCH ×2 (08:55→20:55)
[2021-01-29] MEDS: IPRATROPIUM-ALBUTEROL 3 ML NEB INHALATION SCH ×4 (09:30→20:01)
--- NOTE | 2021-01-29 10:21 | P.PN ---
Subjective Progress Note Date: 01/29/21 Principal diagnosis: Probable Mediastinal mass Lung nodule COPD Back pain intractable Lesions in the liver as well as adrenal gland suspicious for metastatic disease Lesions in the spine as per computed tomography scan report 01/29/2021, patient seen eval examined during the rounds labs reviewed medications reviewed care plan discussed, patient has been wheezing hasn't has been having a lot of cough which is dry and nonproductive has been started on bronchodilators and steroids with that wheezing and cough is slightly better but continued to have severe lower thoracic upper lumbar pain in the spine, patient has been scheduled for bronchoscopy and lung biopsy for tomorrow, procedure alternative complication side effect explained to the patient at length, January 28, 2021, patient seen eval examined during the rounds labs reviewed medications reviewed, patient continued to have a pain in the thoracolumbar spine, denies any hemoptysis denies any chest pain, respiratory status however remains stable 01/27/2021, patient seen eval examined during the rounds MRI scan of the spine is done interventional radiology refused to do the biopsy, I have discussed with oncology services only option left is doing a bronchoscopy for tissue diagnosis will schedule it for Saturday01/26/2021, patient seen eval examined during the rounds labs reviewed medications reviewed patient is status post or MRI of thoracolumbar spine metastatic lesion on the T9 vertebra will recommend to consult IR to do the CT- guided biopsy 01/25/2021, patient seen eval examined during the rounds continue to have severe back pain, with point tenderness, status post MRI of the brain report reviewed no significant acute pathology identified, discussed with RN about obtaining the MRI of thoracolumbar spine in case if accessible lesion is present we will ask IR to do biopsy, for lung biopsy probably better to PET scan as outpatient and arrange for navigational biopsy as outpatient Patient seen eval examined came into the hospital with 3-4 week history of progressive back pain up to a point severe constant patient does have a history of extensive smoking and nicotine use used to smoke half to 1 pack per day for about 20 years lately have quit smoking, have intermittent dry cough ongoing shortness of breath denies any hemoptysis, patient has multiple computed tomography scan of the abdominal and pelvis and chest has been done we will review chest CT pending further recommendation Objective - Vital Signs Vital signs: Vital Signs Temp 97.8 F 04/18/21 01:53 Pulse 84 01/29/21 08:50 Resp 18 01/29/21 08:50 BP 108/66 01/29/21 08:50 Pulse Ox 97 01/29/21 08:50 Intake & Output 01/28/21 01/29/21 01/29/21 18:59 06:59 18:59 Intake Total 600 500 Balance 600 500 Intake: Oral 600 500 Other: Voiding Method Toilet Toilet # Voids 2 2 - Exam - Constitutional General appearance: cooperative, disheveled - EENT Eyes: PERRLA Ears: bilateral: normal - Neck Carotids: bilateral: upstroke normal Thyroid: negative: normal size - Respiratory Respiratory: bilateral: Inspiratory and expiratory wheezing slightly better compared to yesterday - Cardiovascular Rhythm: regular Heart sounds: normal: S1, S2 - Gastrointestinal General gastrointestinal: soft - Neurologic Point tenderness is present at lower thoracic and upper lumbar area Neurologic: CNII-XII intact - Musculoskeletal Musculoskeletal: generalized weakness, strength equal bilaterally - Psychiatric Psychiatric: A&O x's 3, appropriate affect, intact judgment & insight - Labs CBC & Chem 7: 01/28/21 06:24 01/28/21 06:24 Labs: Abnormal Lab Results - Last 24 Hours (Table) 01/28/21 01/28/21 01/29/21 Range/Units 17:57 20:49 06:31 POC Glucose (mg/dL) 113 H 165 H 166 H (75-99) mg/dL 01/29/21 Range/Units 07:21 POC Glucose (mg/dL) 163 H (75-99) mg/dL Assessment and Plan Assessment: Acute COPD exacerbation Severe thoracolumbar spinal pain Probable Mediastinal mass Lesion in lower thoracic and upper lumbar spine acne metastatic disease maternal metastatic lesion seen 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 vertebra Lung nodule COPD Back pain intractable Lesions in the liver as well as adrenal gland suspicious for metastatic disease Lesions in the spine as per computed tomography scan report Plan: Continue pain management Continue bronchodilators with IV steroids WE'LL PLAN FOR DOING A BRONCHOSCOPY Saturday recommend to make nothing by mouth after Saturday time and is scheduled to be decided on Saturday morning Interventional radiology have refused to dofor CT-guided biopsy of T9 vertebra MRI of the thoracolumbar spine results reviewed If MRI of the thoracolumbar spine showed a lesion consider IR to do CT-guided biopsy Lung biopsy of mediastinal mass or peripheral small nodule is challenging and will require PET scan and arranging navigational biopsy as outpatient Time with Patient: Greater than 30
[2021-01-29 12:09] LABS: Glucose,Whole Blood 130 mg/dL (75-99)
[2021-01-29 17:50] LABS: Glucose,Whole Blood 138 mg/dL (75-99)
[2021-01-29 20:47] LABS: Glucose,Whole Blood 141 mg/dL (75-99)
[2021-01-29] MEDS: SENNOSIDES-DOCUSATE SODIUM 1 EACH TAB PO SCH (20:55)
[2021-01-30] MEDS: methylPREDNISolone SOD SUCCI 40 MG/ML 1 ML VIAL IV SCH ×5 (00:04→23:24)
[2021-01-30] MEDS: MORPHINE SULFATE 4 MG/ML SYRINGE IVP PRN ×6 (00:13→23:21)
[2021-01-30] MEDS: HYDROcodone/APAP 10-325MG 1 EACH TAB PO PRN ×4 (04:37→20:21)
[2021-01-30] MEDS: INSULIN ASPART (NovoLOG) 100 UNIT/ML VIAL SQ SCH ×4 (06:59→21:16)
[2021-01-30 07:04] LABS: Glucose,Whole Blood 142 mg/dL (75-99)
[2021-01-30] MEDS: FAMOTIDINE 20 MG TAB PO SCH ×2 (08:32→20:21)
[2021-01-30] MEDS: DOCUSATE 100 MG CAP PO SCH ×2 (08:32→20:22)
[2021-01-30] MEDS: HEPARIN SODIUM,PORCINE/PF 5,000 UNIT/0.5 ML SYRINGE SQ SCH ×2 (08:32→20:22)
[2021-01-30] MEDS: THIAMINE 100 MG/ML 2 ML VIAL IVP SCH (08:33)
[2021-01-30] MEDS: IPRATROPIUM-ALBUTEROL 3 ML NEB INHALATION SCH ×4 (08:39→20:50)
--- NOTE | 2021-01-30 09:28 | P.CONS ---
History of Present Illness - Reason for Consult Consult date: 01/30/21 Intractable back pain Requesting physician: Arvind Mustafa - Chief Complaint Back and abdomen pain - History of Present Illness 55 years old female admitted to the hospital for abdomen and back pain, CT of the abdomen and pelvis showed multiple lesions in the liver and left adrenal gland mass which are suspicious for metastatic disease, 01/21/2021 CT of the chest showed very small peripheral based nodules in the left lung, there is a soft tissue thickening through the subcarinal region extending along the right peribronchial region measures 5.7 x 2.1 cm, there is osseous metastatic in left acetabulum, L3,T9 and possibly T5. 01/26/2021 MRI of the thoracic spine showed T9 vertebral metastatic lesion with abnormal signal, and smaller metastatic lesions within the thoracic spine. The patient has a history of progressive back and abdomen pain, she was unable to urinate or having a bowel movement 2 weeks before she came to the hospital. The patient has no history of cancer , she has a history of heavy smoking . No tissue diagnosis has been established yet, she is a scheduled to have bronchoscopy for biopsy today. At this time the patient continues complaining of pain. The pain is severe , located in the mid to the lower back and radiates to the right iliac bone down to the right hip. Review of Systems Constitutional: Reports as per HPI Ears, nose, mouth and throat: Reports as per HPI Cardiovascular: Reports as per HPI Respiratory: Reports as per HPI Gastrointestinal: Reports as per HPI Genitourinary: Reports as per HPI Menstruation: Reports as per HPI Musculoskeletal: Reports as per HPI, Reports low back pain Integumentary: Reports as per HPI Neurological: Reports as per HPI Psychiatric: Reports as per HPI Endocrine: Reports as per HPI Hematologic/Lymphatic: Reports as per HPI Allergic/Immunologic: Reports as per HPI Past Medical History Past Medical History: COPD Additional Past Medical History / Comment(s): arthritis, migraines, History of Any Multi-Drug Resistant Organisms: C-DIFF Year Discovered:: 2007 MDRO Source:: stool Past Surgical History: Appendectomy, Hysterectomy, Orthopedic Surgery Additional Past Anesthesia/Blood Transfusion Reaction / Comm: States blood pre ssure drops low when under anesthesia Past Psychological History: No Psychological Hx Reported Smoking Status: Current every day smoker Past Alcohol Use History: Daily, Occasional Past Drug Use History: None Reported Medications and Allergies Home Medications Medication Instructions Recorded Confirmed Type Dorzolamide 2% [Trusopt 2%] 1 drop BOTH EYES BID 01/20/21 01/20/21 History Allergies Allergy/AdvReac Type Severity Reaction Status Date / Time aspirin Allergy Abdominal Verified 01/20/21 11:10 Pain cephalexin [From Keflex] Allergy Rash/Hives Verified 01/20/21 11:10 Iodinated Contrast Media Allergy Anaphylaxis Verified 01/20/21 11:10 [Iodinated Contrast- Oral and IV Dye] Physical Exam Vitals: Vital Signs Temp Pulse Pulse Pulse Resp BP BP 01/30/21 02:00 98 F 72 18 110/68 01/29/21 20:00 98.1 F 94 16 131/68 01/29/21 14:05 98.4 F 83 18 102/60 01/29/21 13:40 70 01/29/21 13:26 67 Pulse Ox 01/30/21 02:00 96 01/29/21 20:00 96 01/29/21 14:05 96 01/29/21 13:40 01/29/21 13:26 Intake and Output 01/29/21 01/30/21 01/30/21 22:59 06:59 14:59 Intake Total 600 Balance 600 Intake: Oral 600 Other: # Voids 3 2 - Constitutional General appearance: no acute distress - EENT Eyes: EOMI - Neck Neck: no lymphadenopathy - Respiratory Respiratory: bilateral: wheezing - Cardiovascular Rhythm: regular - Gastrointestinal General gastrointestinal: distended, no organomegaly, soft, no tenderness - Integumentary Integumentary: normal - Neurologic Neurologic: CNII-XII intact - Musculoskeletal Musculoskeletal: gait normal, strength equal bilaterally - Psychiatric Psychiatric: A&O x's 3, appropriate affect Results CBC & Chem 7: 01/28/21 06:24 01/28/21 06:24 Labs: Abnormal Lab Results - Last 24 Hours (Table) 01/29/21 01/29/21 01/29/21 Range/Units 12:06 17:48 20:38 POC Glucose (mg/dL) 130 H 138 H 141 H (75-99) mg/dL 01/30/21 Range/Units 07:03 POC Glucose (mg/dL) 142 H (75-99) mg/dL Assessment and Plan Assessment: Probably metastatic disease to the lung, liver, adrenal gland, and bone, a lesion at T9 spine suspicious for metastatic disease and causing intractable p ain, no cord compression. Plan: Waiting for tissue diagnosis for malignancy, once it is established, the patient can have palliative external beam radiation therapy to the thoracic spine for pain relief. Planning for simulation tomorrow to start her radiotherapy when we have the results of the biopsy . we suggest to have a PET scan for further evaluation. Time with Patient: Greater than 30
--- NOTE | 2021-01-30 11:00 | P.PN ---
Subjective Progress Note Date: 01/30/21 Principal diagnosis: Probable Mediastinal mass Lung nodule COPD Back pain intractable Lesions in the liver as well as adrenal gland suspicious for metastatic disease Lesions in the spine as per computed tomography scan report 01/30/2021, patient seen eval examined during the rounds labs reviewed medications reviewed respiratory status slightly improved now less wheezing and cough and congestion of breath, patient remains on the IV steroids breathing treatments as well as narcotics for back pain slightly better, patient is being arranged for endoscopy as part is not available today and we'll arrange for tomorrow, nothing by mouth after midnight care plan also discussed with at bedside 01/29/2021, patient seen eval examined during the rounds labs reviewed me dications reviewed care plan discussed, patient has been wheezing hasn't has been having a lot of cough which is dry and nonproductive has been started on bronchodilators and steroids with that wheezing and cough is slightly better but continued to have severe lower thoracic upper lumbar pain in the spine, patient has been scheduled for bronchoscopy and lung biopsy for tomorrow, procedure alternative complication side effect explained to the patient at length, January 28, 2021, patient seen eval examined during the rounds labs reviewed medications reviewed, patient continued to have a pain in the thoracolumbar spine, denies any hemoptysis denies any chest pain, respiratory status however remains stable 01/27/2021, patient seen eval examined during the rounds MRI scan of the spine is done interventional radiology refused to do the biopsy, I have discussed with oncology services only option left is doing a bronchoscopy for tissue diagnosis will schedule it for Saturday01/26/2021, patient seen eval examined during the rounds labs reviewed medications reviewed patient is status post or MRI of thoracolumbar spine metastatic lesion on the T9 vertebra will recommend to consult IR to do the CT- guided biopsy 01/25/2021, patient seen eval examined during the rounds continue to have severe back pain, with point tenderness, status post MRI of the brain report reviewed no significant acute pathology identified, discussed with RN about obtaining the MRI of thoracolumbar spine in case if accessible lesion is present we will ask IR to do biopsy, for lung biopsy probably better to PET scan as outpatient and arrange for navigational biopsy as outpatient Patient seen eval examined came into the hospital with 3-4 week history of progressive back pain up to a point severe constant patient does have a history of extensive smoking and nicotine use used to smoke half to 1 pack per day for about 20 years lately have quit smoking, have intermittent dry cough ongoing shortness of breath denies any hemoptysis, patient has multiple computed tomography scan of the abdominal and pelvis and chest has been done we will review chest CT pending further recommendation Objective - Vital Signs Vital signs: Vital Signs Temp 97.8 F 01/30/21 08:00 Pulse 72 01/30/21 08:00 Resp 18 01/30/21 08:00 BP 117/79 01/30/21 08:00 Pulse Ox 100 01/30/21 08:00 Intake & Output 01/29/21 01/30/21 01/30/21 18:59 06:59 18:59 Intake Total 600 Output Total 350 Balance 600 -350 Intake: Oral 600 Output: Urine 350 Other: Voiding Method Toilet # Voids 3 2 2 # Bowel Movements 1 - Exam - Constitutional General appearance: cooperative, disheveled - EENT Eyes: PERRLA Ears: bilateral: normal - Neck Carotids: bilateral: upstroke normal Thyroid: negative: normal size - Respiratory Respiratory: bilateral: Inspiratory and expiratory wheezing slightly better compared to yesterday - Cardiovascular Rhythm: regular Heart sounds: normal: S1, S2 - Gastrointestinal General gastrointestinal: soft - Neurologic Point tenderness is present at lower thoracic and upper lumbar area Neurologic: CNII-XII intact - Musculoskeletal Musculoskeletal: generalized weakness, strength equal bilaterally - Psychiatric Psychiatric: A&O x's 3, appropriate affect, intact judgment & insight - Labs CBC & Chem 7: 01/28/21 06:24 01/28/21 06:24 Labs: Abnormal Lab Results - Last 24 Hours (Table) 01/29/21 01/29/21 01/29/21 Range/Units 12:06 17:48 20:38 POC Glucose (mg/dL) 130 H 138 H 141 H (75-99) mg/dL 01/30/21 Range/Units 07:03 POC Glucose (mg/dL) 142 H (75-99) mg/dL Assessment and Plan Assessment: Acute COPD exacerbation Severe thoracolumbar spinal pain Probable Mediastinal mass Lesion in lower thoracic and upper lumbar spine acne metastatic disease maternal metastatic lesion seen on T9 vertebra Lung nodule COPD Back pain intractable Lesions in the liver as well as adrenal gland suspicious for metastatic disease Lesions in the spine as per computed tomography scan report Plan: Continue pain management Continue bronchodilators with IV steroids WE'LL PLAN FOR DOING A BRONCHOSCOPY with lung biopsy tomorrow Interventional radiology have refused to dofor CT-guided biopsy of T9 vertebra MRI of the thoracolumbar spine results reviewed Time with Patient: Greater than 30
--- NOTE | 2021-01-30 12:29 | P.PN ---
Subjective Progress Note Date: 01/30/21 Principal diagnosis: Likely metastatic process Bronchoscopy is scheduled for tomorrow for further evaluation and biopsy. Objective - Vital Signs Vital signs: Vital Signs Temp 97.8 F 01/30/21 08:00 Pulse 72 01/30/21 08:00 Resp 18 01/30/21 08:00 BP 117/79 01/30/21 08:00 Pulse Ox 100 01/30/21 08:00 Intake & Output 01/29/21 01/30/21 01/30/21 18:59 06:59 18:59 Intake Total 600 Output Total 350 Balance 600 -350 Intake: Oral 600 Output: Urine 350 Other: Voiding Method Toilet # Voids 3 2 2 # Bowel Movements 1 - Exam - Constitutional General appearance: Present: average body habitus, cooperative, no acute distress - EENT Eyes: Present: anicteric sclerae, EOMI ENT: Present: hearing grossly normal - Respiratory Respiratory: bilateral: CTA - Cardiovascular Heart sounds: normal: S1, S2 Abnormal Heart Sounds: Absent: systolic murmur, diastolic murmur, rub, S3 Gallop, S4 Gallop, click, other - Peripheral edema leg Peripheral Edema: bilateral: None - Gastrointestinal General gastrointestinal: Present: normal bowel sounds, soft - Neurologic Neurologic: Present: CNII-XII intact (grossly) - Musculoskeletal Musculoskeletal Comment(s): lateral to the spine discomfort with palpation, no deformity Musculoskeletal: Present: strength equal bilaterally - Psychiatric Psychiatric: Present: A&O x's 3, appropriate affect, intact judgment & insight - Labs CBC & Chem 7: 01/28/21 06:24 01/28/21 06:24 Labs: Abnormal Lab Results - Last 24 Hours (Table) 01/29/21 01/29/21 01/30/21 Range/Units 17:48 20:38 07:03 POC Glucose (mg/dL) 138 H 141 H 142 H (75-99) mg/dL Assessment and Plan (1) Liver lesion Current Visit: Yes Status: Acute Code(s): K76.9 - LIVER DISEASE, UNSPECIFIED SNOMED Code(s): 462053578 (2) Lesion of adrenal gland Current Visit: Yes Status: Acute Priority: High Code(s): E27.9 - DISORDER OF ADRENAL GLAND, UNSPECIFIED SNOMED Code(s): 41223064 Plan: . - Imaging and Cardiology MRI - head: report reviewed Assessment and Plan (1) Mediastinal mass Current Visit: Yes Status: Acute Priority: High Code(s): J98.59 - OTHER DISEASES OF MEDIASTINUM, NOT ELSEWHERE CLASSIFIED SNOMED Code(s): 69932694 (2) Lesion of adrenal gland Current Visit: Yes Status: Acute Priority: High Code(s): E27.9 - DISORDER OF ADRENAL GLAND, UNSPECIFIED SNOMED Code(s): 81373505 (3) Macrocytosis without anemia Narrative/Plan: B12 levels low end of normal, may be a degree of malabsorption. MMA is normal and no supplementation recommendations at this time. Current Visit: Yes Status: Acute Priority: Medium Code(s): D75.89 - OTHER SPECIFIED DISEASES OF BLOOD AND BLOOD-FORMING ORGANS SNOMED Code(s): 281747170 (4) Hypercalcemia Current Visit: Yes Status: Resolved Priority: Medium Code(s): E83.52 - HYPERCALCEMIA SNOMED Code(s): 28065693 (5) Abdominal pain Current Visit: Yes Status: Resolved Priority: High Code(s): R10.9 - UNSPECIFIED ABDOMINAL PAIN SNOMED Code(s): 46556553 Plan: MRI of the brain was negative for lesions. MRI of the lumbar spine reviewed Plan for biopsy IR was unable to be performed per IR due to location, Dr. Preciado spoke with Dr. Fowler from Pulmonology, and plan for Bronchoscopy on Saturday per pulm note for tissue biopsy. We will consult radiation oncology for palliative radiation to adrenal mass once a diagnosis is established. Patient is working with social work/case management to get Medicaid, as she has no insurance. PET scan is not going to be an option until patient does have insurance. Continue supportive care in the interim
[2021-01-30 12:36] LABS: Glucose,Whole Blood 182 mg/dL (75-99)
[2021-01-30 17:50] LABS: Glucose,Whole Blood 144 mg/dL (75-99)
[2021-01-30] MEDS: SENNOSIDES-DOCUSATE SODIUM 1 EACH TAB PO SCH (20:21)
[2021-01-30 20:48] LABS: Glucose,Whole Blood 181 mg/dL (75-99)
--- NOTE | 2021-01-30 22:09 | P.PN ---
Subjective Progress Note Date: 01/28/21 Principal diagnosis: Mediastinal mass and renal mass suspicious for malignancy. this is a pleasant 55 years old female with past medical history of arthritis, migraine, C. diff. she is a patient of Dr. Azul. Presents because of left flank pain of 2 weeks duration, got really severe over the last 2 days, it is also located in the middle left back and goes around to the left flank down to the left groin at times, comes and goes. Associated with decreased amount of urine but no dysuria or urgency or hesitancy. Also has some suprapubic tenderness. And she has some vaginal discharge but no vaginal bleeding she is also complaining of from nausea and vomiting for about one week, she has constipation but no diarrhea. She has low appetite. She smokes about less than a pack per day, she is counseled and agrees to quit but she declined nicotine patch. She drinks alcohol everyday likely 1 pint to 1 fifth. No illicit tracts vitals are stable, labs including CBC and BMP are unremarkable. Urine analysis is suspicious for infection patient had CT of the abdomen and pelvis without contrast showing left and right hepatic masses suggestive of metastasis. Enlarged left adrenal gland suspicious for metastasis, a primary neoplasm source is not identified. Fusiform promine nce in the mid abdominal aorta emergency room patient received Benadryl, Toradol, levofloxacin, morphine, prednisone. Also patient was started on normal saline 75 mL/h. One-time dose of Bactrim is also given surgical team were consulted from emergency room. 01/21/2021 This is a pleasant 55 years old female who presents with abdominal pain, CT of the abdomen found liver metastasis and left adrenal gland mass which might contribute to her symptoms. UTI is suspected but renal ultrasound is negative. The portcalcitonin is normal. We will wait for urine culture and if negative then we might discontinue antibiotic Patient is followed closely by surgery team with a recommendation for no surg ical intervention. Also followed by oncology team who ordered a CT of the abdomen and pelvis and chest with contrast to be done today: Soft tissue masslike area in the subcarinal and right peribronchial region suspicious for neoplasm with 1 cm spiculated density in the left lower lobe suspicious for neoplasm. Suspect hepatic and left adrenal metastasis and osseous metastasis including the left acetabulum, L3, T9 and possibility 5. Repeat urine analysis is negative. Urine culture is negative we'll discontinue antibiotic Patient continued on Levaquin, normal saline at 125. Also she is on CIWA protocol for history of alcohol abuse Oncology team on the case 01/22/2021 Patient still complaining of from mid to lower back pain just to the left of the vertebral column and right guillotine down just below the rib cage on the left side across the abdomen towards umbilicus. The distribution of pain follows dermatome T9 on the left side. No evidence of UTI on urine culture, bothcalcitonin is negative. Repeat UA is negative and antibiotic can safely be discontinued with Levaquin as there is no evidence of infection and most likely her pain is musculoskeletal related to her metastatic disease. Also patient complains from constipation and stool softener started. Patient encouraged to the patient on Fleischmanns rather than IV morphine to facilitate her discharge, all of pain except for the patient as pain she can tolerate and function rather than 0 pain and she agrees. CT of the abdomen, pelvis and chest with contrast showing: Soft tissue mass like area in the subcarinal and right peribronchial region suspicious for neoplasm. 1 cm spiculated density left lower lobe suspicious for neoplasm, hepatic metastases, osseous metastasis including left acetabulum, lytic lesions involving T5, T9 and L3. With probable metastatic left adrenal mass Patient informed with these findings. Radiologist recommended at this Which is going to be decided per Oncology team tomorrow Surgery team input is appreciated, no need for any surgical intervention actually patient might need a tissue biopsy with IR, for this reason we kept the patient nothing by mouth and told the nurse to hold her anticoagulation dose the morning for her DVT prophylaxis Continue gentle hydration. Continue with CIWA protocol with no evidence of alcohol withdrawal currently. Continue with morphine/Fleischmanns. She is on heparin subcutaneous twice a day for DVT prophylaxis with instruction to hold those in the morning 01/23/2021 Patient is still complaining of from mid back pain radiating to the left side across left T9 dermatome due to her metastatic bone disease and lytic lesion in T9. She has multiple metastatic sports including the liver, left adrenal gland, spine with lung metastasis and left lung mass suspicious for primary source. Oncology team are recommended bronchoscopy to obtain tissue biopsy, however per my discussion with pulmonary team they think her liver lesion and/or adrenal gland are more accessible. hence consult was placed for IR team Patient pain is not controlled with Fleischmanns, she still on IV morphine. Laxative provided for her constipation. Patient also has concerns about her be because of lack of insurance, for this reason she refused occupational therapy. Consult was placed for social service manager Also patient is on [facility] protocol for her alcohol withdrawal. Emotional support is a provided for the patient 01/24/2021 Patient is complaining of left mid back pain and requesting IV pain medications. Patient has multiple metastatic lesions in the liver, left adrenal gland, spine and lung/mediastinum. Patient was seen by oncology and recommends PET scan prior to biopsy. IR could not get liver biopsy due to smaller lesion. Cardiogram pain management with Fleischmanns and IV morphine. Continue with bowel regimen. Patient is also complaining of constipation. No complaints of chest pain or shortness breath. Patient is very anxious otherwise. No fever no chills. No cough or sputum production. Oncology and pulmonary is on board. 01/25/2021 Patient is still complaining of left mid back pain which is fairly controlled with medications. No complaints of chest pain or shortness of breath. No fever no chills. MRI of the brain was ordered for staging showed no evidence of metastatic lesions. MRI of the lumbar and thoracic spine was ordered. Patient will be given Fleet enema due to constipation last bowel movement was about 5 days back. Discussed with oncology and pulmonary. Laboratory data showed WBC 6.4, hemoglobin 12.3, MCV 103.9 and platelets 284 Sodium 136 potassium 4.1 bicarb is 26 BUN 9 creatinine 0.76 and calcium 9.7 09/27/2021 Patient is currently lying in the bed comfortably. Pain is fairly controlled. Complains of back pain, MRI of the lumbar and cervical spine showed no metastatic disease L3-L4 posterior vertebral bodies. No suspicious acute steno sis. Oncology recommends biopsy. IR was consulted for biopsy of the renal mass but could not be done due to small lesion. MRI of the brain is negative for any metastatic lesions. Oncology and pulmonary is on board. Possible mediastinal biopsy as per pulmonary final recommendations. 01/27/2021 Patient still complains of back pain. MRI of the lumbar and thoracic spine showed no metastatic disease. IR guided biopsy could not be performed due to location and size. Pulmonary is planning for bronchoscopy and biopsy possibly on Saturday. Radiation oncology was also consulted for palliative radiation to adrenal mass once diagnosis is established. Oncology is on board. Otherwise patient is sti ll complaining of constipation. Currently on stool softeners and milk of magnesia was ordered. Enema as needed. Patient has been afebrile. No complaints of abdominal pain. Able to pass flatus. No headache or dizziness or lightheadedness. 01/28/2021 Patient is currently lying in bed comfortably. No complaints of chest pain. Patient is still complaining of thoracic and lumbar spinal pain. Mainly in the left side. No fever no chills. No cough or sputum production. Complains of constipation and is being continued on stool softeners embolism. Pulmonary is planning for bronchoscopy and biopsy possibly on Saturday. Radiation oncology was consulted for palliative radiation. No nausea vomiting abdominal pain or diarrhea. Current medications reviewed. Objective - Vital Signs Vital signs: Vital Signs Temp 98.1 F 01/28/21 14:07 Pulse 69 01/28/21 14:07 Resp 16 01/28/21 14:07 BP 113/65 01/28/21 14:07 Pulse Ox 100 01/28/21 14:07 Intake & Output 01/27/21 01/28/21 01/28/21 18:59 06:59 18:59 Intake Total 250 540 Balance 250 540 Intake: Oral 250 540 Other: Voiding Method Toilet # Voids 2 - Exam - Exam GENERAL: The patient is alert and oriented x3, not in any acute distress. Well developed, well nourished. HEENT: Pupils are round and equally reacting to light. EOMI. No scleral icterus. No conjunctival pallor. Normocephalic, atraumatic. No pharyngeal erythema. No thyromegaly. CARDIOVASCULAR: S1 and S2 present. No murmurs, rubs, or gallops. PULMONARY: Chest is clear to auscultation, no wheezing or crackles. -ABDOMEN: Soft, nontender, nondistended, normoactive bowel sounds. No palpable organomegaly. -MUSCULOSKELETAL: No joint swelling or deformity. The distal left back tenderness just lateral to the left spine and follows dermatome T9 EXTREMITIES: No cyanosis, clubbing, or pedal edema. NEUROLOGICAL: Gross neurological examination did not reveal any focal deficits. SKIN: No rashes. no petechiae. - Labs CBC & Chem 7: 01/28/21 06:24 01/28/21 06:24 Labs: Abnormal Lab Results - Last 24 Hours (Table) 04/17/21 04/17/21 Range/Units 06:24 06:24 RBC 3.35 L (3.80-5.40) m/uL MCV 108.0 H (80.0-100.0) fL Sodium 136 L (137-145) mmol/L Albumin 3.4 L (3.5-5.0) g/dL Assessment and Plan Assessment: Mediastinal mass and renal mass suspicious for malignancy. left lower lobe with 1 cm spiculated mass with multiple metastasis including the lung, bone, liver, left adrenal gland.Will need a tissue diagnosis Left middle back pain radiating across the abdomen along the left T9 dermatome. possible lytic lesion at T9. MRI showed no evidence of metastatic lesions. Suspect hepatic and left adrenal metastasis and osseous metastasis including the left acetabulum, L3, T9 and possibility T5 (lytic lesions).MRI of the spine showed no evidence of metastatic disease. alcohol abuse at-risk of alcohol withdrawal Macrocytosis likely due to alcohol use and prior chemotherapy Hypercalcemia improved No evidence Acute urinary tract infection/pyelonephritis history of arthritis History of migraine hx of C. diff infection History of cervical cancer and breast cancer status post chemotherapy. Patient states that she lost follow-up due to insurance issues Currently everyday smoker Constipation DVT prophylaxis with heparin subcu Plan: this is a pleasant 55 years old female who presents with possible left lung mass of 1 cm suspicious for cancer with metastatic liver disease and possible left adrenal metastasis. Oncology team on the case also patient will need a tissue diagnosis. IR was consulted but could not get needle biopsy due to small of lesion. MRI of the brain showed no lesions. MRI of the lumbar and thoracic spine was ordered. MRI of the spine showed no evidence of metastatic disease. Pulmonary is considering bronchoscopy and biopsy on Saturday. PET scan may not be option due to lack of insurance. Social work is following. Radiation oncology was consulted for palliative radiation of the adrenal lesions.. Continue with on CIWA protocol and thiamine IV Labs and medication were reviewed. Continue with symptomatic treatment. Monitor lytes and vitals. DVT and GI prophylaxis. Further recommendations depends on the clinical course of the patient DVT prophylaxis: Subcutaneous heparin GI Prophylaxis: Pepcid Consult social service manager for lack of medical insurance Prognosis is guarded Time with Patient: Greater than 30
--- NOTE | 2021-01-30 22:12 | P.PN ---
Subjective Progress Note Date: 01/29/21 Principal diagnosis: Mediastinal mass and renal mass suspicious for malignancy. this is a pleasant 55 years old female with past medical history of arthritis, migraine, C. diff. she is a patient of Dr. Azul. Presents because of left flank pain of 2 weeks duration, got really severe over the last 2 days, it is also located in the middle left back and goes around to the left flank down to the left groin at times, comes and goes. Associated with decreased amount of urine but no dysuria or urgency or hesitancy. Also has some suprapubic tenderness. And she has some vaginal discharge but no vaginal bleeding she is also complaining of from nausea and vomiting for about one week, she has constipation but no diarrhea. She has low appetite. She smokes about less than a pack per day, she is counseled and agrees to quit but she declined nicotine patch. She drinks alcohol everyday likely 1 pint to 1 fifth. No illicit tracts vitals are stable, labs including CBC and BMP are unremarkable. Urine analysis is suspicious for infection patient had CT of the abdomen and pelvis without contrast showing left and right hepatic masses suggestive of metastasis. Enlarged left adrenal gland suspicious for metastasis, a primary neoplasm source is not identified. Fusiform promine nce in the mid abdominal aorta emergency room patient received Benadryl, Toradol, levofloxacin, morphine, prednisone. Also patient was started on normal saline 75 mL/h. One-time dose of Bactrim is also given surgical team were consulted from emergency room. 01/21/2021 This is a pleasant 55 years old female who presents with abdominal pain, CT of the abdomen found liver metastasis and left adrenal gland mass which might contribute to her symptoms. UTI is suspected but renal ultrasound is negative. The portcalcitonin is normal. We will wait for urine culture and if negative then we might discontinue antibiotic Patient is followed closely by surgery team with a recommendation for no surg ical intervention. Also followed by oncology team who ordered a CT of the abdomen and pelvis and chest with contrast to be done today: Soft tissue masslike area in the subcarinal and right peribronchial region suspicious for neoplasm with 1 cm spiculated density in the left lower lobe suspicious for neoplasm. Suspect hepatic and left adrenal metastasis and osseous metastasis including the left acetabulum, L3, T9 and possibility 5. Repeat urine analysis is negative. Urine culture is negative we'll discontinue antibiotic Patient continued on Levaquin, normal saline at 125. Also she is on CIWA protocol for history of alcohol abuse Oncology team on the case 01/22/2021 Patient still complaining of from mid to lower back pain just to the left of the vertebral column and right guillotine down just below the rib cage on the left side across the abdomen towards umbilicus. The distribution of pain follows dermatome T9 on the left side. No evidence of UTI on urine culture, bothcalcitonin is negative. Repeat UA is negative and antibiotic can safely be discontinued with Levaquin as there is no evidence of infection and most likely her pain is musculoskeletal related to her metastatic disease. Also patient complains from constipation and stool softener started. Patient encouraged to the patient on [place] rather than IV morphine to facilitate her discharge, all of pain except for the patient as pain she can tolerate and function rather than 0 pain and she agrees. CT of the abdomen, pelvis and chest with contrast showing: Soft tissue mass like area in the subcarinal and right peribronchial region suspicious for neoplasm. 1 cm spiculated density left lower lobe suspicious for neoplasm, hepatic metastases, osseous metastasis including left acetabulum, lytic lesions involving T5, T9 and L3. With probable metastatic left adrenal mass Patient informed with these findings. Radiologist recommended at this Which is going to be decided per Oncology team tomorrow Surgery team input is appreciated, no need for any surgical intervention actually patient might need a tissue biopsy with IR, for this reason we kept the patient nothing by mouth and told the nurse to hold her anticoagulation dose the morning for her DVT prophylaxis Continue gentle hydration. Continue with CIWA protocol with no evidence of alcohol withdrawal currently. Continue with morphine/[place]. She is on heparin subcutaneous twice a day for DVT prophylaxis with instruction to hold those in the morning 01/23/2021 Patient is still complaining of from mid back pain radiating to the left side across left T9 dermatome due to her metastatic bone disease and lytic lesion in T9. She has multiple metastatic sports including the liver, left adrenal gland, spine with lung metastasis and left lung mass suspicious for primary source. Oncology team are recommended bronchoscopy to obtain tissue biopsy, however per my discussion with pulmonary team they think her liver lesion and/or adrenal gland are more accessible. hence consult was placed for IR team Patient pain is not controlled with [place], she still on IV morphine. Laxative provided for her constipation. Patient also has concerns about her be because of lack of insurance, for this reason she refused occupational therapy. Consult was placed for health and social care teacher Also patient is on [facility] protocol for her alcohol withdrawal. Emotional support is a provided for the patient 01/24/2021 Patient is complaining of left mid back pain and requesting IV pain medications. Patient has multiple metastatic lesions in the liver, left adrenal gland, spine and lung/mediastinum. Patient was seen by oncology and recommends PET scan prior to biopsy. IR could not get liver biopsy due to smaller lesion. Cardiogram pain management with [place] and IV morphine. Continue with bowel regimen. Patient is also complaining of constipation. No complaints of chest pain or shortness breath. Patient is very anxious otherwise. No fever no chills. No cough or sputum production. Oncology and pulmonary is on board. 01/25/2021 Patient is still complaining of left mid back pain which is fairly controlled with medications. No complaints of chest pain or shortness of breath. No fever no chills. MRI of the brain was ordered for staging showed no evidence of metastatic lesions. MRI of the lumbar and thoracic spine was ordered. Patient will be given Fleet enema due to constipation last bowel movement was about 5 days back. Discussed with oncology and pulmonary. Laboratory data showed WBC 6.4, hemoglobin 12.3, MCV 103.9 and platelets 284 Sodium 136 potassium 4.1 bicarb is 26 BUN 9 creatinine 0.76 and calcium 9.7 09/27/2021 Patient is currently lying in the bed comfortably. Pain is fairly controlled. Complains of back pain, MRI of the lumbar and cervical spine showed no metastatic disease L3-L4 posterior vertebral bodies. No suspicious acute steno sis. Oncology recommends biopsy. IR was consulted for biopsy of the renal mass but could not be done due to small lesion. MRI of the brain is negative for any metastatic lesions. Oncology and pulmonary is on board. Possible mediastinal biopsy as per pulmonary final recommendations. 01/27/2021 Patient still complains of back pain. MRI of the lumbar and thoracic spine showed no metastatic disease. IR guided biopsy could not be performed due to location and size. Pulmonary is planning for bronchoscopy and biopsy possibly on Saturday. Radiation oncology was also consulted for palliative radiation to adrenal mass once diagnosis is established. Oncology is on board. Otherwise patient is sti ll complaining of constipation. Currently on stool softeners and milk of magnesia was ordered. Enema as needed. Patient has been afebrile. No complaints of abdominal pain. Able to pass flatus. No headache or dizziness or lightheadedness. 01/28/2021 Patient is currently lying in bed comfortably. No complaints of chest pain. Patient is still complaining of thoracic and lumbar spinal pain. Mainly in the left side. No fever no chills. No cough or sputum production. Complains of constipation and is being continued on stool softeners embolism. Pulmonary is planning for bronchoscopy and biopsy possibly on Saturday. Radiation oncology was consulted for palliative radiation. No nausea vomiting abdominal pain or diarrhea. 01/29/2021 Patient is currently resting in the bed. Still complains of back pain and is fairly controlled with pain medications. No complaints of nausea or vomiting. Does have constipation. Stool softeners and enema was ordered. Otherwise patient denied any chest pain or shortness breath. No leg swelling. Patient was seen by radiation oncology and is planning for simulation on Saturday for palliative radiation. Mainly metastatic lesions to lung, adrenal and T9 spine without any cord compression. No headache or dizziness or lightheadedness. Pulmonary is planning for bronchoscopy and biopsy tomorrow. Current medications reviewed. Objective - Vital Signs Vital signs: Vital Signs Temp 98.4 F 01/29/21 14:05 Pulse 83 01/29/21 14:05 Resp 18 01/29/21 14:05 BP 102/60 01/29/21 14:05 Pulse Ox 96 01/29/21 14:05 Intake & Output 01/28/21 01/29/21 01/29/21 18:59 06:59 18:59 Intake Total 600 500 Balance 600 500 Intake: Oral 600 500 Other: Voiding Method Toilet Toilet # Voids 2 2 - Exam - Exam GENERAL: The patient is alert and oriented x3, not in any acute distress. Well developed, well nourished. HEENT: Pupils are round and equally reacting to light. EOMI. No scleral icterus. No conjunctival pallor. Normocephalic, atraumatic. No pharyngeal erythema. No thyromegaly. CARDIOVASCULAR: S1 and S2 present. No murmurs, rubs, or gallops. PULMONARY: Chest is clear to auscultation, no wheezing or crackles. -ABDOMEN: Soft, nontender, nondistended, normoactive bowel sounds. No palpable organomegaly. -MUSCULOSKELETAL: No joint swelling or deformity. The distal left back tenderness just lateral to the left spine and follows dermatome T9 EXTREMITIES: No cyanosis, clubbing, or pedal edema. NEUROLOGICAL: Gross neurological examination did not reveal any focal deficits. SKIN: No rashes. no petechiae. - Labs CBC & Chem 7: 01/28/21 06:24 01/28/21 06:24 Labs: Abnormal Lab Results - Last 24 Hours (Table) 01/28/21 01/28/21 01/29/21 Range/Units 17:57 20:49 06:31 POC Glucose (mg/dL) 113 H 165 H 166 H (75-99) mg/dL 01/29/21 01/29/21 Range/Units 07:21 12:06 POC Glucose (mg/dL) 163 H 130 H (75-99) mg/dL Assessment and Plan Assessment: Mediastinal mass and renal mass suspicious for malignancy. left lower lobe with 1 cm spiculated mass with multiple metastasis including the lung, bone, liver, left adrenal gland.Will need a tissue diagnosis Left middle back pain radiating across the abdomen along the left T9 dermatome. possible lytic lesion at T9. MRI showed no evidence of metastatic lesions. Suspect hepatic and left adrenal metastasis and osseous metastasis including the left acetabulum, L3, T9 and possibility T5 (lytic lesions).MRI of the spine showed no evidence of metastatic disease. alcohol abuse at-risk of alcohol withdrawal Macrocytosis likely due to alcohol use and prior chemotherapy Hypercalcemia improved No evidence Acute urinary tract infection/pyelonephritis history of arthritis History of migraine hx of C. diff infection History of cervical cancer and breast cancer status post chemotherapy. Patient states that she lost follow-up due to insurance issues Currently everyday smoker Constipation DVT prophylaxis with heparin subcu Plan: this is a pleasant 55 years old female who presents with possible left lung mass of 1 cm suspicious for cancer with metastatic liver disease and possible left adrenal metastasis. Oncology team on the case also patient will need a tissue diagnosis. IR was consulted but could not get needle biopsy due to small of lesion. MRI of the brain showed no lesions. MRI of the lumbar and thoracic spine was ordered. MRI of the spine showed no evidence of metastatic disease. Pulmonary is considering bronchoscopy and biopsy on Saturday. PET scan may not be option due to lack of insurance. Social work is following. Radiation oncology was consulted for palliative radiation of the adrenal lesions, T9.. Continue with on CIWA protocol and thiamine IV Labs and medication were reviewed. Continue with symptomatic treatment. Monitor lytes and vitals. DVT and GI prophylaxis. Further recommendations depends on the clinical course of the patient DVT prophylaxis: Subcutaneous heparin GI Prophylaxis: Pepcid Consult health and social care teacher for lack of medical insurance Prognosis is guarded Time with Patient: Greater than 30
--- NOTE | 2021-01-30 22:20 | P.PN ---
Subjective Progress Note Date: 01/30/21 Principal diagnosis: Mediastinal mass and renal mass suspicious for malignancy. this is a pleasant 55 years old female with past medical history of arthritis, migraine, C. diff. she is a patient of Dr. Azul. Presents because of left flank pain of 2 weeks duration, got really severe over the last 2 days, it is also located in the middle left back and goes around to the left flank down to the left groin at times, comes and goes. Associated with decreased amount of urine but no dysuria or urgency or hesitancy. Also has some suprapubic tenderness. And she has some vaginal discharge but no vaginal bleeding she is also complaining of from nausea and vomiting for about one week, she has constipation but no diarrhea. She has low appetite. She smokes about less than a pack per day, she is counseled and agrees to quit but she declined nicotine patch. She drinks alcohol everyday likely 1 pint to 1 fifth. No illicit tracts vitals are stable, labs including CBC and BMP are unremarkable. Urine analysis is suspicious for infection patient had CT of the abdomen and pelvis without contrast showing left and right hepatic masses suggestive of metastasis. Enlarged left adrenal gland suspicious for metastasis, a primary neoplasm source is not identified. Fusiform promine nce in the mid abdominal aorta emergency room patient received Benadryl, Toradol, levofloxacin, morphine, prednisone. Also patient was started on normal saline 75 mL/h. One-time dose of Bactrim is also given surgical team were consulted from emergency room. 01/21/2021 This is a pleasant 55 years old female who presents with abdominal pain, CT of the abdomen found liver metastasis and left adrenal gland mass which might contribute to her symptoms. UTI is suspected but renal ultrasound is negative. The portcalcitonin is normal. We will wait for urine culture and if negative then we might discontinue antibiotic Patient is followed closely by surgery team with a recommendation for no surg ical intervention. Also followed by oncology team who ordered a CT of the abdomen and pelvis and chest with contrast to be done today: Soft tissue masslike area in the subcarinal and right peribronchial region suspicious for neoplasm with 1 cm spiculated density in the left lower lobe suspicious for neoplasm. Suspect hepatic and left adrenal metastasis and osseous metastasis including the left acetabulum, L3, T9 and possibility 5. Repeat urine analysis is negative. Urine culture is negative we'll discontinue antibiotic Patient continued on Levaquin, normal saline at 125. Also she is on CIWA protocol for history of alcohol abuse Oncology team on the case 01/22/2021 Patient still complaining of from mid to lower back pain just to the left of the vertebral column and right guillotine down just below the rib cage on the left side across the abdomen towards umbilicus. The distribution of pain follows dermatome T9 on the left side. No evidence of UTI on urine culture, bothcalcitonin is negative. Repeat UA is negative and antibiotic can safely be discontinued with Levaquin as there is no evidence of infection and most likely her pain is musculoskeletal related to her metastatic disease. Also patient complains from constipation and stool softener started. Patient encouraged to the patient on Henry rather than IV morphine to facilitate her discharge, all of pain except for the patient as pain she can tolerate and function rather than 0 pain and she agrees. CT of the abdomen, pelvis and chest with contrast showing: Soft tissue mass like area in the subcarinal and right peribronchial region suspicious for neoplasm. 1 cm spiculated density left lower lobe suspicious for neoplasm, hepatic metastases, osseous metastasis including left acetabulum, lytic lesions involving T5, T9 and L3. With probable metastatic left adrenal mass Patient informed with these findings. Radiologist recommended at this Which is going to be decided per Oncology team tomorrow Surgery team input is appreciated, no need for any surgical intervention actually patient might need a tissue biopsy with IR, for this reason we kept the patient nothing by mouth and told the nurse to hold her anticoagulation dose the morning for her DVT prophylaxis Continue gentle hydration. Continue with CIWA protocol with no evidence of alcohol withdrawal currently. Continue with morphine/Henry. She is on heparin subcutaneous twice a day for DVT prophylaxis with instruction to hold those in the morning 01/23/2021 Patient is still complaining of from mid back pain radiating to the left side across left T9 dermatome due to her metastatic bone disease and lytic lesion in T9. She has multiple metastatic sports including the liver, left adrenal gland, spine with lung metastasis and left lung mass suspicious for primary source. Oncology team are recommended bronchoscopy to obtain tissue biopsy, however per my discussion with pulmonary team they think her liver lesion and/or adrenal gland are more accessible. hence consult was placed for IR team Patient pain is not controlled with Henry, she still on IV morphine. Laxative provided for her constipation. Patient also has concerns about her be because of lack of insurance, for this reason she refused occupational therapy. 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 Emotional support is a provided for the patient 01/24/2021 Patient is complaining of left mid back pain and requesting IV pain medications. Patient has multiple metastatic lesions in the liver, left adrenal gland, spine and lung/mediastinum. Patient was seen by oncology and recommends PET scan prior to biopsy. IR could not get liver biopsy due to smaller lesion. Cardiogram pain management with Henry and IV morphine. Continue with bowel regimen. Patient is also complaining of constipation. No complaints of chest pain or shortness breath. Patient is very anxious otherwise. No fever no chills. No cough or sputum production. Oncology and pulmonary is on board. 01/25/2021 Patient is still complaining of left mid back pain which is fairly controlled with medications. No complaints of chest pain or shortness of breath. No fever no chills. MRI of the brain was ordered for staging showed no evidence of metastatic lesions. MRI of the lumbar and thoracic spine was ordered. Patient will be given Fleet enema due to constipation last bowel movement was about 5 days back. Discussed with oncology and pulmonary. Laboratory data showed WBC 6.4, hemoglobin 12.3, MCV 103.9 and platelets 284 Sodium 136 potassium 4.1 bicarb is 26 BUN 9 creatinine 0.76 and calcium 9.7 09/27/2021 Patient is currently lying in the bed comfortably. Pain is fairly controlled. Complains of back pain, MRI of the lumbar and cervical spine showed no metastatic disease L3-L4 posterior vertebral bodies. No suspicious acute steno sis. Oncology recommends biopsy. IR was consulted for biopsy of the renal mass but could not be done due to small lesion. MRI of the brain is negative for any metastatic lesions. Oncology and pulmonary is on board. Possible mediastinal biopsy as per pulmonary final recommendations. 01/27/2021 Patient still complains of back pain. MRI of the lumbar and thoracic spine showed no metastatic disease. IR guided biopsy could not be performed due to location and size. Pulmonary is planning for bronchoscopy and biopsy possibly on Saturday. Radiation oncology was also consulted for palliative radiation to adrenal mass once diagnosis is established. Oncology is on board. Otherwise patient is sti ll complaining of constipation. Currently on stool softeners and milk of magnesia was ordered. Enema as needed. Patient has been afebrile. No complaints of abdominal pain. Able to pass flatus. No headache or dizziness or lightheadedness. 01/28/2021 Patient is currently lying in bed comfortably. No complaints of chest pain. Patient is still complaining of thoracic and lumbar spinal pain. Mainly in the left side. No fever no chills. No cough or sputum production. Complains of constipation and is being continued on stool softeners embolism. Pulmonary is planning for bronchoscopy and biopsy possibly on Saturday. Radiation oncology was consulted for palliative radiation. No nausea vomiting abdominal pain or diarrhea. 01/29/2021 Patient is currently resting in the bed. Still complains of back pain and is fairly controlled with pain medications. No complaints of nausea or vomiting. Does have constipation. Stool softeners and enema was ordered. Otherwise patient denied any chest pain or shortness breath. No leg swelling. Patient was seen by radiation oncology and is planning for simulation on Saturday for palliative radiation. Mainly metastatic lesions to lung, adrenal and T9 spine without any cord compression. No headache or dizziness or lightheadedness. Pulmonary is planning for bronchoscopy and biopsy tomorrow. 01/30/2021 Patient is complaining of thoracic and lumbar back pain. Also complains of constipation and did not have any bowel meds last few days. Able to pass flatus. No nausea vomiting or abdominal pain. No fever no chills. No cough or sputum production. Pulmonary was planning for bronchoscopy and biopsy today but has been postponed to tomorrow due to the availability of the OR. Radiation oncology simulation today. Oncology, pulmonary and radiation oncology on board.. Current medications reviewed. Objective - Vital Signs Vital signs: Vital Signs Temp 98.3 F 01/30/21 20:14 Pulse 79 01/30/21 20:14 Resp 20 01/30/21 20:14 BP 118/73 01/30/21 20:14 Pulse Ox 96 01/30/21 20:14 Intake & Output 01/30/21 01/30/21 01/31/21 06:59 18:59 06:59 Output Total 350 Balance -350 Output: Urine 350 Other: # Voids 2 2 # Bowel Movements 1 - Exam - Exam GENERAL: The patient is alert and oriented x3, not in any acute distress. Well developed, well nourished. HEENT: Pupils are round and equally reacting to light. EOMI. No scleral icterus. No conjunctival pallor. Normocephalic, atraumatic. No pharyngeal erythema. No thyromegaly. CARDIOVASCULAR: S1 and S2 present. No murmurs, rubs, or gallops. PULMONARY: Chest is clear to auscultation, no wheezing or crackles. -ABDOMEN: Soft, nontender, nondistended, normoactive bowel sounds. No palpable organomegaly. -MUSCULOSKELETAL: No joint swelling or deformity. The distal left back tenderness just lateral to the left spine and follows dermatome T9 EXTREMITIES: No cyanosis, clubbing, or pedal edema. NEUROLOGICAL: Gross neurological examination did not reveal any focal deficits. SKIN: No rashes. no petechiae. - Labs CBC & Chem 7: 01/28/21 06:24 01/28/21 06:24 Labs: Abnormal Lab Results - Last 24 Hours (Table) 01/30/21 01/30/21 01/30/21 Range/Units 07:03 12:35 17:47 POC Glucose (mg/dL) 142 H 182 H 144 H (75-99) mg/dL 01/30/21 Range/Units 20:44 POC Glucose (mg/dL) 181 H (75-99) mg/dL Assessment and Plan Assessment: Mediastinal mass and renal mass suspicious for malignancy. left lower lobe with 1 cm spiculated mass with multiple metastasis including the lung, bone, liver, left adrenal gland.Will need a tissue diagnosis Left middle back pain radiating across the abdomen along the left T9 dermatome. possible lytic lesion at T9. MRI showed no evidence of metastatic lesions. Suspect hepatic and left adrenal metastasis and osseous metastasis including the left acetabulum, L3, T9 and possibility T5 (lytic lesions).MRI of the spine showed no evidence of metastatic disease. alcohol abuse at-risk of alcohol withdrawal Macrocytosis likely due to alcohol use and prior chemotherapy Hypercalcemia improved No evidence Acute urinary tract infection/pyelonephritis history of arthritis History of migraine hx of C. diff infection History of cervical cancer and breast cancer status post chemotherapy. Patient states that she lost follow-up due to insurance issues Currently everyday smoker Constipation DVT prophylaxis with heparin subcu Plan: this is a pleasant 55 years old female who presents with possible left lung mass of 1 cm suspicious for cancer with metastatic liver disease and possible left adrenal metastasis. Oncology team on the case also patient will need a tissue diagnosis. IR was consulted but could not get needle biopsy due to small of lesion. MRI of the brain showed no lesions. MRI of the lumbar and thoracic spine was ordered. MRI of the spine showed no evidence of metastatic disease. Pulmonary is considering bronchoscopy and biopsy Postponed to Saturday.. PET scan may not be option due to lack of insurance. Social work is following. Radiation oncology was consulted for palliative radiation of the adrenal lesions, T9.. Continue with on CIWA protocol and thiamine IV Labs and medication were reviewed. Continue with symptomatic treatment. Monitor lytes and vitals. DVT and GI prophylaxis. Further recommendations depends on the clinical course of the patient DVT prophylaxis: Subcutaneous heparin GI Prophylaxis: Pepcid Consult high school social science teacher for lack of medical insurance Prognosis is guarded Time with Patient: Greater than 30
[2021-01-31] MEDS: oxyCODONE-APAP 10-325MG 1 EACH TAB PO PRN ×4 (00:20→18:28)
[2021-01-31] MEDS: MORPHINE SULFATE 4 MG/ML SYRINGE IVP PRN ×5 (05:06→23:02)
[2021-01-31 06:52] LABS: Glucose,Whole Blood 111 mg/dL (75-99)
[2021-01-31] MEDS: INSULIN ASPART (NovoLOG) 100 UNIT/ML VIAL SQ SCH ×4 (06:52→20:35)
[2021-01-31 08:14] LABS: Basophils % (A) 0 %; Eosinophils % (A) 0 %; HCT 37.8 % (34.0-46.0); Lymphocytes # (A) 2.4 k/uL (1.0-4.8); Lymphocytes % (A) 16 %; MCH 34.2 pg (25.0-35.0); MCHC 31.8 g/dL (31.0-37.0); MCV 107.6 fL (80.0-100.0); Macrocytosis Moderate; Mean Platelet Volume 7.8; Monocytes # (A) 0.8 k/uL (0-1.0); Monocytes % (A) 5 %; Neutrophils # (A) 11.9 k/uL (1.3-7.7); Neutrophils % (A) 77 %; Platelet Count 389 k/uL (150-450); RBC 3.51 m/uL (3.80-5.40); WBC 15.4 k/uL (3.8-10.6)
[2021-01-31] MEDS: IPRATROPIUM-ALBUTEROL 3 ML NEB INHALATION SCH ×4 (08:20→20:26)
[2021-01-31] MEDS: DOCUSATE 100 MG CAP PO SCH ×2 (08:21→20:26)
[2021-01-31] MEDS: THIAMINE 100 MG/ML 2 ML VIAL IVP SCH (08:21)
[2021-01-31] MEDS: FAMOTIDINE 20 MG TAB PO SCH ×2 (08:21→20:26)
[2021-01-31] MEDS: methylPREDNISolone SOD SUCCI 40 MG/ML 1 ML VIAL IV SCH ×3 (08:21→23:47)
[2021-01-31 08:30] LABS: African American GFR (CKD) >90 (>60 ml/min/1.73 sqM); Anion Gap 5 mmol/L; Blood Urea Nitrogen 24 mg/dL (7-17); Calcium 11.1 mg/dL (8.4-10.2); Carbon Dioxide 32 mmol/L (22-30); Chloride 100 mmol/L (98-107); Glucose 93 mg/dL (74-99); Non-African American GFR(CKD) 84 (>60 ml/min/1.73 sqM); Potassium 4.4 mmol/L (3.5-5.1); Sodium 137 mmol/L (137-145)
[2021-01-31] MEDS: HEPARIN SODIUM,PORCINE/PF 5,000 UNIT/0.5 ML SYRINGE SQ SCH ×2 (08:49→20:26)
[2021-01-31 12:52] LABS: Glucose,Whole Blood 118 mg/dL (75-99)
[2021-01-31] MEDS ORDERED: MIDAZOLAM 2 MG/2 ML VIAL ONE (14:35)
[2021-01-31] MEDS ORDERED: PROPOFOL 10 MG/ML 20 ML VIAL IV ONE (14:35)
[2021-01-31] MEDS ORDERED: LIDOCAINE 1% INJ 10MG/ML (20 ML MDV) ONE (14:35)
[2021-01-31] MEDS ORDERED: SUCCINYLCHOLINE CHLORIDE 100 MG/5 ML SYR IV ONE (14:35)
[2021-01-31] MEDS ORDERED: fentaNYL (PF) 50 MCG/ML 2 ML AMP ONE (14:35)
[2021-01-31] MEDS ORDERED: IV FLUID CONTINUATION 1,000 ML IV ONE ×2 (14:40)
--- NOTE | 2021-01-31 16:38 | FL ---
EXAMINATION TYPE: FL bronchoscopy DATE OF EXAM: 01/31/2021 COMPARISON: CT 01/21/2021 HISTORY: Abnormal chest CT Fluoroscopy support supplied to the referring clinician. See dictated report from pulmonary, 15 seco nds fluoroscopy time supplied, single intraoperative image documents the procedure
[2021-01-31] MEDS ORDERED: SODIUM CHLORIDE 0.9% 1,000 ML IV ONE (16:39)
--- NOTE | 2021-01-31 16:40 | P.PN ---
Subjective Progress Note Date: 01/31/21 Principal diagnosis: Probable Mediastinal mass Lung nodule COPD Back pain intractable Lesions in the liver as well as adrenal gland suspicious for metastatic disease Lesions in the spine as per computed tomography scan report 01/31/2021, patient seen eval examined during the rounds labs reviewed medications reviewed, procedure has been explained to patient plan is to do br onchoscopy if significant endobronchial lesion is seen on narrowing is seen because doing a pa procedure 01/30/2021, patient seen eval examined during the rounds labs reviewed medications reviewed respiratory status slightly improved now less wheezing and cough and congestion of breath, patient remains on the IV steroids breathing treatments as well as narcotics for back pain slightly better, patient is being arranged for endoscopy as part is not available today and we'll arrange for tomorrow, nothing by mouth after midnight care plan also discussed with at bedside 01/29/2021, patient seen eval examined during the rounds labs reviewed medications reviewed care plan discussed, patient has been wheezing hasn't has been having a lot of cough which is dry and nonproductive has been started on bronchodilators and steroids with that wheezing and cough is slightly better but continued to have severe lower thoracic upper lumbar pain in the spine, patient has been scheduled for bronchoscopy and lung biopsy for tomorrow, procedure alternative complication side effect explained to the patient at length, January 28, 2021, patient seen eval examined during the rounds labs reviewed me dications reviewed, patient continued to have a pain in the thoracolumbar spine, denies any hemoptysis denies any chest pain, respiratory status however remains stable 01/27/2021, patient seen eval examined during the rounds MRI scan of the spine is done interventional radiology refused to do the biopsy, I have discussed with oncology services only option left is doing a bronchoscopy for tissue diagnosis will schedule it for Saturday01/26/2021, patient seen eval examined during the rounds labs reviewed medications reviewed patient is status post or MRI of thoracolumbar spine metastatic lesion on the T9 vertebra will recommend to consult IR to do the CT- guided biopsy 01/25/2021, patient seen eval examined during the rounds continue to have severe back pain, with point tenderness, status post MRI of the brain report reviewed no significant acute pathology identified, discussed with RN about obtaining the MRI of thoracolumbar spine in case if accessible lesion is present we will ask IR to do biopsy, for lung biopsy probably better to PET scan as outpatient and arrange for navigational biopsy as outpatient Patient seen eval examined came into the hospital with 3-4 week history of pr ogressive back pain up to a point severe constant patient does have a history of extensive smoking and nicotine use used to smoke half to 1 pack per day for about 20 years lately have quit smoking, have intermittent dry cough ongoing shortness of breath denies any hemoptysis, patient has multiple computed tomography scan of the abdominal and pelvis and chest has been done we will review chest CT pending further recommendation Objective - Vital Signs Vital signs: Vital Signs Temp 97.8 F 01/31/21 16:07 Pulse 77 01/31/21 16:31 Resp 16 01/31/21 16:31 BP 152/81 01/31/21 16:31 Pulse Ox 100 01/31/21 16:31 Intake & Output 01/30/21 01/31/21 01/31/21 18:59 06:59 18:59 Intake Total 300 Output Total 350 Balance -350 300 Weight 72.575 kg Intake: IV 300 Output: Urine 350 Other: Voiding Method Toilet # Voids 2 2 # Bowel Movements 1 - Exam - Constitutional General appearance: cooperative, disheveled - EENT Eyes: PERRLA Ears: bilateral: normal - Neck Carotids: bilateral: upstroke normal Thyroid: negative: normal size - Respiratory Respiratory: bilateral: Inspiratory and expiratory wheezing slightly better compared to yesterday - Cardiovascular Rhythm: regular Heart sounds: normal: S1, S2 - Gastrointestinal General gastrointestinal: soft - Neurologic Point tenderness is present at lower thoracic and upper lumbar area Neurologic: CNII-XII intact - Musculoskeletal Musculoskeletal: generalized weakness, strength equal bilaterally - Psychiatric Psychiatric: A&O x's 3, appropriate affect, intact judgment & insight - Labs CBC & Chem 7: 01/31/21 07:34 01/31/21 07:34 Labs: Abnormal Lab Results - Last 24 Hours (Table) 01/30/21 01/30/21 01/31/21 Range/Units 17:47 20:44 06:50 WBC (3.8-10.6) k/uL RBC (3.80-5.40) m/uL MCV (80.0-100.0) fL Neutrophils # (1.3-7.7) k/uL Carbon Dioxide (22-30) mmol/L BUN (7-17) mg/dL POC Glucose (mg/dL) 144 H 181 H 111 H (75-99) mg/dL Calcium (8.4-10.2) mg/dL 01/31/21 01/31/21 01/31/21 Range/Units 07:34 07:34 12:50 WBC 15.4 H (3.8-10.6) k/uL RBC 3.51 L (3.80-5.40) m/uL MCV 107.6 H (80.0-100.0) fL Neutrophils # 11.9 H (1.3-7.7) k/uL Carbon Dioxide 32 H (22-30) mmol/L BUN 24 H (7-17) mg/dL POC Glucose (mg/dL) 118 H (75-99) mg/dL Calcium 11.1 H (8.4-10.2) mg/dL Assessment and Plan Assessment: Acute COPD exacerbation Severe thoracolumbar spinal pain Probable Mediastinal mass Lesion in lower thoracic and upper lumbar spine acne metastatic disease maternal metastatic lesion seen on T9 vertebra Left lower lobe Lung nodule COPD Back pain intractable Lesions in the liver as well as adrenal gland suspicious for metastatic disease Lesions in the spine as per computed tomography scan report Plan: Continue pain management Continue bronchodilators with IV steroids WE'LL PLAN FOR DOING A BRONCHOSCOPY later on today Interventional radiology have refused to dofor CT-guided biopsy of T9 vertebra MRI of the thoracolumbar spine results reviewed Time with Patient: Greater than 30
[2021-01-31 17:12] LABS: Glucose,Whole Blood 118 mg/dL (75-99)
[2021-01-31] MEDS: SENNOSIDES-DOCUSATE SODIUM 1 EACH TAB PO SCH (20:26)
[2021-01-31 20:27] LABS: Glucose,Whole Blood 164 mg/dL (75-99)
--- NOTE | 2021-01-31 21:22 | P.PN ---
Subjective Progress Note Date: 01/31/21 Principal diagnosis: Likely metastatic process Complains of back pain this am, no new complaints. Bronch is scheduled this afternoon. Objective - Vital Signs Vital signs: Vital Signs Temp 98.1 F 01/31/21 19:38 Pulse 67 01/31/21 19:38 Resp 18 01/31/21 19:38 BP 118/73 01/31/21 19:38 Pulse Ox 97 01/31/21 19:38 Intake & Output 01/31/21 01/31/21 02/01/21 06:59 18:59 06:59 Intake Total 350 Balance 350 Weight 72.575 kg Intake: IV 350 Other: Voiding Method Toilet # Voids 2 2 - Exam - Constitutional General appearance: Present: average body habitus, cooperative, no acute distress - EENT Eyes: Present: anicteric sclerae, EOMI ENT: Present: hearing grossly normal - Respiratory Respiratory: bilateral: CTA - Cardiovascular Heart sounds: normal: S1, S2 Abnormal Heart Sounds: Absent: systolic murmur, diastolic murmur, rub, S3 Gallop, S4 Gallop, click, other - Peripheral edema leg Peripheral Edema: bilateral: None - Gastrointestinal General gastrointestinal: Present: normal bowel sounds, soft - Neurologic Neurologic: Present: CNII-XII intact (grossly) - Musculoskeletal Musculoskeletal Comment(s): lateral to the spine discomfort with palpation, no deformity Musculoskeletal: Present: strength equal bilaterally - Psychiatric Psychiatric: Present: A&O x's 3, appropriate affect, intact judgment & insight - Labs CBC & Chem 7: 01/31/21 07:34 01/31/21 07:34 Labs: Abnormal Lab Results - Last 24 Hours (Table) 01/31/21 01/31/21 01/31/21 Range/Units 06:50 07:34 07:34 WBC 15.4 H (3.8-10.6) k/uL RBC 3.51 L (3.80-5.40) m/uL MCV 107.6 H (80.0-100.0) fL Neutrophils # 11.9 H (1.3-7.7) k/uL Carbon Dioxide 32 H (22-30) mmol/L BUN 24 H (7-17) mg/dL POC Glucose (mg/dL) 111 H (75-99) mg/dL Calcium 11.1 H (8.4-10.2) mg/dL 01/31/21 01/31/21 01/31/21 Range/Units 12:50 17:10 20:21 WBC (3.8-10.6) k/uL RBC (3.80-5.40) m/uL MCV (80.0-100.0) fL Neutrophils # (1.3-7.7) k/uL Carbon Dioxide (22-30) mmol/L BUN (7-17) mg/dL POC Glucose (mg/dL) 118 H 118 H 164 H (75-99) mg/dL Calcium (8.4-10.2) mg/dL Assessment and Plan (1) Liver lesion Current Visit: Yes Status: Acute Code(s): K76.9 - LIVER DISEASE, UNSPECIFIED SNOMED Code(s): 590716968 (2) Lesion of adrenal gland Current Visit: Yes Status: Acute Priority: High Code(s): E27.9 - DISORDER OF ADRENAL GLAND, UNSPECIFIED SNOMED Code(s): 44356215 Plan: . - Imaging and Cardiology MRI - head: report reviewed Assessment and Plan (1) Mediastinal mass Current Visit: Yes Status: Acute Priority: High Code(s): J98.59 - OTHER DISEASES OF MEDIASTINUM, NOT ELSEWHERE CLASSIFIED SNOMED Code(s): 25108684 (2) Lesion of adrenal gland Current Visit: Yes Status: Acute Priority: High Code(s): E27.9 - DISORDER OF ADRENAL GLAND, UNSPECIFIED SNOMED Code(s): 27355758 (3) Macrocytosis without anemia Narrative/Plan: B12 levels low end of normal, may be a degree of malabsorption. MMA is normal and no supplementation recommendations at this time. Current Visit: Yes Status: Acute Priority: Medium Code(s): D75.89 - OTHER SPECIFIED DISEASES OF BLOOD AND BLOOD-FORMING ORGANS SNOMED Code(s): 888899777 (4) Hypercalcemia Current Visit: Yes Status: Resolved Priority: Medium Code(s): E83.52 - HYPERCALCEMIA SNOMED Code(s): 46819895 (5) Abdominal pain Current Visit: Yes Status: Resolved Priority: High Code(s): R10.9 - UNS PECIFIED ABDOMINAL PAIN SNOMED Code(s): 46751504 Plan: MRI of the brain was negative for lesions. MRI of the lumbar spine reviewed, Dr. August from palliative radiation oncology seen and evaluated patient and will plan for palliative radiation to adrenal mass once a diagnosis is established. Patient is working with social work/case management to get Medicaid, as she has no insurance. PET scan is not going to be an option until patient does have insurance. Continue supportive care in the interim Bronchoscopy and Biopsy planned for today. Await result of tissue biopsy for further recs.
[2021-02-01] MEDS: oxyCODONE-APAP 10-325MG 1 EACH TAB PO PRN ×4 (00:44→14:58)
[2021-02-01] MEDS: MORPHINE SULFATE 4 MG/ML SYRINGE IVP PRN ×3 (02:57→13:44)
[2021-02-01 06:43] LABS: Glucose,Whole Blood 138 mg/dL (75-99)
[2021-02-01] MEDS: INSULIN ASPART (NovoLOG) 100 UNIT/ML VIAL SQ SCH ×2 (06:47→12:37)
[2021-02-01] MEDS: DOCUSATE 100 MG CAP PO SCH (08:00)
[2021-02-01] MEDS: FAMOTIDINE 20 MG TAB PO SCH (08:00)
[2021-02-01] MEDS: methylPREDNISolone SOD SUCCI 40 MG/ML 1 ML VIAL IV SCH (08:01)
[2021-02-01] MEDS: THIAMINE 100 MG/ML 2 ML VIAL IVP SCH (08:01)
[2021-02-01] MEDS: HEPARIN SODIUM,PORCINE/PF 5,000 UNIT/0.5 ML SYRINGE SQ SCH (08:01)
[2021-02-01] MEDS: IPRATROPIUM-ALBUTEROL 3 ML NEB INHALATION SCH ×2 (08:30→11:06)
[2021-02-01 12:28] LABS: Glucose,Whole Blood 163 mg/dL (75-99)
[2021-02-01 15:04] VITALS: BP 116/81; PULSE 70; RESP 20; TEMP 98.2
--- NOTE | 2021-02-01 15:22 | P.PN ---
Subjective Progress Note Date: 02/01/21 Principal diagnosis: Probable Mediastinal mass Lung nodule COPD Back pain intractable Lesions in the liver as well as adrenal gland suspicious for metastatic disease Lesions in the spine as per computed tomography scan report 12/04/2020, patient seen eval examined labs reviewed medications reviewed, cytology is still pending, respiratory status significantly improved pain is improved now patient is being planned for discharge later on today would recommend follow-up in outpatient basis, she able to get up and move around shortness of breath and pain slightly better to discharge her not completely resolved however further therapy and evaluation as outpatient 01/31/2021, patient seen eval examined during the rounds labs reviewed medications reviewed, procedure has been explained to patient plan is to do bronchoscopy if significant endobronchial lesion is seen on narrowing is seen because doing a pa procedure 01/30/2021, patient seen eval examined during the rounds labs reviewed medications reviewed respiratory status slightly improved now less wheezing and cough and congestion of breath, patient remains on the IV steroids breathing treatments as well as narcotics for back pain slightly better, patient is being arranged for endoscopy as part is not available today and we'll arrange for tomorrow, nothing by mouth after midnight care plan also discussed with at bedside 01/29/2021, patient seen eval examined during the rounds labs reviewed medi cations reviewed care plan discussed, patient has been wheezing hasn't has been having a lot of cough which is dry and nonproductive has been started on bronchodilators and steroids with that wheezing and cough is slightly better but continued to have severe lower thoracic upper lumbar pain in the spine, patient has been scheduled for bronchoscopy and lung biopsy for tomorrow, procedure alternative complication side effect explained to the patient at length, January 28, 2021, patient seen eval examined during the rounds labs reviewed medications reviewed, patient continued to have a pain in the thoracolumbar spine, denies any hemoptysis denies any chest pain, respiratory status however remains stable 01/27/2021, patient seen eval examined during the rounds MRI scan of the spine is done interventional radiology refused to do the biopsy, I have discussed with oncology services only option left is doing a bronchoscopy for tissue diagnosis will schedule it for Saturday01/26/2021, patient seen eval examined during the rounds labs reviewed medications reviewed patient is status post or MRI of thoracolumbar spine metastatic lesion on the T9 vertebra will recommend to consult IR to do the CT- guided biopsy 01/25/2021, patient seen eval examined during the rounds continue to have severe back pain, with point tenderness, status post MRI of the brain report reviewed no significant acute pathology identified, discussed with RN about obtaining the MRI of thoracolumbar spine in case if accessible lesion is present we will ask IR to do biopsy, for lung biopsy probably better to PET scan as outpatient and arrange for navigational biopsy as outpatient Patient seen eval examined came into the hospital with 3-4 week history of progressive back pain up to a point severe constant patient does have a history of extensive smoking and nicotine use used to smoke half to 1 pack per day for about 20 years lately have quit smoking, have intermittent dry cough ongoing shortness of breath denies any hemoptysis, patient has multiple computed tomography scan of the abdominal and pelvis and chest has been done we will review chest CT pending further recommendation Objective - Vital Signs Vital signs: Vital Signs Temp 97.6 F 02/01/21 08:00 Pulse 78 02/01/21 08:00 Resp 16 02/01/21 08:00 BP 117/69 02/01/21 08:00 Pulse Ox 98 02/01/21 08:00 Intake & Output 01/31/21 02/01/21 02/01/21 18:59 06:59 18:59 Intake Total 350 240 Output Total 450 Balance 350 -210 Weight 72.575 kg Intake: IV 350 Oral 240 Output: Urine 450 Other: Voiding Method Toilet Toilet Toilet # Voids 2 3 # Bowel Movements 0 - Exam - Constitutional General appearance: cooperative, disheveled - EENT Eyes: PERRLA Ears: bilateral: normal - Neck Carotids: bilateral: upstroke normal Thyroid: negative: normal size - Respiratory Respiratory: bilateral: Inspiratory and expiratory wheezing slightly better compared to yesterday - Cardiovascular Rhythm: regular Heart sounds: normal: S1, S2 - Gastrointestinal General gastrointestinal: soft - Neurologic Point tenderness is present at lower thoracic and upper lumbar area Neurologic: CNII-XII intact - Musculoskeletal Musculoskeletal: generalized weakness, strength equal bilaterally - Psychiatric Psychiatric: A&O x's 3, appropriate affect, intact judgment & insight - Labs CBC & Chem 7: 01/31/21 07:34 01/31/21 07:34 Labs: Abnormal Lab Results - Last 24 Hours (Table) 01/31/21 01/31/21 02/01/21 Range/Units 17:10 20:21 06:41 POC Glucose (mg/dL) 118 H 164 H 138 H (75-99) mg/dL 02/01/21 Range/Units 12:26 POC Glucose (mg/dL) 163 H (75-99) mg/dL Microbiology - Last 24 Hours (Table) 01/31/21 12:00 Gram Stain - Preliminary Bronchial Washings - Left Bronchial Washings Culture - Preliminary 01/31/21 12:00 Acid Fast Bacilli Culture - Preliminary Bronchial Washings - Left 01/31/21 12:00 Legionella Culture - Preliminary Bronchial Washings - Left 01/31/21 12:00 Fungal Culture - Preliminary Bronchial Washings - Left Assessment and Plan Assessment: Acute COPD exacerbation Severe thoracolumbar spinal pain Probable Mediastinal mass Lesion in lower thoracic and upper lumbar spine acne metastatic disease maternal 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
--- NOTE | 2021-02-01 15:26 | P.PCN ---
Date of Procedure: 01/31/21 Preoperative Diagnosis: Lung nodule and mediastinal lymph nodes Postoperative Diagnosis: As above, extensive mucus plugging was seen, pneumonia Procedure(s) Performed: #1 bronchoscopy, 2 bronchoalveolar lavage of left lower lobe, #3 aggressive pulmonary toilet to remove mucous plug and secretion Anesthesia: J LUISA Surgeon: Arvind Mustafa Estimated Blood Loss (ml): 0 Condition: stable Disposition: floor Indications for Procedure: As above Operative Findings: As below Description of Procedure: Patient prepared and draped in a usual fashion patient was intubated by anesthesia, fiberoptic bronchoscope was passed through the ET tube, the teresa was sharp, no indentation or narrowing of the bronchial tubes noted, so transbronchial needle aspiration was not done, BAL was done from the left lower lobe tolerated very well, extensive mucus plugging however is noted bilaterally which was sudden been clean, detailed inspection of airways done right upper lobe right middle lobe and right lower lobe along with subsegment inspected no endobronchial mass lesion identified, scope was passed on the left side nose narrowing of the left mainstem bronchus noted, left upper lobe lingular lobe and left lower lobe along with subsegment inspected no endobronchial mass or lesion was seen, patient tolerated procedure well patient tolerated procedure well no complication noted
--- NOTE | 2021-02-01 21:44 | P.PN ---
Subjective Progress Note Date: 02/01/21 Principal diagnosis: Likely metastatic process Plan for discharge and follow-up after pathology resulted. Late entry patient seen in am prior to discharge. No new complaints Objective - Vital Signs Vital signs: Vital Signs Temp 98.2 F 02/01/21 14:46 Pulse 70 02/01/21 14:46 Resp 20 02/01/21 14:46 BP 116/81 02/01/21 14:46 Pulse Ox 98 02/01/21 14:46 Intake & Output 02/01/21 02/01/21 02/02/21 06:59 18:59 06:59 Intake Total 240 Output Total 450 Balance -210 Intake: Oral 240 Output: Urine 450 Other: Voiding Method Toilet Toilet # Voids 3 # Bowel Movements 0 - Exam - Constitutional General appearance: Present: average body habitus, cooperative, no acute distress - EENT Eyes: Present: anicteric sclerae, EOMI ENT: Present: hearing grossly normal - Respiratory Respiratory: bilateral: CTA - Cardiovascular Heart sounds: normal: S1, S2 Abnormal Heart Sounds: Absent: systolic murmur, diastolic murmur, rub, S3 Gallop, S4 Gallop, click, other - Peripheral edema leg Peripheral Edema: bilateral: None - Gastrointestinal General gastrointestinal: Present: normal bowel sounds, soft - Neurologic Neurologic: Present: CNII-XII intact (grossly) - Musculoskeletal Musculoskeletal Comment(s): lateral to the spine discomfort with palpation, no deformity Musculoskeletal: Present: strength equal bilaterally - Psychiatric Psychiatric: Present: A&O x's 3, appropriate affect, intact judgment & insight - Labs CBC & Chem 7: 01/31/21 07:34 01/31/21 07:34 Labs: Abnormal Lab Results - Last 24 Hours (Table) 02/01/21 02/01/21 Range/Units 06:41 12:26 POC Glucose (mg/dL) 138 H 163 H (75-99) mg/dL Microbiology - Last 24 Hours (Table) 01/31/21 12:00 Acid Fast Bacilli Smear - Final Bronchial Washings - Left Acid Fast Bacilli Culture - Preliminary 01/31/21 12:00 Gram Stain - Preliminary Bronchial Washings - Left Bronchial Washings Culture - Preliminary 01/31/21 12:00 Legionella Culture - Preliminary Bronchial Washings - Left 01/31/21 12:00 Fungal Culture - Preliminary Bronchial Washings - Left Assessment and Plan (1) Liver lesion Status: Acute Code(s): K76.9 - LIVER DISEASE, UNSPECIFIED SNOMED Code(s): 106117144 (2) Lesion of adrenal gland Status: Acute Priority: High Code(s): E27.9 - DISORDER OF ADRENAL GLAND, UNSPECIFIED SNOMED Code(s): 79686570 Plan: . - Imaging and Cardiology MRI - head: report reviewed Assessment and Plan (1) Mediastinal mass Current Visit: Yes Status: Acute Priority: High Code(s): J98.59 - OTHER DISEASES OF MEDIASTINUM, NOT ELSEWHERE CLASSIFIED SNOMED Code(s): 34808084 (2) Lesion of adrenal gland Current Visit: Yes Status: Acute Priority: High Code(s): E27.9 - DISORDER OF ADRENAL GLAND, UNSPECIFIED SNOMED Code(s): 34474291 (3) Macrocytosis without anemia Narrative/Plan: B12 levels low end of normal, may be a degree of malabsorption. MMA is normal and no supplementation recommendations at this time. Current Visit: Yes Status: Acute Priority: Medium Code(s): D75.89 - OTHER SPECIFIED DISEASES OF BLOOD AND BLOOD-FORMING ORGANS SNOMED Code(s): 403099819 (4) Hypercalcemia Current Visit: Yes Status: Resolved Priority: Medium Code(s): E83.52 - HYPERCALCEMIA SNOMED Code(s): 78806362 (5) Abdominal pain Current Visit: Yes Status: Resolved Priority: High Code(s): R10.9 - UNSPECIFIED ABDOMINAL PAIN SNOMED Code(s): 45620135 Plan: MRI of the brain was negative for lesions. MRI of the lumbar spine reviewed, Dr. August from palliative radiation oncology seen and evaluated patient and will plan for palliative radiation to adrenal mass once a diagnosis is established. Patient is working with social work/case management to get Medicaid, as she has no insurance. PET scan is not going to be an option until patient does have insurance. Continue supportive care in the interim Status Post Bronchoscopy and Biopsy01/31 Await result of tissue biopsy for further recs. Follow-up with Dr. Preciado 7 days
--- NOTE | 2021-02-03 09:08 | P.DS ---
Providers Date of admission: 01/20/21 12:16 Expected date of discharge: 02/01/21 Attending physician: Jf Lu MD Consults: 01/20/21 12:38 Consult Physician Urgent Consulting Provider: Matt Preciado Consult Reason/Comments: possible liver mets Do you want consulting provider notified?: Yes 01/20/21 12:39 Consult Physician Urgent Consulting Provider: Clau Worley Consult Reason/Comments: Abdominal pain, possible metastases to liver, adrenal gland Do you want consulting provider notified?: Yes 01/24/21 10:42 Consult Physician Urgent Consulting Provider: Arvind Mustafa Consult Reason/Comments: Lung Ca/ mets/ need biopsy Do you want consulting provider notified?: Yes 01/27/21 20:02 Consult Physician Routine Consulting Provider: Sloan Brown Consult Reason/Comments: Palliative xrt adrenal mass once dx established Do you want consulting provider notified?: Yes Primary care physician: Monae Mitchell Hospital Course: Final Diagnosis Mediastinal mass and renal mass suspicious for malignancy. left lower lobe with 1 cm spiculated mass with multiple metastasis including the lung, bone, liver, left adrenal gland Left middle back pain radiating across the abdomen along the left T9 dermatome. possible lytic lesion at T9. MRI showed no evidence of metastatic lesions. Suspect hepatic and left adrenal metastasis and osseous metastasis including the left acetabulum, L3, T9 and possibility T5 (lytic lesions).MRI of the spine showed no evidence of metastatic disease. alcohol abuse at-risk of alcohol withdrawal Macrocytosis likely due to alcohol use and prior chemotherapy Hypercalcemia improved No evidence Acute urinary tract infection/pyelonephritis history of arthritis History of migraine hx of C. diff infection History of cervical cancer and breast cancer status post chemotherapy. Patient states that she lost follow-up due to insurance issues Currently everyday smoker Constipation DVT prophylaxis with heparin subcu Discharge disposition Patient is being discharged in a stable condition with guarded prognosis to home. Patient will follow-up with Dr. Licona in the outpatient setting upon discharge. Patient is to continue with stool softeners along with a prednisone taper upon discharge. Patient instructed to follow-up with pulmonary Dr. Mustafa in one week along with radiation oncology and oncology in the outpatient setting. Total time taken is greater than 35 minutes. Hospital course Mediastinal mass and renal mass suspicious for malignancy this is a pleasant 55 years old female with past medical history of arthritis, migraine, C. diff. she is a patient of Dr. Azul. Presents because of left flank pain of 2 weeks duration, got really severe over the last 2 days, it is also located in the middle left back and goes around to the left flank down to the left groin at times, comes and goes. Associated with decreased amount of urine but no dysuria or urgency or hesitancy. Also has some suprapubic tenderness. And she has some vaginal discharge but no vaginal bleeding she is also complaining of from nausea and vomiting for about one week, she has constipation but no diarrhea. She has low appetite. She smokes about less than a pack per day, she is counseled and agrees to quit but she declined nicotine patch. She drinks alcohol everyday likely 1 pint to 1 fifth. No illicit tracts vitals are stable, labs including CBC and BMP are unremarkable. Urine analysis is suspicious for infection patient had CT of the abdomen and pelvis without contrast showing left and right hepatic masses suggestive of metastasis. Enlarged left adrenal gland suspicious for metastasis, a primary neoplasm source is not identified. Fusiform prominence in the mid abdominal aorta emergency room patient received Benadryl, Toradol, levofloxacin, morphine, prednisone. Also patient was started on normal saline 75 mL/h. One-time dose of Bactrim is also given surgical team were consulted from emergency room. 02/01/2021 Patient seen in follow-up this morning underwent bronchoscopy with possible biopsy although per pulmonary Dr. Mustafa and IR unable to obtain the biopsy. Patient will need outpatient follow-up once insurance is established for PET scan and further treatments. Patient will be following up with pulmonary in the outpatient setting in 1 week. Case management and social work has provided resources to obtain insurance which is pending. Currently no reports of chest pain, shortness of breath, or palpitations. Patient is afebrile. No reports of nausea or vomiting and patient is tolerating diet. Patient will be discharged home today. Guarded prognosis On exam vital signs are stable. Cardio S1, S2 are muffled. Respiratory system shows diminished breath sounds at the bases with no wheezing or rhonchi noted. Abdomen is soft and nontender. Nervous system shows no focal deficits. Please refer to medication reconciliation sheet for a list of medications. Patient Condition at Discharge: Stable Plan - Discharge Summary Discharge Rx Participant: No New Discharge Prescriptions: New Magnesium Hydroxide [Milk of Magnesia Concentrate] 2,400 mg PO DAILY PRN ml PRN Reason: Constipation Famotidine [Pepcid] 20 mg PO Q12HR 30 Days #60 tab Sennosides-Docusate Sodium [Senokot-S] 2 each PO HS PRN #20 tab PRN Reason: Constipation Docusate [Colace] 100 mg PO BID 30 Days #60 cap oxyCODONE-APAP 10-325MG [Percocet 10-325 mg] 1 each PO Q4H PRN #12 tab PRN Reason: Pain predniSONE 10 mg PO DIRECTED #30 tab Acetaminophen Tab [Tylenol] 650 mg PO Q6HR PRN tab PRN Reason: Mild Pain Or Fever > 100.5 Continue Dorzolamide 2% [Trusopt 2%] 1 drop BOTH EYES BID Discharge Medication List Dorzolamide 2% [Trusopt 2%] 1 drop BOTH EYES BID 01/20/21 [History] Acetaminophen Tab [Tylenol] 650 mg PO Q6HR PRN tab 02/01/21 [Rx] Docusate [Colace] 100 mg PO BID 30 Days #60 cap 02/01/21 [Rx] Famotidine [Pepcid] 20 mg PO Q12HR 30 Days #60 tab 02/01/21 [Rx] Magnesium Hydroxide [Milk of Magnesia Concentrate] 2,400 mg PO DAILY PRN ml 02/01/21 [Rx] Sennosides-Docusate Sodium [Senokot-S] 2 each PO HS PRN #20 tab 02/01/21 [Rx] oxyCODONE-APAP 10-325MG [Percocet 10-325 mg] 1 each PO Q4H PRN #12 tab 02/01/21 [Rx] predniSONE 10 mg PO DIRECTED #30 tab 02/01/21 [Rx] Follow up Appointment(s)/Referral(s): Matt Preciado MD [STAFF PHYSICIAN] - 1 Week (Office will contact you for appointment) Stephen Licona MD [Primary Care Provider] - 02/02/21 10:10 am (02/02/21 @ 10:10 am) Arvind Mustafa MD [STAFF PHYSICIAN] - 02/10/21 2:00 pm (Saturday02/10/21 @ 2:00pm) Maulik August MD [STAFF PHYSICIAN] - 1 Week (The office will call you with an appointment) [employer] [NON-STAFF] - As Needed Patient Instructions/Handouts: Kidney Stones (DC), Iron Deficiency Anemia (DC) Activity/Diet/Wound Care/Special Instructions: Activity Limited until follow-up Follow-up with primary care provider upon discharge Follow-up outpatient with oncology and radiation oncology Follow-up with Dr. Mustafa pulmonary outpatient in one week Diet as tolerated. Contact PCP or come to ED with any worsening symptoms. Discharge Disposition: HOME SELF-CARE
== END 2021-02-01 16:03 | disposition home or self-care (01) | DRG 181 ==
LOC: EC 10:08 → 5NMEDONC 12:16 → 6PED 15:58
PROVIDERS: ADMIT Internal Medicine; ATTEND Internal Medicine
PROC: 0B9J8ZX Drainage of Left Lower Lung Lobe, Via Natural or Artificial Opening Endoscopic, Diagnostic (ICD-10-PCS; principal; 2021-01-31 08:20)
DX: C34.32 Malignant neoplasm of lower lobe, left bronchus or lung (principal); C78.00 Secondary malignant neoplasm of unspecified lung; C79.51 Secondary malignant neoplasm of bone; C78.7 Secondary malignant neoplasm of liver and intrahepatic bile duct; C79.72 Secondary malignant neoplasm of left adrenal gland; J44.1 Chronic obstructive pulmonary disease with (acute) exacerbation; C78.1 Secondary malignant neoplasm of mediastinum; C79.00 Secondary malignant neoplasm of unspecified kidney and renal pelvis; K59.00 Constipation, unspecified; E83.52 Hypercalcemia; M19.90 Unspecified osteoarthritis, unspecified site; N89.8 Other specified noninflammatory disorders of vagina; F10.10 Alcohol abuse, uncomplicated; D75.89 Other specified diseases of blood and blood-forming organs; G43.909 Migraine, unspecified, not intractable, without status migrainosus; Z53.20 Procedure and treatment not carried out because of patient's decision for unspecified reasons; G89.3 Neoplasm related pain (acute) (chronic); Z20.822 Contact with and (suspected) exposure to COVID-19; F17.210 Nicotine dependence, cigarettes, uncomplicated; Z85.3 Personal history of malignant neoplasm of breast; Z85.41 Personal history of malignant neoplasm of cervix uteri; Z92.21 Personal history of antineoplastic chemotherapy; Z86.19 Personal history of other infectious and parasitic diseases; Z90.710 Acquired absence of both cervix and uterus; Z90.49 Acquired absence of other specified parts of digestive tract; Z88.6 Allergy status to analgesic agent; Z88.1 Allergy status to other antibiotic agents; Z91.041 Radiographic dye allergy status; Z79.899 Other long term (current) drug therapy; Z98.890 Other specified postprocedural states
CPT/HCPCS: 31624; 36415; 70553; 71260; 72146; 72148; 74019; 74176; 74177; 76770; 77290; 77295; 77300; 77334; 80048; 80053; 81001; 81003; 82150; 82306; 82607; 82784; 83605; 83625; 83690; 83883; 83921; 83970; 84145; 84165; 84443; 84550; 85025; 85045; 85610; 86140; 86334; 87070; 87086; 87102; 87116; 87205; 87206; 87252; 87635; 88108; 88305; 94640; 96361; 96374; 96375; 99285

== ENCOUNTER 2021-02-15 09:07 | Day surgery (SDC) | payer SELFPAY ==
[2021-02-15 09:24] VITALS: RESP 16; TEMP 98.2
[2021-02-15] MEDS ORDERED: ALPRAZolam 0.5 MG TAB PO STA (09:38)
[2021-02-15 09:54] LABS: Mean Platelet Volume 7.9; Platelet Count 272 k/uL (150-450)
[2021-02-15 10:03] LABS: Prothrombin Time 11.1 sec (9.0-12.0)
[2021-02-15] MEDS ORDERED: HYDROmorphone 1 MG/ML 1 ML SYRINGE IVP STA (10:40)
[2021-02-15] MEDS ORDERED: HYDROmorphone 0.5 MG/0.5 ML SYRINGE IVP STA (11:33)
--- NOTE | 2021-02-15 11:39 | P.OP ---
Date of Procedure: 02/15/21 Preoperative Diagnosis: liver metastases Postoperative Diagnosis: same Procedure(s) Performed: ultrasound guided liver mass biopsy Implants: none Anesthesia: local Surgeon: Nella Concepcion Estimated Blood Loss (ml): 0.5 Pathology: other (2 18G cores for histopathology) Condition: stable Disposition: same day
[2021-02-15 13:51] VITALS: BP 107/54; PULSE 56
--- NOTE | 2021-02-16 15:38 | US ---
EXAMINATION TYPE: US biopsy liver mass DATE OF EXAM: 02/15/2021 HISTORY: Multiple liver masses DEFENSE TRAVEL ADMINISTRATOR: Dr. Nella Concepcion PROCEDURE: Preliminary preprocedure ultrasound imaging demonstrates several hypoechoic liver masses within the r ight and left lobes. The procedure was discussed with the patient. The risks, complications, benefits, and alternatives we re discussed and any questions were answered. Informed consent was obtained. Patient was positioned supine. Maximal barrier technique was utilized. The skin overlying a suitable path to the left liver mass was localized using ultrasound, the skin was prepped and draped. Ultrasou nd was utilized with sterile technique. Lidocaine was used for local anesthesia. A skin kenyatta made wit h a scalpel. Under direct ultrasound guidance, a 17-gauge introducer needle was advanced into the le ft liver mass, the stylet was removed, and 18-gauge core biopsy needle was advanced into the liver an d core biopsy obtained, which initially looked grossly inadequate for mass. The liver mass was somewh at hard and was difficult to penetrate with the biopsy tray, running along the inferior margin of the mass of the second pass, however again grossly was not convincing for successful biopsy. Findings we re discussed with the patient. The patient was in significant pain before and throughout the procedur e, and she declined a third biopsy pass after repositioning due to pain, and would like to wait for i nitial pathology results. 2 core biopsy specimens were obtained in total, and submitted in formalin f or histopathology. Hemostasis was achieved. There was no immediate complication and patient remained in stable condition. Post procedure ultrasound imaging demonstrates no significant hemorrhage. IMPRESSION: Status post attempted ultrasound-guided 18-gauge core biopsy of the left liver mass. I did not feel t he initial biopsy was likely adequate, however the patient was in significant pain prior and during t he procedure and did not wish to to continue, declining additional core biopsy passes, and would like to await pathology results before any additional reattempts were made.
== END 2021-02-15 13:52 | disposition home or self-care (01) ==
LOC: RADPROMAIN 09:07
PROVIDERS: ATTEND Internal Medicine Critical Care Medicine
DX: C78.7 Secondary malignant neoplasm of liver and intrahepatic bile duct (principal); K76.0 Fatty (change of) liver, not elsewhere classified
CPT/HCPCS: 85049; 85610; 88342; 88307; 88341; 36415; 47000; 76942; J1170 ×2

== ENCOUNTER 2021-02-18 20:41 | Emergency (ER) | payer OTHER ==
[2021-02-18 20:46] VITALS: RESP 18; TEMP 98.5
[2021-02-18] MEDS ORDERED: HYDROmorphone 1 MG/ML 1 ML SYRINGE IVP STA ×2 (21:07→23:45)
[2021-02-18] MEDS ORDERED: SODIUM CHLORIDE 0.9% 1,000 ML IV STA (21:07)
[2021-02-18] MEDS ORDERED: ONDANSETRON 4 MG/2 ML VIAL IVP STA (21:07)
[2021-02-18] MEDS ORDERED: diphenhydrAMINE 50 MG/ML 1 ML VIAL IVP STA (21:07)
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
[2021-02-18 21:24] LABS: Basophils % (A) 1 %; Eosinophils # (A) 0.1 k/uL (0-0.7); Eosinophils % (A) 1 %; HCT 36.8 % (34.0-46.0); HGB 12.4 gm/dL (11.4-16.0); Lymphocytes % (A) 12 %; MCH 34.5 pg (25.0-35.0); MCHC 33.6 g/dL (31.0-37.0); MCV 102.9 fL (80.0-100.0); Macrocytosis Slight; Mean Platelet Volume 7.7; Monocytes # (A) 0.4 k/uL (0-1.0); Monocytes % (A) 5 %; Neutrophils # (A) 7.1 k/uL (1.3-7.7); Neutrophils % (A) 80 %; Platelet Count 273 k/uL (150-450); RBC 3.58 m/uL (3.80-5.40); RDW 13.7 % (11.5-15.5); WBC 8.8 k/uL (3.8-10.6)
--- NOTE | 2021-02-18 21:34 | XR ---
EXAMINATION TYPE: XR KUB DATE OF EXAM: 02/18/2021 COMPARISON: 07/20/2012 HISTORY: Pain TECHNIQUE: 2 views supine FINDINGS: There is no sign of intestinal obstruction or pneumoperitoneum. Fecal pattern is normal. Th ere are phleboliths in the pelvis. Lung bases are clear. IMPRESSION: Nonacute abdomen. No adverse change.
[2021-02-18 21:46] LABS: ALT 63 U/L (4-34); AST 36 U/L (14-36); African American GFR (CKD) >90 (>60 ml/min/1.73 sqM); Albumin 4.4 g/dL (3.5-5.0); Alkaline Phosphatase 204 U/L (38-126); Anion Gap 19 mmol/L; Blood Urea Nitrogen 10 mg/dL (7-17); Calcium 11.3 mg/dL (8.4-10.2); Carbon Dioxide 15 mmol/L (22-30); Chloride 102 mmol/L (98-107); Glucose 128 mg/dL (74-99); Lipase 63 U/L (23-300); Non-African American GFR(CKD) >90 (>60 ml/min/1.73 sqM); Potassium 4.5 mmol/L (3.5-5.1); Sodium 136 mmol/L (137-145); Total Bilirubin 0.9 mg/dL (0.2-1.3); Total Protein 8.2 g/dL (6.3-8.2)
[2021-02-18] MEDS ORDERED: SODIUM CHLORIDE 0.9% 1,000 ML IV ONE (22:33)
[2021-02-18 23:57] LABS: Appearance,Urine Clear (Clear); Bacteria,Urine Rare /hpf; Bilirubin,Urine Negative (Negative); Blood,Urine Negative (Negative); Color,Urine Yellow; Glucose,Urine (UA) Negative (Negative); Hyaline Casts,Urine 24 /lpf (0-2); Ketones,Urine 4+ (Negative); Leukocyte Esterase,Urine Negative (Negative); Mucus,Urine Rare /hpf; Nitrite,Urine Negative (Negative); PH, Urine 5.5 (5.0-8.0); Protein,Urine 1+ (Negative); Specific Gravity,Urine 1.019 (1.001-1.035); Squamous Epithelial Cell,Urine 3 /hpf (0-4); Urobilinogen,Urine <2.0 mg/dL (<2.0); WBC,Urine 1 /hpf (0-5)
[2021-02-19 00:40] VITALS: BP 129/70; PULSE 94
[2021-02-19] MEDS ORDERED: ONDANSETRON 4 MG/2 ML VIAL IVP STA (00:40)
== END 2021-02-19 01:13 | disposition home or self-care (01) ==
LOC: EC 20:41
DX: R11.10 Vomiting, unspecified (principal); M54.9 Dorsalgia, unspecified; C79.51 Secondary malignant neoplasm of bone; J44.9 Chronic obstructive pulmonary disease, unspecified; G43.909 Migraine, unspecified, not intractable, without status migrainosus; F12.90 Cannabis use, unspecified, uncomplicated; Z79.52 Long term (current) use of systemic steroids; Z85.43 Personal history of malignant neoplasm of ovary; Z85.41 Personal history of malignant neoplasm of cervix uteri; Z87.891 Personal history of nicotine dependence; Z51.0 Encounter for antineoplastic radiation therapy; Z90.49 Acquired absence of other specified parts of digestive tract; Z90.710 Acquired absence of both cervix and uterus; Z85.3 Personal history of malignant neoplasm of breast
CPT/HCPCS: 36415; 80053; 83605; 83690; 85025; 81001; 74018; 99284; 96374; 96375 ×2; 96376 ×2; 96361 ×3; J1200; J2405 ×2; J1170

== ENCOUNTER 2021-02-23 12:10 | Inpatient (IN) | payer OTHER ==
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
[2021-02-23] MEDS ORDERED: SODIUM CHLORIDE 0.9% 1,000 ML IV STA ×2 (12:43→13:45)
[2021-02-23 13:29] LABS: ALT 30 U/L (4-34); AST 34 U/L (14-36); African American GFR (CKD) >90 (>60 ml/min/1.73 sqM); Albumin 4.2 g/dL (3.5-5.0); Alkaline Phosphatase 168 U/L (38-126); Anion Gap 17 mmol/L; Basophils # (A) 0.1 k/uL (0-0.2); Basophils % (A) 2 %; Blood Urea Nitrogen 23 mg/dL (7-17); Calcium 11.2 mg/dL (8.4-10.2); Carbon Dioxide 22 mmol/L (22-30); Chloride 92 mmol/L (98-107); Eosinophils % (A) 0 %; Glucose 112 mg/dL (74-99); HCT 35.9 % (34.0-46.0); HGB 11.9 gm/dL (11.4-16.0); Lipase 47 U/L (23-300); Lymphocytes # (A) 0.4 k/uL (1.0-4.8); Lymphocytes % (A) 6 %; MCH 32.8 pg (25.0-35.0); MCHC 33.1 g/dL (31.0-37.0); MCV 99.2 fL (80.0-100.0); Macrocytosis Slight; Monocytes # (A) 0.5 k/uL (0-1.0); Monocytes % (A) 8 %; Neutrophils # (A) 5.4 k/uL (1.3-7.7); Neutrophils % (A) 82 %; Non-African American GFR(CKD) 81 (>60 ml/min/1.73 sqM); Platelet Count 347 k/uL (150-450); Poikilocytosis Slight; Potassium 3.7 mmol/L (3.5-5.1); RBC 3.62 m/uL (3.80-5.40); Sodium 131 mmol/L (137-145); Total Protein 7.8 g/dL (6.3-8.2); WBC 6.6 k/uL (3.8-10.6)
[2021-02-23] MEDS ORDERED: ONDANSETRON 4 MG/2 ML VIAL IVP STA (13:46)
[2021-02-23] MEDS ORDERED: fentaNYL (PF) 50 MCG/ML 2 ML AMP IVP STA (14:34)
--- NOTE | 2021-02-23 14:53 | XR ---
EXAMINATION TYPE: XR KUB DATE OF EXAM: 02/23/2021 COMPARISON: NONE HISTORY: Pain TECHNIQUE: Single supine KUB image of the abdomen is obtained FINDINGS: Small bowel demonstrates no evidence for dilatation or air fluid levels. Gas and fecal material is seen in non-distended colon. No convincing evidence for pneumoperitoneum. No unusual calcifications. The lung bases are clear. The osseous structures are intact. IMPRESSION: 1. Overall nonobstructive bowel gas pattern.
[2021-02-23] MEDS ORDERED: ONDANSETRON 4 MG/2 ML VIAL IVP PRN (15:03)
[2021-02-23] MEDS ORDERED: NALOXONE 0.4 MG/ML 1 ML VIAL IV PRN (15:03)
[2021-02-23] MEDS ORDERED: HYDROcodone/APAP 10-325MG 1 EACH TAB PO PRN (15:37)
[2021-02-23 15:53] LABS: Appearance,Urine Cloudy (Clear); Bacteria,Urine Rare /hpf; Bilirubin,Urine 1+ (Negative); Blood,Urine Negative (Negative); Color,Urine Yellow; Glucose,Urine (UA) Negative (Negative); Hyaline Casts,Urine 3 /lpf (0-2); Ketones,Urine 4+ (Negative); Leukocyte Esterase,Urine Negative (Negative); Mucus,Urine Moderate /hpf; Nitrite,Urine Negative (Negative); Protein,Urine 1+ (Negative); Squamous Epithelial Cell,Urine 5 /hpf (0-4); WBC,Urine 4 /hpf (0-5)
[2021-02-23] MEDS: SODIUM CHLORIDE 0.9% 1,000 ML IV SCH (16:22)
[2021-02-23] MEDS ORDERED: TEMAZEPAM 15 MG CAP PO PRN (18:10)
[2021-02-23] MEDS ORDERED: ACETAMINOPHEN TAB 500 MG TAB PO PRN (18:10)
[2021-02-23] MEDS: PANTOPRAZOLE 40 MG/10 ML VIAL IVP SCH (19:16)
[2021-02-23] MEDS: DORZOLAMIDE HCL 2% DROPS 10 ML BTL BOTH EYES SCH (19:17)
--- NOTE | 2021-02-23 19:18 | XR ---
EXAMINATION: XR chest 1V portable DATE AND TIME: 02/23/2021 6:41 PM CLINICAL INDICATION: PHH; chf TECHNIQUE: Upright portable COMPARISON: 06/28/2018 FINDINGS: The lungs are clear. The pleural spaces are negative. The cardiac silhouette is not enlarged. The remainder of the mediastinal silhouette is unremarkable. The skeletal structures and soft tissues are negative for acute findings. IMPRESSION: Negative examination.
[2021-02-23] MEDS: HYDROmorphone 0.5 MG/0.5 ML SYRINGE IVP PRN ×2 (19:25→23:17)
[2021-02-23] MEDS: ONDANSETRON 4 MG/2 ML VIAL IVP PRN (19:30)
[2021-02-23] MEDS ORDERED: diphenhydrAMINE 50 MG/ML 1 ML VIAL IVP STA (19:41)
[2021-02-23] MEDS ORDERED: FAMOTIDINE 20 MG/2 ML VIAL IV STA (19:41)
[2021-02-23] MEDS ORDERED: methylPREDNISolone SOD SUCCI 125 MG/2 ML VIAL IV STA (19:41)
[2021-02-23] MEDS ORDERED: BARIUM SULFATE 450 ML ORAL.SUSP BOTTLE PO PRN (20:02)
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
--- NOTE | 2021-02-23 22:15 | CT ---
EXAMINATION: CT brain wo con DATE AND TIME: 02/23/2021 9:47 PM CLINICAL INDICATION: PHH; mets TECHNIQUE: Departmental protocol DLP: 1103.4 mGy-cm COMPARISON: CT 01/06/2014 FINDINGS: The calvarium is intact. There is no intracranial hemorrhage. There is no intracranial mass or mass effect. No definite new intra-axial or extra-axial attenuation defect. The paranasal sinuses, middle ear cavities, and mastoid sinus air cells are clear. The orbits are unremarkable. IMPRESSION: No acute process, CT head without contrast.
[2021-02-23] MEDS: HEPARIN SODIUM,PORCINE/PF 5,000 UNIT/0.5 ML SYRINGE SQ SCH (22:24)
--- NOTE | 2021-02-23 22:33 | CT ---
EXAMINATION TYPE: CT abdomen pelvis wo con DATE OF EXAM: 02/23/2021 COMPARISON: 01/21/2021 CT with contrast HISTORY: Metastatic adenocarcinoma CT DLP: 441 mGycm Automated exposure control for dose reduction was used. TECHNIQUE: Departmental protocol FINDINGS: LUNG BASES: No abnormalities. No pleural effusion. LIVER/GB/PANCREAS: The previously seen liver lesions have increased in size, and perhaps in number as well. The present CT is without IV contrast and the comparison 01/21/2021 CT is with IV contrast. The re is no biliary or pancreatic ductal dilation. No focal pancreatic findings. PERITONEAL CAVITY: No fluid or pneumoperitoneum. SPLEEN: No significant abnormality is seen. ADRENALS: Previously seen left adrenal mass has increased in size from 3.3 x 4.5 cm to 5 x 4 cm. KIDNEYS, URETERS, AND URINARY BLADDER: No obstructive uropathy, or focal findings. LYMPH NODE STATIONS: At the level of the [place] origin within the root of the mesentery, anterior to the aorta, the previously seen 1 cm mean diameter lymph node now measures 1.4 cm. REPRODUCTIVE ORGANS: No significant abnormality is seen OSSEOUS STRUCTURES: The multifocal lytic bone metastatic foci have also increased in size. For examp le, previously seen left superior ramus 1 cm lesion now measures 2 cm and has an appearance suggestin g impending fracture. The previously seen L3 lytic lesion has nearly doubled in size and is now assoc iated with a mild compression fracture. BOWEL: No significant abnormality is seen. IMPRESSION: INTERVAL WORSENING IN THE TUMOR BURDEN, DISCUSSED.
[2021-02-24] MEDS: SODIUM CHLORIDE 0.9% 1,000 ML IV SCH ×3 (02:26→21:29)
[2021-02-24] MEDS: HYDROmorphone 0.5 MG/0.5 ML SYRINGE IVP PRN ×4 (05:09→21:31)
[2021-02-24] MEDS: ONDANSETRON 4 MG/2 ML VIAL IVP PRN ×3 (05:15→18:14)
[2021-02-24 06:13] LABS: Basophils # (A) 0.1 k/uL (0-0.2); Basophils % (A) 1 %; Eosinophils # (A) 0.1 k/uL (0-0.7); Eosinophils % (A) 1 %; HCT 29.1 % (34.0-46.0); Lymphocytes # (A) 0.4 k/uL (1.0-4.8); Lymphocytes % (A) 8 %; MCH 34.3 pg (25.0-35.0); MCHC 34.2 g/dL (31.0-37.0); MCV 100.3 fL (80.0-100.0); Macrocytosis Slight; Mean Platelet Volume 7.5; Monocytes # (A) 0.4 k/uL (0-1.0); Monocytes % (A) 9 %; Neutrophils # (A) 3.9 k/uL (1.3-7.7); Neutrophils % (A) 80 %; Platelet Count 297 k/uL (150-450); Poikilocytosis Slight; RBC 2.91 m/uL (3.80-5.40); RDW 14.6 % (11.5-15.5); WBC 4.9 k/uL (3.8-10.6)
[2021-02-24 06:47] LABS: African American GFR (CKD) >90 (>60 ml/min/1.73 sqM); Anion Gap 9 mmol/L; Blood Urea Nitrogen 14 mg/dL (7-17); Calcium 9.6 mg/dL (8.4-10.2); Carbon Dioxide 25 mmol/L (22-30); Chloride 100 mmol/L (98-107); Glucose 84 mg/dL (74-99); Non-African American GFR(CKD) >90 (>60 ml/min/1.73 sqM); Potassium 3.7 mmol/L (3.5-5.1); Sodium 134 mmol/L (137-145)
[2021-02-24] MEDS: DORZOLAMIDE HCL 2% DROPS 10 ML BTL BOTH EYES SCH ×2 (08:49→21:28)
[2021-02-24] MEDS: HEPARIN SODIUM,PORCINE/PF 5,000 UNIT/0.5 ML SYRINGE SQ SCH ×2 (08:50→20:37)
[2021-02-24] MEDS: PANTOPRAZOLE 40 MG/10 ML VIAL IVP SCH ×2 (08:50→20:37)
[2021-02-24 11:36] VITALS: BMI 22.6
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
--- NOTE | 2021-02-24 19:33 | US ---
EXAMINATION TYPE: US pelvic complete DATE OF EXAM: 02/24/2021 COMPARISON: NONE CLINICAL HISTORY: Ca unknown Primary. Pelvic mass on CT. unknown primary CA, h/o hysterectomy, CT sca n showed rt ov cyst TECHNIQUE: TA. Transabdominal sonographic images of the pelvis were acquired. pt refused TV appr oach Date of LMP: hysterectomy EXAM MEASUREMENTS: Uterus: Surgically absent Endometrial Stripe: Surgically absent Right Ovary: 2.9 x 2.3 x 2.3 cm Left Ovary: not seen 1. Uterus: Surgically absent 2. Endometrium: Surgically absent 3. Right Ovary: 1.9 x 2.0 x 1.8cm simple appearing cyst seen 4. Left Ovary: not seen due to atrophy and bowel gas 5. Bilateral Adnexa: wnl 6. Posterior cul-de-sac: wnl IMPRESSION: Simple cyst on the right ovary. No solid adnexal mass. Hysterectomy noted. No free fluid.
[2021-02-24] MEDS: DOCUSATE 100 MG CAP PO SCH (20:34)
[2021-02-25] MEDS: ONDANSETRON 4 MG/2 ML VIAL IVP PRN ×4 (00:06→18:01)
[2021-02-25] MEDS: HYDROmorphone 0.5 MG/0.5 ML SYRINGE IVP PRN ×6 (01:52→21:48)
[2021-02-25] MEDS: SODIUM CHLORIDE 0.9% 1,000 ML IV SCH ×3 (05:40→18:08)
[2021-02-25 06:36] LABS: African American GFR (CKD) >90 (>60 ml/min/1.73 sqM); Anion Gap 5 mmol/L; Blood Urea Nitrogen 7 mg/dL (7-17); Calcium 9.2 mg/dL (8.4-10.2); Carbon Dioxide 29 mmol/L (22-30); Chloride 100 mmol/L (98-107); Glucose 87 mg/dL (74-99); Non-African American GFR(CKD) >90 (>60 ml/min/1.73 sqM); Potassium 3.3 mmol/L (3.5-5.1); Sodium 134 mmol/L (137-145)
[2021-02-25 06:37] LABS: Basophils # (A) 0.1 k/uL (0-0.2); Basophils % (A) 1 %; Eosinophils % (A) 1 %; HCT 27.7 % (34.0-46.0); Lymphocytes # (A) 0.4 k/uL (1.0-4.8); Lymphocytes % (A) 10 %; MCH 32.9 pg (25.0-35.0); MCHC 32.6 g/dL (31.0-37.0); MCV 100.8 fL (80.0-100.0); Macrocytosis Slight; Mean Platelet Volume 7.7; Monocytes # (A) 0.3 k/uL (0-1.0); Monocytes % (A) 9 %; Neutrophils # (A) 2.7 k/uL (1.3-7.7); Neutrophils % (A) 76 %; Platelet Count 288 k/uL (150-450); Poikilocytosis Slight; RBC 2.74 m/uL (3.80-5.40); RDW 15.4 % (11.5-15.5); WBC 3.6 k/uL (3.8-10.6)
[2021-02-25] MEDS: HEPARIN SODIUM,PORCINE/PF 5,000 UNIT/0.5 ML SYRINGE SQ SCH ×2 (08:20→20:13)
[2021-02-25] MEDS: DOCUSATE 100 MG CAP PO SCH ×2 (08:20→20:01)
[2021-02-25] MEDS: PANTOPRAZOLE 40 MG/10 ML VIAL IVP SCH ×2 (08:20→20:13)
[2021-02-25] MEDS: DORZOLAMIDE HCL 2% DROPS 10 ML BTL BOTH EYES SCH ×2 (08:27→21:08)
[2021-02-25 13:25] LABS: Cancer Antigen 125 10226.7 U/mL (0.0-30.1)
--- NOTE | 2021-02-25 14:46 | MR ---
EXAMINATION TYPE: MR pancreas / mrcp wo/w con DATE OF EXAM: 02/25/2021 COMPARISON: HISTORY: Acute nausea, metastatic adenocarcinoma. CONTRAST: Standard multiplanar, multisequence MRI departmental protocol utilizing 6.5 mL intravenous Gadavist g adolinium contrast. There are numerous rounded variable sized foci of abnormal increased signal on the T2 images througho ut the liver. The largest is in the left lower the liver and measures almost 3 cm. Most of the lesion s are less than 1 cm. Spleen is intact. The pancreatic duct appears normal. The bile ducts are not di lated. Gallbladder appears normal. Contrast images show ring enhancement of most of the liver lesions . There is 8mm area of decreased signal and lack of enhancement in the posterior aspect of the pancre atic tail. There is a similar 8 mm focus in the anterior body of the pancreas. There is 5 cm rounded left adrenal mass without significant enhancement. There is some thickening of the right adrenal gland. 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 The kidneys show satisfactory contrast opacification. There is no hydronephrosis. The re is no evidence of renal mass. The stomach appears intact. There is no ascites. There is no sign of a bowel obstruction. There is 1.5 cm nodular density consistent with enlarged lymph node in the smal l bowel mesentery. The MRCP images show a normal pancreatic duct. I see no filling defect in the biliary tree. Common bi le duct measures 11 mm. I see no significant dilation of the intrahepatic bile ducts. There are multiple rounded foci of abnormal increased signal on the T2 images in multiple vertebral b odies consistent with tumor. IMPRESSION: Diffuse hepatic metastatic disease. 2 small nonenhancing pancreatic lesions could be tumor. Left adrenal mass consistent with tumor. Small bowel mesenteric enlarged lymph nodes Multiple bone lesions consistent with metastatic disease. No evidence of obstructing lesion in the common bile duct. Large common bile duct consistent with gal lbladder dysfunction. No change compared to recent CT scan.
[2021-02-25] MEDS ORDERED: Potassium Replacement Protocol 1 EACH MISC MISCELLANE PRN (20:50)
[2021-02-25] MEDS ORDERED: Magnesium Replacement Protocol 1 EACH MISC MISCELLANE PRN (20:50)
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
[2021-02-26] MEDS: SODIUM CHLORIDE 0.9% 1,000 ML IV SCH ×2 (03:22→23:39)
[2021-02-26] MEDS: HYDROmorphone 0.5 MG/0.5 ML SYRINGE IVP PRN ×5 (03:31→21:20)
[2021-02-26 05:17] LABS: Basophils # (A) 0.1 k/uL (0-0.2); Basophils % (A) 2 %; Eosinophils # (A) 0.1 k/uL (0-0.7); Eosinophils % (A) 2 %; HCT 26.3 % (34.0-46.0); HGB 8.4 gm/dL (11.4-16.0); Lymphocytes # (A) 0.4 k/uL (1.0-4.8); Lymphocytes % (A) 10 %; MCH 31.8 pg (25.0-35.0); MCHC 31.8 g/dL (31.0-37.0); Macrocytosis Slight; Mean Platelet Volume 7.5; Monocytes # (A) 0.5 k/uL (0-1.0); Monocytes % (A) 11 %; Neutrophils # (A) 3.1 k/uL (1.3-7.7); Neutrophils % (A) 73 %; Platelet Count 303 k/uL (150-450); Poikilocytosis Slight; RBC 2.63 m/uL (3.80-5.40); RDW 15.4 % (11.5-15.5); WBC 4.2 k/uL (3.8-10.6)
[2021-02-26 05:22] LABS: African American GFR (CKD) >90 (>60 ml/min/1.73 sqM); Anion Gap 7 mmol/L; Blood Urea Nitrogen 6 mg/dL (7-17); Calcium 9.1 mg/dL (8.4-10.2); Carbon Dioxide 28 mmol/L (22-30); Chloride 98 mmol/L (98-107); Glucose 88 mg/dL (74-99); Magnesium 1.8 mg/dL (1.6-2.3); Non-African American GFR(CKD) >90 (>60 ml/min/1.73 sqM); Sodium 133 mmol/L (137-145)
[2021-02-26] MEDS: ONDANSETRON 4 MG/2 ML VIAL IVP PRN ×3 (06:50→16:14)
[2021-02-26] MEDS: POTASSIUM CHLORIDE ER 20 MEQ TAB.ER PO SCH ×4 (06:50→12:12)
[2021-02-26] MEDS: PANTOPRAZOLE 40 MG/10 ML VIAL IVP SCH ×2 (08:42→20:08)
[2021-02-26] MEDS: HEPARIN SODIUM,PORCINE/PF 5,000 UNIT/0.5 ML SYRINGE SQ SCH ×2 (08:42→20:09)
[2021-02-26] MEDS: DOCUSATE 100 MG CAP PO SCH ×2 (08:50→20:08)
[2021-02-26] MEDS: DORZOLAMIDE HCL 2% DROPS 10 ML BTL BOTH EYES SCH ×2 (08:54→20:08)
[2021-02-26] MEDS: MAGNESIUM SULFATE-D5W PMX 1 GM in DEXTROSE/WATER 1 100ML.BAG IVPB SCH ×2 (10:03→11:12)
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
[2021-02-26 14:44] LABS: Potassium 3.7 mmol/L (3.5-5.1)
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
[2021-02-26] MEDS: DEXAMETHASONE SOD PHOSPHATE 4 MG/ML 1 ML VIAL IV SCH ×3 (16:13→23:38)
[2021-02-27] MEDS: HYDROmorphone 0.5 MG/0.5 ML SYRINGE IVP PRN ×5 (01:23→20:55)
[2021-02-27] MEDS: DEXAMETHASONE SOD PHOSPHATE 4 MG/ML 1 ML VIAL IV SCH ×4 (05:27→23:43)
[2021-02-27 06:16] LABS: Basophils % (A) 1 %; Eosinophils % (A) 0 %; HCT 27.9 % (34.0-46.0); HGB 9.2 gm/dL (11.4-16.0); Lymphocytes # (A) 0.2 k/uL (1.0-4.8); Lymphocytes % (A) 5 %; MCHC 32.8 g/dL (31.0-37.0); MCV 100.7 fL (80.0-100.0); Macrocytosis Slight; Mean Platelet Volume 7.5; Monocytes # (A) 0.1 k/uL (0-1.0); Monocytes % (A) 2 %; Neutrophils # (A) 3.5 k/uL (1.3-7.7); Neutrophils % (A) 92 %; Platelet Count 319 k/uL (150-450); Poikilocytosis Slight; RBC 2.77 m/uL (3.80-5.40); RDW 14.9 % (11.5-15.5); WBC 3.8 k/uL (3.8-10.6)
[2021-02-27 06:37] LABS: African American GFR (CKD) >90 (>60 ml/min/1.73 sqM); Anion Gap 4 mmol/L; Blood Urea Nitrogen 7 mg/dL (7-17); Calcium 9.3 mg/dL (8.4-10.2); Carbon Dioxide 30 mmol/L (22-30); Chloride 101 mmol/L (98-107); Glucose 154 mg/dL (74-99); Magnesium 2.2 mg/dL (1.6-2.3); Non-African American GFR(CKD) >90 (>60 ml/min/1.73 sqM); Potassium 4.5 mmol/L (3.5-5.1); Sodium 135 mmol/L (137-145)
[2021-02-27] MEDS: ONDANSETRON 4 MG/2 ML VIAL IVP PRN (07:54)
[2021-02-27] MEDS: HEPARIN SODIUM,PORCINE/PF 5,000 UNIT/0.5 ML SYRINGE SQ SCH ×2 (07:55→20:53)
[2021-02-27] MEDS: PANTOPRAZOLE 40 MG/10 ML VIAL IVP SCH (07:55)
[2021-02-27] MEDS: DORZOLAMIDE HCL 2% DROPS 10 ML BTL BOTH EYES SCH ×2 (08:03→20:53)
[2021-02-27] MEDS: DOCUSATE 100 MG CAP PO SCH ×2 (08:54→20:52)
[2021-02-27] MEDS: SODIUM CHLORIDE 0.9% 1,000 ML IV SCH ×2 (09:02→23:00)
[2021-02-27] MEDS ORDERED: PROPOFOL 10 MG/ML 20 ML VIAL IV ONE (13:24)
[2021-02-27] MEDS ORDERED: IV FLUID CONTINUATION 1,000 ML IV ONE (13:28)
--- NOTE | 2021-02-27 13:52 | P.PCN ---
Date of Procedure: 02/27/21 Description of Procedure: BRIEF HISTORY: 55-year-old female with multiple medical comorbidities including seizure disorder, degenerative joint disease, appendectomy, hysterectomy, prior history of tobacco abuse who presented for nausea, vomiting and dehydration. Patient has been undergoing a workup for metastatic malignancy in the outpatient setting. She has undergone a liver biopsy which was significant for metastatic adenocarcinoma of unknown primary with differential including lung, upper GI, pancreaticobiliary a as well as Mullerian tumor. Currently she is been seen and evaluated by the hematology/oncology service. She underwent MRI of the abdomen with MRCP yesterday significant for diffuse metastatic disease to the liver, two nonenhancing pancreatic lesions, a left adrenal mass and multiple bone lesions consistent with metastases. She had presented to the hospital with intractable nausea and vomiting. She reports decreased oral intake with weight loss. She also reports severe constipation since beginning of the year. PROCEDURE PERFORMED: Esophagogastroduodenoscopy with biopsy. PREOPERATIVE DIAGNOSIS: Nausea and vomiting, metastatic malignancy of unknown primary. ESTIMATED BLOOD LOSS: Minimal. IV sedation per anesthesia. PROCEDURE: After informed consent was obtained, the patient was brought into the endoscopy unit. IV sedation was administered by Anesthesia under continuous monitoring. Initially the Olympus GIF-190 video endoscope was inserted into the mouth. Esophagus intubated without any difficulty. It was gradually advanced into the stomach and duodenum and carefully examined. The bulb and the second part of the duodenum appeared normal, with biopsies taken. The scope at this time was withdrawn to the stomach, adequately insufflated with air, and upon careful examination, mucosa of the antrum, body, cardia and the fundus was examined in significant for a cratered 1 cm ulcer in the fundus of the stomach which was extensively biopsied without high risk stigmata for bleeding. Biopsies were also taken of the antrum and body. The scope was then withdrawn into the esophagus. The GE junction was located at 39 cm from the incisors. The esophagus was significant for erythema and inflammation consistent with LA grade B distal esophagitis with biopsies of lower esophagus taken. The patient tolerated the procedure well. IMPRESSION: 1. Gastric ulcer, cratered without high risk stigmata for bleeding and the fundus. 2. LA grade B distal esophagitis. 3. Biopsies of the duodenum, antrum body, gastric ulcer/fundus ulcer and lower esophagus. RECOMMENDATIONS: The findings of this examination were discussed with the patient. Okay for diet as tolerated. Continue Protonix twice daily. Avoid NSAID use. Await pathology from biopsies. Sucralfate 4 times a day will be added. Continue evaluation by the hematology/oncology service.
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
[2021-02-27] MEDS: SUCRALFATE 1 GM TAB PO SCH ×2 (18:16→20:52)
--- NOTE | 2021-02-27 20:27 | P.PN ---
Subjective Progress Note Date: 02/27/21 Patient reports being much more comfortable in terms of her pain. She is complaining of persistent constipation however. Shortness of breath is significantly improved. Objective - Vital Signs Vital signs: Vital Signs Temp 98.1 F 02/27/21 19:30 Pulse 99 02/27/21 19:30 Resp 18 02/27/21 19:30 BP 127/78 02/27/21 19:30 Pulse Ox 96 02/27/21 19:30 Intake & Output 02/27/21 02/27/21 02/28/21 06:59 18:59 06:59 Intake Total 600 300 Balance 600 300 Intake: IV 300 Intake, IV Titration 600 Amount Sodium Chloride 0.9% 1, 600 000 ml @ 100 mls/hr IV . Q10H DREA Rx#:[id number] Other: Voiding Method Toilet # Voids 2 1 - Constitutional General appearance: Present: no acute distress - EENT Eyes: Present: EOMI ENT: Present: hearing grossly normal, normal oropharynx - Respiratory Respiratory: bilateral: CTA - Cardiovascular Rhythm: regular Heart sounds: normal: S1, S2 - Gastrointestinal General gastrointestinal: Present: normal bowel sounds, soft - Integumentary Integumentary: Present: normal - Neurologic Neurologic: Present: CNII-XII intact - Musculoskeletal Musculoskeletal: Present: generalized weakness, strength equal bilaterally - Psychiatric Psychiatric: Present: A&O x's 3, appropriate affect - Labs CBC & Chem 7: 02/27/21 05:10 02/27/21 05:10 Labs: Abnormal Lab Results - Last 24 Hours (Table) 02/27/21 02/27/21 Range/Units 05:10 05:10 RBC 2.77 L (3.80-5.40) m/uL Hgb 9.2 L (11.4-16.0) gm/dL Hct 27.9 L (34.0-46.0) % MCV 100.7 H (80.0-100.0) fL Lymphocytes # 0.2 L (1.0-4.8) k/uL Sodium 135 L (137-145) mmol/L Creatinine 0.47 L (0.52-1.04) mg/dL Glucose 154 H (74-99) mg/dL Microbiology - Last 24 Hours (Table) 02/26/21 13:35 Blood Culture - Preliminary Blood No Growth after 24 hours Assessment and Plan (1) Carcinoma of unknown primary Narrative/Plan: The patient is status post multiple investigations so far to try to determine the primary. Transvaginal ultrasound was negative, revealing ovarian cyst, and no other lesions at the vaginal apex. Her tumor marker showed markedly elevated CA 19-9. MRCP did not show any abnormality in the bili tract. However it did show at least 2 solid lesions in the pancreas which were 8 mm. Therefore pancreatic primary remains in the differential. In addition given the CT chest findings, lung primary is also on other main differential. The patient is status post EGD. This showed a 1 cm cratered ulcer in the stomach which was biopsied. If the biopsy is negative, then the upper GI can also be ruled out. - For additional workup, as an outpatient the patient will have a PET scan. We will also send her biopsy sample for cancer type ID Current Visit: Yes Status: Acute Code(s): C80.1 - MALIGNANT (PRIMARY) NEOPLASM, UNSPECIFIED SNOMED Code(s): 318646687 (2) Vomiting Narrative/Plan: This is significantly improved, since admission Current Visit: Yes Status: Acute Code(s): R11.10 - VOMITING, UNSPECIFIED SNOMED Code(s): 231328793 (3) Neoplasm related pain Narrative/Plan: The patient also reports marked improvement, since starting fentanyl. In addit ion most likely she is now noticing benefits of the radiation to the spine. - Will further discuss with Dr. Brown about setting her up for palliative radiation to the left adrenal lesion as an outpatient - Continue fentanyl. Plan to discharge on the same, along with [place] when necessary as outpatient, for breakthrough - Patient having issues with constipation. She is currently on Docusate. She was advised to take milk of magnesia every 6 hours until has a bowel movement. Current Visit: Yes Status: Acute Code(s): G89.3 - NEOPLASM RELATED PAIN (ACUTE) (CHRONIC) SNOMED Code(s): 87828530449785
[2021-02-27] MEDS: PANTOPRAZOLE 40 MG TABLET PO SCH (20:53)
[2021-02-27] MEDS: MAGNESIUM HYDROXIDE 2,400 MG/10 ML CUP PO PRN (21:04)
[2021-02-28] MEDS: HYDROmorphone 0.5 MG/0.5 ML SYRINGE IVP PRN ×5 (01:27→21:50)
[2021-02-28] MEDS: DEXAMETHASONE SOD PHOSPHATE 4 MG/ML 1 ML VIAL IV SCH ×3 (05:31→23:54)
[2021-02-28] MEDS: SUCRALFATE 1 GM TAB PO SCH ×4 (06:31→20:16)
[2021-02-28] MEDS: HEPARIN SODIUM,PORCINE/PF 5,000 UNIT/0.5 ML SYRINGE SQ SCH ×2 (09:11→20:15)
[2021-02-28] MEDS: PANTOPRAZOLE 40 MG TABLET PO SCH ×2 (09:11→20:16)
[2021-02-28] MEDS: DORZOLAMIDE HCL 2% DROPS 10 ML BTL BOTH EYES SCH ×2 (09:11→20:16)
[2021-02-28] MEDS: ONDANSETRON 4 MG/2 ML VIAL IVP PRN ×2 (09:11→15:20)
[2021-02-28] MEDS: DOCUSATE 100 MG CAP PO SCH ×2 (09:12→20:16)
[2021-02-28] MEDS: SODIUM CHLORIDE 0.9% 1,000 ML IV SCH ×2 (09:19→16:28)
--- NOTE | 2021-02-28 09:19 | P.PN ---
Subjective Progress Note Date: 02/28/21 Principal diagnosis: 55 years old female with metastatic high-grade adenocarcinoma of unknown primary, presented with lung, liver, left adrenal ,and bone metastatic disease, the patient has peritoneal, mesenteric, mediastinal, lymphadenopathy. Mrs Silva complains of pain in the upper abdomen and spine, she is getting a palliative external beam radiation therapy to the thoracic and lumbar spine, she had improvement in the pain in these areas , however the pain in the upper abdomen especially in the left upper quadrant of the abdomen is still intra ctable. The patient was admitted to the hospital for general weakness , nausea, and vomiting. Today she is more comfortable, her pain is controlled using the medication , sitting up in the in her bed and eating her breakfast. She stated that her pain is gotten worse in the sitting and certain positions such as standing for long time. Objective - Vital Signs Vital signs: Vital Signs Temp 97.9 F 02/28/21 08:50 Pulse 82 02/28/21 08:50 Resp 16 02/28/21 08:50 BP 146/87 02/28/21 08:50 Pulse Ox 98 02/28/21 08:50 Intake & Output 02/27/21 02/28/21 02/28/21 18:59 06:59 18:59 Intake Total 300 Balance 300 Intake: IV 300 Other: Voiding Method Toilet # Voids 1 1 - Constitutional General appearance: Present: cooperative, no acute distress - EENT Eyes: Present: normal appearance ENT: Present: normal oropharynx - Neck Neck: Present: normal ROM - Respiratory Respiratory: bilateral: CTA - Cardiovascular Rhythm: regular - Gastrointestinal General gastrointestinal: Present: normal bowel sounds - Integumentary Integumentary: Present: normal - Neurologic Neurologic: Present: CNII-XII intact - Psychiatric Psychiatric: Present: A&O x's 3, appropriate affect - Labs CBC & Chem 7: 02/27/21 05:10 02/27/21 05:10 Labs: Microbiology - Last 24 Hours (Table) 02/26/21 13:35 Blood Culture - Preliminary Blood No Growth after 24 hours Assessment and Plan (1) Carcinoma of unknown primary Current Visit: Yes Status: Acute Code(s): C80.1 - MALIGNANT (PRIMARY) NEOPLASM, UNSPECIFIED SNOMED Code(s): 599234713 (2) Nausea and vomiting Current Visit: Yes Status: Acute Code(s): R11.2 - NAUSEA WITH VOMITING, UNSPECIFIED SNOMED Code(s): 54257783 (3) Lesion of adrenal gland Current Visit: Yes Status: Acute Priority: High Code(s): E27.9 - DISORDER OF ADRENAL GLAND, UNSPECIFIED SNOMED Code(s): 96736426 Plan: Images reviewed , CAT scan and MRI of the liver, there is a large left adrenal gland metastatic mass, probably related to the pain she has in the upper abdomen , therefore a palliative external beam radiation therapy would be recommended, I talked to the patient about this special treatment of SBRT , I talked about the potential acute and late side effects, she agreed to proceed, our plan is to do simulation today, to start her treatment as soon as her plan is ready . Time with Patient: Greater than 30
--- NOTE | 2021-02-28 10:38 | P.PN ---
Subjective Progress Note Date: 02/28/21 Principal diagnosis: Nausea and vomiting, metastatic malignancy Patient was seen and examined lying in bed. She is status post EGD yesterday with findings of gastric ulcer, crater without high risk for bleeding at the fundus, LA grade B distal esophagitis with biopsies taken. The patient was started on sucralfate 4 times a day, continue Protonix twice daily and counseled to avoid NSAID use. Patient is continuing to be followed by hematology/oncology service. Scheduled for radiation therapy today. She states she still has diffuse abdominal pain, she's not had any vomiting, she is passing flatus, however no bowel movement. Objective - Vital Signs Vital signs: Vital Signs Temp 97.9 F 02/28/21 08:50 Pulse 82 02/28/21 08:50 Resp 16 02/28/21 08:50 BP 146/87 02/28/21 08:50 Pulse Ox 98 02/28/21 08:50 Intake & Output 02/27/21 02/28/21 02/28/21 18:59 06:59 18:59 Intake Total 300 Balance 300 Intake: IV 300 Other: Voiding Method Toilet # Voids 1 1 - Exam General appearance: The patient is alert, oriented, appears in no acute distress. HET: Head is normocephalic and atraumatic. Conjunctiva pink. Sclera anicteric. Neck: Supple without lymphadenopathy. Abdomen: Soft, diffuse tenderness, nondistended with bowel sounds. No guarding or rigidity. Extremities: Normal skin color and turgor. No pedal edema Skin: No rashes, no jaundice Neurological: No focal deficits. Alert and oriented 3. - Labs CBC & Chem 7: 02/27/21 05:10 02/27/21 05:10 Labs: Microbiology - Last 24 Hours (Table) 02/26/21 13:35 Blood Culture - Preliminary Blood No Growth after 24 hours Assessment and Plan (1) Nausea and vomiting Narrative/Plan: 55-year-old female with multiple medical comorbidities including recent diagnosis of metastatic malignancy of unknown primary. Liver biopsy recently showed adenocarcinoma of unknown etiology, recent MRI/MRCP on current admission showed diffuse hepatic metastatic disease, to nonenhancing liver lesions, left adrenal mass and multiple bony lesions consistent with metastatic disease. Patient presented with intractable nausea and vomiting. Gastroenterology was consult dated for EGD to rule out upper GI pathology Status post upper endoscopy with findings of epigastric ulcer, crater without stigmata for bleeding at the fundus. LA grade B distal esophagitis, but biopsies taken. Current Visit: Yes Status: Acute Code(s): R11.2 - NAUSEA WITH VOMITING, UNSPECIFIED SNOMED Code(s): 85615248 (2) Carcinoma of unknown primary Current Visit: Yes Status: Acute Code(s): C80.1 - MALIGNANT (PRIMARY) NEOPLASM, UNSPECIFIED SNOMED Code(s): 993916253 (3) Metastasis to liver of unknown origin Current Visit: Yes Status: Acute Code(s): C78.7 - SECONDARY MALIG NEOPLASM OF LIVER AND INTRAHEPATIC BILE DUCT; C80.1 - MALIGNANT (PRIMARY) NEOPLASM, UNSPECIFIED SNOMED Code(s): 597953419 Plan: Continue symptomatic and supportive care Diet as tolerated Continue Protonix 40 mg twice a day Sucralfate 4 times a day Continue recommendations and treatment per oncology/hematology Encourage patient to ambulate Counseled on avoiding NSAID use Patient will need to follow-up with gastroenterology for biopsy results Continue antiemetics as needed Thank you for this consultation, we will be on standby if needed Dr. Gtz I agree with the dictator's note, documented as a scribe by Belinda West.
[2021-02-28] MEDS ORDERED: SENNOSIDES 8.6 MG TAB PO PRN (11:36)
[2021-02-28] MEDS ORDERED: SENNOSIDES-DOCUSATE SODIUM 1 EACH TAB PO PRN (11:39)
--- NOTE | 2021-02-28 12:07 | P.PN ---
Subjective Addendum: I came to see the patient and she was at radiation therapy. We will keep to follow Objective - Vital Signs Vital signs: Vital Signs Temp 97.9 F 02/28/21 08:50 Pulse 82 02/28/21 08:50 Resp 16 02/28/21 08:50 BP 146/87 02/28/21 08:50 Pulse Ox 98 02/28/21 08:50 Intake & Output 02/27/21 02/28/21 02/28/21 18:59 06:59 18:59 Intake Total 300 Balance 300 Intake: IV 300 Other: Voiding Method Toilet # Voids 1 1 1 - Labs CBC & Chem 7: 02/27/21 05:10 02/27/21 05:10 Labs: Microbiology - Last 24 Hours (Table) 02/26/21 13:35 Blood Culture - Preliminary Blood No Growth after 24 hours
[2021-02-28] MEDS: MAGNESIUM HYDROXIDE 2,400 MG/10 ML CUP PO PRN ×2 (15:18→21:52)
[2021-03-01] MEDS: SODIUM CHLORIDE 0.9% 1,000 ML IV SCH ×2 (02:29→09:53)
[2021-03-01] MEDS: HYDROmorphone 0.5 MG/0.5 ML SYRINGE IVP PRN ×3 (02:56→09:52)
[2021-03-01] MEDS: ONDANSETRON 4 MG/2 ML VIAL IVP PRN (02:59)
[2021-03-01] MEDS: SUCRALFATE 1 GM TAB PO SCH ×5 (06:01→22:08)
[2021-03-01] MEDS: DEXAMETHASONE SOD PHOSPHATE 4 MG/ML 1 ML VIAL IV SCH (06:01)
[2021-03-01] MEDS: DOCUSATE 100 MG CAP PO SCH ×2 (09:51→22:08)
[2021-03-01] MEDS: PANTOPRAZOLE 40 MG TABLET PO SCH ×2 (09:51→22:08)
[2021-03-01] MEDS: HEPARIN SODIUM,PORCINE/PF 5,000 UNIT/0.5 ML SYRINGE SQ SCH ×2 (09:52→22:08)
[2021-03-01] MEDS: DORZOLAMIDE HCL 2% DROPS 10 ML BTL BOTH EYES SCH ×2 (09:52→22:08)
[2021-03-01] MEDS: MAGNESIUM HYDROXIDE 2,400 MG/10 ML CUP PO PRN ×3 (10:57→23:49)
--- NOTE | 2021-03-01 12:11 | P.PN ---
Subjective Progress Note Date: 03/01/21 Principal diagnosis: Metastatic Cancer Pain is improved on fentanyl, however would recommend palliaitive radiation to adrenal met. She was recently given Dalton 10/[address] August (150tabs), therefore a short acting medication is not needed at this time. We will provide a script for Fentanyl 25mcg patch. As well as, Senna-S for narcotic induced constipation. Objective - Vital Signs Vital signs: Vital Signs Temp 97.8 F 03/01/21 08:22 Pulse 89 03/01/21 08:22 Resp 18 03/01/21 08:22 BP 134/85 03/01/21 08:22 Pulse Ox 97 03/01/21 08:22 Intake & Output 02/28/21 03/01/21 03/01/21 18:59 06:59 18:59 Intake Total 600 Balance 600 Weight 63.503 kg Intake: Intake, IV Titration 600 Amount Sodium Chloride 0.9% 1, 600 000 ml @ 100 mls/hr IV . Q10H DREA Rx#:[id number] Other: Voiding Method Toilet # Voids 2 2 - Exam - Constitutional General appearance: Present: cooperative, no acute distress - EENT Eyes: Present: normal appearance ENT: Present: normal oropharynx - Neck Neck: Present: normal ROM - Respiratory Respiratory: bilateral: CTA - Cardiovascular Rhythm: regular - Gastrointestinal General gastrointestinal: Present: normal bowel sounds - Integumentary Integumentary: Present: normal - Neurologic Neurologic: Present: CNII-XII intact - Psychiatric Psychiatric: Present: A&O x's 3, appropriate affect - Labs CBC & Chem 7: 02/27/21 05:10 02/27/21 05:10 Labs: Microbiology - Last 24 Hours (Table) 02/26/21 13:35 Blood Culture - Preliminary Blood No Growth after 48 hours Assessment and Plan Plan: Assessment and Plan Carcinoma of unknown primary The patient is status post multiple investigations so far to try to determine the primary. - Transvaginal ultrasound was negative, revealing ovarian cyst, and no other lesions at the vaginal apex. - Her tumor marker showed markedly elevated CA 19-9. - MRCP did not show any abnormality in the bili tract. However it did show at least 2 solid lesions in the pancreas which were 8 mm. Therefore pancreatic primary remains in the differential. - In addition given the CT chest findings, lung primary is also on other main differential. - The patient is status post EGD. This showed a 1 cm cratered ulcer in the stomach which was biopsied. If the biopsy is negative, then the upper GI can also be ruled out. - For additional workup, as an outpatient the patient will have a PET scan. We will also send her biopsy sample for cancer type ID Current Visit: Yes Status: Acute Code(s): C80.1 - MALIGNANT (PRIMARY) NEOPLASM, UNSPECIFIED SNOMED Code(s): 709435098 Vomiting -Resolved Current Visit: Yes Status: Acute Code(s): R11.10 - VOMITING, UNSPECIFIED SNOMED Code(s): 061851908 Neoplasm related pain The patient also reports marked improvement, since starting fentanyl. - Plan for palliative radiation to the left adrenal lesion as an outpatient - Continue fentanyl. Plan to discharge on the same, along with Dalton (breakthrough, recently filled) when necessary as outpatient, for breakthrough - Increased bowel regimen for prevention of narcotic induced constipation Current Visit: Yes Status: Acute Code(s): G89.3 - NEOPLASM RELATED PAIN (ACUTE) (CHRONIC) SNOMED Code(s): 66985150537487 Will provide prescription for fentanyl and have her sign narcotic "lets get talking" as well as narcotic induced constipation protocol. Plan DC Dilaudid Increase Fentanyl Stop Dalton and discard FIll Oxycodone
--- NOTE | 2021-03-01 13:38 | P.PN ---
Subjective Progress Note Date: 03/01/21 Principal diagnosis: Nausea and vomiting, metastatic malignancy Patient was seen and examined lying in bed. She states her abdominal pain is better today. She underwent radiation yesterday. She says she has some mild nausea but no vomiting. Still having some constipation. She is passing flatus. Pathologist Dr. 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 Objective - Vital Signs Vital signs: Vital Signs Temp 97.8 F 03/01/21 08:22 Pulse 89 03/01/21 08:22 Resp 18 03/01/21 08:22 BP 134/85 03/01/21 08:22 Pulse Ox 97 03/01/21 08:22 Intake & Output 02/28/21 03/01/21 03/01/21 18:59 06:59 18:59 Intake Total 600 Balance 600 Weight 63.503 kg Intake: Intake, IV Titration 600 Amount Sodium Chloride 0.9% 1, 600 000 ml @ 100 mls/hr IV . Q10H [facility] Rx#:[id number] Other: Voiding Method Toilet # Voids 2 2 - Exam General appearance: The patient is alert, oriented, appears in no acute distress. HET: Head is normocephalic and atraumatic. Conjunctiva pink. Sclera anicteric. Neck: Supple without lymphadenopathy. Abdomen: Soft, diffuse tenderness, nondistended with bowel sounds. No guarding or rigidity. Extremities: Normal skin color and turgor. No pedal edema Skin: No rashes, no jaundice Neurological: No focal deficits. Alert and oriented 3. - Labs CBC & Chem 7: 02/27/21 05:10 02/27/21 05:10 Labs: Microbiology - Last 24 Hours (Table) 02/26/21 13:35 Blood Culture - Preliminary Blood No Growth after 48 hours Assessment and Plan (1) Nausea and vomiting Narrative/Plan: 55-year-old female with multiple medical comorbidities including recent diagno sis of metastatic malignancy of unknown primary. Liver biopsy recently showed adenocarcinoma of unknown etiology, recent MRI/MRCP on current admission showed diffuse hepatic metastatic disease, to nonenhancing liver lesions, left adrenal mass and multiple bony lesions consistent with metastatic disease. Patient presented with intractable nausea and vomiting. Gastroenterology was consult dated for EGD to rule out upper GI pathology Status post upper endoscopy with findings of epigastric ulcer, crater without stigmata for bleeding at the fundus. LA grade B distal esophagitis, but biopsies taken. Current Visit: Yes Status: Acute Code(s): R11.2 - NAUSEA WITH VOMITING, UNSPECIFIED SNOMED Code(s): 78731072 (2) Carcinoma of unknown primary Current Visit: Yes Status: Acute Code(s): C80.1 - MALIGNANT (PRIMARY) NEOPLASM, UNSPECIFIED SNOMED Code(s): 402918562 (3) Metastasis to liver of unknown origin Current Visit: Yes Status: Acute Code(s): C78.7 - SECONDARY MALIG NEOPLASM OF LIVER AND INTRAHEPATIC BILE DUCT; C80.1 - MALIGNANT (PRIMARY) NEOPLASM, UNSPECIFIED SNOMED Code(s): 939330096 Plan: Continue symptomatic and supportive care Diet as tolerated Continue Protonix 40 mg twice a day Sucralfate 4 times a day Encourage patient to ambulate Counseled on avoiding NSAID use Continue antiemetics as needed Continue recommendations and treatment per oncology/hematology, positive findings from pathologyinvasive carcinoma to esophagus and fundus of stomach Pathology results discussed with patient at the bedside Thank you for this consultation, we will be on standby if needed Dr. Gtz I agree with the dictator's note, documented as a scribe by Belinda West.
[2021-03-01] MEDS ORDERED: HYDROmorphone 0.5 MG/0.5 ML SYRINGE IVP STA (14:50)
--- NOTE | 2021-03-01 15:44 | P.PN ---
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 Also multiple bone metastasis and no evidence of brain metastasis. Also she underwent EGD by GI team and found to have gastric ulcer and biopsy still pending. CT of the brain on admission was negative. And pancreatic MRI shows diffuse hepatic metastasis with 2 small pancreatic lesions about 8 mm suspicious for cancer. Also multiple bone metastasis. She has also multiple pulmonary nodules. Oncology team following the case closely, primary site could be pancreas, pulmonary or GI pending biopsies results. Also patient had a colon radiotherapy. Today she feels much better however her pain is not controlled with oral medication. Oxycodone was started as well as fentanyl. No nausea vomiting or diarrhea or abdominal pain. Chest some constipation. She is eating about 25-75% of her meals. Dexamethasone was stopped, initially was initiated by for couph per staff. Possible discharge in 24 hours Objective - Vital Signs Vital signs: Vital Signs Temp 97.7 F 03/01/21 14:00 Pulse 74 03/01/21 14:00 Resp 16 03/01/21 14:00 BP 121/70 03/01/21 14:00 Pulse Ox 97 03/01/21 14:00 Intake & Output 02/28/21 03/01/21 03/01/21 18:59 06:59 18:59 Intake Total 600 Balance 600 Weight 63.503 kg Intake: Intake, IV Titration 600 Amount Sodium Chloride 0.9% 1, 600 000 ml @ 100 mls/hr IV . Q10H [facility] Rx#:[id number] Other: Voiding Method Toilet # Voids 2 2 - Exam GENERAL: The patient is alert and oriented x3, not in any acute distress. Well d eveloped, well nourished. HEENT: Pupils are round and equally reacting to light. EOMI. No scleral icterus. No conjunctival pallor. Normocephalic, atraumatic. No pharyngeal erythema. No thyromegaly. CARDIOVASCULAR: S1 and S2 present. No murmurs, rubs, or gallops. PULMONARY: Chest is clear to auscultation, no wheezing or crackles. ABDOMEN: Soft, nontender, nondistended, normoactive bowel sounds. No palpable organomegaly. MUSCULOSKELETAL: No joint swelling or deformity. EXTREMITIES: No cyanosis, clubbing, or pedal edema. NEUROLOGICAL: Gross neurological examination did not reveal any focal deficits. SKIN: No rashes. no petechiae. - Labs CBC & Chem 7: 02/27/21 05:10 02/27/21 05:10 Labs: Microbiology - Last 24 Hours (Table) 02/26/21 13:35 Blood Culture - Preliminary Blood No Growth after 48 hours Assessment and Plan Assessment: Cancer of unknown primary site could be pancreatic, pulmonary or GI. With multiple hepatic and bone metastases and increased CA 19-9 Gastric ulcer History of seizure disorder, not on antiseizure medication Plan: This is a pleasant 55 years old female who presents with and cancer of unknown primary site. Patient has been followed closely by Dr. Preciado team. And radiation oncology as well as GI team. Continue with Protonix and Carafate Follow-up biopsy results for her stomach ulcer. Continue with pain management as per oncology team Labs and medication were reviewed.. Continue same treatment. Continue with symptomatic treatment. Resume home medication. Monitor lytes and vitals. DVT and GI prophylaxis. Further recommendationsas per clinical course of the patient DVT prophylaxis: Subcutaneous heparin GI Prophylaxis: Ppi Prognosis is guarded
[2021-03-02] MEDS: SUCRALFATE 1 GM TAB PO SCH ×4 (06:26→21:18)
[2021-03-02] MEDS: DOCUSATE 100 MG CAP PO SCH ×2 (08:47→21:18)
[2021-03-02] MEDS: DORZOLAMIDE HCL 2% DROPS 10 ML BTL BOTH EYES SCH ×2 (08:48→22:23)
[2021-03-02] MEDS: HEPARIN SODIUM,PORCINE/PF 5,000 UNIT/0.5 ML SYRINGE SQ SCH ×2 (08:48→21:16)
[2021-03-02] MEDS: MAGNESIUM HYDROXIDE 2,400 MG/10 ML CUP PO PRN ×3 (08:49→21:16)
[2021-03-02] MEDS: PANTOPRAZOLE 40 MG TABLET PO SCH ×2 (08:49→21:18)
--- NOTE | 2021-03-02 10:38 | P.PN ---
Subjective Progress Note Date: 03/02/21 Principal diagnosis: Metastatic Cancer will ask surg to place port for anticipated chemo after radiation complete. Objective - Vital Signs Vital signs: Vital Signs Temp 97.8 F 03/02/21 08:35 Pulse 94 03/02/21 08:35 Resp 16 03/02/21 09:03 BP 110/72 03/02/21 08:35 Pulse Ox 96 03/02/21 08:35 Intake & Output 03/01/21 03/02/21 03/02/21 18:59 06:59 18:59 Other: # Voids 1 1 1 - Exam - Constitutional General appearance: Present: cooperative, no acute distress - EENT Eyes: Present: normal appearance ENT: Present: normal oropharynx - Neck Neck: Present: normal ROM - Respiratory Respiratory: bilateral: CTA - Cardiovascular Rhythm: regular - Gastrointestinal General gastrointestinal: Present: normal bowel sounds - Integumentary Integumentary: Present: normal - Neurologic Neurologic: Present: CNII-XII intact - Psychiatric Psychiatric: Present: A&O x's 3, appropriate affect - Labs CBC & Chem 7: 02/27/21 05:10 02/27/21 05:10 Labs: Microbiology - Last 24 Hours (Table) 02/26/21 13:35 Blood Culture - Preliminary Blood No Growth after 72 hours Assessment and Plan Plan: Assessment and Plan Carcinoma of unknown primary The patient is status post multiple investigations so far to try to determine the primary. - Transvaginal ultrasound was negative, revealing ovarian cyst, and no other lesions at the vaginal apex. - Her tumor marker showed markedly elevated CA 19-9. - MRCP did not show any abnormality in the bili tract. However it did show at least 2 solid lesions in the pancreas which were 8 mm. Therefore pancreatic primary remains in the differential. - In addition given the CT chest findings, lung primary is also on other main differential. - The patient is status post EGD. This showed a 1 cm cratered ulcer in the stomach which was biopsied. If the biopsy is negative, then the upper GI can also be ruled out. - For additional workup, as an outpatient the patient will have a PET scan. We will also send her biopsy sample for cancer type ID Current Visit: Yes Status: Acute Code(s): C80.1 - MALIGNANT (PRIMARY) NEOPLASM, UNSPECIFIED SNOMED Code(s): 721793829 Vomiting -Resolved Current Visit: Yes Status: Acute Code(s): R11.10 - VOMITING, UNSPECIFIED SNOMED Code(s): 046506935 Neoplasm related pain The patient also reports marked improvement, since starting fentanyl. - Plan for palliative radiation to the left adrenal lesion as an outpatient - Continue fentanyl. Plan to discharge on the same, along with [place] (breakthrough, recently filled) when necessary as outpatient, for breakthrough - Increased bowel regimen for prevention of narcotic induced constipation Current Visit: Yes Status: Acute Code(s): G89.3 - NEOPLASM RELATED PAIN (ACUTE) (CHRONIC) SNOMED Code(s): 72197431007981 Will provide prescription for fentanyl and have her sign narcotic "lets get talking" as well as narcotic induced constipation protocol. Plan DC Dilaudid Increase Fentanyl Stop [place] and discard FIll Oxycodone Port PLacement, hopefully prior to discharge Biomarker testing on Pathology, likely treatment FOLFOX as soon as next week or radiation adrenal gland completion. Discussed with Primary team.
[2021-03-02] MEDS: ONDANSETRON 4 MG/2 ML VIAL IVP PRN ×3 (12:55→22:16)
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
--- NOTE | 2021-03-02 21:51 | P.PN ---
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 Also multiple bone metastasis and no evidence of brain metastasis. Also she underwent EGD by GI team and found to have gastric ulcer and biopsy still pending. CT of the brain on admission was negative. And pancreatic MRI shows diffuse hepatic metastasis with 2 small pancreatic lesions about 8 mm suspicious for cancer. Also multiple bone metastasis. She has also multiple pulmonary nodules. Oncology team following the case closely, primary site could be pancreas, pulmonary or GI pending biopsies results. Also patient had a colon radiotherapy. Today she feels much better however her pain is not controlled with oral medication. Oxycodone was started as well as fentanyl. No nausea vomiting or diarrhea or abdominal pain. Chest some constipation. She is eating about 25-75% of her meals. Dexamethasone was stopped, initially was initiated by for olafph per staff. Possible discharge in 24 hours 03/02/2021 Patient today feels a little tired. Her pain medication has been switched to oral OxyContin. Oncology team helping with her pain management. Patient has no other new complaints. Hemodynamically stable She remains on Protonix and Carafate Oncology team recommended placing a Port-A-Cath today however surgical team rec ommended outpatient procedure as she already scheduled 1 on 03/06 Patient feels tired today and she wants to go home tomorrow Possible discharge in 24 hours to 48 hours if she keeps improving Objective - Vital Signs Vital signs: Vital Signs Temp 98.7 F 03/02/21 19:20 Pulse 99 03/02/21 19:20 Resp 18 03/02/21 19:20 BP 109/69 03/02/21 19:20 Pulse Ox 95 03/02/21 19:20 Intake & Output 03/02/21 03/02/21 03/03/21 06:59 18:59 06:59 Weight 63.503 kg Other: # Voids 1 3 # Emeses 1 - Exam GENERAL: The patient is alert and oriented x3, not in any acute distress. Well developed, well nourished. HEENT: Pupils are round and equally reacting to light. EOMI. No scleral icterus. No conjunctival pallor. Normocephalic, atraumatic. No pharyngeal erythema. No thyromegaly. CARDIOVASCULAR: S1 and S2 present. No murmurs, rubs, or gallops. PULMONARY: Chest is clear to auscultation, no wheezing or crackles. ABDOMEN: Soft, nontender, nondistended, normoactive bowel sounds. No palpable organomegaly. MUSCULOSKELETAL: No joint swelling or deformity. EXTREMITIES: No cyanosis, clubbing, or pedal edema. NEUROLOGICAL: Gross neurological examination did not reveal any focal deficits. SKIN: No rashes. no petechiae. - Labs CBC & Chem 7: 02/27/21 05:10 02/27/21 05:10 Labs: Microbiology - Last 24 Hours (Table) 02/26/21 13:35 Blood Culture - Preliminary Blood No Growth after 96 hours Assessment and Plan Assessment: Cancer of unknown primary site could be pancreatic, pulmonary or GI. With multiple hepatic and bone metastases and increased CA 19-9 Gastric ulcer History of seizure disorder, not on antiseizure medication Plan: This is a pleasant 55 years old female who presents with and cancer of u nknown primary site. Patient has been followed closely by Dr. Preciado team. And radiation oncology as well as GI team. Continue with Protonix and Carafate Follow-up biopsy results for her stomach ulcer. Continue with pain management as per oncology team Port-A-Cath placement as an outpatient Labs and medication were reviewed.. Continue same treatment. Continue with symptomatic treatment. Resume home medication. Monitor lytes and vitals. DVT and GI prophylaxis. Further recommendationsas per clinical course of the patient DVT prophylaxis: Subcutaneous heparin GI Prophylaxis: Ppi Prognosis is guarded
[2021-03-03] MEDS: SUCRALFATE 1 GM TAB PO SCH ×4 (06:36→20:29)
[2021-03-03] MEDS: ONDANSETRON 4 MG/2 ML VIAL IVP PRN ×3 (07:58→16:47)
[2021-03-03] MEDS: HEPARIN SODIUM,PORCINE/PF 5,000 UNIT/0.5 ML SYRINGE SQ SCH ×2 (08:46→20:29)
[2021-03-03] MEDS: DORZOLAMIDE HCL 2% DROPS 10 ML BTL BOTH EYES SCH ×2 (08:46→21:30)
[2021-03-03] MEDS: PANTOPRAZOLE 40 MG TABLET PO SCH ×2 (08:46→20:29)
[2021-03-03] MEDS: DOCUSATE 100 MG CAP PO SCH ×3 (08:46→20:29)
[2021-03-03] MEDS: MAGNESIUM HYDROXIDE 2,400 MG/10 ML CUP PO PRN ×2 (08:54→16:46)
--- NOTE | 2021-03-03 12:00 | P.PN ---
Subjective Progress Note Date: 03/03/21 Principal diagnosis: Metastatic Cancer Patient was planning on discharge today although she has become much more weak since beginning radiation to adrenal gland. Port placement planned Saturday, discussed with surgery Objective - Vital Signs Vital signs: Vital Signs Temp 98.3 F 03/03/21 08:25 Pulse 101 H 03/03/21 08:25 Resp 16 03/03/21 08:25 BP 112/73 03/03/21 08:25 Pulse Ox 96 03/03/21 08:25 Intake & Output 03/02/21 03/03/21 03/03/21 18:59 06:59 18:59 Weight 63.503 kg Other: # Voids 3 1 1 # Emeses 1 - Exam - Constitutional General appearance: Present: cooperative, no acute distress - EENT Eyes: Present: normal appearance ENT: Present: normal oropharynx - Neck Neck: Present: normal ROM - Respiratory Respiratory: bilateral: CTA - Cardiovascular Rhythm: regular - Gastrointestinal General gastrointestinal: Present: normal bowel sounds - Integumentary Integumentary: Present: normal - Neurologic Neurologic: Present: CNII-XII intact - Psychiatric Psychiatric: Present: A&O x's 3, appropriate affect - Labs CBC & Chem 7: 02/27/21 05:10 02/27/21 05:10 Labs: Microbiology - Last 24 Hours (Table) 02/26/21 13:35 Blood Culture - Preliminary Blood No Growth after 96 hours Assessment and Plan Plan: Assessment and Plan Carcinoma of unknown primary The patient is status post multiple investigations so far to try to determine the primary. - Transvaginal ultrasound was negative, revealing ovarian cyst, and no other lesions at the vaginal apex. - Her tumor marker showed markedly elevated CA 19-9. - MRCP did not show any abnormality in the bili tract. However it did show at least 2 solid lesions in the pancreas which were 8 mm. Therefore pancreatic primary remains in the differential. - In addition given the CT chest findings, lung primary is also on other main differential. - The patient is status post EGD. This showed a 1 cm cratered ulcer in the stomach which was biopsied. If the biopsy is negative, then the upper GI can also be ruled out. - For additional workup, as an outpatient the patient will have a PET scan. We will also send her biopsy sample for cancer type ID Current Visit: Yes Status: Acute Code(s): C80.1 - MALIGNANT (PRIMARY) NEOPLASM, UNSPECIFIED SNOMED Code(s): 284806321 Vomiting -Resolved Current Visit: Yes Status: Acute Code(s): R11.10 - VOMITING, UNSPECIFIED SNOMED Code(s): 120174839 Neoplasm related pain The patient also reports marked improvement, since starting fentanyl. - Plan for palliative radiation to the left adrenal lesion as an outpatient - Continue fentanyl. Plan to discharge on the same, along with [place] (breakthrough, recently filled) when necessary as outpatient, for breakthrough - Increased bowel regimen for prevention of narcotic induced constipation Current Visit: Yes Status: Acute Code(s): G89.3 - NEOPLASM RELATED PAIN (ACUTE) (CHRONIC) SNOMED Code(s): 49818256484022 Will provide prescription for fentanyl and have her sign narcotic "lets get talking" as well as narcotic induced constipation protocol. Plan DC Dilaudid Increase Fentanyl Stop [place] and discard 61 per nursing FIll Oxycodone Port PLacement, hopefully prior to discharge - Saturday Biomarker testing on Pathology, likely treatment FOLFOX as soon as next week or radiation adrenal gland completion. Discussed with Primary team. and surgery PT/OT Physician Attest: I have completed the full history and physical and agree with above dictation, dictated as a scribe.
--- NOTE | 2021-03-03 13:29 | P.PN ---
Subjective Progress Note Date: 03/03/21 CHIEF COMPLAINT: Intractable nausea and vomiting after radiation treatment HISTORY OF PRESENT ILLNESS: This is a 55-year-old female with a known history of metastatic adenocarcinoma with an unknown known primary site. She was diagnosed in the beginning of December 2020. She's been undergoing radiation treatments. Patient is scheduled for Port-A-Cath placement on Saturday . Afebrile PHYSICAL EXAM: VITAL SIGNS: Reviewed. GENERAL: Well-developed in no acute distress. HEENT: No sclera icterus. Extraocular movements grossly intact. Moist buccal mucosa. Head is atraumatic, normocephalic. ABDOMEN: Soft. Nondistended. Nontender. NEUROLOGIC: Alert and oriented. Cranial nerves II through XII grossly intact. ASSESSMENT: 1. Metastatic adenocarcinoma with unknown primary PLAN: -Patient is scheduled for Port-A-Cath placement on 03/06/[address] Wild outpatient Physician [employer] Salesperson note has been reviewed by physician. Signing provider agrees with the documented findings, assessment, and plan of care. Objective - Vital Signs Vital signs: Vital Signs Temp 98.3 F 03/03/21 08:25 Pulse 101 H 03/03/21 08:25 Resp 16 03/03/21 08:25 BP 112/73 03/03/21 08:25 Pulse Ox 96 03/03/21 08:25 Intake & Output 03/02/21 03/03/21 03/03/21 18:59 06:59 18:59 Weight 63.503 kg Other: # Voids 3 1 1 # Emeses 1 - Labs CBC & Chem 7: 02/27/21 05:10 02/27/21 05:10 Labs: Microbiology - Last 24 Hours (Table) 02/26/21 13:35 Blood Culture - Preliminary Blood No Growth after 96 hours
--- NOTE | 2021-03-03 23:48 | P.PN ---
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 Also multiple bone metastasis and no evidence of brain metastasis. Also she underwent EGD by GI team and found to have gastric ulcer and biopsy still pending. CT of the brain on admission was negative. And pancreatic MRI shows diffuse hepatic metastasis with 2 small pancreatic lesions about 8 mm suspicious for cancer. Also multiple bone metastasis. She has also multiple pulmonary nodules. Oncology team following the case closely, primary site could be pancreas, pulmonary or GI pending biopsies results. Also patient had a colon radiotherapy. Today she feels much better however her pain is not controlled with oral medication. Oxycodone was started as well as fentanyl. No nausea vomiting or diarrhea or abdominal pain. Chest some constipation. She is eating about 25-75% of her meals. Dexamethasone was stopped, initially was initiated by for couph per staff. Possible discharge in 24 hours 03/02/2021 Patient today feels a little tired. Her pain medication has been switched to oral OxyContin. Oncology team helping with her pain management. Patient has no other new complaints. Hemodynamically stable She remains on Protonix and Carafate Oncology team recommended placing a Port-A-Cath today however surgical team rec ommended outpatient procedure as she already scheduled 1 on 03/06 Patient feels tired today and she wants to go home tomorrow Possible discharge in 24 hours to 48 hours if she keeps improving 03/03/2021 Patient in the morning was feeling better and she was agreeable to go home, she went for radiotherapy after that she felt extremely weak that she felt she cannot go home, she needed 2 people to help her up, her blood pressure was on the low side and slightly tachycardic, no recent echocardiogram, echocardiogram from 2018 showing normal ejection fraction around 55%. Creatinine normal 0.4 last time checked. We will start the patient on normal saline at 75 mL/h, check chest x-ray, urinalysis and labs in the morning. Stomach biopsy and distal esophagus biopsy, positive for invasive cancer (poorly differentiated invasive carcinoma ). Patient informed and she is aware from GI team already. I discussed the case with the social services specialist and oncology/hematology team, patient is GOING to be discharged soon because of her clinical condition and severe weakness and lack of insurance as well. Of note is the patient would go to rehab that may delay her chemo or r adiotherapy. Objective - Vital Signs Vital signs: Vital Signs Temp 98.7 F 03/03/21 20:10 Pulse 111 H 03/03/21 20:10 Resp 16 03/03/21 20:10 BP 94/56 03/03/21 20:10 Pulse Ox 96 03/03/21 20:10 Intake & Output 03/03/21 03/03/21 03/04/21 06:59 18:59 06:59 Other: Voiding Method Toilet # Voids 1 1 - Exam GENERAL: The patient is alert and oriented x3, not in any acute distress. Well developed, well nourished. HEENT: Pupils are round and equally reacting to light. EOMI. No scleral icterus. No conjunctival pallor. Normocephalic, atraumatic. No pharyngeal erythema. No thyromegaly. CARDIOVASCULAR: S1 and S2 present. No murmurs, rubs, or gallops. PULMONARY: Chest is clear to auscultation, no wheezing or crackles. ABDOMEN: Soft, nontender, nondistended, normoactive bowel sounds. No palpable organomegaly. MUSCULOSKELETAL: No joint swelling or deformity. EXTREMITIES: No cyanosis, clubbing, or pedal edema. NEUROLOGICAL: Gross neurological examination did not reveal any focal deficits. SKIN: No rashes. no petechiae. 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 Patient has been followed closely by Dr. Preciado team. And radiation oncology as well as GI team. Continue with Protonix and Carafate Follow-up labs, urinalysis and chest x-ray Continue with pain management as per oncology team Port-A-Cath placement as an outpatient Labs and medication were reviewed.. Continue same treatment. Continue with symptomatic treatment. Resume home medication. Monitor lytes and vitals. DVT and GI prophylaxis. Further recommendations as per clinical course of the patie nt DVT prophylaxis: Subcutaneous heparin GI Prophylaxis: Ppi Prognosis is guarded
[2021-03-03] MEDS: SODIUM CHLORIDE 0.9% 1,000 ML IV SCH (23:55)
[2021-03-04] MEDS: ONDANSETRON 4 MG/2 ML VIAL IVP PRN ×2 (00:12→06:56)
[2021-03-04 00:17] LABS: Amorphous Sediment,Urine Moderate /hpf; Appearance,Urine Cloudy (Clear); Bacteria,Urine Rare /hpf; Bilirubin,Urine Negative (Negative); Blood,Urine Negative (Negative); Color,Urine Yellow; Glucose,Urine (UA) Negative (Negative); Hyaline Casts,Urine 4 /lpf (0-2); Ketones,Urine 1+ (Negative); Leukocyte Esterase,Urine Negative (Negative); Mucus,Urine Few /hpf; Nitrite,Urine Negative (Negative); PH, Urine 7.5 (5.0-8.0); Protein,Urine Negative (Negative); RBC,Urine 1 /hpf (0-5); Specific Gravity,Urine 1.012 (1.001-1.035); Squamous Epithelial Cell,Urine 1 /hpf (0-4); Urobilinogen,Urine <2.0 mg/dL (<2.0); WBC,Urine 1 /hpf (0-5)
[2021-03-04 05:38] LABS: Basophils # (A) 0.1 k/uL (0-0.2); Basophils % (A) 1 %; Eosinophils % (A) 0 %; HCT 25.9 % (34.0-46.0); Lymphocytes # (A) 0.3 k/uL (1.0-4.8); Lymphocytes % (A) 4 %; MCH 34.7 pg (25.0-35.0); MCHC 34.5 g/dL (31.0-37.0); MCV 100.5 fL (80.0-100.0); Macrocytosis Slight; Monocytes # (A) 0.7 k/uL (0-1.0); Monocytes % (A) 9 %; Neutrophils # (A) 6.3 k/uL (1.3-7.7); Neutrophils % (A) 85 %; Platelet Count 228 k/uL (150-450); RBC 2.58 m/uL (3.80-5.40); RDW 15.6 % (11.5-15.5); WBC 7.4 k/uL (3.8-10.6)
[2021-03-04 05:56] LABS: ALT 27 U/L (4-34); AST 54 U/L (14-36); African American GFR (CKD) >90 (>60 ml/min/1.73 sqM); Albumin 2.7 g/dL (3.5-5.0); Alkaline Phosphatase 133 U/L (38-126); Anion Gap 2 mmol/L; Bilirubin,Unconjugated 0.7 mg/dL (0.0-1.1); Blood Urea Nitrogen 11 mg/dL (7-17); Calcium 8.9 mg/dL (8.4-10.2); Carbon Dioxide 31 mmol/L (22-30); Chloride 96 mmol/L (98-107); Glucose 105 mg/dL (74-99); Magnesium 2.5 mg/dL (1.6-2.3); Non-African American GFR(CKD) >90 (>60 ml/min/1.73 sqM); Potassium 3.9 mmol/L (3.5-5.1); Sodium 129 mmol/L (137-145); Total Bilirubin 0.7 mg/dL (0.2-1.3); Total Protein 5.5 g/dL (6.3-8.2)
[2021-03-04] MEDS: SUCRALFATE 1 GM TAB PO SCH ×4 (06:46→21:02)
--- NOTE | 2021-03-04 07:37 | XR ---
EXAMINATION TYPE: XR chest 1V DATE OF EXAM: 03/04/2021 CLINICAL HISTORY: Difficulty breathing and weakness progress study. TECHNIQUE: Single AP portable frontal view of the chest is obtained. COMPARISON: Chest x-ray from 9 days earlier FINDINGS: Mild chronic parenchymal changes without suspicious focal airspace opacity, pleural effusi on, or pneumothorax seen bilaterally. Cardiac silhouette size stable and within normal limits. Osseou s structures are intact. IMPRESSION: No acute process. No significant change from prior.
[2021-03-04] MEDS: HEPARIN SODIUM,PORCINE/PF 5,000 UNIT/0.5 ML SYRINGE SQ SCH ×2 (08:09→21:02)
[2021-03-04] MEDS: PANTOPRAZOLE 40 MG TABLET PO SCH ×2 (08:09→21:02)
[2021-03-04] MEDS: DORZOLAMIDE HCL 2% DROPS 10 ML BTL BOTH EYES SCH ×2 (08:09→21:02)
[2021-03-04] MEDS: DOCUSATE 100 MG CAP PO SCH ×2 (08:09→21:02)
--- NOTE | 2021-03-04 10:33 | P.PN ---
Subjective Progress Note Date: 03/04/21 CHIEF COMPLAINT: HISTORY OF PRESENT ILLNESS: The patient is a 55-year-old female with metastatic cancer. She reports presently undergoing radiation therapy for left adrenal cancer. Additionally she reports new cancer of the stomach and right lower abdomen. She reports constipation for 2 weeks at a time. She had multiple bowel movements last night into this morning. She complains of crampy pain of the epigastrium, left flank and right flank. She reports being weak and unable to walk. ROS: Has bowel movements. No fevers or chills. No new chest pain. No productive sputum PHYSICAL EXAM: VITAL SIGNS: Reviewed CONSTITUTIONAL: Well developed and in no acute distress. EYES: Conjuctivae without sclera icterus. Extraocular movements grossly intact. HEAD, EARS, NOSE, THROAT: Moist buccal mucosa. Head is atraumatic, normocephalic. Hears conversational speech. No nasal drainage. RESPIRATORY: Non-labored respirations and equal bilateral excursions. CARDIOVASCULAR: Palpable 2+ radial pulses. ABDOMEN: No peritonitis MUSCULOSKELETAL: No gross deformity of the lower extremities noted. No clubbing. No cyanosis. SKIN: Good skin turgor. Well perfused. NEUROLOGIC: Cranial nerves II through XII grossly intact. No focal or lateralizing signs. PSYCH: Appropriate affect. Alert and oriented to person, place and time. STUDIES: Reviewed. CT of the abdomen and pelvis reviewed from 02/23 without small bowel obstruction. Gallbladder hydropic. No free air. This is my independent interpretation. RADIOLOGY: CT of the abdomen/pelvis with bony lytic lesions of the pelvis CLINICAL LABS: Reviewed. Hgb 9.0. WBC normal ASSESSMENT: 1. Metastatic cancer, possible pancreatic source, unknown 2. Current radiation for adrenal cancer 3. Need for chemotherapy vascular access. PLAN: 1. Per oncology, port-a-cath requested 2. Patient reports difficulty walking, may benefit from physical therapy. Objective - Vital Signs Vital signs: Vital Signs Temp 97.9 F 03/04/21 08:00 Pulse 102 H 03/04/21 08:00 Resp 18 03/04/21 08:00 BP 92/54 03/04/21 08:00 Pulse Ox 97 03/04/21 08:00 Intake & Output 03/03/21 03/04/21 03/04/21 18:59 06:59 18:59 Intake Total 600 Output Total 400 Balance 200 Intake: Oral 600 Output: Urine 400 Other: Voiding Method Toilet # Voids 1 # Bowel Movements 1 - Labs CBC & Chem 7: 03/04/21 05:23 03/04/21 05:23 Labs: Abnormal Lab Results - Last 24 Hours (Table) 03/04/21 03/04/21 03/04/21 Range/Units 00:03 05:23 05:23 RBC 2.58 L (3.80-5.40) m/uL Hgb 9.0 L (11.4-16.0) gm/dL Hct 25.9 L (34.0-46.0) % MCV 100.5 H (80.0-100.0) fL RDW 15.6 H (11.5-15.5) % Lymphocytes # 0.3 L (1.0-4.8) k/uL Sodium 129 L (137-145) mmol/L Chloride 96 L (98-107) mmol/L Carbon Dioxide 31 H (22-30) mmol/L Glucose 105 H (74-99) mg/dL Magnesium 2.5 H (1.6-2.3) mg/dL AST 54 H (14-36) U/L Alkaline Phosphatase 133 H (38-126) U/L Total Protein 5.5 L (6.3-8.2) g/dL Albumin 2.7 L (3.5-5.0) g/dL Urine Appearance Cloudy H (Clear) Urine Ketones 1+ H (Negative) Amorphous Sediment Moderate H (None) /hpf Urine Bacteria Rare H (None) /hpf Hyaline Casts 4 H (0-2) /lpf Urine Mucus Few H (None) /hpf Microbiology - Last 24 Hours (Table) 02/26/21 13:35 Blood Culture - Preliminary Blood No Growth after 120 hours Assessment and Plan (1) Anemia Current Visit: Yes Status: Acute Code(s): D64.9 - ANEMIA, UNSPECIFIED SNOMED Code(s): 662897249 (2) Carcinoma of unknown primary Current Visit: Yes Status: Acute Code(s): C80.1 - MALIGNANT (PRIMARY) NEOPLASM, UNSPECIFIED SNOMED Code(s): 085811442 (3) Lesion of adrenal gland Current Visit: Yes Status: Acute Priority: High Code(s): E27.9 - DISORDER OF ADRENAL GLAND, UNSPECIFIED SNOMED Code(s): 29953364 (4) Metastasis to liver of unknown origin Current Visit: Yes Status: Acute Code(s): C78.7 - SECONDARY MALIG NEOPLASM OF LIVER AND INTRAHEPATIC BILE DUCT; C80.1 - MALIGNANT (PRIMARY) NEOPLASM, UNSPECIFIED SNOMED Code(s): 981191020 (5) Neoplasm related pain Current Visit: Yes Status: Acute Code(s): G89.3 - NEOPLASM RELATED PAIN (ACUTE) (CHRONIC) SNOMED Code(s): 39823497177751 (6) Abdominal pain Current Visit: No Status: Resolved Priority: High Code(s): R10.9 - UNSPECIFIED ABDOMINAL PAIN SNOMED Code(s): 78578437
[2021-03-04 11:36] LABS: T4, Free (Free Thyroxine) 2.21 ng/dL (0.78-2.19)
[2021-03-04] MEDS: SODIUM CHLORIDE 0.9% 1,000 ML IV SCH (14:47)
--- NOTE | 2021-03-04 23:15 | P.PN ---
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 Also multiple bone metastasis and no evidence of brain metastasis. Also she underwent EGD by GI team and found to have gastric ulcer and biopsy still pending. CT of the brain on admission was negative. And pancreatic MRI shows diffuse hepatic metastasis with 2 small pancreatic lesions about 8 mm suspicious for cancer. Also multiple bone metastasis. She has also multiple pulmonary nodules. Oncology team following the case closely, primary site could be pancreas, pulmonary or GI pending biopsies results. Also patient had a colon radiotherapy. Today she feels much better however her pain is not controlled with oral medication. Oxycodone was started as well as fentanyl. No nausea vomiting or diarrhea or abdominal pain. Chest some constipation. She is eating about 25-75% of her meals. Dexamethasone was stopped, initially was initiated by for couph per staff. Possible discharge in 24 hours 03/02/2021 Patient today feels a little tired. Her pain medication has been switched to oral OxyContin. Oncology team helping with her pain management. Patient has no other new complaints. Hemodynamically stable She remains on Protonix and Carafate Oncology team recommended placing a Port-A-Cath today however surgical team rec ommended outpatient procedure as she already scheduled 1 on 03/06 Patient feels tired today and she wants to go home tomorrow Possible discharge in 24 hours to 48 hours if she keeps improving 03/03/2021 Patient in the morning was feeling better and she was agreeable to go home, she went for radiotherapy after that she felt extremely weak that she felt she cannot go home, she needed 2 people to help her up, her blood pressure was on the low side and slightly tachycardic, no recent echocardiogram, echocardiogram from 2018 showing normal ejection fraction around 55%. Creatinine normal 0.4 last time checked. We will start the patient on normal saline at 75 mL/h, check chest x-ray, urinalysis and labs in the morning. Stomach biopsy and distal esophagus biopsy, positive for invasive cancer (poorly differentiated invasive carcinoma ). Patient informed and she is aware from GI team already. I discussed the case with the social work job titles and oncology/hematology team, patient is GOING to be discharged soon because of her clinical condition and severe weakness and lack of insurance as well. Of note is the patient would go to rehab that may delay her chemo or r adiotherapy. 03/04/2021 Patient awake, but she is in mild distress due to pain in her right hip area and pelvic area, she is a known case of bone metastasis secondary to her stomach and lower esophagus cancer. There is concern for pathological fractures therefore hip and pelvis x-ray is ordered Also patient blood pressure is on the low side however this is stable for more than 24 hours. Patient continued with normal saline at 75 mL/h Because of elevated pro-calcitonin 0.33 there was a concern for infection, there was possible low-grade fever per staff therefore we consulted infectious disease team. labs, urinalysis and chest x-ray were unremarkable to show signs of infection. Objective - Vital Signs Vital signs: Vital Signs Temp 99.3 F 03/04/21 14:00 Pulse 107 H 03/04/21 14:00 Resp 16 03/04/21 14:00 BP 90/53 03/04/21 14:00 Pulse Ox 95 03/04/21 14:00 Intake & Output 03/04/21 03/04/21 03/05/21 06:59 18:59 06:59 Intake Total 600 1530 Output Total 400 Balance 200 1530 Intake: Intake, IV Titration 750 Amount Sodium Chloride 0.9% 1, 750 000 ml @ 75 mls/hr IV . [id number] [facility] Rx#:[id number] Oral 600 780 Output: Urine 400 Other: Voiding Method Toilet # Voids 2 # Bowel Movements 1 - Exam GENERAL: The patient is alert and oriented x3, not in any acute distress. Well developed, well nourished. HEENT: Pupils are round and equally reacting to light. EOMI. No scleral icterus. No conjunctival pallor. Normocephalic, atraumatic. No pharyngeal erythema. No thyromegaly. CARDIOVASCULAR: S1 and S2 present. No murmurs, rubs, or gallops. PULMONARY: Chest is clear to auscultation, no wheezing or crackles. ABDOMEN: Soft, nontender, nondistended, normoactive bowel sounds. No palpable organomegaly. MUSCULOSKELETAL: No joint swelling or deformity. EXTREMITIES: No cyanosis, clubbing, or pedal edema. NEUROLOGICAL: Gross neurological examination did not reveal any focal deficits. SKIN: No rashes. no petechiae. - Labs CBC & Chem 7: 03/04/21 05:23 03/04/21 05:23 Labs: Abnormal Lab Results - Last 24 Hours (Table) 03/04/21 03/04/21 03/04/21 Range/Units 00:03 05:23 05:23 RBC 2.58 L (3.80-5.40) m/uL Hgb 9.0 L (11.4-16.0) gm/dL Hct 25.9 L (34.0-46.0) % MCV 100.5 H (80.0-100.0) fL RDW 15.6 H (11.5-15.5) % Lymphocytes # 0.3 L (1.0-4.8) k/uL Sodium (137-145) mmol/L Chloride (98-107) mmol/L Carbon Dioxide (22-30) mmol/L Glucose (74-99) mg/dL Magnesium (1.6-2.3) mg/dL AST (14-36) U/L Alkaline Phosphatase (38-126) U/L Total Protein (6.3-8.2) g/dL Albumin (3.5-5.0) g/dL Procalcitonin 0.33 H (0.02-0.09) ng/mL TSH (0.465-4.680) mIU/L Free T4 (0.78-2.19) ng/dL Urine Appearance Cloudy H (Clear) Urine Ketones 1+ H (Negative) Amorphous Sediment Moderate H (None) /hpf Urine Bacteria Rare H (None) /hpf Hyaline Casts 4 H (0-2) /lpf Urine Mucus Few H (None) /hpf 03/04/21 03/04/21 Range/Units 05:23 05:23 RBC (3.80-5.40) m/uL Hgb (11.4-16.0) gm/dL Hct (34.0-46.0) % MCV (80.0-100.0) fL RDW (11.5-15.5) % Lymphocytes # (1.0-4.8) k/uL Sodium 129 L (137-145) mmol/L Chloride 96 L (98-107) mmol/L Carbon Dioxide 31 H (22-30) mmol/L Glucose 105 H (74-99) mg/dL Magnesium 2.5 H (1.6-2.3) mg/dL AST 54 H (14-36) U/L Alkaline Phosphatase 133 H (38-126) U/L Total Protein 5.5 L (6.3-8.2) g/dL Albumin 2.7 L (3.5-5.0) g/dL Procalcitonin (0.02-0.09) ng/mL TSH 0.455 L (0.465-4.680) mIU/L Free T4 2.21 H (0.78-2.19) ng/dL Urine Appearance (Clear) Urine Ketones (Negative) Amorphous Sediment (None) /hpf Urine Bacteria (None) /hpf Hyaline Casts (0-2) /lpf Urine Mucus (None) /hpf Microbiology - Last 24 Hours (Table) 02/26/21 13:35 Blood Culture - Final Blood No Growth after 144 hours Assessment and Plan Assessment: 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 Patient has been followed closely by Dr. Preciado team. And radiation oncology as well as GI team. Consult infectious disease team to rule out sepsis and in view of I appropriatecalcitonin Continue with Protonix and Carafate Continue with pain management as per oncology team Port-A-Cath placement as an outpatient Labs and medication were reviewed.. Continue same treatment. Continue with symptomatic treatment. Resume home medication. Monitor lytes and vitals. DVT and GI prophylaxis. Further recommendations as per clinical course of the patient DVT prophylaxis: Subcutaneous heparin GI Prophylaxis: Ppi Prognosis is guarded
--- NOTE | 2021-03-04 23:29 | XR ---
EXAMINATION TYPE: XR Hip Bilateral and AP pelvis DATE OF EXAM: 03/04/2021 COMPARISON: 02/23/2021 HISTORY: Pain TECHNIQUE: 5 views FINDINGS: The pelvic ring is intact. Proximal femurs and hip joints are intact. There is no evidence of hip dysplasia. Hip joint spaces are fairly normal. There is no sign of avascular necrosis. Sacroil iac joints are intact. IMPRESSION: Negative pelvis and bilateral hip exam. No fracture.
[2021-03-05] MEDS: SODIUM CHLORIDE 0.9% 1,000 ML IV SCH ×2 (01:34→17:30)
[2021-03-05] MEDS: SUCRALFATE 1 GM TAB PO SCH ×4 (05:40→19:35)
[2021-03-05] MEDS: HEPARIN SODIUM,PORCINE/PF 5,000 UNIT/0.5 ML SYRINGE SQ SCH ×2 (08:06→19:35)
[2021-03-05] MEDS: PANTOPRAZOLE 40 MG TABLET PO SCH ×2 (08:06→19:35)
[2021-03-05] MEDS: DOCUSATE 100 MG CAP PO SCH ×2 (08:06→19:35)
[2021-03-05] MEDS: DORZOLAMIDE HCL 2% DROPS 10 ML BTL BOTH EYES SCH ×2 (08:06→19:36)
[2021-03-05] MEDS: ONDANSETRON 4 MG TAB PO PRN (12:40)
[2021-03-05 13:28] LABS: Basophils % (A) 1 %; Eosinophils % (A) 1 %; HCT 24.1 % (34.0-46.0); HGB 8.3 gm/dL (11.4-16.0); Lymphocytes # (A) 0.3 k/uL (1.0-4.8); Lymphocytes % (A) 5 %; MCH 34.6 pg (25.0-35.0); MCHC 34.4 g/dL (31.0-37.0); MCV 100.6 fL (80.0-100.0); Macrocytosis Slight; Mean Platelet Volume 8.1; Monocytes # (A) 0.5 k/uL (0-1.0); Monocytes % (A) 10 %; Neutrophils # (A) 4.2 k/uL (1.3-7.7); Neutrophils % (A) 82 %; Platelet Count 201 k/uL (150-450); Poikilocytosis Slight; RDW 15.5 % (11.5-15.5); WBC 5.2 k/uL (3.8-10.6)
[2021-03-05 13:40] LABS: ALT 23 U/L (4-34); AST 40 U/L (14-36); African American GFR (CKD) >90 (>60 ml/min/1.73 sqM); Albumin 2.7 g/dL (3.5-5.0); Alkaline Phosphatase 158 U/L (38-126); Anion Gap 1 mmol/L; Blood Urea Nitrogen 7 mg/dL (7-17); Calcium 8.9 mg/dL (8.4-10.2); Carbon Dioxide 31 mmol/L (22-30); Chloride 94 mmol/L (98-107); Glucose 102 mg/dL (74-99); Non-African American GFR(CKD) >90 (>60 ml/min/1.73 sqM); Potassium 4.2 mmol/L (3.5-5.1); Sodium 126 mmol/L (137-145); Total Bilirubin 0.7 mg/dL (0.2-1.3); Total Protein 5.7 g/dL (6.3-8.2)
--- NOTE | 2021-03-05 14:06 | P.PN ---
Subjective Progress Note Date: 03/05/21 CHIEF COMPLAINT: Metastatic cancer HISTORY OF PRESENT ILLNESS: The patient is a 55-year-old female with metastatic cancer. She reports persistent moderate to severe right upper to lower quadrant abdominal pain. Left sided pain is resolved. She is tolerating regular diet with a fruit platter. ROS: Has bowel movements. No fevers or chills. No new chest pain. No productive sputum PHYSICAL EXAM: VITAL SIGNS: Reviewed CONSTITUTIONAL: Well developed and in no acute distress. EYES: Conjuctivae without sclera icterus. Extraocular movements grossly intact. HEAD, EARS, NOSE, THROAT: Moist buccal mucosa. Head is atraumatic, normocephalic. Hears conversational speech. No nasal drainage. RESPIRATORY: Non-labored respirations and equal bilateral excursions. CARDIOVASCULAR: Palpable 2+ radial pulses. ABDOMEN: No peritonitis MUSCULOSKELETAL: No gross deformity of the lower extremities noted. No clubbing. No cyanosis. SKIN: Good skin turgor. Well perfused. NEUROLOGIC: Cranial nerves II through XII grossly intact. No focal or lateralizing signs. PSYCH: Appropriate affect. Alert and oriented to person, place and time. CLINICAL LABS: Reviewed. Hgb 9.0 now down to 8.1 with anemia of chronic disease ASSESSMENT: 1. Metastatic cancer, possible pancreatic source, unknown 2. Current radiation for adrenal cancer 3. Need for chemotherapy vascular access. 4. Anemia of chronic disease PLAN: 1. Patient has metastatic cancer with ongoing recent radiation therapy for which she is elevated risk for complications in proceeding with Port-A-Cath 2. NPO after midnight. Objective - Vital Signs Vital signs: Vital Signs Temp 98.6 F 03/05/21 07:40 Pulse 90 03/05/21 07:40 Resp 18 03/05/21 07:40 BP 95/60 03/05/21 07:40 Pulse Ox 95 03/05/21 07:40 Intake & Output 03/04/21 03/05/21 03/05/21 18:59 06:59 18:59 Intake Total 1530 600 Balance 1530 600 Intake: Intake, IV Titration 750 600 Amount Sodium Chloride 0.9% 1, 750 600 000 ml @ 75 mls/hr IV . [id number] [facility] Rx#:[id number] Oral 780 Other: Voiding Method Toilet Bedside Commode # Voids 2 3 - Labs CBC & Chem 7: 03/05/21 13:11 03/05/21 13:11 Labs: Abnormal Lab Results - Last 24 Hours (Table) 03/05/21 03/05/21 Range/Units 13:11 13:11 RBC 2.40 L (3.80-5.40) m/uL Hgb 8.3 L (11.4-16.0) gm/dL Hct 24.1 L (34.0-46.0) % MCV 100.6 H (80.0-100.0) fL Lymphocytes # 0.3 L (1.0-4.8) k/uL Sodium 126 L (137-145) mmol/L Chloride 94 L (98-107) mmol/L Carbon Dioxide 31 H (22-30) mmol/L Glucose 102 H (74-99) mg/dL AST 40 H (14-36) U/L Alkaline Phosphatase 158 H (38-126) U/L Total Protein 5.7 L (6.3-8.2) g/dL Albumin 2.7 L (3.5-5.0) g/dL Microbiology - Last 24 Hours (Table) 02/26/21 13:35 Blood Culture - Final Blood No Growth after 144 hours Assessment and Plan (1) Anemia Current Visit: Yes Status: Acute Code(s): D64.9 - ANEMIA, UNSPECIFIED SNOMED Code(s): 132672948 (2) Carcinoma of unknown primary Current Visit: Yes Status: Acute Code(s): C80.1 - MALIGNANT (PRIMARY) NEOPLASM, UNSPECIFIED SNOMED Code(s): 770622512 (3) Lesion of adrenal gland Current Visit: Yes Status: Acute Priority: High Code(s): E27.9 - DISORDER OF ADRENAL GLAND, UNSPECIFIED SNOMED Code(s): 02882475 (4) Metastasis to liver of unknown origin Current Visit: Yes Status: Acute Code(s): C78.7 - SECONDARY MALIG NEOPLASM OF LIVER AND INTRAHEPATIC BILE DUCT; C80.1 - MALIGNANT (PRIMARY) NEOPLASM, UNSPECIFIED SNOMED Code(s): 764068037 (5) Neoplasm related pain Current Visit: Yes Status: Acute Code(s): G89.3 - NEOPLASM RELATED PAIN (ACUTE) (CHRONIC) SNOMED Code(s): 34111275065199 (6) Abdominal pain Current Visit: No Status: Resolved Priority: High Code(s): R10.9 - UNSPECIFIED ABDOMINAL PAIN SNOMED Code(s): 47583890 (7) Right upper quadrant abdominal pain Current Visit: Yes Status: Acute Code(s): R10.11 - RIGHT UPPER QUADRANT PAIN SNOMED Code(s): 608492971 (8) Right lower quadrant abdominal pain Current Visit: Yes Status: Acute Code(s): R10.31 - RIGHT LOWER QUADRANT PAIN SNOMED Code(s): 657902607
[2021-03-05] MEDS: ALPRAZolam 0.25 MG TAB PO PRN (19:35)
--- NOTE | 2021-03-05 21:55 | CONS ---
CONSULTATION DATE OF SERVICE: 03/05/2021 REASON FOR CONSULTATION: Possible sepsis. HISTORY OF PRESENT ILLNESS: The patient is a 55-year-old female with recent diagnosis of metastatic adenocarcinoma in this patient who has been recently started on radiation therapy. The patient presented to the [facility] 10 days ago for evaluation of nausea and vomiting and also complaining of unable to hold anything down. The patient has been taking some Zofran at home. Apparently it was not helping her. The patient also complaining of did not have any bowel movement for a few days before presentation to the hospital. With these symptoms, the patient was evaluated by the ER physician. This patient did not have any fever the last 10 days. The patient did have a normal white count. The patient did have a CT of abdomen and pelvis completed which shows increase in burden of the metastatic disease with decrease in size of the tumor to the left multiple liver mets and multiple lytic lesions to the spinal column. The patient did have a pelvic transvaginal ultrasound that was negative. Did shows an ovarian cyst. The patient did have an EGD with multiple biopsies from the esophagus and the stomach coming back positive with poorly differentiated invasive carcinoma. I was asked to see the patient last evening with concern for possible sepsis in this patient who did not have any fever for the last 10 days, no tachycardia, no hypoxemia, normal white count. The patient did have elevated CA99 and CA125 antigens. She did have a UA that was negative. Blood culture on the was negative. Blood culture from so far negative. On today's evaluation, the patient has been complaining mostly of pain to the right hip area. The pain has been getting worse for the last few days. The patient has significant pain on movement of the right hip with intensity almost 10 out of 10. The patient currently has some nausea but no vomiting and apparently did have a bowel movements. Abdominal pain is not as worse compared to when she presented to the hospital. The patient denies having any chest pain. No shortness of breath or cough. No burning or frequency of urine. No evidence of any joint swelling or lower extremity swelling. REVIEW OF SYSTEMS: Positive points have been mentioned in HPI. Rest of systems are negative. PAST MEDICAL HISTORY: Seizure disorder and recent diagnosis of metastatic adenocarcinoma with history of cervical cancer, breast cancer. PAST SURGICAL HISTORY: Appendectomy, hysterectomy, right knee arthroscopic procedure. SOCIAL HISTORY: Denies smoking, did admit to marijuana use. FAMILY HISTORY: Father with history of hypertension. ALLERGIES: To CEPHALEXIN, IODINATED CONTRAST, ASPIRIN. MEDICATIONS: The patient is currently on: Tylenol, Xanax, Colace, Duragesic patch, heparin, milk of magnesia, Narcan, Zofran, Protonix, Senokot, Carafate, Restoril. PHYSICAL EXAMINATION: Blood pressure is 112/72 with a pulse of 93, temperature 97.9. She is 97% on room air. General description is a middle-aged female lying in bed in no distress. No tachypnea or accessory muscles of respiration use. HEENT examination is slight pallor. No scleral icterus. Oral mucous membranes dry. NECK: Trachea central. No thyromegaly. LUNGS: Unlabored breathing. Clear to auscultation with no wheeze or crackles. HEART: S1, S2. Regular rate and rhythm. ABDOMEN: Soft, no tenderness. No guarding. No rigidity. EXTREMITIES: No edema of the feet. SKIN: No rash or mass palpable. NEUROLOGICAL: Patient is awake, alert, oriented x3. Mood and affect normal. LABS: BUN of 6, creatinine 0.42. Liver enzymes are normal. Urine was negative. Merrill PCR was negative. Hemoglobin 8.8, white count of 5.2. Blood and urine culture has been negative so far. Chest x-ray negative for any acute infiltrate. CT on admission shows increasing the tumor border to the liver and the spine. DIAGNOSTIC IMPRESSION AND PLAN: Patient admitted to the hospital with nausea, vomiting and unable to keep anything down. Did have constipation in this patient with recent diagnosis of a metastatic adenocarcinoma source possibly stomach as there was evidence of on the EGD and biopsy of the stomach. The patient did not have any fever the last 10 days. Did not have any elevated white count. Urine is negative. Chest x-ray negative. CT of abdomen and pelvis did not show any evidence of any abscess with no evidence of any cellulitis or joint swelling. There is no clinical features of sepsis and no obvious source of sepsis either clinically. PLAN: 1. No need for systemic antibiotic therapy as we do not have any focus of infection after extensive investigation and examination. 2. Management of the underlying malignancy as per the Oncology team. 3. Infectious Disease service will sign off. Please call back with any questions regarding infectious disease care. MMODL / IJN: [id number] /
[2021-03-05] MEDS ORDERED: predniSONE 50 MG TAB PO STA (22:30)
[2021-03-05] MEDS ORDERED: PANTOPRAZOLE 40 MG/10 ML VIAL IVP ONE (22:54)
--- NOTE | 2021-03-05 23:02 | P.PN ---
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 Also multiple bone metastasis and no evidence of brain metastasis. Also she underwent EGD by GI team and found to have gastric ulcer and biopsy still pending. CT of the brain on admission was negative. And pancreatic MRI shows diffuse hepatic metastasis with 2 small pancreatic lesions about 8 mm suspicious for cancer. Also multiple bone metastasis. She has also multiple pulmonary nodules. Oncology team following the case closely, primary site could be pancreas, pulmonary or GI pending biopsies results. Also patient had a colon radiotherapy. Today she feels much better however her pain is not controlled with oral medication. Oxycodone was started as well as fentanyl. No nausea vomiting or diarrhea or abdominal pain. Chest some constipation. She is eating about 25-75% of her meals. Dexamethasone was stopped, initially was initiated by for couph per staff. Possible discharge in 24 hours 03/02/2021 Patient today feels a little tired. Her pain medication has been switched to oral OxyContin. Oncology team helping with her pain management. Patient has no other new complaints. Hemodynamically stable She remains on Protonix and Carafate Oncology team recommended placing a Port-A-Cath today however surgical team rec ommended outpatient procedure as she already scheduled 1 on 03/06 Patient feels tired today and she wants to go home tomorrow Possible discharge in 24 hours to 48 hours if she keeps improving 03/03/2021 Patient in the morning was feeling better and she was agreeable to go home, she went for radiotherapy after that she felt extremely weak that she felt she cannot go home, she needed 2 people to help her up, her blood pressure was on the low side and slightly tachycardic, no recent echocardiogram, echocardiogram from 2018 showing normal ejection fraction around 55%. Creatinine normal 0.4 last time checked. We will start the patient on normal saline at 75 mL/h, check chest x-ray, urinalysis and labs in the morning. Stomach biopsy and distal esophagus biopsy, positive for invasive cancer (poorly differentiated invasive carcinoma ). Patient informed and she is aware from GI team already. I discussed the case with the criminal justice social worker and oncology/hematology team, patient is GOING to be discharged soon because of her clinical condition and severe weakness and lack of insurance as well. Of note is the patient would go to rehab that may delay her chemo or r adiotherapy. 03/04/2021 Patient awake, but she is in mild distress due to pain in her right hip area and pelvic area, she is a known case of bone metastasis secondary to her stomach and lower esophagus cancer. There is concern for pathological fractures therefore hip and pelvis x-ray is ordered Also patient blood pressure is on the low side however this is stable for more than 24 hours. Patient continued with normal saline at 75 mL/h Because of elevated pro-calcitonin 0.33 there was a concern for infection, there was possible low-grade fever per staff therefore we consulted infectious disease team. labs, urinalysis and chest x-ray were unremarkable to show signs of infection. 03/05/2021 Patient still complaining of from pain in both hip areas especially in the right hip, pain subsided with rest and increased with embedded movements. Little nausea controlled with Zofran. As per staff last night patient had low-grade fever. Patient also with mildly elevated pro-calcitonin and hypertension. Infectious disease consult is appreciated, patient no need for antibiotic. Prednisone then can be given with chest risk of infection. Pelvic x-ray showing high-risk metastatic lesions, repeat x-ray: no pathological fracture. Patient is still complaining of from severe pain , prednisone is given to help in pain, increase appetite, increased blood pressure She still on normal saline at 75 mL/h, blood pressure is still low normal bouts stable around 90s to 100. Patient sitting most of the time and date. Sodium is trending down to 129 down to 126. Fluid restrictions is ordered, workup showed increased urine osmolality and low serum osmolality. 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 Patient also with multiple small cutaneous nodules like of the right thigh, shoulder. Suspicious for cutaneous metastatic disease as well Patient sodium is trending downward 29 down to 126. She remains on Protonix and Carafate. Pain management per hematology/oncology team. Currently she is on fentanyl at [facility]. NB. Encounter including examination done in the presence of the bedside nurse review of system: As above Active Medications Generic Name Dose Route Start Last Admin Trade Name Freq PRN Reason Stop Dose Admin Acetaminophen 500 mg 02/23/21 18:10 Acetaminophen Tab 500 Mg Tab PO Q6HR PRN Fever and/ or Pain Alprazolam 0.25 mg 02/23/21 18:10 03/05/21 19:35 Alprazolam 0.25 Mg Tab PO 0.25 mg TID PRN Administration Anxiety Docusate Sodium 100 mg 02/24/21 21:00 03/05/21 19:35 Docusate 100 Mg Cap PO 100 mg BID DREA Administration Dorzolamide HCl 1 drops 02/23/21 21:00 03/05/21 19:36 Dorzolamide Hcl 2% Drops 10 Ml Btl BOTH EYES 1 drops BID DREA Administration Fentanyl 1 patch 03/01/21 16:00 03/04/21 16:07 Fentanyl 50mcg/Hr Patch TRANSDERM 1 patch Q72H DREA Administration Protocol Heparin Sodium (Porcine) 5,000 unit 02/23/21 21:00 03/05/21 19:35 Heparin Sodium,Porcine/Pf 5,000 Unit/0.5 Ml Syringe SQ 5,000 unit Q12HR DREA Administration Sodium Chloride 1,000 mls @ 75 mls/hr 03/03/21 23:45 03/05/21 17:30 Saline 0.9% IV 75 mls/hr .[id number] DREA Administration Magnesium Hydroxide 1,200 mg 02/24/21 17:34 03/03/21 16:46 Magnesium Hydroxide 2,400 Mg/10 Ml Cup PO 1,200 mg QID PRN Administration Constipation Miscellaneous Information 1 each 02/25/21 20:50 Magnesium Replacement Protocol 1 Each Misc MISCELLANE DAILY PRN Per Protocol Protocol Miscellaneous Information 1 each 02/25/21 20:50 Potassium Replacement Protocol 1 Each Misc MISCELLANE DAILY PRN Per Protocol Protocol Naloxone HCl 0.2 mg 02/23/21 15:03 Naloxone 0.4 Mg/Ml 1 Ml Vial IV Q2M PRN Opioid Reversal Ondansetron HCl 4 mg 03/05/21 11:03 03/05/21 12:40 Ondansetron 4 Mg Tab PO 4 mg Q8HR PRN Administration Nausea And Vomiting Oxycodone HCl 10 mg 03/01/21 14:49 03/05/21 21:25 Oxycodone Hcl 5 Mg Tab PO 10 mg Q4H PRN Administration Pain Pantoprazole Sodium 40 mg 02/27/21 21:00 03/05/21 19:35 Pantoprazole 40 Mg Tablet PO 40 mg BID DREA Administration Pantoprazole Sodium 40 mg 03/05/21 22:54 Pantoprazole 40 Mg/10 Ml Vial IVP 03/05/21 22:55 ONCE ONE Senna/Docusate Sodium 2 each 02/28/21 11:39 Sennosides-Docusate Sodium 1 Each Tab PO HS PRN Constipation Sucralfate 1 gm 02/27/21 17:30 03/05/21 19:35 Sucralfate 1 Gm Tab PO 1 gm ACHS DREA Administration Temazepam 15 mg 02/23/21 18:10 Temazepam 15 Mg Cap PO HS PRN Insomnia Objective - Vital Signs Vital signs: Vital Signs Temp 97.9 F 03/05/21 14:15 Pulse 93 03/05/21 14:15 Resp 16 03/05/21 14:15 BP 112/72 03/05/21 14:15 Pulse Ox 97 03/05/21 14:15 Intake & Output 03/04/21 03/05/21 03/05/21 18:59 06:59 18:59 Intake Total 1530 600 Balance 1530 600 Intake: Intake, IV Titration 750 600 Amount Sodium Chloride 0.9% 1, 750 600 000 ml @ 75 mls/hr IV . [id number] DREA Rx#:[id number] Oral 780 Other: Voiding Method Toilet Bedside Commode # Voids 2 3 1 - Exam GENERAL: The patient is alert and oriented x3, not in any acute distress. Well developed, well nourished. HEENT: Pupils are round and equally reacting to light. EOMI. No scleral icterus. No conjunctival pallor. Normocephalic, atraumatic. No pharyngeal erythema. No thyromegaly. CARDIOVASCULAR: S1 and S2 present. No murmurs, rubs, or gallops. PULMONARY: Chest is clear to auscultation, no wheezing or crackles. ABDOMEN: Soft, nontender, nondistended, normoactive bowel sounds. No palpable organomegaly. MUSCULOSKELETAL: No joint swelling or deformity. EXTREMITIES: No cyanosis, clubbing, or pedal edema. NEUROLOGICAL: Gross neurological examination did not reveal any focal deficits. SKIN: No rashes. no petechiae. - Labs CBC & Chem 7: 03/05/21 13:11 03/05/21 13:11 Labs: Abnormal Lab Results - Last 24 Hours (Table) 03/05/21 03/05/21 Range/Units 13:11 13:11 RBC 2.40 L (3.80-5.40) m/uL Hgb 8.3 L (11.4-16.0) gm/dL Hct 24.1 L (34.0-46.0) % MCV 100.6 H (80.0-100.0) fL Lymphocytes # 0.3 L (1.0-4.8) k/uL Sodium 126 L (137-145) mmol/L Chloride 94 L (98-107) mmol/L Carbon Dioxide 31 H (22-30) mmol/L Glucose 102 H (74-99) mg/dL AST 40 H (14-36) U/L Alkaline Phosphatase 158 H (38-126) U/L Total Protein 5.7 L (6.3-8.2) g/dL Albumin 2.7 L (3.5-5.0) g/dL Microbiology - Last 24 Hours (Table) 03/04/21 12:20 Blood Culture - Preliminary Blood No Growth after 24 hours 02/26/21 13:35 Blood Culture - Final Blood No Growth after 144 hours Assessment and Plan Assessment: 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 Patient has been followed closely by Dr. Preciado team. And radiation oncology as well as GI team. Consult infectious disease team to rule out sepsis and in view of I appropriatecalcitonin Continue with Protonix and Carafate Continue with pain management as per oncology team, Patient does not want to take Tylenol for her metastatic liver disease. Other opioids and pain medications are risky for worsening hypotension Port-A-Cath placement as per surgery team Labs and medication were reviewed.. Continue same treatment. Continue with symptomatic treatment. Resume home medication. Monitor lytes and vitals. DVT and GI prophylaxis. Further recommendations as per clinical course of the patient DVT prophylaxis: Subcutaneous heparin GI Prophylaxis: Ppi Prognosis is guarded Prognosis is extremely poor with for this poorly differentiated invasive cancer with multiple metastasis including the liver, bone and skin and adrenal gland. If This patient condition worsens she might be more appropriate for palliative care. And CODE STATUS to be discussed with patient and family
[2021-03-06] MEDS: SODIUM CHLORIDE 0.9% 1,000 ML IV SCH ×2 (02:19→11:24)
[2021-03-06 07:16] LABS: Basophils % (A) 0 %; Eosinophils % (A) 0 %; HCT 26.4 % (34.0-46.0); HGB 8.8 gm/dL (11.4-16.0); Hypochromasia Slight; Lymphocytes # (A) 0.1 k/uL (1.0-4.8); Lymphocytes % (A) 2 %; MCH 34.5 pg (25.0-35.0); MCHC 33.3 g/dL (31.0-37.0); MCV 103.5 fL (80.0-100.0); Macrocytosis Moderate; Mean Platelet Volume 7.7; Monocytes # (A) 0.2 k/uL (0-1.0); Monocytes % (A) 3 %; Neutrophils # (A) 4.8 k/uL (1.3-7.7); Neutrophils % (A) 94 %; Platelet Count 205 k/uL (150-450); Poikilocytosis Slight; RBC 2.55 m/uL (3.80-5.40); RDW 15.4 % (11.5-15.5); WBC 5.1 k/uL (3.8-10.6)
[2021-03-06 07:35] LABS: ALT 24 U/L (4-34); AST 35 U/L (14-36); African American GFR (CKD) >90 (>60 ml/min/1.73 sqM); Alkaline Phosphatase 209 U/L (38-126); Anion Gap 4 mmol/L; Blood Urea Nitrogen 5 mg/dL (7-17); Calcium 9.7 mg/dL (8.4-10.2); Carbon Dioxide 26 mmol/L (22-30); Chloride 102 mmol/L (98-107); Glucose 154 mg/dL (74-99); Non-African American GFR(CKD) >90 (>60 ml/min/1.73 sqM); Sodium 132 mmol/L (137-145); Total Bilirubin 0.6 mg/dL (0.2-1.3); Total Protein 6.2 g/dL (6.3-8.2)
[2021-03-06] MEDS: SUCRALFATE 1 GM TAB PO SCH ×4 (08:12→21:17)
[2021-03-06] MEDS ORDERED: IV FLUID CONTINUATION 1,000 ML IV ONE (08:45)
[2021-03-06] MEDS ORDERED: ONDANSETRON 4 MG/2 ML VIAL ONE (08:55)
[2021-03-06] MEDS ORDERED: fentaNYL (PF) 50 MCG/ML 2 ML AMP IVP ONE ×2 (08:59→09:54)
[2021-03-06] MEDS ORDERED: DEXAMETHASONE SOD PHOSPHATE 4 MG/ML 1 ML VIAL IVP ONE (09:06)
[2021-03-06] MEDS ORDERED: ONDANSETRON 4 MG/2 ML VIAL IVP ONE (09:07)
[2021-03-06] MEDS: HEPARIN SODIUM,PORCINE/PF 5,000 UNIT/0.5 ML SYRINGE SQ SCH ×2 (09:22→21:17)
[2021-03-06] MEDS ORDERED: MIDAZOLAM 2 MG/2 ML VIAL ONE (10:20)
[2021-03-06] MEDS ORDERED: diphenhydrAMINE 50 MG/ML 1 ML VIAL ONE (10:20)
[2021-03-06] MEDS ORDERED: PROPOFOL 10 MG/ML 20 ML VIAL IV ONE (10:20)
[2021-03-06] MEDS ORDERED: fentaNYL (PF) 50 MCG/ML 2 ML AMP ONE (10:20)
[2021-03-06] MEDS ORDERED: SODIUM CHLORIDE 0.9% 100 ML with CLINDAMYCIN 600 MG IV ONE ×2 (10:45)
[2021-03-06] MEDS ORDERED: BUPIVACAINE (PF) 0.25% 30 ML VIAL SQ ONE (11:02)
--- NOTE | 2021-03-06 11:09 | P.OP ---
Date of Procedure: 03/06/21 Preoperative Diagnosis: Metastatic adenocarcinoma Postoperative Diagnosis: Metastatic adenocarcinoma Procedure(s) Performed: Insertion of right subclavian Port-A-Cath Anesthesia: MAC Surgeon: Crow Wild Estimated Blood Loss (ml): 5 Pathology: none sent Condition: stable Disposition: PACU Description of Procedure: MPROCEDURE: The patient was placed on the operating table in the supine position. She received MAC anesthetic. The [right] chest was prepped and draped in the usual sterile fashion. The skin underneath the right clavicle was anesthetized with 1% Xylocaine and using Seldinger technique, the right subclavian vein was cannulized. The wire was placed through the needle and positioned under fluoroscopy. Next, the needle was removed and the port site was anesthetized with 1% Xylocaine. Skin was incised with #15 blade and port pocket was made using blunt and sharp dissection. Following this the catheter was attached to the sport and the port was flushed. The port was positioned into the pocket site and was secured with 3-0 Vicryl suture. The catheter was then brought out through the wire site and then the dilator sheath was placed over the wire and the dilator and the wire were removed. The catheter was placed through the sheath and the sheath was removed. The port was flushed with hep-lock solution. Skin was closed with interrupted 3-0 Vicryl sutures. Steri-Strips were applied. The patient tolerated the procedure well. The patient was sent to recovery room for chest x-ray after the procedure.
--- NOTE | 2021-03-06 11:31 | XR ---
EXAMINATION TYPE: XR chest 1V portable DATE OF EXAM: 03/06/2021 CLINICAL HISTORY: Port-A-Cath insertion. TECHNIQUE: Single AP portable upright view of the chest is obtained. COMPARISON: Chest x-ray from 2 days earlier FINDINGS: New right-sided Subclavian Mediport catheter terminates in SVC. Background chronic emphyse matous and pulmonary fibrotic change without suspicious focal airspace opacity, pleural effusion, or pneumothorax seen bilaterally. Cardiac silhouette size stable and within normal limits . Osseous stru ctures remain demineralized. IMPRESSION: As above.
[2021-03-06] MEDS: DOCUSATE 100 MG CAP PO SCH ×2 (11:51→21:16)
[2021-03-06] MEDS: PANTOPRAZOLE 40 MG TABLET PO SCH ×2 (11:52→21:16)
[2021-03-06] MEDS: DORZOLAMIDE HCL 2% DROPS 10 ML BTL BOTH EYES SCH ×2 (12:16→21:16)
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
--- NOTE | 2021-03-06 13:58 | P.PN ---
Subjective Progress Note Date: 03/06/21 Principal diagnosis: Metastatic Cancer Mediport today, remains significantly weak Objective - Vital Signs Vital signs: Vital Signs Temp 97.5 F L 03/06/21 12:06 Pulse 85 03/06/21 12:36 Resp 16 03/06/21 12:36 BP 103/67 03/06/21 12:36 Pulse Ox 99 03/06/21 12:36 Intake & Output 03/05/21 03/06/21 03/06/21 18:59 06:59 18:59 Intake Total 6772 429 0661 Output Total 2 Balance 1668 829 1088 Intake: IV 1004 Intake, IV Titration 750 900 Amount Sodium Chloride 0.9% 1, 750 900 000 ml @ 75 mls/hr IV . [id number] [facility] Rx#:[id number] Oral 750 Output: Estimated Blood Loss 2 Other: Voiding Method Toilet Bedside Commode Bedside Commode # Voids 1 2 1 - Exam - Constitutional General appearance: Present: cooperative, no acute distress - EENT Eyes: Present: normal appearance ENT: Present: normal oropharynx - Neck Neck: Present: normal ROM - Respiratory Respiratory: bilateral: CTA - Cardiovascular Rhythm: regular - Gastrointestinal General gastrointestinal: Present: normal bowel sounds - Integumentary Integumentary: Present: normal - Neurologic Neurologic: Present: CNII-XII intact - Psychiatric Psychiatric: Present: A&O x's 3, appropriate affect - Labs CBC & Chem 7: 03/06/21 06:54 03/07/21 07:15 Labs: Abnormal Lab Results - Last 24 Hours (Table) 03/05/21 03/06/21 03/06/21 Range/Units 13:11 06:54 06:54 RBC 2.55 L (3.80-5.40) m/uL Hgb 8.8 L (11.4-16.0) gm/dL Hct 26.4 L (34.0-46.0) % MCV 103.5 H (80.0-100.0) fL Lymphocytes # 0.1 L (1.0-4.8) k/uL Sodium 132 L (137-145) mmol/L BUN 5 L (7-17) mg/dL Glucose 154 H (74-99) mg/dL Osmolality 268 L (280-301) mosm/kg Alkaline Phosphatase 209 H (38-126) U/L Total Protein 6.2 L (6.3-8.2) g/dL Albumin 3.0 L (3.5-5.0) g/dL Microbiology - Last 24 Hours (Table) 03/04/21 12:20 Blood Culture - Preliminary Blood No Growth after 24 hours Assessment and Plan Plan: Assessment and Plan Carcinoma of unknown primary The patient is status post multiple investigations so far to try to determine the primary. - Transvaginal ultrasound was negative, revealing ovarian cyst, and no other lesions at the vaginal apex. - Her tumor marker showed markedly elevated CA 19-9. - MRCP did not show any abnormality in the bili tract. However it did show at least 2 solid lesions in the pancreas which were 8 mm. Therefore pancreatic primary remains in the differential. - In addition given the CT chest findings, lung primary is also on other main differential. - The patient is status post EGD. This showed a 1 cm cratered ulcer in the stomach which was biopsied. If the biopsy is negative, then the upper GI can also be ruled out. - For additional workup, as an outpatient the patient will have a PET scan. We will also send her biopsy sample for cancer type ID Current Visit: Yes Status: Acute Code(s): C80.1 - MALIGNANT (PRIMARY) NEOPLASM, UNSPECIFIED SNOMED Code(s): 760298601 Vomiting -Resolved Current Visit: Yes Status: Acute Code(s): R11.10 - VOMITING, UNSPECIFIED SNOMED Code(s): 927877820 Neoplasm related pain The patient also reports marked improvement, since starting fentanyl. - Plan for palliative radiation to the left adrenal lesion as an outpatient - Continue fentanyl. Plan to discharge on the same, along with [place] (breakthrough, recently filled) when necessary as outpatient, for breakthrough - Increased bowel regimen for prevention of narcotic induced constipation Current Visit: Yes Status: Acute Code(s): G89.3 - NEOPLASM RELATED PAIN (ACUTE) (CHRONIC) SNOMED Code(s): 92002098664018 Will provide prescription for fentanyl and have her sign narcotic "lets get talking" as well as narcotic induced constipation protocol. Plan status POrt today Re-imaging, significant weakness and deconditioning. PT/OT
[2021-03-06] MEDS: ALPRAZolam 0.25 MG TAB PO PRN (14:56)
--- NOTE | 2021-03-07 00:15 | P.PN ---
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 Also multiple bone metastasis and no evidence of brain metastasis. Also she underwent EGD by GI team and found to have gastric ulcer and biopsy still pending. CT of the brain on admission was negative. And pancreatic MRI shows diffuse hepatic metastasis with 2 small pancreatic lesions about 8 mm suspicious for cancer. Also multiple bone metastasis. She has also multiple pulmonary nodules. Oncology team following the case closely, primary site could be pancreas, pulmonary or GI pending biopsies results. Also patient had a colon radiotherapy. Today she feels much better however her pain is not controlled with oral medication. Oxycodone was started as well as fentanyl. No nausea vomiting or diarrhea or abdominal pain. Chest some constipation. She is eating about 25-75% of her meals. Dexamethasone was stopped, initially was initiated by for couph per staff. Possible discharge in 24 hours 03/02/2021 Patient today feels a little tired. Her pain medication has been switched to oral OxyContin. Oncology team helping with her pain management. Patient has no other new complaints. Hemodynamically stable She remains on Protonix and Carafate Oncology team recommended placing a Port-A-Cath today however surgical team rec ommended outpatient procedure as she already scheduled 1 on 03/06 Patient feels tired today and she wants to go home tomorrow Possible discharge in 24 hours to 48 hours if she keeps improving 03/03/2021 Patient in the morning was feeling better and she was agreeable to go home, she went for radiotherapy after that she felt extremely weak that she felt she cannot go home, she needed 2 people to help her up, her blood pressure was on the low side and slightly tachycardic, no recent echocardiogram, echocardiogram from 2018 showing normal ejection fraction around 55%. Creatinine normal 0.4 last time checked. We will start the patient on normal saline at 75 mL/h, check chest x-ray, urinalysis and labs in the morning. Stomach biopsy and distal esophagus biopsy, positive for invasive cancer (poorly differentiated invasive carcinoma ). Patient informed and she is aware from GI team already. I discussed the case with the director social and oncology/hematology team, patient is GOING to be discharged soon because of her clinical condition and severe weakness and lack of insurance as well. Of note is the patient would go to rehab that may delay her chemo or r adiotherapy. 03/04/2021 Patient awake, but she is in mild distress due to pain in her right hip area and pelvic area, she is a known case of bone metastasis secondary to her stomach and lower esophagus cancer. There is concern for pathological fractures therefore hip and pelvis x-ray is ordered Also patient blood pressure is on the low side however this is stable for more than 24 hours. Patient continued with normal saline at 75 mL/h Because of elevated pro-calcitonin 0.33 there was a concern for infection, there was possible low-grade fever per staff therefore we consulted infectious disease team. labs, urinalysis and chest x-ray were unremarkable to show signs of infection. 03/05/2021 Patient still complaining of from pain in both hip areas especially in the right hip, pain subsided with rest and increased with embedded movements. Little nausea controlled with Zofran. As per staff last night patient had low-grade fever. Patient also with mildly elevated pro-calcitonin and hypertension. Infectious disease consult is appreciated, patient no need for antibiotic. Prednisone then can be given with chest risk of infection. Pelvic x-ray showing high-risk metastatic lesions, repeat x-ray: no pathological fracture. Patient is still complaining of from severe pain , prednisone is given to help in pain, increase appetite, increased blood pressure She still on normal saline at 75 mL/h, blood pressure is still low normal bouts stable around 90s to 100. Patient sitting most of the time and date. Sodium is trending down to 129 down to 126. Fluid restrictions is ordered, workup showed increased urine osmolality and low serum osmolality. 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 Patient also with multiple small cutaneous nodules like of the right thigh, shoulder. Suspicious for cutaneous metastatic disease as well Patient sodium is trending downward 29 down to 126. She remains on Protonix and Carafate. Pain management per hematology/oncology team. Currently she is on fentanyl at [place]. NB. Encounter including examination done in the presence of the bedside nurse 03/06/2021 Patient is more strong today with some improvement compared to the last couple days. Her general pain is improved after yesterday dose of prednisone and I would however she still complaining of from right hip area pain especially with movement although she looks less distressed compared to the last couple days. Her blood pressure is improving and normal saline decreased 100 mL per hour as well as sodium went up from 126 up to 132, nephrology input is appreciated. Patient has a combination of hypovolemic hyponatremia and SIDH. She benefit from IV Dilaudid and fluid restriction together. Keep monitoring sodium. Patient also had her port placed in the right upper chest by surgery team No worsening epigastric pain. Oncology team on the case. Objective - Vital Signs Vital signs: Vital Signs Temp 98.2 F 03/06/21 19:40 Pulse 96 03/06/21 19:40 Resp 16 03/06/21 20:00 BP 106/42 03/06/21 19:40 Pulse Ox 98 03/06/21 19:40 Intake & Output 03/06/21 03/06/21 03/07/21 06:59 18:59 06:59 Intake Total 900 1240 Output Total 2 Balance 900 1238 Intake: IV 1004 Intake, IV Titration 900 Amount Sodium Chloride 0.9% 1, 900 000 ml @ 75 mls/hr IV . [id number] [facility] Rx#:[id number] Oral 236 Output: Estimated Blood Loss 2 Other: Voiding Method Toilet Bedside Commode Bedside Commode # Voids 2 2 - Exam GENERAL: The patient is alert and oriented x3, not in any acute distress. Well developed, well nourished. HEENT: Pupils are round and equally reacting to light. EOMI. No scleral icterus. No conjunctival pallor. Normocephalic, atraumatic. No pharyngeal erythema. No thyromegaly. CARDIOVASCULAR: S1 and S2 present. No murmurs, rubs, or gallops. PULMONARY: Chest is clear to auscultation, no wheezing or crackles. ABDOMEN: Soft, nontender, nondistended, normoactive bowel sounds. No palpable organomegaly. MUSCULOSKELETAL: No joint swelling or deformity. EXTREMITIES: No cyanosis, clubbing, or pedal edema. NEUROLOGICAL: Gross neurological examination did not reveal any focal deficits. SKIN: No rashes. no petechiae. - Labs CBC & Chem 7: 03/06/21 06:54 03/06/21 06:54 Labs: Abnormal Lab Results - Last 24 Hours (Table) 03/06/21 03/06/21 Range/Units 06:54 06:54 RBC 2.55 L (3.80-5.40) m/uL Hgb 8.8 L (11.4-16.0) gm/dL Hct 26.4 L (34.0-46.0) % MCV 103.5 H (80.0-100.0) fL Lymphocytes # 0.1 L (1.0-4.8) k/uL Sodium 132 L (137-145) mmol/L BUN 5 L (7-17) mg/dL Glucose 154 H (74-99) mg/dL Alkaline Phosphatase 209 H (38-126) U/L Total Protein 6.2 L (6.3-8.2) g/dL Albumin 3.0 L (3.5-5.0) g/dL Microbiology - Last 24 Hours (Table) 03/04/21 12:20 Blood Culture - Preliminary Blood No Growth after 48 hours Assessment and Plan Assessment: 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 Patient has been followed closely by Dr. Preciado team. And radiation oncology as well as GI team. Consult infectious disease team to rule out sepsis and in view of I appropriatecalcitonin Continue with Protonix and Carafate Continue with pain management as per oncology team, Patient does not want to take Tylenol for her metastatic liver disease. Other opioids and pain medica tions are risky for worsening hypotension Port-A-Cath placement as per surgery team Labs and medication were reviewed.. Continue same treatment. Continue with symptomatic treatment. Resume home medication. Monitor lytes and vitals. DVT and GI prophylaxis. Further recommendations as per clinical course of the patient DVT prophylaxis: Subcutaneous heparin GI Prophylaxis: Ppi Prognosis is guarded Prognosis is extremely poor with for this poorly differentiated invasive cancer with multiple metastasis including the liver, bone and skin and adrenal gland. If This patient condition worsens she might be more appropriate for palliative care. And CODE STATUS to be discussed with patient and family
[2021-03-07] MEDS: SODIUM CHLORIDE 0.9% 1,000 ML IV SCH (00:29)
[2021-03-07 07:45] LABS: African American GFR (CKD) >90 (>60 ml/min/1.73 sqM); Anion Gap 1 mmol/L; Blood Urea Nitrogen 9 mg/dL (7-17); Calcium 9.7 mg/dL (8.4-10.2); Carbon Dioxide 32 mmol/L (22-30); Chloride 103 mmol/L (98-107); Glucose 113 mg/dL (74-99); Non-African American GFR(CKD) >90 (>60 ml/min/1.73 sqM); Potassium 4.2 mmol/L (3.5-5.1); Sodium 136 mmol/L (137-145)
[2021-03-07] MEDS: DORZOLAMIDE HCL 2% DROPS 10 ML BTL BOTH EYES SCH (08:04)
[2021-03-07] MEDS: HEPARIN SODIUM,PORCINE/PF 5,000 UNIT/0.5 ML SYRINGE SQ SCH (08:04)
[2021-03-07] MEDS: DOCUSATE 100 MG CAP PO SCH (08:05)
[2021-03-07] MEDS: PANTOPRAZOLE 40 MG TABLET PO SCH (08:05)
[2021-03-07] MEDS: SUCRALFATE 1 GM TAB PO SCH ×3 (08:06→17:23)
[2021-03-07 08:53] VITALS: RESP 18
--- NOTE | 2021-03-07 11:10 | P.PN ---
Subjective Patient is seen in follow-up for hyponatremia. Sodium level 132today. Maintained on normal saline. Oral intake is good. No vomiting or diarrhea. Vital signs are stable. General: The patient appeared well nourished and normally developed. HEENT: Head exam is unremarkable. Neck is without jugular venous distension. LUNGS: Lungs are clear to auscultation and percussion. Breath sounds decreased. HEART: Rate and Rhythm are regular. ABDOMEN: Soft, no distention. EXTREMITITES: No edema. Objective - Vital Signs Vital signs: Vital Signs Temp 98.5 F 03/07/21 08:15 Pulse 98 03/07/21 08:15 Resp 18 03/07/21 08:15 BP 98/62 03/07/21 08:15 Pulse Ox 100 03/07/21 08:15 Intake & Output 03/06/21 03/07/21 03/07/21 18:59 06:59 18:59 Intake Total 1240 118 Output Total 2 Balance 1238 118 Weight 63.503 kg Intake: IV 1004 Oral 236 118 Output: Estimated Blood Loss 2 Other: Voiding Method Bedside Commode Bedside Commode # Voids 2 1 - Labs CBC & Chem 7: 03/06/21 06:54 03/07/21 07:15 Labs: Abnormal Lab Results - Last 24 Hours (Table) 03/07/21 Range/Units 07:15 Sodium 136 L (137-145) mmol/L Carbon Dioxide 32 H (22-30) mmol/L Glucose 113 H (74-99) mg/dL Microbiology - Last 24 Hours (Table) 03/04/21 12:20 Blood Culture - Preliminary Blood No Growth after 48 hours Assessment and Plan Plan: Assessment: 1. Hypovolemic hyponatremia improving with IV hydration. 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 Urine osmolality 362 and urine sodium 146. Sodium level 136 this morning. 2. Invasive stomach and esophagus carcinoma with metastatic disease. 3. Nausea and vomiting. Resolved. Plan: Hep-Lock IV fluids. Encouraged oral intake. Advised to maintain 40-45 oz fluid restriction per day upon discharge. Follow-up outpatient in 1-2 weeks.
[2021-03-07] MEDS: ONDANSETRON 4 MG TAB PO PRN (12:33)
--- NOTE | 2021-03-07 13:08 | P.PN ---
Subjective Progress Note Date: 03/07/21 CHIEF COMPLAINT: Intractable nausea and vomiting after radiation treatment HISTORY OF PRESENT ILLNESS: This is a 55-year-old female with a known history of metastatic adenocarcinoma with an unknown known primary site. She was diagnosed in the beginning of December 2020. She's been undergoing radiation treatments. Patient is status post Port-A-Cath placement. She denies any significant pain at the site. Afebrile. Bone scan pending. PHYSICAL EXAM: VITAL SIGNS: Reviewed. GENERAL: Well-developed in no acute distress. HEENT: No sclera icterus. Extraocular movements grossly intact. Moist buccal m [place]. Head is atraumatic, normocephalic. ABDOMEN: Soft. Nondistended. Nontender. NEUROLOGIC: Alert and oriented. Cranial nerves II through XII grossly intact. Skin: Port-A-Cath site is clean dry and intact ASSESSMENT: 1. Metastatic adenocarcinoma status post Port-A-Cath placement PLAN: -Patient is stable from surgical standpoint for discharge when cleared by medical service Physician [employer] note has been reviewed by physician. Signing provider agrees with the documented findings, assessment, and plan of care. Objective - Vital Signs Vital signs: Vital Signs Temp 98.5 F 03/07/21 08:15 Pulse 98 03/07/21 08:15 Resp 18 03/07/21 08:15 BP 98/62 03/07/21 08:15 Pulse Ox 100 03/07/21 08:15 Intake & Output 03/06/21 03/07/21 03/07/21 18:59 06:59 18:59 Intake Total 1240 118 Output Total 2 Balance 1238 118 Weight 63.503 kg Intake: IV 1004 Oral 236 118 Output: Estimated Blood Loss 2 Other: Voiding Method Bedside Commode Bedside Commode # Voids 2 1 - Labs CBC & Chem 7: 03/06/21 06:54 03/07/21 07:15 Labs: Abnormal Lab Results - Last 24 Hours (Table) 03/07/21 Range/Units 07:15 Sodium 136 L (137-145) mmol/L Carbon Dioxide 32 H (22-30) mmol/L Glucose 113 H (74-99) mg/dL Microbiology - Last 24 Hours (Table) 03/04/21 12:20 Blood Culture - Preliminary Blood No Growth after 48 hours
--- NOTE | 2021-03-07 13:57 | P.PN ---
Subjective Progress Note Date: 03/07/21 Principal diagnosis: Metastatic Cancer Review of overall nutritional and endocrine labs: Cortisol 2, radiation therapy and/or tumor involvement of adrenal gland resulting in adrenal insufficiency possibly increasing overall weakness, hypotension will begin hydrocortisone 10mg po BID (can follow up with endocrinology as outpatient), B12 and Vitamin D deficiency noted on last admissions - therefore supplementation for both has been ordered. Macrocytic anemia worsening, recheck cbc today and anemia work-up Objective - Vital Signs Vital signs: Vital Signs Temp 98.5 F 03/07/21 08:15 Pulse 98 03/07/21 08:15 Resp 18 03/07/21 08:15 BP 98/62 03/07/21 08:15 Pulse Ox 100 03/07/21 08:15 Intake & Output 03/06/21 03/07/21 03/07/21 18:59 06:59 18:59 Intake Total 1240 118 Output Total 2 Balance 1238 118 Weight 63.503 kg Intake: IV 1004 Oral 236 118 Output: Estimated Blood Loss 2 Other: Voiding Method Bedside Commode Bedside Commode # Voids 2 1 - Exam - Constitutional General appearance: Present: cooperative, no acute distress - EENT Eyes: Present: normal appearance ENT: Present: normal oropharynx - Neck Neck: Present: normal ROM - Respiratory Respiratory: bilateral: CTA - Cardiovascular Rhythm: regular - Gastrointestinal General gastrointestinal: Present: normal bowel sounds - Integumentary Integumentary: Present: normal - Neurologic Neurologic: Present: CNII-XII intact - Psychiatric Psychiatric: Present: A&O x's 3, appropriate affect - Labs CBC & Chem 7: 03/06/21 06:54 03/07/21 07:15 Labs: Abnormal Lab Results - Last 24 Hours (Table) 03/07/21 Range/Units 07:15 Sodium 136 L (137-145) mmol/L Carbon Dioxide 32 H (22-30) mmol/L Glucose 113 H (74-99) mg/dL Microbiology - Last 24 Hours (Table) 03/04/21 12:20 Blood Culture - Preliminary Blood No Growth after 48 hours Assessment and Plan Plan: Assessment and Plan Carcinoma of unknown primary - Her tumor marker showed markedly elevated CA 19-9. - MRCP did not show any abnormality in the bili tract. However it did show at least 2 solid lesions in the pancreas which were 8 mm. Therefore pancreatic primary remains in the differential. - In addition given the CT chest findings, lung primary is also on other main differential. - The patient is status post EGD. This showed a 1 cm cratered ulcer in the stomach which was biopsied. If the biopsy is negative, then the upper GI can also be ruled out. - We will also send her biopsy sample for cancer type ID - With her continued pain and sites changing, and inability to discharge related to worsening weakness will further image bone scan. Current Visit: Yes Status: Acute Code(s): C80.1 - MALIGNANT (PRIMARY) NEOPLASM, UNSPECIFIED SNOMED Code(s): 634345927 Vomiting -Resolved Current Visit: Yes Status: Acute Code(s): R11.10 - VOMITING, UNSPECIFIED SNOMED Code(s): 036706269 Neoplasm related pain The patient also reports marked improvement, since starting fentanyl. - Plan for palliative radiation to the left adrenal lesion as an outpatient - Continue fentanyl. Plan to discharge on the same, along with [place] (breakthrough, recently filled) when necessary as outpatient, for breakthrough - Increased bowel regimen for prevention of narcotic induced constipation Will provide prescription for fentanyl and have her sign narcotic "lets get talking" as well as narcotic induced constipation protocol. PLan: - Await Bone Scan - Last admission Vitamin D severely low less than 10, will recheck and supp - Anemia progressing, cortisol low 2, may benefit from hydrocortisone and further anemia work-up - Continue to work with therapy to maintain and build strength, improving performance
--- NOTE | 2021-03-07 14:21 | NM ---
EXAMINATION TYPE: NM bone scan whole body DATE OF EXAM: 03/07/2021 COMPARISON: CT 02/23/2021 HISTORY: Metastatic cancer, back and hip pain Delayed whole-body scanning was performed following the injection of 21.5 mCi Tc 99m MDP. Images acq uired 3 hours post injection. Delayed whole-body scanning was performed with spot images of the skele ton. FINDINGS: Focal defect at the superior aspect of the left ilium corresponds to a lytic lesion seen on CT. There are foci of uptake involving the thoracic spine, L3 uptake is consistent with patient's ly tic lesion, fracture seen on CT. Uptake along the shaft of the distal right femur, mid diaphyseal lef t femur is noted. There is some scattered foci within the thoracic spine consistent with patient's ly tic lesions. Soft tissue uptake is normal. Anterior second rib on the right shows some focal abnormal uptake. There is uptake within the left foot, left knee, focus of activity is present. IMPRESSION: Metastatic disease.
[2021-03-07 14:28] VITALS: BP 101/67; PULSE 96; TEMP 98.3
[2021-03-07] MEDS ORDERED: CYANOCOBALAMIN 1,000 MCG/ML 1 ML VIAL IM ONE (14:30)
[2021-03-07] MEDS ORDERED: ERGOCALCIFEROL 1,250 MCG (50,000 IU) CAPSULE PO SCH (14:30)
[2021-03-07 14:48] LABS: Basophils % (A) 0 %; Eosinophils % (A) 1 %; HCT 23.7 % (34.0-46.0); Hypochromasia Slight; Lymphocytes # (A) 0.4 k/uL (1.0-4.8); Lymphocytes % (A) 6 %; MCH 34.1 pg (25.0-35.0); MCHC 33.7 g/dL (31.0-37.0); MCV 101.2 fL (80.0-100.0); Macrocytosis Slight; Mean Platelet Volume 8.8; Monocytes # (A) 0.5 k/uL (0-1.0); Monocytes % (A) 8 %; Neutrophils # (A) 5.5 k/uL (1.3-7.7); Neutrophils % (A) 84 %; Platelet Count 230 k/uL (150-450); Poikilocytosis Slight; RBC 2.34 m/uL (3.80-5.40); RDW 15.7 % (11.5-15.5); WBC 6.6 k/uL (3.8-10.6)
[2021-03-07] MEDS ORDERED: ZOLEDRONIC ACID 4 MG in SODIUM CHLORIDE 0.9% 100 ML IV ONE (16:00)
[2021-03-07] MEDS: MAGNESIUM HYDROXIDE 2,400 MG/10 ML CUP PO PRN (17:24)
[2021-03-07] MEDS ORDERED: CALCIUM CARB-VIT D 500 MG-5 MCG TAB PO SCH (17:30)
[2021-03-07] MEDS ORDERED: HYDROCORTISONE 10 MG TAB PO SCH (21:00)
--- NOTE | 2021-03-07 23:01 | P.DS ---
Providers Date of admission: 02/25/21 11:31 Attending physician: Supriya Franklin Consults: 02/23/21 15:04 Consult Physician Urgent Consulting Provider: Matt Preciado Consult Reason/Comments: metastatic adenocarcinoma Do you want consulting provider notified?: Yes 02/24/21 10:38 Consult Physician Stat Consulting Provider: Sloan Brown Consult Reason/Comments: to determine if pt should continue radiation tx since she is admitted Do you want consulting provider notified?: Already Contacted 03/02/21 10:21 Consult Physician Routine Consulting Provider: Crow Wild Consult Reason/Comments: port placement Do you want consulting provider notified?: Yes 03/04/21 19:47 Consult Physician Urgent Consulting Provider: Imtiaz Brown Consult Reason/Comments: possible sepsis Do you want consulting provider notified?: Yes 03/05/21 22:40 Consult Physician Urgent Consulting Provider: Diane Bang Consult Reason/Comments: r/u SIADH , HYPONATREMIA Do you want consulting provider notified?: Yes Primary care physician: Monae Mitchell [facility] Course: Diagnoses: 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 Secondary to metastatic disease. Chest x-ray no evidence of pathological fracture History of seizure disorder, not on antiseizure medication Right kidney stone lack of medical insurance Hospital course: This is a pleasant 55 years old female with multiple medical problems, she is in the hospital for carcinoma of unknown primary site with diffuse hepatic metastases and increased tumor markers CA 19-9. Also multiple bone metastasis and no evidence of bone metastasis. 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 pt is with multiple bone metastasis, she has also multiple pulmonary nodules suspicious to be metastatic. Metastasis to the adrenal nodules, patient has been evaluated by oncology and radiation oncology, with radiotherapy to the adrenal gland, followed by hypotension and today cortisol level came back low at 2 and patient is a started on Cortef 10 mg twice daily. Patient's symptoms improved significantly with steroids Port-A-Cath was placed in the right upper chest on 03/02 Patient hyponatremia improved with IV fluids and fluid restriction. Patient had high urine osmolality and sodium level Patient be discharged on Protonix and Carafate given her gastric ulcer and to decrease the risk of steroids. pain management is deferred to oncology team was started the patient on Oxycodone and fentanyl patient did not want to go to rehab, chocolate to spend time with her family stating that shows good support, many family members some of them are nurses. Also patient lack of medical insurance and to decrease her expenses Patient was cleared for discharge by all consultants including nephrology, oncology and radiation oncology and surgery team Problems and management plan were discussed with the patient and he verbalized understanding and acceptance Patient was found stable and can be discharged home in guarded prognosis however he needs follow-up as an outpatient. Patient was instructed to follow up with PCP within one week and patient agrees Patient has instructed to follow up with Dr. Luna and appointment made for her on 03/09 and she agrees and with Dr. Joseph underwent week, also consumer loan manager Dr. Hameed for her osteoporosis management and anginal insufficiency physical exam Gen: patient is a AAOx3, no distress CVS: S1-S2, RRR, no murmur Lungs: B/L CTA, no wheezing Abdomen: soft, no distention, no tenderness, positive bowel sounds Extremity: no leg edema or induration Time spent more than 35 minutes Patient Condition at Discharge: Stable Plan - Discharge Summary Discharge Rx Participant: No New Discharge Prescriptions: New Magnesium Hydroxide [Milk of Magnesia Concentrate] 1,200 mg PO QID PRN #60 ml PRN Reason: Constipation Pantoprazole [Protonix] 40 mg PO BID #60 tablet. Sennosides-Docusate Sodium [Senokot-S] 2 each PO HS PRN #60 tab PRN Reason: Constipation Folic Acid 1 mg PO DAILY #30 tab Cyanocobalamin [Vitamin B-12] 1,000 mcg PO DAILY #30 tab Sucralfate [Carafate] 1 gm PO ACHS #120 tab Docusate [Colace] 100 mg PO BID PRN #60 cap PRN Reason: Constipation fentaNYL 50MCG/HR PATCH [Duragesic 50MCG/HR] 1 patch TRANSDERM Q72H #10 patch oxyCODONE HCL [OxyIR] 10 mg PO Q4H PRN #90 tab PRN Reason: Pain Hydrocortisone [Cortef] 10 mg PO BID #60 tab Continue Dorzolamide 2% [Trusopt 2%] 1 drop BOTH EYES BID Discontinued HYDROcodone/APAP 10-325MG [[place] 10-325] 1 - 2 tab PO Q6H PRN PRN Reason: Pain Ondansetron [Zofran ODT] 4 mg PO Q6H PRN #20 tab PRN Reason: Nausea Discharge Medication List Dorzolamide 2% [Trusopt 2%] 1 drop BOTH EYES BID 01/20/21 [History] Docusate [Colace] 100 mg PO BID PRN #60 cap 03/01/21 [Rx] Magnesium Hydroxide [Milk of Magnesia Concentrate] 1,200 mg PO QID PRN #60 ml 03/01/21 [Rx] Pantoprazole [Protonix] 40 mg PO BID #60 tablet. 03/01/21 [Rx] Sennosides-Docusate Sodium [Senokot-S] 2 each PO HS PRN #60 tab 03/01/21 [Rx] Sucralfate [Carafate] 1 gm PO ACHS #120 tab 03/01/21 [Rx] fentaNYL 50MCG/HR PATCH [Duragesic 50MCG/HR] 1 patch TRANSDERM Q72H #10 patch 03/03/21 [Rx] oxyCODONE HCL [OxyIR] 10 mg PO Q4H PRN #90 tab 03/03/21 [Rx] Cyanocobalamin [Vitamin B-12] 1,000 mcg PO DAILY #30 tab 03/07/21 [Rx] Folic Acid 1 mg PO DAILY #30 tab 03/07/21 [Rx] Hydrocortisone [Cortef] 10 mg PO BID #60 tab 03/07/21 [Rx] Follow up Appointment(s)/Referral(s): Matt Preciado MD [STAFF PHYSICIAN] - 03/09/21 Stephen Licona MD [Primary Care Provider] - 1-2 days Heri Hameed MD [REFERRING] - 1 Week (consumer loan manager ) [facility], [NON-STAFF] - Crow Wild MD [STAFF PHYSICIAN] - 03/06/21 Activity/Diet/Wound Care/Special Instructions: Continue diet as tolerated. fluids are encouraged. Continue medications as they are prescribed to you. Medications from home have been delivered to her. Home eye drops have been returned to you. Dr Preciado's office will be calling you with an appt day and time. low carbohydrate diet while on steroids Activity is restricted to you see your doctor
[2021-03-08 00:11] LABS: % Iron Saturation 19.82 (12.00-45.00); Iron 43 ug/dL (50-170); Total Iron Binding Capacity 217 ug/dL (228-460)
[2021-03-08 00:21] LABS: Folate, Serum 3.8 ng/mL
[2021-03-08 01:04] LABS: Ferritin 2441.8 ng/mL (10.0-291.0); Vitamin B12 >4000.0 pg/mL (211-911)
[2021-03-08] MEDS ORDERED: FOLIC ACID 1 MG TAB PO SCH (09:00)
[2021-03-09] MEDS ORDERED: CYANOCOBALAMIN 500 MCG TAB PO SCH (09:00)
== END 2021-03-07 18:24 | disposition home or self-care (01) | DRG 375 ==
LOC: EC 12:10 → 5NMEDONC 15:03 → 6PED 15:23 → OBSVTOIN 02-25 11:31
PROVIDERS: ADMIT Hospitalist; ATTEND Hospitalist
PROC: 0DB78ZX Excision of Stomach, Pylorus, Via Natural or Artificial Opening Endoscopic, Diagnostic (ICD-10-PCS; 2021-02-27)
PROC: 0DB98ZX Excision of Duodenum, Via Natural or Artificial Opening Endoscopic, Diagnostic (ICD-10-PCS; 2021-02-27)
PROC: 0DB38ZX Excision of Lower Esophagus, Via Natural or Artificial Opening Endoscopic, Diagnostic (ICD-10-PCS; 2021-02-27)
PROC: 0DB68ZX Excision of Stomach, Via Natural or Artificial Opening Endoscopic, Diagnostic (ICD-10-PCS; 2021-02-27)
PROC: 02HV33Z Insertion of Infusion Device into Superior Vena Cava, Percutaneous Approach (ICD-10-PCS; principal; 2021-03-06 09:40)
PROC: 0JH63XZ Insertion of Tunneled Vascular Access Device into Chest Subcutaneous Tissue and Fascia, Percutaneous Approach (ICD-10-PCS; principal; 2021-03-06 09:40)
DX: C16.9 Malignant neoplasm of stomach, unspecified (principal); C15.5 Malignant neoplasm of lower third of esophagus; C78.7 Secondary malignant neoplasm of liver and intrahepatic bile duct; C79.51 Secondary malignant neoplasm of bone; C79.72 Secondary malignant neoplasm of left adrenal gland; E22.2 Syndrome of inappropriate secretion of antidiuretic hormone; E27.40 Unspecified adrenocortical insufficiency; D63.8 Anemia in other chronic diseases classified elsewhere; D72.810 Lymphocytopenia; Z20.822 Contact with and (suspected) exposure to COVID-19; T66.XXXA Radiation sickness, unspecified, initial encounter; E83.52 Hypercalcemia; E86.0 Dehydration; E86.1 Hypovolemia; E87.5 Hyperkalemia; E87.6 Hypokalemia; F41.9 Anxiety disorder, unspecified; G40.909 Epilepsy, unspecified, not intractable, without status epilepticus; G43.909 Migraine, unspecified, not intractable, without status migrainosus; G47.00 Insomnia, unspecified; G89.3 Neoplasm related pain (acute) (chronic); H91.92 Unspecified hearing loss, left ear; I10 Essential (primary) hypertension; J44.9 Chronic obstructive pulmonary disease, unspecified; K20.90 Esophagitis, unspecified without bleeding; K25.9 Gastric ulcer, unspecified as acute or chronic, without hemorrhage or perforation; K59.03 Drug induced constipation; T40.605A Adverse effect of unspecified narcotics, initial encounter; M19.90 Unspecified osteoarthritis, unspecified site; M81.0 Age-related osteoporosis without current pathological fracture; N83.209 Unspecified ovarian cyst, unspecified side; S38.1XXS Crushing injury of abdomen, lower back, and pelvis, sequela; V89.2XXS Person injured in unspecified motor-vehicle accident, traffic, sequela; M54.9 Dorsalgia, unspecified; Z79.899 Other long term (current) drug therapy; Z82.49 Family history of ischemic heart disease and other diseases of the circulatory system; Z85.3 Personal history of malignant neoplasm of breast; Z85.41 Personal history of malignant neoplasm of cervix uteri; Z87.11 Personal history of peptic ulcer disease; Z98.42 Cataract extraction status, left eye; Z98.41 Cataract extraction status, right eye; R63.4 Abnormal weight loss; Z68.22 Body mass index [BMI] 22.0-22.9, adult; Z86.19 Personal history of other infectious and parasitic diseases; R91.8 Other nonspecific abnormal finding of lung field; E16.2 Hypoglycemia, unspecified; Z79.891 Long term (current) use of opiate analgesic; Z90.710 Acquired absence of both cervix and uterus; Z87.891 Personal history of nicotine dependence; Z90.49 Acquired absence of other specified parts of digestive tract
CPT/HCPCS: 36415; 43239; 70450; 71045; 73521; 74018; 74176; 74183; 76856; 77290; 77293; 77300; 77301; 77334; 77338; 77370; 77373; 77412; 77470; 78306; 80048; 80053; 80076; 81001; 82306; 82533; 82607; 82728; 82746; 83540; 83550; 83605; 83690; 83735; 83921; 83930; 83935; 84132; 84145; 84300; 84439; 84443; 85025; 86301; 86304; 87040; 87635; 88305; 94760; 96361; 96374; 99285